=== PATIENT | female | born 1945 | race Caucasian/White ===

== ENCOUNTER 2020-08-11 09:02 | Day surgery (SDC) | payer OTHER ==
--- NOTE | 2020-08-05 11:55 | RAD REPORT ---
EXAM DESCRIPTION: RAD - Chest Pa And Lat (2 Views) - 08/05/2020 10:05 am CLINICAL HISTORY: pre op, fibrosis COMPARISON: January 2016 TECHNIQUE: Frontal and lateral views of the chest were obtained. FINDINGS: The lungs are mildly fibrotic but clear of a peripheral mass or consolidation. No acute fa ilure or volume overload. Heart size is normal and central vasculature is within normal limits. No pleural effusion or pneumothorax seen. No acute bone findings seen. There is old trauma deformity t o the right side of the chest. Patient has significantly accentuated lower thoracic kyphosis with adv anced lower thoracic degenerative change. No aortic abnormality. IMPRESSION: Mild chronic interstitial lung disease similar to comparison. Bold right ribcage posttraumatic deformity without right hemithorax volume loss. Patient has accentua oscar lower thoracic degenerative change.
--- NOTE | 2020-08-05 12:40 | EKG ---
Test Date: 2020-08-05 Test Time: 09:23:03 Bundle Wrapper: ROYCE MEASUREMENT RESULTS: Intervals: Rate: 67 PA: 216 QRSD: 78 QT: 406 QTc: 429 [place]: P: 65 PA: 216 QRS: 80 T: 75 INTERPRETIVE STATEMENTS: Sinus rhythm with 1st degree AV block Low voltage QRS Borderline ECG Compared to ECG 01/14/2016 06:33:05 Low QRS voltage now present Electronically Signed On 08-05-20 12:39:40 CLINICAL PROJECT ASSISTANT by Yusuf Fernandez
--- OUTSIDE RECORDS SUMMARY | 2020-08-11 09:34 | XMS REPORT | Continuity of Care Document ---
:1945 Author Organization [employer] [facility] Care Team Providers Name Role Phone [employer] [facility] Unavailable Un available Problems Problem Status Onset Classification Date Comments [facility] e Date Reported 781.99 - Active 12/11/19 [facility] NERVE/MUSCULSKE [place] ALLERGIC RHINITIS Active 05/26/20 Condition 05/26/2014 H [facility] 14 Group Allergic rhinitis Active 05/26/20 Problem 12/21/2014 1Data H [facility] (disorder) 14 migrated from [facility] [employer] on 12/09/14. COPD Active 05/17/20 Condition 05/26/2014 Medica l 14 Group Chronic Active 05/17/20 Problem 12/21/2014 3Data [facility] obstructive lung 14 migrated from [place] disease [employer] (disorder) on 12/09/14. 786.09 - Active 03/17/20 [facility] RESPIRATORY ABN 14 [place] HYPERLIPIDEMIA Active 03/17/20 Condition 05/26/2014 M edical 14 Group DYSPNEA ON Active 03/17/20 Condition 05/26/2014 Medic al EXERTION 14 Group PULMONARY NODULE Active 03/17/20 Condition 05/26/2014 Medical 14 Group Disease of lung Active 03/17/20 Problem 12/21/2014 4Data [facility] (disorder) 14 migrated from [facility] [employer] on 12/09/14. Dyspnea on Active 03/17/20 Problem 12/21/2014 5Data [facility] exertion 14 migrated from [place] [employer] on 12/09/14. Hyperlipidemia Active 03/17/20 Problem 12/21/2014 6Data O PID (disorder) 14 migrated from [facility] [employer] on 12/09/14. HYPERTENSION Active 02/14/20 Condition 05/26/2014 Med ical 14 Group ASTHMA Active 02/14/20 Condition 05/26/2014 Medica l 14 Group Asthma (disorder) Active 02/14/20 Problem 12/21/2014 2Data M H OPID 14 migrated from [facility] [employer] [facility] on 12/09/14. Hypertensive Active 02/14/20 Problem 12/21/2014 7Data MH OPI D disorder, 14 migrated from [facility] systemic arterial [employer] [facility] (disorder) on 12/09/14. SCIFICA Active 07/05/[address] SCIATICA Active [facility] Medications Medication Details Route Status Patient Ordering Order Source Instructions Provider Date FLUTICASONE Two sprays Active PROPIONATE 50 each nostril 014 Medic al MCG/ACT SUSP daily Group SYMBICORT 2 puffs twice Active 160-4.5 MCG/ACT daily 014 Medical AERO Group PRAVASTATIN 1 tablet Active SODIUM 20 MG nightly for 014 Medical TABS cholesterol Group SULFAMETHOXAZOLE 1 tablet twice Active -TMP DS 800-160 daily 014 Medical MG TABS Group TRIAMCINOLONE Apply to Active ACETONIDE 0.1 % affected areas 014 M edical CREA twice a day Group ADULT ASPIRIN 1 daily Active LOW STRENGTH 81 014 Medical MG TBDP Group LISINOPRIL-HYDRO 1 tablet daily Active CHLOROTHIAZIDE 014 Medical 20-12.5 MG TABS Group VENTOLIN HFA 108 Inhale 2 puffs Active MH (90 BASE) every 4 hours 014 Medical MCG/ACT AERS as needed for Group shortness of breath, cough or wheezing SULFAMETHOXAZOLE 1 tablet twice No -TMP DS 800-160 daily Longer 014 Medical MG TABS Active Group LISINOPRIL-HYDRO 1 tablet daily Active CHLOROTHIAZIDE 014 Medical 20-12.5 MG TABS Group PROVENTIL HFA 2 puffs every Active MH 108 (90 BASE) 4-6 hours as 014 Medic al MCG/ACT AERS needed for Group cough, wheezing, shortness of breath SULFAMETHOXAZOLE 1 tablet twice No -TMP DS 800-160 daily Longer 014 Medical MG TABS Active Group Allergies, Adverse Reactions, Alerts No Known Medication Allergies Immunizations No Data Provided for This Section Results No Data Provided for This Section Pathology Reports No Data Provided for This Section Diagnostic Reports Report Value Date Source Brain w/wo contrast 12/18/2014 [place] [facility] REASON FOR EXAM: 781.99, 850.9, V17.1. COMPARISON: MRI of the brain 12/18/2014. TECHNIQUE: Unenhanced and en hanced 3-dimensional time of flight MR imaging of the intracranial arterial vasculature was performed. The axial source images were reviewed. FINDINGS: There is mild marisela ent motion. Segmental irregularity of the cavernous segments of the internal carotid arteries is likely due to atherosclerotic changes without a demonstrable hemodynamically significant stenosis, left g reater than right. The caliber of the basilar artery is mildly diffusely increased measuring a maximal diameter of approximately 7 mm compatible with dolichoectasia. The basi lar artery is tortuous. Ther e is no demonstrable hemodynamically significant stenosis, saccular aneurysm or arterial venous malformation. The vertebral arteries are codominant. IMPRESSION: 1. Mild patient motion. 2. Atherosclerotic changes o f the cavernous segments of the internal carotid arteries, left greater than right. 3. Basilar artery dolichoectasia. 4. No demonstrable saccular aneurysm or hemodynamically significant stenosis of the intracranial arterial vasculature. SL: 15 Brain w/wo contrast 12/18/2014 [place] [facility] MRI REASON FOR EXAM: 781.99, 850.9, V17.1. COMPARISON: None. TECHNIQUE: Unenhanced and en hanced axial, coronal and sagittal MR images of the brain were performed. FINDINGS: There is mild marisela ent motion. There is mild generalized cerebral atrophy. There are mild to moderate chronic small vessel ischemic changes in the cerebral white matter. There are mild chronic small vessel ischemic change s in the zoë. There is no demonstrable mass, abnormal enhancement, acute infarction, hemorrhage, extra-axial fluid collection, midline shift or herniation. There is segmental mucosal t hickening of the bilateral ethmoid sinuses. There is a small amount of mucous in the posterior nasopharynx. There is hypertrophy of the right middle and inferior nasal turbin ates. There is leftward subha ation of the nasal septum. There is mild T2 hyperintensity in the right mastoid air cells. There is no demonstrable abn ormality of the orbits, pituitary fossa, internal auditory canals, craniocervical junction or calvarium. Flow is demonstrated in the major arteries and venous sinuses. IMPRESSION: 1. Mild patient motion. 2. There is no acute intracranial abnormality. 3. Mild generalized cerebral atrophy. 4. Chronic small vessel isch emic changes in the cerebral white matter and zoë. 5. Chronic ethmoid sinusitis. 6. Deviated nasal septum. 7. Right mastoiditis. SL: [address] 04/03/2014 [place] REASON FOR EXAM: 518.89, 786.09. COMPARISON: Chest x-ray 03/17/2014. TECHNIQUE: Enhanced axial he lical CT images of the chest were performed. Reformatted coronal and sagittal images were reviewed. FINDINGS: The heart size is upper limits of normal. Coronary artery, mitral annular and aortic calcifications. Tortuous descending thoracic aorta. The caliber of the thoracic aorta is within normal limi ts. Aberrant right subclavia n artery. No pathologic mediastinal or hilar lymphadenopathy. Diffuse fatty infiltration o f the liver. Partial fatty infiltration of the pancreas. Splenic artery calcifications. Small lymph nodes at the level of the main portal vein and pancreatic head the largest measuring 14 x 10 mm. No si gnificant abnormality of the subcutaneous soft tissues. Degenerative changes of the spine. Minimal anterior height loss involving multiple levels of the mid to lower thoracic spine. No demonstrable righ t rib abnormality as questioned on the comparison chest x-ray. There is a 9 x 4 mm noncalci fied bandlike density in the anterolateral aspect of the right middle lobe (image 29 series 3) likely corresponding to the nodular density on the comparison chest x-ray. Ther e is mild subsegmental atele ctasis versus scarring in the inferior lingula with adjacent segmental pleural lipomatosis corresponding to the 3.5 cm pleural-based opacity on the comparison chest x-ray. There is mild subsegmental a telectasis versus scarring in the medial basilar left lower lobe and minimally in the right lower lobe. There are several blebs in the right upper lobe the largest measuring 1 cm. No demonstrable infilt rate, pneumothorax, pleural effusion or endobronchial lesion. IMPRESSION: 1. There is a 9 mm noncalcif ied indeterminate bandlike opacity in the right middle lobe. A follow-up chest CT is suggested in 6 months to demonstrate stability. 2. Mild segmental pleural li pomatosis of the left lateral chest wall at the level of the lingula. 3. Mild subsegmental atelect asis versus scarring in the lingula and left lower lobe and minimally in the right lower lobe. 4. Several small blebs in the right upper lobe. 5. Arterial vascular and coronary artery disease . 6. Aberrant right subclavian artery. 7. Diffuse fatty infiltration of the liver. 8. Small nonspecific periportal and peripancreat ic lymph nodes. 9. Degenerative changes of the spine. SL: 15 Chest 2 views 03/17/2014 [place]ELY[place] REASON FOR EXAM: 786.09. COMPARISON: None. FINDINGS: Two view chest x-r ay. The cardiac silhouette is mildly enlarged. Tortuosity of the descending thoracic aorta. There is a 9 mm nodular density in the lateral right mid lung zone on the PA view. A pulmonary nodule cannot b e excluded. There is minimal nonspecific bandlike opacity associated with the superior margins of the right anterior sixth and seventh ribs on the PA view. There is a 3.5 x 1 cm pleural based opacity in the lateral left lower thorax on the PA view. There is no demonstrable infiltrate, vascular congestion, pneumothorax or pleural effusion. Degenerative changes of the spine. Minimal anterior height loss of several levels o f the lower thoracic spine. IMPRESSION: 1. Mild enlargement of the cardiac silhouette. 2. Subcentimeter nodular den sity in the right mid lung zone. A pulmonary nodule cannot be excluded. 3. Minimal nonspecific bandl zacarias opacity at the level of the right anterior sixth and seventh ribs. 4. Small pleural based opacity in the left lower thorax. 5. Further evaluation of the se findings may be obtained with an enhanced chest CT. SL: 15 Consultation Notes No Data Provided for This Section Discharge Summaries No Data Provided for This Section History and Physicals No Data Provided for This Section Vital Signs Vital Sign Value Date Comments Source Height 63 05/26/2014 [facility] Weight 239 05/26/2014 [facility] Temperature Oral (F) 96.817 F 05/26/2014 [facility] Respitory Rate 16 05/26/2014 [facility] Gr oup Systolic (mm Hg) 151 05/26/2014 Medical Group Diastolic (mm Hg) 82 05/26/2014 Medical Group Heart Rate 90 05/26/2014 [facility] p Weight 239 03/17/2014 Medical Gr[facility] p Temperature Oral (F) 96.5 F 03/17/2014 [facility]i ser[facility] Group Respitory Rate 16 03/17/2014 Medical Gr oup Heart Rate 84 03/17/2014 Medical Gr[facility] p Systolic (mm Hg) 159 03/17/2014 Medical Group Diastolic (mm Hg) 90 03/17/2014 Medical Group Weight 240 02/13/2014 Medical Grou p Temperature Oral (F) 97.7 F 02/13/2014 Medi ser[facility] Group Systolic (mm Hg) 196 02/13/2014 Medical Group Diastolic (mm Hg) 112 02/13/2014 Medical Group Heart Rate 87 02/13/2014 Medical Gr[facility] p Height 63 02/13/2014 [facility] Gr[facility] p Encounters Location Location Encounter Encounter Reason Attending ADM DC Stat us Source Details Type Number For Provider Date Date Visit [facility] Outpatient [id number] MARTHA LAMBERT 07/13 A ctive [facility] [id number] [facility] 02/13 02/13 [place] Visit [id number]OP[facility] Lab Report [id number] [facility] 02/14 02/14 [place] [id number] [facility] Medical CLIENT DEVELOPMENT CONSULTANT Group [facility] [place] [facility] Office [id number] [facility] 03/17 03/17 [place] Visit [id number] Medical Medical CLIENT DEVELOPMENT [facility] Group Group [facility] Outpt Diag [id number] [facility] 03/17 03/18 [facility] [place] [facility] Outpt Diag [id number] [place] 04/03 04/04 [facility] [place] [facility] Office [id number] [facility] 05/26 05/26 [place] Visit [id number] Medical Medical CLIENT DEVELOPMENT CONSULT[facility] Group Group [facility] Outpt Diag [id number] [place] 12/18 12/19 M [facility] Outpatient [facility] 2 [place] [facility] [place] Out[facility] [id number] [place] [facility]02 [facility] [place] [facility] [id number] [facility] 01/28 [facility] [place] Procedures Procedure Code Date Perfomer Comments Source smoking/tobacco 14 02/13/2014 no [facility] Medica l cessation, patient Group education and counseling Assessment and Plan No Data Provided for This Section Plan of Care No Data Provided for This Section Social History Social History Date Source No data available for this 12/19/2014 JOCELYNE Jonas and section Family History No Data Provided for This Section Advance Directives No Data Provided for This Section Functional Status No Data Provided for This Section
--- OUTSIDE RECORDS SUMMARY | 2020-08-11 09:34 | XMS REPORT | Clinical Summary ---
:1945 Author Organization [facility] Address [address] [place] [address] Care Team Providers Name Role Phone Victorina Dong MD Primary Care Provider Allergies Active Allergy Reactions Severity Noted Date Comments Amoxicillin GI Intolerance 07/19/2019 Vomiting diar kyle Fentanyl Other (See Comments) 07/19/2019 halluci nations Azithromycin Diarrhea Low 07/23/2019 Medications Medication Sig Dispensed Refills Start Date End Date Status aspirin (ECOTRIN) 81 Take 81 mg by 0 Active MG enteric coated mouth daily. tablet BIOTIN ORAL Take 1 tablet 0 Acti ve by mouth daily. BLACK COHOSH ORAL Take 1 tablet 0 Active by mouth daily. cholecalciferol, Take 1 tablet 0 Active vitamin D3, (VITAMIN by mouth daily. D3 ORAL) LYSINE ORAL Take 1 tablet 0 Acti ve by mouth daily. POTASSIUM ORAL Take 2 tablets 0 Active by mouth 3 (three) times a day. acetaminophen (TYLENOL Take 2 tablets 0 Active ORAL) by mouth 3 (three) times a day. amLODIPine (NORVASC) Take 10 mg by 0 Active 10 mg tablet mouth daily. fluticasone Inhale 1 puff 2 0 Ac tive propion/salmeterol (two) times a (ADVAIR DISKUS INHL) day. ezetimibe (ZETIA) 10 Take 10 mg by 0 Active mg tablet mouth daily. fenofibrate (TRICOR) Take 145 mg by 0 Active 145 MG tablet mouth daily. fluticasone propionate 2 sprays by 0 Active (FLONASE) 50 Each Nare route mcg/actuation nasal daily. spray levocetirizine (XYZAL) Take 5 mg by 0 Active 5 MG tablet mouth every evening. rosuvastatin (CRESTOR) Take 20 mg by 0 Active 20 MG tablet mouth daily. denosumab (PROLIA) 60 Inject 60 mg 0 Active mg/mL syringe syringe under the skin once. ciprofloxacin (CIPRO) Take 1 tablet 14 tablet 0 09/13/2019 500 MG tablet (500 mg total) by mouth 2 (two) times a day for 7 days. Active Problems Not on file Encounters Date Type Specialty Care Team Description 09/13/2019 Anesthesia Event General Surgery Paddy De Leon MD Cheema, Ivelisse, FNP 09/13/2019 Surgery General Surgery Peterson Kaba PLACEMENT SACRAL Cyrus GREENWOOD MD NERVE STEMULATO R FOR INTRASTIM 09/13/2019 Hospital Encounter General Surgery Peterson Kaba III, MD after 08/11/2019 Surgical History Surgery Date Site/Laterality Comments TONSILLECTOMY FRACTURE SURGERY Right forearm HIP ARTHROPLASTY Left NEPHROLITHOTOMY, PERCUTANEOUS 07/23/2019 Posterior Pr ocedure: PERCUTANEOUS NERVE EVALUATION; Issa geon: Peterson Kaba II, MD; Location: [facility]; Service: Urology ; Laterality: Post erior; Medical devices from this surgery are in t he Implants section. INSERTION, NEUROSTIMULATOR, 09/13/2019 N/A Proc edure: PLACEMENT SACRAL SACRAL NERVE STEMULATOR FOR INTRASTIM; Surg johana: Peterson Kaba II, MD; Location: [facility] OR; Service: Urology ; Laterality: N/A; Medical devices from this surgery are in t he Implants section. Medical History Medical History Date Comments Hypertension Asthma COPD (chronic obstructive pulmonary disease) (HCC) PNA (pneumonia) Incontinence Wears glasses Family History Medical History Relation Name Comments Aneurysm Father Aneurysm Mother Diabetes Mother Hypertension Mother Relation Name Status Comments Father Mother Social History Tobacco Use Types Packs/Day Years Used Date Former Smoker 1961 - 1991 Smokeless Tobacco: Never Used Alcohol Use Drinks/Week oz/Week Comments Not Currently Sex Assigned at Date Recorded Not on file Last Filed Vital Signs Vital Sign Reading Time Taken Comments Blood Pressure 159/85 09/13/2019 4:05 PM LACE [facility]ENDER Pulse 66 09/13/2019 4:05 PM LACE MENDER Temperature 36.3 C (97.4 F) 09/13/2019 4:05 PM LACE MENDER Respiratory Rate 20 09/13/2019 4:05 PM LACE MENDER Oxygen Saturation 99% 09/13/2019 4:05 PM LACE MENDER Inhaled Oxygen Concentration - - Weight 103 kg (226 lb) 09/13/2019 3:20 PM LACE MENDER Height 154.9 cm (5' 1") 09/13/2019 3:20 PM LACE MENDER Body Mass Index 42.7 09/13/2019 3:20 PM LACE MENDER Plan of Treatment Health Maintenance Due Date Last Done Comments COVID-19 VACCINE (1 of 2) 1961 BREAST CANCER SCREENING 1995 COLONOSCOPY SCREENING 1995 SHINGLES VACCINES (#1) 1995 INFLUENZA VACCINE 02/08/2020 65+ PNEUMOCOCCAL VACCINE Completed 06/03/2019 Implants Implanted Type Area Talent Agent Device Shelf Model / Identifier Expiration Serial / Date Lot Kit Nurostmltn Lead Tined 4 Elctrd Spaced 3mm 28cm - [id number] Cardiac N/A: [employer] 06/29/2023 [id number] / Implanted: Qty: 1 on 09/13/2019 by Peterson Kaba III, MD at [facility] Pacing Leads Back, NEUROMODULATION / or Other [id number] Electrodes than or Spine Accessories Test Stimulation Lead - [id number] IMPLANT Posterior [employer] 10/15/2020 [id number] / Implanted: Qty: 1 on 07/23/2019 by Peterson Kaba III, MD at [facility] DEVICES : N/A NEUROMODULATION / [id number] Test Stimulation Lead Kit - [id number] IPM IMPLANT N/A: N/A [employer] IC 02/15/2021 [id number] / Implanted: Qty: 1 on 07/23/2019 by Peterson Kaba III, MD at [facility] DEVICES NEUROMODULATION / [id number] Neurostimulator Imp Interstim Ii [id number] .7mm Nrechrgbl - [id number] - [id number] Neurosurgica Left: [employer] [place] - 12/21/2020 [id number] / Implanted: Qty: 1 on 09/13/2019 by Peterson Kaba III, MD at [facility] l Implants Buttocks NEUROLOGICAL [id number] / [id number] Verify External Sacral Neurostimulator Pain Mgmt Posterior [id number] / Implanted: Qty: 1 on 07/23/2019 by Peterson Kaba III, MD at [facility] Implantable : N/A / Devices [id number] Procedures Procedure Name Priority Date/Time Associated Comments Diagnosis OR FL < 1 HOUR Routine 09/13/2019 4:15 Results f or this PM [facility]ACE [facility]ENDER procedure are i n the results section. MN AN ELECTIVE Routine 09/13/2019 2:21 Results f or this ENDOTRACHEAL AIRWAY PM LACE MENDER procedur e are in the results section. POC GLUCOSE Routine 09/13/2019 11:41 Results for this AM [facility]ACE [facility]ENDER procedure are i n the results section. ESTIMATED GFR STAT 09/13/2019 11:40 Results fo r this AM LACE MENDER procedure are i n the results section. BASIC METABOLIC PANEL STAT 09/13/2019 11:40 Re sults for this AM LACE MENDER procedure are i n the results section. HC COMPLETE BLD COUNT STAT 09/13/2019 11:40 Re sults for this W/AUTO DIFF AM LACE [facility]ENDER procedure are i n the results section. ECG 12-LEAD STAT 09/13/2019 11:18 Results for this AM LACE MENDER procedure are i n the results section. after 08/11/2019 Results OR FL < 1 Hour (09/13/2019 4:15 PM LACE MENDER) Specimen Narrative Performed At EXAMINATION: OR FL < 1 HOUR [facility] C-arm fluoroscopy was requested in OR. IMPRESSION: Separate operative report will be issued by the physic luzma performing the procedure. [id number] Procedure Note Hm Interface, Radiology Results Incoming - 09/18/2019 2:39 PM CDT EXAMINATION: OR FL < 1 HOUR C-arm fluoroscopy was requested in OR. IMPRESSION: Separate operative report will be issued by the physician performing the procedure. [id number] Performing Organization Address City/State/ZIP Code [facility] e Number [facility] [address] [place] [address] Airway (09/13/2019 2:21 PM LACE MENDER) Narrative Performed At Michelle Can CRNA 0 2:22 PM Airway Date/Time: 09/13/2019 1:14 PM Performed by: Michelle Can CRNA Authorized by: Paddy De Leon MD Location: OR Urgency: Elective Difficult Airway: No Anesthesiologist: Paddy De Leon MD Resident/PET HOUSE SITTER/AA: Michelle Can CRNA Performed by: resident/PET HOUSE SITTER/AA Preoxygenated with 100% O2: Yes Mask Ventilation: Easy mask Final Airway Type: Endotracheal airway Final Endotracheal Airway: ETT Cuffed: Yes Technique Used: Direct laryngoscopy Devices/Methods Used in Placement: Int ubating stylet Insertion Site: Oral Blade Type: Hiral Laryngoscope Blade/Videolaryngoscope Rafael de Size: 3 ETT Size (mm): 7.0 Cuff at minimum occlusion pressure: Yes Measured from: Lips ETT to Lips (cm): 21 Placement Verified by: CO2 detection, di rect visualization and equal breath sounds Laryngoscopic view: Grade I - full vie w of glottis Number of Attempts at Approach: 1 POC glucose (09/13/2019 11:41 AM LACE MENDER) Pathologist [facility] POC glucose 101 (H) 65 - 99 mg/dL [facility] Comment: [facility] Payment Analyst Name: [employer] Device ID: [id number] Chartable: RN Notified Specimen Performing Organization Address [facility] Phon e Number [facility] DEPARTMENT OF PATHOLOGY [address] [place] [address] Estimated GFR (09/13/2019 11:40 AM LACE MENDER) [facility] Estimated GFR 57 (A) mL/min/1.73 [facility] Comment: m2 NAHUNTA Catergory Units Interpretation HOS PITAL G1 >=90 Normal or high G2 60-89 Mildly decreased G3a 45-59 Mildly to moderately decreas ed G3b 30-44 Moderately to severely decre ased G4 15-29 Severely decreased G5 <15 Kidney failure The eGFR was calculated using the Chronic Kidney Disea se Epidemiology Collaboration (CKD-EPI) equation. Interpretation is based on recommendations of the National Kidney Foundation-Kidney Disease Outcomes Harish lity Initiative (NKF-KDOQI) published in 2014. Specimen Plasma specimen Performing Organization Address City/[facility]/ZIP [facility] Phon e Number [facility] DEPARTMENT OF PATHOLOGY [address] [place] [address] CBC with platelet and differential (09/13/2019 11:40 AM LACE MENDER) [facility] WBC 7.1 4.5 - 11.0 k/uL [facility] RBC 4.67 4.20 - 5.50 [facility] m/uL [facility] HGB 13.8 12.0 - 16.0 [facility] g/dL [facility] HCT 41.8 37.0 - 47.0 % [facility] MCV 89.5 82.0 - 100.0 fL [facility] MCH 29.6 27.0 - 34.0 pg [facility] MCHC 33.0 31.0 - 37.0 [facility] g/dL [facility] RDW - SD 42.1 37.0 - 55.0 fL [facility] MPV 10.4 6.9 - 11.0 fL [facility] Platelet count 175 150 - 400 K/uL [facility] Nucleated RBC 0.00 /100 WBC [facility] Neutrophils 68.3 39.0 - 69.0 % [facility] Lymphocytes 20.5 (L) 25.0 - 45.0 % [facility] Monocytes 7.5 0.0 - 10.0 % [facility] Eosinophils 2.0 0.0 - 5.0 % [facility] Basophils 0.6 0.0 - 1.0 % [facility] Immature granulocytes 1.1 (H) 0.0 - 1.0 % [facility] Specimen Blood Performing Organization Address City/State/ZIP Code Phon e Number [facility] DEPARTMENT OF PATHOLOGY [address] [facility] [place] [address] AND GENOMIC MEDICINE [facility] [address] [facility] [place] [address] HOSPITAL Basic metabolic panel (09/13/2019 11:40 AM LACE MENDER) Pathologist Sig nature Sodium 141 135 - 148 mEq/L [facility] Potassium 4.1 3.5 - 5.0 mEq/L [facility] Chloride 104 98 - 112 mEq/L [facility] CO2 22 (L) 24 - 31 mEq/L [facility] Anion gap 15@ANIO 7 - 15 mEq/L [facility] BUN 25 (H) 8 - 23 mg/dL [facility] Creatinine 0.98 (H) 0.50 - 0.90 mg/dL [facility] Glucose 119 (H) 65 - 99 mg/dL [facility] Calcium 10.8 (H) 8.8 - 10.2 mg/dL [facility] Specimen Plasma specimen Performing Organization Address City/State/ZIP Code Phon e Number [facility] DEPARTMENT OF PATHOLOGY [address] [facility] [address] AND GENOMIC MEDICINE [facility] [address] [facility] [address] HOSPITAL ECG 12 lead (09/13/2019 11:18 AM LACE MENDER) Pathologist Sig nature Ventricular rate 84 [facility] Atrial rate 84 [facility] MN interval 204 [facility] QRSD interval 82 [facility] QT interval 386 [facility] QTC interval 456 [facility] P axis 1 38 [facility] QRS axis 1 32 [facility] T wave axis 54 [facility] EKG impression Normal sinus [facility] rhythm-Normal ECG-No previous ECGs available-Electronicall y Signed By Eligio Lim MD (2016) on 09/14/2019 2:24:30 PM Specimen Narrative Performed At This result has an attachment that is no t available. Performing Organization Address City/[facility]/ZIP Code Phon e Number 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
--- OUTSIDE RECORDS SUMMARY | 2020-08-11 09:35 | XMS REPORT | Continuity of Care Document ---
:1945 Author Organization [facility] t Address [address] [place] [address] Care Team Providers Name Role Phone Letitia MILLIGAN Primary Care Physician Cyrus Kaba MD Attending Clinician Moises MILLIGAN, Chris Attending Clinician Dayne PENA Attending Clinician Alan Nolan Attending Clinician Devin Colin Attending Clinician ASIYA Admitting Clinician Unavailable Payers Payer Name Policy Type Policy Effective Date Expiration Source Number Date CIG[employer] [id number] 2018 [facility] [facility] [id number] 2018-Pr esentHMO Problems Condition Condition Condition Status Onset Resolution Last Treating Co mments Source Name Details Category Date Date Treatment Clinician Date 781.99 - Diagnosis Active 2015-01-13 M emoria NERVE/MUSC 12-10 08:08:00 l ULSKE 781.99 - 00:01: Randy bartlett NERVE/MUSC 00 ULSKE Active 12/10/2014 [facility] [place] ALLERGIC Condition Active 2013-072014-05-26 M emoria RHINITIS 07-26 07:57:20 l ALLERGIC 00:00: Randy n RHINITIS 00 Active 05/26/2014 [facility] Allergic Problem Active 2013-072014-12-21 Mem oria rhinitis - 01:41:13 l (disorder) Allergic 00:00: He rmann rhinitis 00 (disorder) Active 05/26/2014 Problem 12/21/2014 1Data migrated from [employer] on 12/09/14. OPIJennie Ramirez COPD Condition Active 2013-072014-05-26 Mem oria -08 07:57:20 l COPD 00:00: [place] 00 Active 05/17/2014 [facility] Chronic Problem Active 2013-072014-12-21 Itz annette obstructiv 07-17 01:41:13 l e lung Chronic 00:00: [place] disease obstructiv 00 (disorder) e lung disease (disorder) Active 05/17/2014 Problem 12/21/2014 3Data migrated from [employer] on 12/09/14. JOCELYNE Ramirez 786.09 - Diagnosis Active 2014-04-21 M emoria RESPIRATOR 03-17 15:36:00 l Y ABN 786.09 - 00:01: Randy n RESPIRATOR 00 Y ABN Active 03/17/2014 JOCELYNE Ramirez HYPERLIPID Condition Active 2014-05-26 Memoria EMIA 03-17 07:57:20 l 00:00: [place] HYPERLIPID 00 EMIA Active 03/17/2014 [facility] DYSPNEA ON Condition Active 2014-05-26 Memoria EXERTION 03-17 07:57:20 l DYSPNEA 00:00: [place] ON 00 EXERTION Active 03/17/2014 [facility] PULMONARY Condition Active 2014-05-26 Memoria NODULE 03-17 07:57:20 l 00:00: [place] PULMONARY 00 NODULE Active 03/17/2014 [facility] Disease of Problem Active 2014-12-21 M emoria lung 03-17 01:41:13 l (disorder) Disease 00:00: Her domínguez of lung 00 (disorder) Active 03/17/2014 Problem 12/21/2014 4Data migrated from [employer] on 12/09/14. JOCELYNE Ramirez Dyspnea on Problem Active 2014-12-21 M emoria exertion 03-17 01:41:13 l (finding) Dyspnea 00:00: Herm flory on 00 exertion (finding) Active 03/17/2014 Problem 12/21/2014 5Data migrated from [employer] on 12/09/14. JOCELYNE Ramirez Hyperlipid Problem Active 2014-12-21 M emoria emia 03-17 01:41:13 l (disorder) 00:00: Randy n Hyperlipid 00 emia (disorder) Active 03/17/2014 Problem 12/21/2014 6Data migrated from [employer] on 12/09/14. JOCELYNE Ramirez HYPERTENSI Condition Active 2014-05-26 Memoria ON 02-13 07:57:20 l 00:00: [place] HYPERTENSI 00 ON Active 4 Condition 05/26/2014 Medical Group ASTHMA Condition Active 2014-05-26 Mem oria 02-13 07:57:20 l ASTHMA 00:00: [place] 00 Active 02/13/2014 [facility] Asthma Problem Active 2014-12-21 Memor ia (disorder) 02-13 01:41:13 l Asthma 00:00: [place] (disorder) 00 Active 02/13/2014 Problem 12/21/2014 2Data migrated from [employer] on 12/09/14. JOCELYNE Ramirez Hypertensi Problem Active 2014-12-21 M emoria ve 02-13 01:41:13 l disorder, 00:00: [place] systemic Hypertensi 00 arterial ve (disorder) disorder, systemic arterial (disorder) Active 02/13/2014 Problem 12/21/2014 7Data migrated from [employer] on 12/09/14. JOCELYNE [place] SCIFICA Diagnosis Active 2010-072011-07-13 Me moria 09-05 07:56:00 l SCIFICA 00:00: [place] 00 Active 07/05/2011 [facility] SCIATICA Diagnosis Active 2011-07-13 M emoria 07:56:00 l SCIATICA Randy n Active [facility] Allergies, Adverse Reactions, Alerts Allergy Allergy Status Severity Reaction(s) Onset Inactive Treating Comm ents Source Name Type Date Date Clinician Ivana Propensi Active Diarrhea 2019-0 [place] ty to 1-14 Methodi adverse 00:00: st reaction 00 s to drug Amoxicil Propensi Active GI 2019-0 Vomiting [place] miley ty to Intolerance 1-10 diarrhea Met hodi adverse 00:00: st reaction 00 s to drug Fentanyl Propensi Active Other (See hallucina [place] ty to Comments) 1-10 tions Methodi adverse 00:00: st reaction 00 s to drug Family History Family Member Diagnosis Comments Start Date Stop Date Source Natural father Aneurysm [place] [facility] Natural mother Aneurysm [place] [facility] Natural mother Diabetes [place] [facility] Natural mother Hypertension [place] Yarsani Social History Social Habit Start Date Stop Date Quantity Comments Source History of Current smoker [facility] thodist tobacco use Sex Assigned At [facility] ethodist Tobacco use and 2019-09-16 2019-09-16 Never used [facility] ethodist exposure 00:00:00 00:00:00 Alcohol intake 2019-09-16 2019-09-16 Ex-drinker [facility] thodist 00:00:00 00:00:00 (finding) Social History 2014-12-19 2014-12-19 [facility] 04:59:00 04:59:00 Smoking Status Start Date Stop Date Source Former smoker 2019-09-16 00:00:00 2019-09-16 00:00:00 Tadeo Pope Medications Ordered Filled Start Stop Current Ordering Indication Dosage Frequency Signature Comments Components Source Medication Medication Date Date Medication? Clinician (SIG) Name Name Levocetiriz Levocetiriz 2019- Yes Victorina TAKE [address] [facility] ine ine 3-20 [place] TABLET BY [facility] - Dihydrochlo Dihydrochlo 00:00: MOUTH ONCE Memoria ride ride 00 DAILY FOR l 90 DAYS Outpati ent Clinics aspirin 2020-0 Yes 81mg QD Take 81 mg [place] (ECOTRIN) 3-06 by mouth Method i 81 MG 16:26: daily. st enteric 39 coated tablet BIOTIN ORAL 2020-0 Yes 1{tbl} QD Take 1 [place] 3-06 tablet by Methodi 16:26: mouth st 39 daily. BLACK 2020-0 Yes 1{tbl} QD Take 1 [place] COHOSH ORAL 3-06 tablet by Met hodi 16:26: mouth st 39 daily. cholecalcif 2020-0 Yes 1{tbl} QD Take 1 [facility] anthony maylin, 3-06 tablet by Methodi vitamin D3, 16:26: mouth st (VITAMIN D3 39 daily. ORAL) LYSINE ORAL 2020-0 Yes 1{tbl} QD Take 1 [place] 3-06 tablet by Methodi 16:26: mouth st 39 daily. POTASSIUM 2020-0 Yes 2{tbl} Q.04125154 Take 2 [place] ORAL 3-06 [id number] tablets by Met hodi 16:26: 3D mouth 3 st 39 (three) times a day. acetaminoph 2020-0 Yes 2{tbl} Q.35559231 Take 2 [place] en (TYLENOL 3-06 [id number] tablets by Methodi ORAL) 16:26: 3D mouth 3 st 39 (three) times a day. amLODIPine 2020-0 Yes 10mg QD Take 10 mg [place] (NORVASC) 3-06 by mouth Method i 10 mg 16:26: daily. st tablet 39 fluticasone 2020-0 Yes 1{puff} Q.5D Inhale 1 [place] propion/nael 3-06 puff 2 Method i meterol 16:26: (two) st (ADVAIR 39 times a DISKUS day. INHL) ezetimibe 2020-0 Yes 10mg QD Take 10 mg Ho gerber (ZETIA) 10 3-06 by mouth Metho di mg tablet 16:26: daily. st 39 fenofibrate 2020-0 Yes 145mg QD Take 145 [place] (TRICOR) 3-06 mg by Methodi 145 MG 16:26: mouth st tablet 39 daily. fluticasone 2020-0 Yes 2{spray QD 2 sprays [place] propionate 3-06 } by Each Method i (FLONASE) 16:26: Nare route st 50 39 daily. mcg/actuati on nasal spray levocetiriz 2020-0 Yes 5mg QD Take 5 mg H oujosefa ine (XYZAL) 3-06 by mouth Meth tammy 5 MG tablet 16:26: every st 39 evening. rosuvastati 2020-0 Yes 20mg QD Take 20 mg [place] n (CRESTOR) 3-06 by mouth Meth tammy 20 MG 16:26: daily. st tablet 39 denosumab 2020-0 Yes 60mg Inject 60 Karely ston (PROLIA) 60 3-06 mg under Meth tammy mg/mL 16:26: the skin st syringe 39 once. syringe ciprofloxac 2019-0 2020- No 500mg Q.5D Take 1 Alexey mayes in (CIPRO) 3-06 03-13 tablet Method i 500 MG 00:00: 23:59 ([address] tablet 00 :00 total) by mouth 2 (two) times a day for 7 days. FLUTICASONE 2013-07 Yes Two sprays Memoria PROPIONATE 1-17 each l 50 MCG/ACT 00:00: nostril Herm flory SUSP 00 daily SYMBICORT 2013-07 Yes 2 puffs Memor ia 160-4.5 1-08 twice l MCG/ACT 00:00: daily [place] AERO 00 PRAVASTATIN Yes 1 tablet Me moria SODIUM 20 9-08 nightly l MG TABS 00:00: for [place] 00 cholestero l SULFAMETHOX Yes 1 tablet Me moria AZOLE-TMP 8-07 twice l DS 800-160 00:00: daily Randy n MG TABS 00 TRIAMCINOLO Yes Apply to Me moria NE 8-07 affected l ACETONIDE 00:00: areas [place] 0.1 % CREA 00 twice a day ADULT Yes 1 daily Memoria ASPIRIN LOW 8-07 l STRENGTH 81 00:00: Randy n MG TBDP 00 LISINOPRIL- Yes 1 tablet Me moria HYDROCHLORO 8-07 daily l THIAZIDE 00:00: [place] 20-12.5 MG 00 TABS VENTOLIN Yes Inhale 2 Memor ia HFA 108 (90 8-07 puffs l BASE) 00:00: every 4 [place] MCG/ACT 00 hours as AERS needed for shortness of breath, cough or wheezing SULFAMETHOX No 1 tablet Me moria AZOLE-TMP 8-07 twice l DS 800-160 00:00: daily Randy n MG TABS 00 LISINOPRIL- Yes 1 tablet Me moria HYDROCHLORO 8-07 daily l THIAZIDE 00:00: [place] 20-12.5 MG 00 TABS PROVENTIL Yes 2 puffs Memor ia HFA 108 (90 8-07 every 4-6 l BASE) 00:00: hours as [place] MCG/ACT 00 needed for AERS cough, wheezing, shortness of breath SULFAMETHOX 2014-0 No 1 tablet Me moria AZOLE-TMP 8-07 twice l DS 800-160 00:00: daily Randy n MG TABS 00 Aspirin 81 Aspirin 81 Yes Victorina [address] [facility] Ezetimibe Ezetimibe Yes Victorina [address] [facility] Amlodipine Amlodipine Yes Victorina [address] Besylate Besylate Millender Lenore kes - [facility] Fenofibrate Fenofibrate Yes Victorina [address] [facility] [facility]ender [facility] Fluticasone Fluticasone Yes Victorina use one [facility] Propionate Propionate [place] spray in [facility] once daily [facility] Osphena Osphena Yes Victorina daily [facility] Rosuvastati Rosuvastati Yes Victorina [address] n Calcium n Calcium Mill[place] in evening [facility] Valsartan Valsartan Yes Victorina [address] [facility] Millender [facility] Advair Advair Yes Victorina [address] Diskus Diskus Millender [facility] ProAir HFA ProAir HFA Yes Victorina [address] Millender needed kes - Memoria l [facility] Prolia Prolia 2020- No Victorina 60 mg (1 [facility] t -08 Mill[place] ml) [facility] - [facility]00 Memoria :00 l [facility] Vital Signs Vital Name Observation Time Observation Value Comments Source Systolic blood 2019-09-13 16:05:00 159 mm[Hg] Burak bartlett Yarsani pressure Diastolic blood 2019-09-13 16:05:00 85 mm[Hg] [place] Yarsani pressure Heart rate 2019-09-13 16:05:00 66 /min Tadeo Pope Body temperature 2019-09-13 16:05:00 36.33 Radha Joann ton Yarsani Respiratory rate 2019-09-13 16:05:00 20 /min Joann Pope Oxygen saturation in 2019-09-13 16:05:00 99 /min Tadeo Pope Arterial blood by Pulse oximetry Body height 2019-09-13 15:20:00 154.9 cm Tadeo Pope Body weight 2019-09-13 15:20:00 102.513 kg [place] Yarsani BMI 2019-09-13 15:20:00 42.70 kg/m2 Tadeo Pope Height 2014-05-26 13:57:20 [facility] [place] Weight 2014-05-26 13:57:20 [facility] [place] Temperature Oral (F) 2014-05-26 13:57:20 96.817 F [facility] [place] Respitory Rate 2014-05-26 13:57:20 Memori al [place] Systolic (mm Hg) 2014-05-26 13:57:20 Itz rial [place] Diastolic (mm Hg) 2014-05-26 13:57:20 Mem orial [place] Heart Rate 2014-05-26 13:57:20 [facility] [place] Weight 2014-03-17 14:43:20 [facility] [place] Temperature Oral (F) 2014-03-17 14:43:20 96.5 F [facility] [place] Respitory Rate 2014-03-17 14:43:20 Memori al [place] Heart Rate 2014-03-17 14:43:20 [facility] [place] Systolic (mm Hg) 2014-03-17 14:43:20 Itz rial [place] Diastolic (mm Hg) 2014-03-17 14:43:20 Mem orial [place] Weight 2014-02-13 12:31:21 [facility] [place] Temperature Oral (F) 2014-02-13 12:31:21 97.7 F [facility] [place] Systolic (mm Hg) 2014-02-13 12:31:21 Itz rial [place] Diastolic (mm Hg) 2014-02-13 12:31:21 Mem orial [place] Heart Rate 2014-02-13 12:31:21 [facility] [place] Height 2014-02-13 12:31:21 [facility] [place] Procedures Procedure Date / Time Performed Performing Clinician Sourc e OR [place] < 1 HOUR 2019-09-13 16:15:00 Miriam Kaba SD AN ELECTIVE 2019-09-13 14:21:20 Michelle Can ENDOTRACHEAL AIRWAY POC GLUCOSE 2019-09-13 11:41:00 Miriam Kaba HC COMPLETE BLD COUNT 2019-09-13 11:40:00 Kat Oscar on Yarsani W/AUTO DIFF BASIC METABOLIC PANEL 2019-09-13 11:40:00 Kat Oscar on Yarsani ESTIMATED GFR 2019-09-13 11:40:00 DayneKat miner Met aminah ECG 12-LEAD 2019-09-13 11:18:47 DayneKat Met aminah smoking/tobacco 2014-02-13 12:31:21 [facility] cessation, patient education and counseling Plan of Care Planned Activity Planned Date Details Comments Source Future Scheduled 2020-02-08 INFLUENZA VACCINE [place] [facility] Test 00:00:00 [code = INFLUENZA VACCINE] Future Scheduled 1995 BREAST CANCER [place] [facility] Test 00:00:00 SCREENING [code = BREAST CANCER SCREENING] Future Scheduled 1995 COLONOSCOPY SCREENING Alexey mayes Yarsani Test 00:00:00 [code = COLONOSCOPY SCREENING] Future Scheduled 1995 SHINGLES VACCINES [place] [facility] Test 00:00:00 (#1) [code = SHINGLES VACCINES (#1)] Future Scheduled 1961 COVID-19 VACCINE (1 [place] [facility]ani Test 00:00:00 of 2) [code = COVID-19 VACCINE (1 of 2)] Encounters Start End Encounter Admission Attending Care Care Encounter Source Date/Time Date/Time Type Type Clinicians Facility Department ID 2020-06-10 2020-06-10 Outpatient [facility] [id number] [facility] 2020-06-09 2020-06-09 Outpatient [facility] [id number] [facility] 2020-05-15 2020-05-15 Outpatient [facility] [id number] [facility] 2020-05-06 2020-05-06 Outpatient [facility] [id number] [facility] 2020-04-30 2020-04-30 Outpatient [facility] [id number] [facility] 2020-04-21 2020-04-21 [id number] 2020-03-12 2020-03-12 [facility] [id number] [address] 04:27:00 04:27:00 [facility] Medicine l Medicine Outpati ent Clinics 2020-03-10 2020-03-10 [facility] [id number] 13:00:00 13:00:00 [facility] Medicine l Medicine Outpati ent Clinics 2020-01-20 2020-01-20 [facility] [id number] 09:30:00 09:30:00 [facility] l Medicine Outpati ent Clinics 2020-01-20 2020-01-20 [facility] [id number] 08:20:00 08:20:00 [facility] Medicine l Medicine Outpati ent Clinics 2020-01-08 2020-01-08 [facility] [id number] 10:05:00 10:05:00 [facility] l Medicine Outpati ent Clinics 2019-12-05 2019-12-05 [facility] [id number] 11:18:00 11:18:00 [facility] Medicine l Medicine Outpati ent Clinics 2019-10-30 2019-10-30 [facility] [id number] 09:00:00 09:00:00 [facility] Medicine l Medicine Outpati ent Clinics 2019-10-21 2019-10-21 [facility] [id number] 13:33:00 13:33:00 [facility] Medicine Outpati ent Clinics 2019-10-21 2019-10-21 [facility] [id number] 10:30:00 10:30:00 [facility] Medicine Outpati ent Clinics 2019-09-26 2019-09-26 [facility] [id number] 15:01:00 15:01:00 [facility] Medicine Outpati ent Clinics 2019-09-13 2019-09-[address] [facility] [id number] [place] 00:00:00 00:00:00 MIRIAM [address] 2019-07-23 2019-07-[address] [facility] [id number] 222 [place] 00:00:00 00:00:00 MIRIAM [address] 2019-06-17 2019-06-17 [facility] [id number] 13:20:00 13:20:00 [facility] Medicine Outpati ent Clinics 2019-05-24 2019-05-24 [facility] [id number] 16:20:00 16:20:00 [facility] Medicine Outpati ent Clinics 2019-04-26 2019-04-26 [facility] [id number] 11:45:00 11:45:[address] [facility] Medicine Outpati ent Clinics 2019-02-26 2019-02-26 [facility] [id number] 13:15:00 13:15:00 [facility] Medicine Outpati ent Clinics 2019-02-26 2019-02-26 [facility] [id number] 13:00:00 13:00:00 [facility] Medicine Outpati ent Clinics 2018-10-17 2018-10-17 [facility] [id number] 15:30:00 15:30:00 [facility] Medicine Outpati ent Clinics 2018-04-23 2018-04-23 [facility] [id number] 13:30:00 13:30:00 t Specialty/U Lenore kes - Specialty rology Memori a /Urology Clinic l Clinic Outpati ent Clinics 2018-04-17 2018-04-17 [facility] [id number] 08:30:00 08:30:[address] [facility] Medicine Outpati ent Clinics 2018-04-10 2018-04-10 [facility] [id number] 16:41:00 16:41:00 t Specialty/U Lenore kes - Specialty rology Memori a /Urology Clinic l Clinic Outpati ent Clinics 2018-04-10 2018-04-10 [facility] [id number] 15:21:00 15:21:00 t [facility] Outpat[facility] ent Clinics 2018-04-09 2018-04-09 [facility] [id number] 13:30:00 13:30:00 t Specialty/U Lenore kes - Specialty rology Memori a /Urology Clinic l Clinic Outpati ent Clinics 2018-03-26 2018-03-26 [facility] [id number] 08:30:00 08:30:00 t [facility] Outpati ent Clinics 2018-02-12 2018-02-12 [facility] [id number] 15:00:00 15:00:00 t [facility] Outpati ent Clinics 2018-01-12 2018-01-12 [facility] [id number] 14:00:00 14:00:00 t Specialty/U [place] kes - Specialty rology Memori a /Urology Clinic l Clinic Outpati ent Clinics 2017-12-19 2017-12-19 [facility] [id number] 14:49:00 14:49:00 t Specialty/U Lenore kes - Specialty rology Memori a /Urology Clinic l Clinic Outpati ent Clinics 2017-12-15 2017-12-15 [facility] [id number] 14:00:00 14:00:00 t Specialty/U [place] kes - Specialty rology Memori a /Urology Clinic l Clinic Outpati ent Clinics 2017-11-30 2017-11-30 Outpatient Madelin Yusuft [id number] 12:18:00 12:18:00 [facility] 2017-11-28 2017-11-28 [facility] [id number] 08:45:00 08:45:00 [facility] 2017-10-17 2017-10-17 Outpatient Madelin Yusuft [id number] 09:15:00 09:15:00 [facility] 2014-12-18 2014-12-18 Outpatient TAWNYA Phillips TAWNYA [id number] 06:15:00 23:59:00 John 2014-04-03 2014-04-03 Outpatient TAWNYA Colin TAWNYA [id number] 11:47:00 23:59:00 Zenithe C 2014-03-17 2014-03-17 Outpatient TAWNYA Colin TAWNYA [id number] 11:24:00 23:59:00 Zenithe C 00 Results Test Description Test Time Test Comments Results Result Sour e Comments OR FL < 1 Hour 2019-09-18 [facility] 14:35:[address] 09/18/2019 2:39 PM CDTEXAMINATION: OR [place] < 1 HOURC-arm fluoroscopy was requested in OR. IMPRESSION:Separa te operative report will be issued by the physician performing the procedure.[id number] ECG 12 lead 2019-09-14 14:27:08 Test Item Value Reference Range Interpretation Comme nts Ventricular rate (test code = 253) 84 Atrial rate (test code = 255) 84 SD interval (test code = 266) 204 QRSD interval (test code = 260) 82 QT interval (test code = 264) 386 QTC interval (test code = 265) 456 P axis 1 (test code = 267) 38 QRS axis 1 (test code = 268) 32 T wave axis (test code = 270) 54 EKG impression (test code = 273) Normal sinus rhythm-Normal ECG-No previous ECGs available- Tadeo [id number] 14:21:20WiMichelle rosales CRNA 09/13/2019 2:22 PMAirwayDate/Time: 09/13/2019 1:14 PMPerformed by: Michelle Can CRNAAuthorized by: Paddy De Leon MD Location: ORUrgency: ElectiveDifficult Airway: No Anesthesiologist: Paddy De Leon, FABIANesident/KEEPER HELPER/AA: Haris Can CRNAPerformed by: resident/KEEPER HELPER/AAPreoxygenated with 100% O2: Yes Mask Ventilation: Easy m askFinal Airway Type: Endotracheal airwayFinal Endotracheal Airway: ETTCuffed: Yes Technique Used: Direct laryngoscopyDevices/Methods Used in Placement: Intubating styletInsertion Site: OralBladeType: MacintoshLaryngoscope Blade/Videolaryngoscope Blade Size: 3ETT Size (mm): 7.0Cuff at minimum occlusion pressure: Yes Measured from: LipsETT to Lips (cm): 21Placement Verified by: CO2 detection, direct visualization and equal breath sounds Laryngoscopic view: Grade I - full view of glottisNumber of Attempts at Approach: 1[facility] MethodistBasic metabolic [id number] 12:19:05 Test Item Value Reference Range Interpretation Comments Sodium (test code = 2951-2) 141 135- 148 mEq/L Potassium (test code = 2823-3) 4.1 3.5- 5.0 mEq/L Chloride (test code = 2075-0) 104 98- 112 mEq/L CO2 (test code = 2027-9) 22 24- 31 mEq/L L Anion gap (test code = 37296-2) 15@ANIO 7- 15 mEq/L BUN (test code = 3094-0) 25 mg/dL 8-23 H Creatinine (test code = 2160-0) 0.98 mg/dL 0.5-0.9 H Glucose (test code = 2345-7) 119 mg/dL 65-99 H Calcium (test code = 56065-5) 10.8 mg/dL 8.8-10.2 H Lab Interpretation (test code = Abnormal 72672-4) Tadeo MethodistEstimated [id number] 12:19:05 Test Item Value Reference Range Interpretation Comments Estimated GFR (test 57 mL/min/1.73 m2 Trever garcía Units code = 5488) InterpretationG 1 >=90 Sofie l or highG2 60-89 Mildly decrease dG3a 45-59 Mil dly to moderately decr ggbraX0l 30-44 Moderately to s everely decreasedG4 15-29 Severe ly decreasedG5 <15 Kidney gwendolyn lureThe eGFR was calcul ated using the Chron Kidney Disease Epidemiology Collaboration ( CKD-EPI) equation. Interpretation is based on recommendati ons of the National [facility]-Kidn ey Disease Outcome s Quality Initiat true (NKF-KDOQI) pub lished in 2013. Lab Interpretation Abnormal (test code = 01039-4) Tadeo MethodistCBC with platelet and [id number] 11:57:47 Test Item Value Reference Range Interpretation Comments WBC (test code = 47976-9) 7.1 4.5- 11.0 k/uL RBC (test code = 05029-2) 4.67 m/uL 4.2-5.5 HGB (test code = 718-7) 13.8 g/dL 12-16 HCT (test code = 4544-3) 41.8 % 37-47 MCV (test code = 787-2) 89.5 fL 82-100 MCH (test code = 785-6) 29.6 pg 27-34 MCHC (test code = 786-4) 33.0 g/dL 31-37 RDW - SD (test code = 88851-6) 42.1 fL 37-55 MPV (test code = 64028-6) 10.4 fL 6.9-11 Platelet count (test code = 175 K/uL 150-400 51429-3) Nucleated RBC (test code = 61057-3) 0.00 /100 WBC Neutrophils (test code = 89102-8) 68.3 % 39-69 Lymphocytes (test code = 19972-6) 20.5 % 25-45 L Monocytes (test code = 88377-4) 7.5 % 0-10 Eosinophils (test code = 38997-6) 2.0 % 0-5 Basophils (test code = 51120-1) 0.6 % 0-1 Immature granulocytes (test code = 1.1 % 0-1 H 99962-5) Lab Interpretation (test code = Abnormal 55750-5) [facility] [id number] 11:42:19 Test Item Value Reference Range Interpretation Comments POC glucose (test code 101 mg/dL 65-99 H Opera tor Name: Clifford = [id number]) SharriferCamelia ID: [id number] able: RN Notified Lab Interpretation Abnormal (test code = 54441-8) Tadeo Pope
--- OUTSIDE RECORDS SUMMARY | 2020-08-11 09:35 | XMS REPORT ---
:1945 Author Organization [facility] Address [address] [facility] [place] [address] Care Team Providers Name Role Phone Letitia Unavailable [phone] PROBLEMS Type Condition ICD9-CM [id number] Onset Condition SNOMED Code Notes Code Code Dates Status Problem Allergic rhinitis, J30.2 Active 360642036 seasonal Problem Hypertension I10 Active 76083151 Problem Chronic obstructive J44.9 Active 72690164 pulmonary disease Problem Osteoporosis M81.0 Active 24200082 Problem Hyperlipidemia E78.5 Active 41385000 Problem Pain in thoracic spine M54.6 Active 582268294 020615 Problem Other chronic pain G89.29 Active 14700265 Problem Hypertriglyceridemia E78.1 Active 139376584 Problem Incontinence in female R32 Active 90114484 Problem Tinea pedis of both B35.3 Active 1567776 feet Problem Tinea unguium B35.1 Active 151738870 Problem Prediabetes R73.03 Active 344131653 Problem Tinea B35.9 Active 05722452 Problem Hypercalcemia E83.52 Active 97098351 Problem Hyperglycemia R73.9 Active 29329571 Problem OAB (overactive N32.81 Active 601062043 bladder) Problem History of recurrent Z87.440 Active 448225766 UTIs Problem Mixed hyperlipidemia E78.2 Active 106785038 Problem Urinary incontinence, R32 Active 049047285 unspecified type Problem Body mass index (BMI) Z68.41 Active 437868652 of 40.0-44.9 in adult Problem Allergic rhinitis, J30.9 Active 41247719 unspecified seasonality, unspecified trigger Problem Recurrent UTI (urinary N39.0 Active 84310894 tract infection) Problem Stress incontinence of N39.3 Active 88561152 urine Problem Obesity (BMI 30-39.9) E66.9 Active 498304858 Problem Essential hypertension I10 Active 46963344 Problem Chronic obstructive J44.9 Active 53258187 pulmonary disease, unspecified COPD type Problem Osteoporosis without M81.0 Active 02717150 current pathological fracture, unspecified osteoporosis type ALLERGIES No Known Allergies ENCOUNTERS from 1945 to 2020-05-19 Encounter Location Date Provider Diagnosis [facility] [address], [place] [address] IMMUNIZATIONS Vaccine Route Administration Date Status Shingrix Unknown November 27, 2018 Others Prevnar 13 -Pneumonia Vaccine Unknown November 27, 2018 Ot hers FLUZONE HIGH DOSE OVER 65 IM Intramuscular Apr 21, 2020 Admin istered Adacel (Tdap) IM Intramuscular November 27, 2018 Administered SOCIAL HISTORY Tobacco Use: Social History Observation Description Date Details (start date - stop date) Former Smoker Sex Assigned At : Social History Observation Description Sex Assigned At Unknown PHQ9 Question Answer Notes Little interest or pleasure in doing things Not at all Feeling down, depressed, or hopeless Not at all Trouble falling or staying asleep or sleeping too much Sever al days Feeling tired or having little energy Several days Poor appetite or overeating Not at all Feeling bad about yourself, or that you are a failure, or No t at all have let yourself or your family down Trouble concentrating on things, such as reading the Not at all newspaper or watching television Moving or speaking so slowly that other people could have No t at all noticed; or the opposite, being so fidgety or restless that you have been moving around a lot more than usual Total Score 2 Interpretation Minimal Depression Thoughts that you would be better off or of hurting Not at all yourself in some way Alcohol Screen Question Answer Notes Did you have a drink containing alcohol in the past year? No Points 0 Interpretation Negative Tobacco Use/Smoking Question Answer Notes Are you a former smoker Additional Findings: Tobacco Non-User Ex-heavy cigarette smo ker (20-30/day) REASON FOR REFERRAL No Information VITAL SIGNS No information MEDICATIONS Medication SIG (Take, Route, Start Date End Date Status Frequency, Duration) Amlodipine Besylate 10MG 1 tablet Orally Once Active daily for 90 days Valsartan 80 MG 1 tablet Orally Once a Ac tive day for 90 days Fenofibrate 160 MG 1 tablet Orally Once A ctive daily for 90 days Ezetimibe 10 MG 1 tablet Orally Once a Ac tive day for 90 days Levocetirizine 1 tablet Orally Once a 20 Sep, 2019 Jan, Act true Dihydrochloride 5 MG day for 90 days Advair HFA 115-21 MCG/ACT 2 puffs Inhalation Twice 13 Apr, 2020 Active a day for 90 days Aspirin 81 81 MG 1 tablet Orally Once a A ctive day for 30 day(s) Osphena 60 mg daily by mouth once per Act true day for 30 days ProAir HFA 108 (90 Base) 2 puffs as needed Active MCG/ACT Inhalation every 4-6 hrs Ezetimibe 10 MG TAKE 1 TABLET BY MOUTH Ac tive ONCE DAILY FOR 30 DAYS for 30 Fluticasone Propionate 50 use one spray in each Active MCG/ACT nostril once daily Nasally Once a day for 90 days Prolia 60MG/ML 60 mg (1 ml) Active Subcutaneous Once every 6 months for 180 days Rosuvastatin Calcium 20MG 1 tablet in evening Active Orally Once a day for 90 days PROCEDURES No Information RESULTS No Results REASON FOR VISIT Re-establish care appt MEDICAL (GENERAL) HISTORY Type Description Date Medical History Hyperlipidemia Medical History Hypertension Medical History Chronic obstructive pulmonary disease Medical History Allergic rhinitis, seasonal Medical History Recurrent UTI (urinary tract infection) Medical History Osteoporosis Surgical History Tonsils 1970 Surgical History Broken Arm 1963 Surgical History Baby Delivery Surgical History L Hip 2002 Surgical History Bladder interstim placed via urology Dr. Kaba 09/2019 Goals Section No Information Health Concerns No Information MEDICAL EQUIPMENT No Information MENTAL STATUS No Information FUNCTIONAL STATUS No Information ASSESSMENTS No Information PLAN OF TREATMENT Next Appt Details Provider Name:Dilip Guallpa, 2020-05-25 03:20 :00 PM, [address] [facility], [place], [address], Provider Name:Abebe Morrell, 2020-06-09 0 3:30:00 PM, [address] [facility] [address], [place], [address], Provider Name:Victorina Dong, 2020-07-11 2 08:00:00 AM, [address] [facility], [place], [address], Provider Name:Victorina Dong, 2020-10-09 1 08:30:00 AM, [address] [facility] [facility] [address], [place], [address], Insurance Providers Payer Name Payer Payer Insured Patient Coverage Coverage End Address Phone Name Relationship to Start Date [employer] [phone] Narinder Richardson self [id number] [place] Replace [phone]
--- OUTSIDE RECORDS SUMMARY | 2020-08-11 09:35 | XMS REPORT ---
:1945 Author Organization [facility] Address [address] [facility] [place] [address] Care Team Providers Name Role Phone Letitia Unavailable [phone] PROBLEMS Type Condition ICD9-CM [id number] Onset Condition SNOMED Code Notes Code Code Dates Status Problem Allergic rhinitis, J30.2 Active 492041127 seasonal Problem Hypertension I10 Active 79202472 Problem Chronic obstructive J44.9 Active 09819315 pulmonary disease Problem Osteoporosis M81.0 Active 34716586 Problem Hyperlipidemia E78.5 Active 47475275 Problem Pain in thoracic spine M54.6 Active 403805655 832418 Problem Other chronic pain G89.29 Active 72491292 Problem Hypertriglyceridemia E78.1 Active 852853035 Problem Incontinence in female R32 Active 76866345 Problem Tinea pedis of both B35.3 Active 2090055 feet Problem Tinea unguium B35.1 Active 226667763 Problem Prediabetes R73.03 Active 632622342 Problem Tinea B35.9 Active 46053334 Problem Hypercalcemia E83.52 Active 62273037 Problem Hyperglycemia R73.9 Active 58486773 Problem OAB (overactive N32.81 Active 905131784 bladder) Problem History of recurrent Z87.440 Active 657589780 UTIs Problem Mixed hyperlipidemia E78.2 Active 024744871 Problem Urinary incontinence, R32 Active 153908645 unspecified type Problem Body mass index (BMI) Z68.41 Active 904684125 of 40.0-44.9 in adult Problem Allergic rhinitis, J30.9 Active 73484229 unspecified seasonality, unspecified trigger Problem Recurrent UTI (urinary N39.0 Active 27584091 tract infection) Problem Stress incontinence of N39.3 Active 71367171 urine Problem Obesity (BMI 30-39.9) E66.9 Active 884455369 Problem Essential hypertension I10 Active 32248546 Problem Chronic obstructive J44.9 Active 39398998 pulmonary disease, unspecified COPD type Problem Osteoporosis without M81.0 Active 68797420 current pathological fracture, unspecified osteoporosis type ALLERGIES No Known Allergies ENCOUNTERS from 1945 to 2020-05-18 Encounter Location Date Provider Diagnosis [facility] [address] Apr, 2020 Victorina Dong [address] in [address], female R32 ; [place] [address] Recurrent UTI (urinary tract infection) N39. 0 and OAB (overactive bladder) N32.81 IMMUNIZATIONS Vaccine Route Administration Date Status Shingrix [...] HFA 115-21 MCG/ACT 2 puffs Inhalation Twice Apr, Active a day for 90 days Aspirin [...] Information RESULTS No Results REASON FOR VISIT Needs referral renewal MEDICAL (GENERAL) HISTORY Type Description Date Medical [...] No Information FUNCTIONAL STATUS No Information ASSESSMENTS Encounter Date Diagnosis Notes Apr, Recurrent UTI (urinary tract infection) (ICD-10 - N39.0) Apr, Incontinence in female (ICD-10 - R32) Apr, OAB (overactive bladder) (ICD-10 - N32.8 1) PLAN OF TREATMENT Next Appt Details Provider Name:Dilip Ramu 2020-05-25 03:20 :00 PM, [address] [facility], [place], [address], Provider Name:Victorina Dong, 2020-07-11 2 08:00:00 AM, [address], [place], [address], Provider Name:Victorina Dong, 2020-10-09 1 08:30:00 AM, [address] [facility], [place], [address], Insurance Providers Payer Name Payer Payer Insured Patient Coverage Coverage End Address Phone Name Relationship to Start Date [employer] [phone] Narinder Richardson self [facility] [phone] [place] Replace [phone]
--- OUTSIDE RECORDS SUMMARY | 2020-08-11 09:35 | XMS REPORT ---
:1945 Author Organization [facility] Address [address] [facility] [place] [address] Care Team Providers Name Role Phone Letitia Unavailable [phone] PROBLEMS Type Condition ICD9-CM [id number] Onset Condition SNOMED Code Notes Code Code Dates Status Problem Allergic rhinitis, J30.2 Active 051482038 seasonal Problem Hypertension I10 Active 88349701 Problem Chronic obstructive J44.9 Active 26097054 pulmonary disease Problem Osteoporosis M81.0 Active 59524425 Problem Hyperlipidemia E78.5 Active 97442020 Problem Pain in thoracic spine M54.6 Active 676012502 755623 Problem Other chronic pain G89.29 Active 11931097 Problem Hypertriglyceridemia E78.1 Active 705381857 Problem Incontinence in female R32 Active 56566701 Problem Tinea pedis of both B35.3 Active 2491315 feet Problem Tinea unguium B35.1 Active 287722018 Problem Prediabetes R73.03 Active 345568965 Problem Tinea B35.9 Active 61648209 Problem Hypercalcemia E83.52 Active 02024013 Problem Hyperglycemia R73.9 Active 59822331 Problem OAB (overactive N32.81 Active 639741379 bladder) Problem History of recurrent Z87.440 Active 504624175 UTIs Problem Mixed hyperlipidemia E78.2 Active 094725613 Problem Urinary incontinence, R32 Active 742697790 unspecified type Problem Body mass index (BMI) Z68.41 Active 082987480 of 40.0-44.9 in adult Problem Allergic rhinitis, J30.9 Active 42933497 unspecified seasonality, unspecified trigger Problem Recurrent UTI (urinary N39.0 Active 48150657 tract infection) Problem Stress incontinence of N39.3 Active 44704005 urine Problem Obesity (BMI 30-39.9) E66.9 Active 042778076 Problem Essential hypertension I10 Active 34042502 Problem Chronic obstructive J44.9 Active 55457993 pulmonary disease, unspecified COPD type Problem Osteoporosis without M81.0 Active 76046125 current pathological fracture, unspecified osteoporosis type ALLERGIES No Known Allergies ENCOUNTERS from 1945 to 2020-05-19 Encounter Location Date Provider Diagnosis [facility] [address] [facility] [address], Victorina Dong O steoporosis M81.0 [facility] [address] [place] [address] IMMUNIZATIONS Vaccine Route Administration Date Status Shingrix [...] REASON FOR REFERRAL No Information VITAL SIGNS Height 61 in Apr, Weight 189.2 lbs Apr, Temperature 97.4 degrees Fahrenheit Apr, BMI 35.75 kg/m2 Apr, Oximetry 95 % Apr, Respiratory Rate 18 /min Apr, Blood pressure systolic 115 mm Hg Apr, Blood pressure diastolic 79 mm Hg Apr, MEDICATIONS Medication SIG (Take, Route, Start Date [...] days Levocetirizine 1 tablet Orally Once a Sep, Jan, Act true Dihydrochloride 5 MG day [...] Information RESULTS No Results REASON FOR VISIT Prolia shot [phone] MEDICAL (GENERAL) HISTORY Type Description Date Medical [...] Information ASSESSMENTS Encounter Date Diagnosis Notes Apr, Osteoporosis (ICD-10 - M81.0) PLAN OF TREATMENT Treatment Notes Assessment Notes Clinical Notes Osteoporosis Pt presents with Prolia 60mg/mL single-d ose prefilled syringe from her pharmacy. Gave injecti on subcut at right lower abdomen per pt request. Pt tolerated injection well. Scheduled for 6-month f ollow-up injection October 2020. Next Appt Details 6 Months Reason:Prolia injection q6mon Provider Name:Dilip Guallpa, 2020-05-25 03:20 :00 PM, [address], [address], [place], [address], Provider Name:Abebe Morrell, 2020-06-09 0 3:30:00 PM, [address], [place], [address], Provider Name:Victorina Dong, 2020-07-11 2 08:00:00 AM, [address], [address], [place], [address], Provider Name:Victorina Dong, 2020-10-09 1 08:30:00 AM, [address], [address], [place], [address], Follow Up:6 MonthsProlia injection q6mon Insurance Providers Payer Name Payer Payer Insured Patient Coverage Coverage End Address Phone Name Relationship to Start Date Huber e Insured [employer] [phone] Narinder Richardson self [id number] [place] Replace [phone]
--- OUTSIDE RECORDS SUMMARY | 2020-08-11 09:36 | XMS REPORT ---
:[address] [facility] Address [address] [place], [address] [place] [address] Care Team Providers Name Role Phone Petros Unavailable [phone] PROBLEMS Type Condition ICD9-CM [id number] Onset Condition SNOMED Code Notes Code Code Dates Status Problem Allergic rhinitis, J30.2 Active 614622586 seasonal Problem Hypertension I10 Active 29400825 Problem Chronic obstructive J44.9 Active 45478429 pulmonary disease Problem Osteoporosis M81.0 Active 45531103 Problem Hyperlipidemia E78.5 Active 03633847 Problem Pain in thoracic spine M54.6 Active 545949256 105421 Problem Other chronic pain G89.29 Active 68669219 Problem Hypertriglyceridemia E78.1 Active 139027099 Problem Incontinence in female R32 Active 97692775 Problem Tinea pedis of both B35.3 Active 0587936 feet Problem Tinea unguium B35.1 Active 290845722 Problem Prediabetes R73.03 Active 801324344 Problem Tinea B35.9 Active 92164521 Problem Hypercalcemia E83.52 Active 17606174 Problem Hyperglycemia R73.9 Active 56815598 Problem OAB (overactive N32.81 Active 189862676 bladder) Problem History of recurrent Z87.440 Active 547969182 UTIs Problem Mixed hyperlipidemia E78.2 Active 704364360 Problem Urinary incontinence, R32 Active 253281421 unspecified type Problem Body mass index (BMI) Z68.41 Active 963017552 of 40.0-44.9 in adult Problem Allergic rhinitis, J30.9 Active 10281257 unspecified seasonality, unspecified trigger Problem Recurrent UTI (urinary N39.0 Active 58571628 tract infection) Problem Stress incontinence of N39.3 Active 76257878 urine Problem Obesity (BMI 30-39.9) E66.9 Active 984694012 Problem Essential hypertension I10 Active 95715414 Problem Chronic obstructive J44.9 Active 66580552 pulmonary disease, unspecified COPD type Problem Osteoporosis without M81.0 Active 37592790 current pathological fracture, unspecified osteoporosis type ALLERGIES No Known Allergies ENCOUNTERS from 1945 to 2020-06-09 Encounter Location Date Provider Diagnosis Jessica Espinosa [address], [facility] [place] Hypertens ion I10 ; [address] [place], [place] [address] pulmonary dise ase J44.9 ; Osteoporosis without current patholo gical fracture, unspe cified osteoporosis ty pe M81.0 ; Mixed hyperli pidemia E78.2 ; OAB (ov eractive bladder) N32.81 ; Prediabetes R73 .03 ; Allergic rhinit is, unspecified seasonality, unspecified tri gger J30.9 ; Recurre nt UTI (urinary tract infection) N39. 0 ; Hypercalcemia E 83.52 ; Urinary inconti nence, unspecified typ e R32 and Obesity (BM I 30-39.9) E66.9 IMMUNIZATIONS Vaccine Route Administration Date Status Shingrix [...] No Information VITAL SIGNS Height 61 in Jun, Weight 186.1 lbs Jun, Temperature 96.8 degrees Fahrenheit Jun, BMI 35.16 kg/m2 Jun, Oximetry 98 % Jun, Respiratory Rate 17 /min Jun, Blood pressure systolic 119 mm Hg Jun, Blood pressure diastolic 84 mm Hg Jun, MEDICATIONS Medication SIG (Take, Route, Notes Start Date End Date Status Frequency, Duration) Potassium Active Rosuvastatin Calcium 1 tablet in evening Active 20MG Orally Once a day for 90 days Black Cohosh Active Vitamin C 500 MG as directed Orally Active Valsartan 40 MG 1 tablet Orally Once Active a day for 90 days Levocetirizine 1 tablet Orally Once Sep, 10 Jan, 021 Active Dihydrochloride 5 MG a day Amlodipine Besylate 1 tablet Orally Once Active 10MG daily for 90 days ProAir HFA 108 (90 2 puffs as needed Active Base) MCG/ACT Inhalation every 4-6 hrs for 90 days Ezetimibe 10 MG TAKE 1 TABLET BY Not -Taking MOUTH ONCE DAILY FOR 30 DAYS for 30 Biotin Active Tylenol 325 MG 1 capsule as needed A ctive Orally every 6 hrs Advair HFA 115-21 2 puffs Inhalation Apr, Active MCG/ACT Twice a day for 90 days Osphena 60 mg daily by mouth once Ac tive per day for 30 days Ezetimibe 10 MG 1 tablet Orally Once Active a day for 90 days Magnesium Active Prolia 60MG/ML 60 mg (1 ml) Active Subcutaneous Once every 6 months Vitamin B12 Active L-Lysine 500 MG as directed Orally A ctive Vitamin D3 Active Fluticasone Propionate use one spray in Unknown 50 MCG/ACT each nostril once daily Nasally Once a day for 90 days Fenofibrate 160 MG 1 tablet Orally Once Active daily for 90 days PROCEDURES No Information RESULTS No Results REASON FOR VISIT re-establish care, Letitia''s PT [facility]BY MEDICAL (GENERAL) HISTORY Type Description Date Medical [...] STATUS No Information ASSESSMENTS Encounter Date Diagnosis Assessment Notes Treatment Notes Treatm ent Clinical Notes Jun, Hypertension (ICD-10 Continue with - I10) current regimen. Controlled. Sativa panel discussed. DASH Diet discussed. Instructed to measure BP at home and bring in log to f/u appt. Instructions and logs given. Education given. HTN Education This is a condition that puts at risk for heart attack, stroke, and kidney disease. Lifestyle modification, low fat/low salt diet, exercise, low alcohol intake and medication is utilized to help control your BP. Untreated HTN increases the strain on the heart and arteries, eventually causing organ damage.Normal BP is less than 140/90. High BP is greater than 140/90. If your BP is not controlled, call your doctor. Medication may need to be adjusted and/or added. Compliance with medication is vital. If you have chest pain, shortness of breath, severe nausea/vomiting, fatigue, and other symptoms, you will need to contact your doctor or go to the ER immediately to address. Jun, Chronic obstructive Stable with current pulmonary disease regimen. Former (ICD-10 - J44.9) tobacco usage. COPD Education: This is condition in which the airways in the lungs become damaged, making it increasingly difficult for air to pass in and out. Symptoms may include: shortness of breath, chronic cough, chest pain, fatigue with exertion and other. Compliance with medication is vital to control the symptoms and to slow the progression of the disease. Symptoms of COPD cannot be completely eliminated with treatment. COPD usually worsens over time. If your symptoms acutely worsen, please contact the doctor. This may indicate a need to adjust and/or add medication. Pulmonary consultation maybe be required if symptoms do not improve. Jun, Osteoporosis without Noted. Last Bone current pathological Scan: 05/12/2009/27/2019: fracture, Osteoporosis of unspecified right femoral neck. osteoporosis type Osteopenia of right (ICD-10 - M81.0) total hip. Normal AP spine. On Prolia every 6 months. Tolerating it well. Discussed S/E. Jun, Mixed hyperlipidemia Continue current (ICD-10 - E78.2) regimen. Hyperlipidemia Education: Hyperlipidemia refers to increased levels of lipids(fats) in the blood, including cholesterol and triglycerides. This can significantly increase your risk of developing coronary artery disease and peripheral artery disease. This can cause chest pain, heart attack, stroke, and fatigue. Treatment is recommended to decrease your risk. Treatment includes: lifestyle modification, low salt/low fat diet, exercise, tobacco cessation, low alcohol intake and sometimes medication. Blood tests (TC,TG, HDL, LDL) are utilized to determine treatment regimens. TC(Total cholesterol) should be below 200. TG(Total Triglycerides) should be below 150. HDL(Good cholesterol) should be above 40. LDL(Bad Cholesterol) should be below 130(if you have one risk factor) or less than 100( if you have more than one risk factor or have DM/CAD/PVD). Compliance with medication and treatment is vital. If you have questions, talk to your doctor. Jun, OAB (overactive Education given. bladder) (ICD-10 - Managed. Managed by N32.81) urology in [place]. Jun, Prediabetes (ICD-10 Diet-Controlled. - R73.03) Education given. Jun, Allergic rhinitis, Education given. unspecified Using OTC seasonality, meidcations, working unspecified trigger intermittently. (ICD-10 - J30.9) Jun, Recurrent UTI Managed by urology (urinary tract in [place]. infection) (ICD-10 - N39.0) Jun, Hypercalcemia (ICD-10 - E83.52) Jun, Urinary incontinence, unspecified type (ICD-10 - R32) Jun, Obesity (BMI 30-39.9) (ICD-10 - E66.9) Jun, Other -- Medication reviewed and updated. -- Dietary and Lifestyle modifications addressed regarding diet, exercise and weight managemen t. -- Treatment options, risks and benefits, side effects reviewed in detail. -- Advised on signs/symptoms to monitor and when to call clinic and/or visit the nearest ER. Patient verbalized understanding and agreeable with plan. PLAN OF TREATMENT Medication Medication Name Sig Start Date Stop Date Levocetirizine Dihydrochloride 1 tablet Orally Once a day SepJan, 5 MG ProAir HFA 108 (90 Base) 2 puffs as needed Inhalation MCG/ACT every 4-6 hrs for 90 days Ezetimibe 10 MG 1 tablet Orally Once a day for 90 days Prolia 60MG/ML 60 mg (1 ml) Subcutaneous Once every 6 months Rosuvastatin Calcium 20MG 1 tablet in evening Orally Once a day for 90 days Fenofibrate 160 MG 1 tablet Orally Once daily for 90 days Amlodipine Besylate 10MG 1 tablet Orally Once daily for 90 days Valsartan 40 MG 1 tablet Orally Once a day for 90 days Treatment Notes Assessment Notes Clinical Notes Hypertension Continue with current regimen. Controlled. Sativa panel discussed. DASH Diet discussed. Instructed to measure BP at home and bring in log to f/u appt. Instructions and logs given. Education given. HTN EducationThis is a condition that puts at risk for heart attack, stroke, and kidney disease.Lifestyle modification, low fat/low salt diet, exercise, low alcohol intake and medication is utilized to help control your BP. Untreated HTN increases the strain on the heart and arteries, eventually causing organ damage.Normal BP is less than 140/90. High BP is greater than 140/90. If your BP is not controlled, call your doctor.Medication may need to be adjusted and/or added.Compliance with medication is vital. If you have chest pain, shortness of breath, severe nausea/vomiting, fatigue, and other symptoms, you will need to contact your doctor or go to the ER immediately to address. Chronic obstructive pulmonary Stable with current regimen. disease Former tobacco usage. COPD Education: This is condition in which the airways in the lungs become damaged, making it increasingly difficult for air to pass in and out. Symptoms may include: shortness of breath, chronic cough, chest pain, fatigue with exertion and other. Compliance with medication is vital to control the symptoms and to slow the progression of the disease. Symptoms of COPD cannot be completely eliminated with treatment. COPD usually worsens over time. If your symptoms acutely worsen, please contact the doctor. This may indicate a need to adjust and/or add medication. Pulmonary consultation maybe be required if symptoms do not improve. Osteoporosis without current Noted. Last Bone Scan: pathological fracture, unspecified 05/12/2009/27/2019: Osteoporos is of osteoporosis type right femoral neck. Osteopenia of right total hip. Normal AP spine.On Prolia every 6 months. Tolerating it well. Discussed S/E. Mixed hyperlipidemia Continue current regimen. Hyperlipidemia Education: Hyperlipidemia refers to increased levels of lipids(fats) in the blood, including cholesterol and triglycerides. This can significantly increase your risk of developing coronary artery disease and peripheral artery disease. This can cause chest pain, heart attack, stroke, and fatigue. Treatment is recommended to decrease your risk. Treatment includes: lifestyle modification, low salt/low fat diet, exercise, tobacco cessation, low alcohol intake and sometimes medication. Blood tests (TC,TG, HDL, LDL) are utilized to determine treatment regimens. TC(Total cholesterol) should be below 200. TG(Total Triglycerides) should be below 150. HDL(Good cholesterol) should be above 40. LDL(Bad Cholesterol) should be below 130(if you have one risk factor) or less than 100( if you have more than one risk factor or have DM/CAD/PVD). Compliance with medication and treatment is vital. If you have questions, talk to your doctor. OAB (overactive bladder) Education given. Managed. Managed by urology in [place]. Prediabetes Diet-Controlled. Education given. Allergic rhinitis, unspecified Education given. Using OTC seasonality, unspecified trigger meidcations, working intermittently. Recurrent UTI (urinary tract Managed by urology in [place]. infection) Treatment Notes Test Name Order Date Magnesium, Serum 2020-06-09 Comp. Metabolic Panel (14) (CMP) 2020-06-09 Uric Acid, Serum 2020-06-09 CBC With Differential/Platelet 2020-06-09 Vitamin D, 25-Hydroxy 2020-06-09 Next Appt Details 2 Months + Labs 1 week before Reason: Provider Name:Abebe Morrell, 2020-08-05 0 8:00:00 AM, [address], [place], [address], Provider Name:Abebe Morrell 2020-08-12 0 8:10:00 AM, [address], [place], [address], Insurance Providers Payer Name Payer Payer Insured Patient Coverage Coverage End Address Phone Name Relationship to Start Date [employer] [phone] [facility] [id number] [id number] L [place] Replace [phone]
--- OUTSIDE RECORDS SUMMARY | 2020-08-11 09:36 | XMS REPORT ---
:1945 Author Organization [facility] Address [address] [place], [place] [place] [address] Care Team Providers Name Role Phone Petros Unavailable [phone] PROBLEMS Type Condition ICD9-CM OSM10-CS Onset Condition SNOMED Code Notes Code Code Dates Status Problem Allergic rhinitis, J30.2 Active 556716072 seasonal Problem Hypertension I10 Active 23206894 Problem Chronic obstructive J44.9 Active 23244752 pulmonary disease Problem Osteoporosis M81.0 Active 47858998 Problem Hyperlipidemia E78.5 Active 08342252 Problem Pain in thoracic spine M54.6 Active 280670281 845693 Problem Other chronic pain G89.29 Active 81679385 Problem Hypertriglyceridemia E78.1 Active 714745100 Problem Incontinence in female R32 Active 64108890 Problem Tinea pedis of both B35.3 Active 1181620 feet Problem Tinea unguium B35.1 Active 674439301 Problem Prediabetes R73.03 Active 504583975 Problem Tinea B35.9 Active 74185115 Problem Hypercalcemia E83.52 Active 71061856 Problem Hyperglycemia R73.9 Active 51719029 Problem OAB (overactive N32.81 Active 802054067 bladder) Problem History of recurrent Z87.440 Active 939151920 UTIs Problem Mixed hyperlipidemia E78.2 Active 509514282 Problem Urinary incontinence, R32 Active 885183390 unspecified type Problem Body mass index (BMI) Z68.41 Active 425543654 of 40.0-44.9 in adult Problem Allergic rhinitis, J30.9 Active 45831945 unspecified seasonality, unspecified trigger Problem Recurrent UTI (urinary N39.0 Active 22693204 tract infection) Problem Stress incontinence of N39.3 Active 55846845 urine Problem Obesity (BMI 30-39.9) E66.9 Active 333021060 Problem Essential hypertension I10 Active 84148712 Problem Chronic obstructive J44.9 Active 82328960 pulmonary disease, unspecified COPD type Problem Osteoporosis without M81.0 Active 43309157 current pathological fracture, unspecified osteoporosis type ALLERGIES No Known Allergies ENCOUNTERS from 1945 to 2020-06-10 Encounter Location Date Provider Diagnosis [facility] [employer] [address], [place] [address] IMMUNIZATIONS Vaccine Route Administration Date Status Shingrix [...] No information MEDICATIONS Medication SIG (Take, Route, Notes Start Date End Date Status Frequency, Duration) Potassium Active Rosuvastatin Calcium 1 tablet in evening Active 20MG Orally Once a day for 90 days Black Cohosh Active Vitamin C 500 MG as directed Orally Active Valsartan 40 MG 1 tablet Orally Once Active a day for 90 days Levocetirizine 1 tablet Orally Once Sep,Jan, Active Dihydrochloride 5 MG a day Amlodipine [...] Information RESULTS No Results REASON FOR VISIT DEXA results MEDICAL (GENERAL) HISTORY Type Description Date Medical [...] Information ASSESSMENTS No Information PLAN OF TREATMENT Medication Medication Name Sig [...] Orally Once a day for 90 days Next Appt Details Provider Name:Abebe Petros, 2020-08-05 0 8:00:00 AM, [address], [place], [address], Provider Name:Abebe Morrell, 2020-08-12 0 8:10:00 AM, [address], [place], [address], Insurance Providers Payer Name Payer Payer Insured Patient Coverage Coverage End Address Phone Name Relationship to Start Date [employer] e Insured [employer] [phone] Narinder Richardson self [facility] [phone] [facility] L [place] Replace [phone]
[2020-08-11] MEDS ORDERED: Ringers Lactate 1,000 ML IV ONE (09:39)
[2020-08-11] MEDS ORDERED: ALBUTEROL 2.5 MG/3 ML NEB SOL ONE (10:39)
[2020-08-11 11:13] LABS: Potassium 4.2 mmol/L (3.5-5.1)
[2020-08-11] MEDS ORDERED: LIDOCAINE 2% MPF 5 ML VIAL ONE (11:32)
[2020-08-11] MEDS ORDERED: FENTANYL CITR 100 MCG/2 ML ONE (11:32)
[2020-08-11] MEDS ORDERED: propofoL 200 MG/20 ML VIAL IV ONE (11:32)
[2020-08-11] MEDS ORDERED: MIDAZOLAM HCL 2 MG/2 ML INJ ONE (11:32)
[2020-08-11] MEDS ORDERED: LIDOCAINE 1% W/EPI 1:100,000 10 ML VIAL ONE ×2 (11:38→12:20)
[2020-08-11] MEDS ORDERED: LIDOCAINE 1% MPF 30 ML VIAL ONE (12:18)
[2020-08-11] MEDS ORDERED: MORPHINE 10 MG/ML VIAL ONE (12:31)
--- NOTE | 2020-08-11 12:57 | OP ---
Date of Procedure: 08/11/2020 Surgeon: Michelle Tang MD Preoperative Diagnoses: Postmenopausal bleeding. Postoperative Diagnosis: Postmenopausal bleeding. Procedures Performed: Hysteroscopy, dilation and curettage. Anesthesia: MAC plus paracervical block. Specimens: Scant endometrial curettings. Complications: No complications. Drains: None. Condition: Stable. Findings: Uterus, anterior, anteflexed. Cervix stenotic. After entering the uterine cavity, both t ubal ostia were visualized. The lining appeared to be severely atrophic, poorly vascular consistent with atrophy. Slightly thickened lining at the fundus, but no abnormal polyps or masses or endometri um that appeared to be remarkable. Endometrial curettings were performed and they were scant. Indications: The patient is a 75-year-old patient with exacerbated COPD. The patient also with inco ntinence and prolapse. Presented with postmenopausal bleeding. She was evaluated. Transvaginal ult rasound was performed. The endometrium appeared to be thickened, so she was consented for hysterosco py, D and C to rule out atypia or malignancy of the endometrium. She was consented and brought to [facility] for the procedure because her cervix was found to be stenotic and there was suspicion that this would be difficult while patient is awake. Description Of Procedure: After informed consent was verified, she was taken back to OR, placed in s upine fashion on the operating table. MAC was given, placed in a dorsal lithotomy position. Pelvic exam was performed. Uterus was anteflexed. Vulva and vagina prepped with Betadine. Speculum was pl aced to expose the cervix. Anterior lip was injected with 1% lidocaine mixed with 1:100,000 epinephr ine, 5 cc here and 4 and 8 o'clock position, 6 cc each. The external os was slightly dilated with [facility] tip of a grasper. Then, a diagnostic hysteroscope was introduced into the uterine cavity. Unable to pass this under direct visualization. Then, dilator was taken and along the canal in the directio n of the fundus. The cervix was dilated to an 8-Ukrainian. An 8-Ukrainian dilator was passed. Then, hyst eroscope was introduced under direct visualization through this passage. Uterine cavity was entered. Both tubal ostia were visualized. Fundus was visualized. Findings as above. Scope was removed. Cervix was dilated to 14-Ukrainian. Then, #0 curette was used to perform curettings. There were very s cant curettings consistent with the findings. All instruments were removed. Instrument, needle and sponge counts were correct at the end of the case. The patient tolerated procedure well. She was re covered from anesthesia and taken to PACU in stable condition. Estimated Blood Loss: Minimal. She has a 1 week followup appointment with pr end of. SARAH/JASON Voice ID: [id number] Report ID: [id number]
[2020-08-11 13:43] VITALS: BP 100/61; TEMP 97.6; O2SAT 99
== END 2020-08-11 13:30 | disposition home or self-care (01) ==
LOC: OR 09:02
PROVIDERS: ATTEND Obstetrics & Gynecology
PROC: 0UDB8ZX Extraction of Endometrium, Via Natural or Artificial Opening Endoscopic, Diagnostic (ICD-10-PCS; principal; 2020-08-11 10:30)
DX: N95.0 Postmenopausal bleeding (principal); N95.2 Postmenopausal atrophic vaginitis; I10 Essential (primary) hypertension; J44.9 Chronic obstructive pulmonary disease, unspecified; Z20.822 Contact with and (suspected) exposure to COVID-19
CPT/HCPCS: 93005; 80048; 36415; 88305; 71046; 58558; U0002; J2704; J2250; J7120; J3010

== ENCOUNTER 2022-12-22 07:19 | Day surgery (SDC) | payer OTHER ==
[2022-12-20 15:06] LABS: Hematocrit 34.4 % (36.0-45.0); MCV 79.6 fL (80-100); RBC Red Blood Cell Count 4.32 M/uL (3.86-4.86)
[2022-12-20 15:19] LABS: Potassium 3.9 mEq/L (3.5-5.1)
--- NOTE | 2022-12-20 19:54 | RAD REPORT ---
EXAM DESCRIPTION: RAD - Chest Pa And Lat (2 Views) - 12/20/2022 2:37 pm CLINICAL HISTORY: pre op pending wound on back excision. Hypertension COMPARISON: Chest Single View dated 04/21/2022; Chest Pa And Lat (2 Views) dated 08/05/2020; Chest Si ngle View dated 01/13/2016 TECHNIQUE: PA and lateral views of the chest were obtained. FINDINGS: The lungs are clear. Heart size is normal and central vasculature is within normal limits. No pleural effusion or pneumothorax seen. No acute bony finding noted. Right rib deformities probabl y relate to healed previous fractures, stable. IMPRESSION: No acute cardiopulmonary process.
[2022-12-22] MEDS ORDERED: Ringers Lactate 1,000 ML IV ONE (07:48)
[2022-12-22] MEDS ORDERED: CEFAZOLIN SODIUM 1 GM/VIAL ONE (07:48)
[2022-12-22] MEDS ORDERED: propofoL 200 MG/20 ML VIAL IV ONE (08:08)
[2022-12-22] MEDS ORDERED: FENTANYL CITR 100 MCG/2 ML ONE (08:08)
[2022-12-22] MEDS ORDERED: ONDANSETRON 4 MG/2 ML VIAL ONE (08:09)
[2022-12-22] MEDS ORDERED: dexAMETHasone 4 MG/ML VIAL ONE (08:09)
[2022-12-22] MEDS ORDERED: LIDOCAINE 2% MPF 5 ML VIAL ONE (08:10)
[2022-12-22] MEDS ORDERED: KETOROLAC 30 MG/ML INJ ONE (08:10)
[2022-12-22] MEDS ORDERED: BUPIVACAINE 0.5% PF 10 ML VIAL ONE (08:36)
--- NOTE | 2022-12-22 09:59 | P.OP ---
Date of Service: 12/22/22 Preop diagnosis: Nonhealing wound on the back Postop diagnosis: Same Procedure performed: Wide excision nonhealing wound on the back with layered closure 6 x 6 cm Surgeon: Solitario Suazo MD Securities Settlement Processor: ERICK Ortega Estimated blood loss: Minimal Specimen: Nonhealing wound Findings: As above Anesthesia: General Complications: None Drains: Van Horne quarter-inch drain Fluids and blood products: Nonapplicable Disposition: Recovery room Operative note: Patient brought to the OR and placed in supine position. General anesthesia begun. Patient placed in the left lateral position. Patient prepped and draped in usual sterile fashion. Marcaine 0.5% infiltrated locally. Then 15 blade used to excise the entire nonhealing wound on the back with normal 0.5 cm skin margins. The wound excised and sent to pathology. Wound irrigated and bleeding controlled cautery. Flaps created. Quarter inch Arsen drain placed and secured with 3-0 nylon. 2-0 chromic used to reapproximate subcutaneous tissue. 3-0 nylon used to close skin. Sterile dressing applied and patient awakened. Patient taken to recovery room in good general condition. CC:
[2022-12-22 11:18] VITALS: BP 103/62; TEMP 97.1; O2SAT 98
--- NOTE | 2022-12-22 13:57 | EKG ---
Test Date: 2022-12-20 Test Time: 14:23:48 Freezing Machine Operator: RALEIGH MEASUREMENT RESULTS: Intervals: Rate: 77 NC: 182 QRSD: 72 QT: 370 QTc: 418 [place]: P: -1 NC: 182 QRS: -4 T: 30 INTERPRETIVE STATEMENTS: Normal sinus rhythm Inferior infarct, age undetermined Anterior infarct, age undetermined Abnormal ECG Compared to ECG 04/21/2022 20:04:37 Ventricular-paced complex(es) or rhythm no longer present Sinus tachycardia no longer present Myocardial infarct finding still present Electronically Signed On 12-22-22 13:55:40 CDT by Tal Bates
== END 2022-12-22 11:10 | disposition home or self-care (01) ==
LOC: OR 07:19
PROVIDERS: ATTEND Surgery
PROC: 0JB70ZZ Excision of Back Subcutaneous Tissue and Fascia, Open Approach (ICD-10-PCS; 2022-12-22)
PROC: 0JX70ZB Transfer Back Subcutaneous Tissue and Fascia with Skin and Subcutaneous Tissue, Open Approach (ICD-10-PCS; principal; 2022-12-22 09:00)
DX: S21.201A Unspecified open wound of right back wall of thorax without penetration into thoracic cavity, initial encounter (principal); L98.421 Non-pressure chronic ulcer of back limited to breakdown of skin
CPT/HCPCS: 14000; 93005; 85025; 80048; 36415; 88305; 71046; J2704; J1100; J2001; J3010; J2405; J7120; J0690

== ENCOUNTER 2023-01-08 17:42 | Emergency (ER) | payer OTHER ==
--- OUTSIDE RECORDS SUMMARY | 2023-01-08 17:48 | XMS REPORT | Continuity of Care Document ---
:1945 Author Organization [facility] t Address [address] [place] [address] [place] [id number] Care Team Providers Name Role Phone Victorina Dong MD Primary Care Physician Abebe Morrell Attending Clinician Unavailable MICHELLE MEYER NATASHA Attending Clinician Unavailable Victorina Dong Attending Clinician Unavailable DESTINEE BERNAL Attending Clinician Unavailable DOMONIQUE GRAY Attending Clinician Unavailable MIRIAM BRADEN Attending Clinician Unavailable John Phillips Jr Attending Clinician Trae Colin Attending Clinician MICHELLE MEYER NATASHA Admitting Clinician Unavailable MICHELLE MEYER Admitting Clinician Unavailable DESTINEE BERNAL Admitting Clinician Unavailable MIRIAM BRADEN Admitting Clinician Unavailable Payers Payer Name Policy Type Policy Number Effective Date Expiration Date S juan ramondenise [facility] [id number] [employer] MEDICARE [id number] 2021 ADV 00:00:00 HU[employer]NA MEDICARE 53 [id number] Common Sp paul - [facility] [employer] [id number] Common Sp paul ing Medicare - [facility] C[employer] C1 [id number] Common Sp paul ing Medicare - [facility] [employer] C1 [id number] Common Sp paul ing Medicare - [facility] Problems Condition Condition Condition Status Onset Resolution Last Treating Co mments Source Name Details Category Date Date Treatment Clinician Date 78.99 - 171.99 - Diagnosis Active 2015-01-13 Memoria NERVE/MUSC NERVE/MUSC 12-10 08:08:00 l KATHIE VÁZQUEZ 00:01: Holden Active 00 12/10/2014 JOCELYNE Ramirez 786.09 - 786.09 - Diagnosis Active 2014-04-21 Memoria 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 JOCELYNE Ramirez Dyspnea on Dyspnea Problem Active 2014-12-21 Memoria exertion on 03-17 01:41:13 l (finding) exertion 00:00: Sayra nn (finding) 00 Active 03/17/2014 Problem 12/21/2014 <sup>5</s up>Data migrated from [employer] on 12/09/14. JOCELYNE Alam[place]and Asthma Asthma Problem Active 2014-12-21 Itz annette (disorder) (disorder) 02-13 01:41:13 l Active 00:00: Bryan 02/13/2014 00 Problem 12/21/2014 <sup>2</zuniga p>Data migrated from [employer] on 12/09/14. JOCELYNE Ramirez SCIFICA SCIFICA Diagnosis Active 2010-072011-07-13 Memoria Active 09-05 07:56:00 l 07/05/2011 00:00: Randy bartlett [address] SCIATICA SCIATICA Diagnosis Active 2011-07-13 Memoria Active 07:56:00 l [facility] [id number] Other Problem Common obesity Spirit due to - [facility] excess [facility] [id number] Skin ulcer Problem Com mon of sacrum, Spirit unspecifie - CHI d ulcer [facility] Seasonal Allergic Problem Commo n allergic rhinitis, Spiri t rhinitis seasonal [place] Hypertensi Hypertensi Problem C ommon on on Spirit [place] Chronic Chronic Problem Common obstructiv obstructiv Sp paul e e - [facility] pulmonary pulmonary [facility] unspecifie Medica l d COPD Center type [id number] Pressure Problem Com mon [id number] injury of Spirit back, [facility]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 [facility] Osteoporos Osteoporos Problem C ommon is is without Spirit current - [facility] pathologic [facility] fracture, Medical unspecifie Center d osteoporos is type Hyperlipid Hyperlipid Problem C ommon emia emia [facility] [id number] Pain in Problem Comm on thoracic Spirit spine [place] [id number] Other Problem Common chronic Spirit pain [place] [id number] Hypertrigl Problem Co mmon yceridemia [facility] [id number] Incontinen Problem Com mon ce in Spirit female [place] [id number] Tinea Problem Common pedis of Spirit both feet [place] [id number] Tinea Problem Common unguium [facility] [id number] Prediabete Problem Co mmon s [facility] [id number] Tinea Problem Common [facility] [id number] Hypercalce Problem Com mon rodrick [facility] [id number] Hyperglyce Problem Com mon rodrick [facility] [id number] OAB Problem Common (overactiv Spirit e bladder) [place] [id number] History of Problem Co mmon recurrent Spirit UTIs [place] [id number] Mixed Problem Common hyperlipid Spirit emia [place] [id number] Urinary Problem Commo n incontinen Spirit ce, - CHI unspecifie [facility] d type [facility] Body mass Body mass Problem Com mon index 40+ index Spirit - severely (BMI) of - CH I obese 40.0-44.9 in [facility] Allergic Allergic Problem Commo n rhinitis rhinitis, Spiri t unspecifie - CHI d St seasonalit [facility] y, Medical unspecifie Center d trigger Urinary Recurrent Problem Commo n tract UTI Spirit infectious (urinary - CH I disease tract St infection) [facility] [id number] Stress Problem Common incontinen Spirit ce of - [facility] urine [facility] [id number] Body mass Problem Com mon index Spirit [BMI] - [facility] 34.0-34.9, [facility] [id number] Essential Problem Comm on hypertensi Spirit on - [facility] Allergies, Adverse Reactions, Alerts Allergy Allergy Status Severity Reaction(s) Onset Inactive Treating Comm ents Source Name Type Date Date Clinician BACTRIA Allergy Active ENCCLR 07-26 08:37: 26 BACTRIA Allergy Active ENCCLR 07-26 08:37: 26 OXYTROL Allergy Active ENCCLR 07-26 08:37: 08 OXYTROL Allergy Active ENCCLR 07-26 08:37: 08 SYMBICOR Allergy Active ENCCLR T 07-25 10:10: 59 SYMBICOR Allergy Active ENCCLR T 07-25 10:10: 59 SYMBICOR Allergy Active ENCCLR T 07-25 10:10: 59 ZITHROMA Allergy Active ENCCLR X 07-25 10:09: 57 ZITHROMA Allergy Active ENCCLR X 07-25 10:09: 57 ZITHROMA Allergy Active ENCCLR X 07-25 10:09: 57 FENTANYL Allergy Active ENCCLR 07-25 10:09: 19 FENTANYL Allergy Active ENCCLR 07-25 10:09: 19 FENTANYL Allergy Active ENCCLR 07-25 10:09: 19 AMOXICIL Allergy Active ENCCLR MILEY 07-25 10:08: 56 AMOXICIL Allergy Active ENCCLR MILEY 07-25 10:08: 56 AMOXICIL Allergy Active ENCCLR MILEY 1-16 10:08: 56 Azithrom Propensi Active Diarrhea 2019-0 Meth tammy ycin ty to 1-14 st adverse 00:00: Hospita reaction 00 l s to drug Amoxicil Propensi Active GI 2019-0 Vomiting Meth tammy miley ty to Intolerance 1-[address] adverse 00:00: Hospita reaction 00 l s to drug Fentanyl Propensi Active Other (See hallucina Methodi ty to Comments) 1-[address] adverse 00:00: Hospita reaction 00 l s to drug NO KNOWN Allergy Active [facility] Family History Family Member Diagnosis Comments Start Date Stop Date Source Natural father Aneurysm [facility] Natural mother Aneurysm [facility] Natural mother Diabetes [facility] Natural mother Hypertension [facility] Social History Social Habit Start Date Stop Date Quantity Comments Source History of Tobacco Common Spirit - Use [facility] Gender identity [facility] Sexual orientation Method t Hospital Alcohol intake 2019-09-16 2019-09-16 Ex-drinker [facility] 00:00:00 00:00:00 (finding) Hospital History of Social 2019-09-16 2019-09-[address] function 00:00:00 00:00:00 Hospital Tobacco use and 2019-07-19 2019-07-19 Smokeless [facility] exposure 00:00:00 00:00:00 tobacco non-user Hospital Sex Ass[birth year] At [birth year] [facility] 00:00:00 00:00:00 Hospital Smoking Status Start Date Stop Date Source Former Smoker 2022-06-17 00:00:00 2022-06-17 00:00:00 Common S pirit - [facility] Medications Ordered Filled Start Stop Current Ordering Indication Dosage Frequency Signature Comments Components Source Medication Medication Date Date Medication? Clinician (SIG) Name Name Omeprazole Omeprazole 2021-07 No QD Omeprazole Magnesium Magnesium 2-09 Magnesium 20 MG 20 MG 00:00: [address] [facility] 2021-07 [facility] Ca Alginate Ca Alginate 2-09 Ca 4"x5" - 4"x5" - 00:00: Alginate 00 4"x5" - Omeprazole Omeprazole 2021-07 No QD Omeprazole Magnesium Magnesium 2-09 Magnesium 20 MG 20 MG 00:00: [address] [facility] 2021-07 No [facility] Ca Alginate Ca Alginate 2-09 Ca 4"x5" - 4"x5" - 00:00: Alginate 00 4"x5" - [facility] 2021-07 No [facility] Ca Alginate Ca Alginate 2-09 Ca 4"x5" - 4"x5" - 00:00: Alginate 00 4"x5" - Omeprazole Omeprazole 2021-07 No QD Omeprazole Magnesium Magnesium 2-09 Magnesium 20 MG 20 MG 00:00: [address] [facility] 2021-07 No [facility] Ca Alginate Ca Alginate 2-09 Ca 4"x5" - 4"x5" - 00:00: Alginate 00 4"x5" - Omeprazole Omeprazole 2021-07 No QD Omeprazole Magnesium Magnesium 2-09 Magnesium 20 MG 20 MG 00:00: [address] [facility] 2021-07 No [facility] Ca Alginate Ca Alginate 2-09 Ca 4"x5" - 4"x5" - 00:00: Alginate 00 4"x5" - Omeprazole Omeprazole 2021-07 No QD Omeprazole Magnesium Magnesium 2-09 Magnesium 20 MG 20 MG 00:00: 20 MG 00 Prolia Prolia 2021-0 No 60mg Common 5-17 Spirit 00:00: - [facility] Prolia Prolia 2021-0 No 60mg Common 5-17 Spirit 00:00: - [facility] Prolia Prolia 2-0 No 60mg Common 5-17 Spirit 00:00: - [facility] Prolia Prolia 2-0 No 60mg Common 5-17 Spirit 00:00: - [facility] Prolia Prolia 2-0 No 60mg Common 5-17 Spirit 00:00: - [facility] Prolia Prolia 2-0 No 60mg Common 5-17 Spirit 00:00: - [facility] Prolia Prolia 2-0 No 60mg Common 5-17 Spirit 00:00: - [facility] Prolia Prolia 2-0 No 60mg Common 5-17 Spirit 00:00: - [facility] Prolia Prolia 2-0 No 60mg Common 5-17 Spirit 00:00: - [facility] Advair HFA Advair HFA 2019-07 No 2{puffs BID Advair HFA 115-21 115-21 0-13 } 115-21 MCG/ACT MCG/ACT 00:00: MCG/ACT 00 Advair HFA Advair HFA 2019-07 No 2{puffs BID Advair HFA 115-21 115-21 0-13 } 115-21 MCG/ACT MCG/ACT 00:00: MCG/ACT 00 Advair HFA Advair HFA 2019-07 No 2{puffs BID Advair HFA 115-21 115-21 0-13 } 115-21 MCG/ACT MCG/ACT 00:00: MCG/ACT 00 Levocetiriz Levocetiriz 2020-0 Yes Victorina TAKE 1 Common ine ine 3-20 Millender TABLET BY Spiri t Dihydrochlo Dihydrochlo 00:00: MOUTH ONCE - [facility]I ride ride [address] [facility] fluticasone 2020-0 Yes 1{puff} Q.5D Inhale 1 Methodi propion/nael 3-[address] meterol 16:26: (two) Hospita (ADVAIR 39 times a l DISK day. INHL) ezetimibe 2020-0 Yes 10mg QD Take 10 mg Me thodi (ZETIA) 10 3-[address] mg tablet 16:26: daily. Hospit a 39 l fenofibrate 2020-0 Yes 145mg QD Take 145 M ethodi (TRICOR) 3-[address] 145 MG 16:26: mouth Hospita tablet 39 daily. l fluticasone 2020-0 Yes 2{spray QD 2 sprays Methodi propionate 3-06 } by Each st (FLONASE) 16:26: Nare route Ho spita 50 39 daily. l mcg/actuati on nasal spray levocetiriz 2020-0 Yes 5mg QD Take 5 mg M ethodi ine (XYZAL) 3-[address] 5 MG tablet 16:26: every Hospi ta 39 evening. l rosuvastati 2020-0 Yes 20mg QD Take 20 mg Methodi n (CRESTOR) 3-[address] 20 MG 16:26: daily. Hospita tablet 39 l denosumab 2020-0 Yes 60mg Inject 60 Met hodi (PROLIA) 60 3-[address] mg/mL 16:26: the skin Hospita syringe 39 once. l syringe aspirin 2020-0 Yes 81mg QD Take 81 mg Meth tammy (ECOTRIN) 3-[address] 81 MG 16:26: daily. Hospita enteric 39 l coated tablet BIOTIN ORAL 2020-0 Yes 1{tbl} QD Take 1 Me thodi 3-[address] 16:26: mouth Hospita 39 daily. l BLACK 2020-0 Yes 1{tbl} QD Take 1 Methodi COHOSH ORAL 3-[address] 16:26: mouth Hospita 39 daily. l cholecalcif 2020-0 Yes 1{tbl} QD Take 1 Me thodi maylin, 3-[address] vitamin D3, 16:26: mouth Hospi ta (VITAMIN D3 39 daily. l ORAL) LYSINE ORAL 2020-0 Yes 1{tbl} QD Take 1 Me thodi 3-[address] 16:26: mouth Hospita 39 daily. l aspirin 2020-0 Yes 81mg QD Take 81 mg Meth tammy (ECOTRIN) 3-[address] 81 MG 16:26: daily. Hospita enteric 39 l coated tablet POTASSIUM 2020-0 Yes 2{tbl} Q.[id number] Take 2 Methodi ORAL 3-[id number] 16:26: 3D mouth 3 Hospita 39 (three) l times a day. acetaminoph 2020-0 Yes 2{tbl} Q.[id number] Take 2 Methodi en (TYLENOL 3-[id number] ORAL) 16:26: 3D mouth 3 Hospita 39 (three) l times a day. amLODIPine 2020-0 Yes 10mg QD Take 10 mg M ethodi (NORVASC) 3-[address] 10 mg 16:26: daily. Hospita tablet 39 l fluticasone 2020-0 Yes 1{puff} Q.5D Inhale 1 Methodi propion/nael 3-[address] meterol 16:26: (two) Hospita (ADVAIR 39 times a l DISKUS day. INHL) ezetimibe 2020-0 Yes 10mg QD Take 10 mg Me thodi (ZETIA) 10 3-[address] mg tablet 16:26: daily. Hospit a 39 l fenofibrate 2020-0 Yes 145mg QD Take 145 M ethodi (TRICOR) 3-[address] 145 MG 16:26: mouth Hospita tablet 39 daily. l fluticasone 2020-0 Yes 2{spray QD 2 sprays Methodi propionate 3-06 } by Each st (FLONASE) 16:26: Nare route Ho spita 50 39 daily. l mcg/actuati on nasal spray levocetiriz 2020-0 Yes 5mg QD Take 5 mg M ethodi ine (XYZAL) 3-[address] 5 MG tablet 16:26: every Hospi ta 39 evening. l rosuvastati 2020-0 Yes 20mg QD Take 20 mg Methodi n (CRESTOR) 3-[address] 20 MG 16:26: daily. Hospita tablet 39 l denosumab 2020-0 Yes 60mg Inject 60 Met hodi (PROLIA) 60 3-[address] mg/mL 16:26: the skin Hospita syringe 39 once. l syringe BIOTIN ORAL 2020-0 Yes 1{tbl} QD Take 1 Me thodi 3-[address] 16:26: mouth Hospita 39 daily. l BLACK 2020-0 Yes 1{tbl} QD Take 1 Methodi COHOSH ORAL 3-[address] 16:26: mouth Hospita 39 daily. l cholecalcif 2020-0 Yes 1{tbl} QD Take 1 Me thodi maylin, 3-[address] vitamin D3, 16:26: mouth Hospi ta (VITAMIN D3 39 daily. l ORAL) LYSINE ORAL 2020-0 Yes 1{tbl} QD Take 1 Me thodi 3-[address] 16:26: mouth Hospita 39 daily. l POTASSIUM 2020-0 Yes 2{tbl} Q.[id number] Take 2 Methodi ORAL 3-[id number] 16:26: 3D mouth 3 Hospita 39 (three) l times a day. acetaminoph 2020-0 Yes 2{tbl} Q.[id number] Take 2 Methodi en (TYLENOL 3-[id number] ORAL) 16:26: 3D mouth 3 Hospita 39 (three) l times a day. amLODIPine 2020-0 Yes 10mg QD Take 10 mg M ethodi (NORVASC) 3-[address] 10 mg 16:26: daily. Hospita tablet 39 l Aspirin 81 Aspirin 81 Yes Victorina 1 tablet Common Millender [facility] Ezetimibe Ezetimibe Yes Victorina 1 tablet Common Millender [facility] Amlodipine Amlodipine Yes Victorina 1 tablet Common Bes[facility] Fenofibrate Yes Victorina 1 tablet Common [facility] Fluticasone Fluticasone Yes Victorina use one Common Propionate Propionate Millender spray in [facility] nostril St once daily [facility] Osphena Osphena Yes Victorina daily Common Millender [facility] Rosuvastati Rosuvastati Yes Victorina 1 tablet Common n Calcium n Calcium Millender in evening [facility] Valsartan Valsartan Yes Victorina 1 tablet Common Millender [facility] Advair Advair Yes Victorina 1 puff Common Diskus Diskus [facility] ProAir HFA ProAir HFA Yes Victorina 2 puffs as Common Millender needed [facility] Vitamin B12 Vitamin B12 No Vitamin B12 Valsartan Valsartan No 1{table QD Valsartan 40 MG 40 MG t} 40 MG Vitamin C Vitamin C No Vitamin C 500 MG 500 MG 500 MG L-Lysine L-Lysine No L-Lysine 500 MG 500 MG 500 MG Ezetimibe Ezetimibe No Ezetimibe 10 MG 10 MG 10 MG Osphena 60 Osphena 60 No Osphena 60 mg mg mg Prolia 60 Prolia 60 No Prolia 60 MG/ML MG/ML MG/ML Tylenol 325 Tylenol 325 No 1{capsu QID Tylenol MG MG le_as_n 325 MG eeded} Zinc 30 MG Zinc 30 MG No 1{table QD Zinc 30 MG t} ProAir HFA ProAir HFA No 2{puffs ProAir HFA 108 (90 108 (90 _as_nee 108 (90 Base) Base) ded} Base) MCG/ACT MCG/ACT MCG/ACT Magnesium Magnesium No Magnesium amLODIPine amLODIPine No amLODIPine Besylate 10 Besylate 10 Besylate MG MG 10 MG Vitamin D3 Vitamin D3 No Vitamin D3 Levocetiriz Levocetiriz No 1{table QD Levocetiri ine ine t} zine Dihydrochlo Dihydrochlo Dihydrochl ride 5 MG ride 5 MG oride 5 MG Biotin Biotin No Biotin Potassium Potassium No Potassium Fenofibrate Fenofibrate No 1{table QD Fenofibrat 160 MG 160 MG t} e 160 MG Rosuvastati Rosuvastati No QD Rosuvastat n Calcium n Calcium in Calcium 20MG 20MG 20MG Fluticasone Fluticasone No QD Fluticason Propionate Propionate e 50 MCG/ACT 50 MCG/ACT Propionate 50 MCG/ACT Black Black No Black Cohosh Cohosh Cohosh amLODIPine amLODIPine No amLODIPine Besylate 10 Besylate 10 Besylate MG MG 10 MG Vitamin C Vitamin C No Vitamin C 500 MG 500 MG 500 MG Biotin Biotin No Biotin Valsartan Valsartan No 1{table QD Valsartan 40 MG 40 MG t} 40 MG Vitamin D3 Vitamin D3 No Vitamin D3 amLODIPine amLODIPine No 1{table QD amLODIPine Besylate Besylate t} Besylate 10MG 10MG 10MG Prolia Prolia No Prolia 60MG/ML 60MG/ML 60MG/ML L-Lysine L-Lysine No L-Lysine 500 MG 500 MG 500 MG Ezetimibe Ezetimibe No 1{table QD Ezetimibe 10 MG 10 MG t} 10 MG Magnesium Magnesium No Magnesium Ezetimibe Ezetimibe No Ezetimibe 10 MG 10 MG 10 MG Osphena 60 Osphena 60 No Osphena 60 mg mg mg ProAir HFA ProAir HFA No 2{puffs ProAir HFA 108 (90 108 (90 _as_nee 108 (90 Base) Base) ded} Base) MCG/ACT MCG/ACT MCG/ACT Black Black No Black Cohosh Cohosh Cohosh Zinc 30 MG Zinc 30 MG No 1{table QD Zinc 30 MG t} Rosuvastati Rosuvastati No QD Rosuvastat n Calcium n Calcium in Calcium 20MG 20MG 20MG Prolia 60 Prolia 60 No Prolia 60 MG/ML MG/ML MG/ML Fluticasone Fluticasone No QD Fluticason Propionate Propionate e 50 MCG/ACT 50 MCG/ACT Propionate 50 MCG/ACT Fenofibrate Fenofibrate No 1{table QD Fenofibrat 160 MG 160 MG t} e 160 MG Tylenol 325 Tylenol 325 No 1{capsu QID Tylenol MG MG le_as_n 325 MG eeded} Vitamin B12 Vitamin B12 No Vitamin B12 Potassium Potassium No Potassium Levocetiriz Levocetiriz No 1{table QD Levocetiri ine ine t} zine Dihydrochlo Dihydrochlo Dihydrochl ride 5 MG ride 5 MG oride 5 MG Biotin Biotin No Biotin Vitamin C Vitamin C No Vitamin C 500 MG 500 MG 500 MG Levocetiriz Levocetiriz No 1{table QD Levocetiri ine ine t} zine Dihydrochlo Dihydrochlo Dihydrochl ride 5 MG ride 5 MG oride 5 MG Valsartan Valsartan No 1{table QD Valsartan 40 MG 40 MG t} 40 MG Prolia Prolia No Prolia 60MG/ML 60MG/ML 60MG/ML Rosuvastati Rosuvastati No QD Rosuvastat n Calcium n Calcium in Calcium 20MG 20MG 20MG amLODIPine amLODIPine No amLODIPine Besylate 10 Besylate 10 Besylate MG MG 10 MG L-Lysine L-Lysine No L-Lysine 500 MG 500 MG 500 MG Vitamin D3 Vitamin D3 No Vitamin D3 Magnesium Magnesium No Magnesium Ezetimibe Ezetimibe No Ezetimibe 10 MG 10 MG 10 MG Advair HFA Advair HFA No Advair HFA 115-21 115-21 115-21 MCG/ACT MCG/ACT MCG/ACT ProAir HFA ProAir HFA No 2{puffs ProAir HFA 108 (90 108 (90 _as_nee 108 (90 Base) Base) ded} Base) MCG/ACT MCG/ACT MCG/ACT amLODIPine amLODIPine No 1{table QD amLODIPine Besylate Besylate t} Besylate 10MG 10MG 10MG Black Black No Black Cohosh Cohosh Cohosh Fluticasone Fluticasone No QD Fluticason Propionate Propionate e 50 MCG/ACT 50 MCG/ACT Propionate 50 MCG/ACT Fenofibrate Fenofibrate No 1{table QD Fenofibrat 160 MG 160 MG t} e 160 MG Prolia 60 Prolia 60 No Prolia 60 MG/ML MG/ML MG/ML Osphena 60 Osphena 60 No Osphena 60 mg mg mg Ezetimibe Ezetimibe No 1{table QD Ezetimibe 10 MG 10 MG t} 10 MG Tylenol 325 Tylenol 325 No 1{capsu QID Tylenol MG MG le_as_n 325 MG eeded} Vitamin B12 Vitamin B12 No Vitamin B12 Potassium Potassium No Potassium Zinc 30 MG Zinc 30 MG No 1{table QD Zinc 30 MG t} Potassium Potassium No Potassium Vitamin C Vitamin C No Vitamin C 500 MG 500 MG 500 MG Osphena 60 Osphena 60 No Osphena 60 mg mg mg L-Lysine L-Lysine No L-Lysine 500 MG 500 MG 500 MG Vitamin D3 Vitamin D3 No Vitamin D3 Zinc 30 MG Zinc 30 MG No 1{table QD Zinc 30 MG t} Prolia 60 Prolia 60 No Prolia 60 MG/ML MG/ML MG/ML Valsartan Valsartan No 1{table QD Valsartan 40 MG 40 MG t} 40 MG Black Black No Black Cohosh Cohosh Cohosh Fenofibrate Fenofibrate No 1{table QD Fenofibrat 160 MG 160 MG t} e 160 MG Rosuvastati Rosuvastati No QD Rosuvastat n Calcium n Calcium in Calcium 20MG 20MG 20MG Ezetimibe Ezetimibe No 1{table QD Ezetimibe 10 MG 10 MG t} 10 MG Tylenol 325 Tylenol 325 No 1{capsu QID Tylenol MG MG le_as_n 325 MG eeded} Levocetiriz Levocetiriz No 1{table QD Levocetiri ine ine t} zine Dihydrochlo Dihydrochlo Dihydrochl ride 5 MG ride 5 MG oride 5 MG amLODIPine amLODIPine No 1{table QD amLODIPine Besylate Besylate t} Besylate 10MG 10MG 10MG Fluticasone Fluticasone No QD Fluticason Propionate Propionate e 50 MCG/ACT 50 MCG/ACT Propionate 50 MCG/ACT Biotin Biotin No Biotin Magnesium Magnesium No Magnesium Advair HFA Advair HFA No Advair HFA 115-21 115-21 115-21 MCG/ACT MCG/ACT MCG/ACT Ezetimibe Ezetimibe No Ezetimibe 10 MG 10 MG 10 MG Vitamin B12 Vitamin B12 No Vitamin B12 Prolia Prolia No Prolia 60MG/ML 60MG/ML 60MG/ML ProAir HFA ProAir HFA No 2{puffs ProAir HFA 108 (90 108 (90 _as_nee 108 (90 Base) Base) ded} Base) MCG/ACT MCG/ACT MCG/ACT amLODIPine amLODIPine No amLODIPine Besylate 10 Besylate 10 Besylate MG MG 10 MG Vitamin D3 Vitamin D3 No Vitamin D3 Prolia 60 Prolia 60 No Prolia 60 MG/ML MG/ML MG/ML Biotin Biotin No Biotin Rosuvastati Rosuvastati No QD Rosuvastat n Calcium n Calcium in Calcium 20 MG 20 MG 20 MG Black Black No Black Cohosh Cohosh Cohosh Advair HFA Advair HFA No Advair HFA 115-21 115-21 115-21 MCG/ACT MCG/ACT MCG/ACT Vitamin B12 Vitamin B12 No Vitamin B12 Fenofibrate Fenofibrate No 1{table QD Fenofibrat 160 MG 160 MG t} e 160 MG Levocetiriz Levocetiriz No Levocetiri ine ine zine Dihydrochlo Dihydrochlo Dihydrochl ride 5 MG ride 5 MG oride 5 MG Prolia Prolia No Prolia 60MG/ML 60MG/ML 60MG/ML Fluticasone Fluticasone No QD Fluticason Propionate Propionate e 50 MCG/ACT 50 MCG/ACT Propionate 50 MCG/ACT Tylenol 325 Tylenol 325 No 1{capsu QID Tylenol MG MG le_as_n 325 MG eeded} ProAir HFA ProAir HFA No 2{puffs ProAir HFA 108 (90 108 (90 _as_nee 108 (90 Base) Base) ded} Base) MCG/ACT MCG/ACT MCG/ACT Osphena 60 Osphena 60 No Osphena 60 mg mg mg L-Lysine L-Lysine No L-Lysine 500 MG 500 MG 500 MG Zinc 30 MG Zinc 30 MG No 1{table QD Zinc 30 MG t} amLODIPine amLODIPine No amLODIPine Besylate 10 Besylate 10 Besylate MG MG 10 MG Valsartan Valsartan No Valsartan 40 MG 40 MG 40 MG Vitamin C Vitamin C No Vitamin C 500 MG 500 MG 500 MG Ezetimibe Ezetimibe No Ezetimibe 10 MG 10 MG 10 MG Magnesium Magnesium No Magnesium Potassium Potassium No Potassium Vitamin C Vitamin C No Vitamin C 500 MG 500 MG 500 MG Tylenol 325 Tylenol 325 No 1{capsu QID Tylenol MG MG le_as_n 325 MG eeded} Osphena 60 Osphena 60 No Osphena 60 mg mg mg Valsartan Valsartan No Valsartan 40 MG 40 MG 40 MG amLODIPine amLODIPine No amLODIPine Besylate 10 Besylate 10 Besylate MG MG 10 MG Vitamin B12 Vitamin B12 No Vitamin B12 Fluticasone Fluticasone No QD Fluticason Propionate Propionate e 50 MCG/ACT 50 MCG/ACT Propionate 50 MCG/ACT Potassium Potassium No Potassium Rosuvastati Rosuvastati No QD Rosuvastat n Calcium n Calcium in Calcium 20 MG 20 MG 20 MG Fenofibrate Fenofibrate No Fenofibrat 160 MG 160 MG e 160 MG Levocetiriz Levocetiriz No Levocetiri ine ine zine Dihydrochlo Dihydrochlo Dihydrochl ride 5 MG ride 5 MG oride 5 MG Magnesium Magnesium No Magnesium Biotin Biotin No Biotin Ezetimibe Ezetimibe No Ezetimibe 10 MG 10 MG 10 MG Zinc 30 MG Zinc 30 MG No 1{table QD Zinc 30 MG t} Vitamin D3 Vitamin D3 No Vitamin D3 L-Lysine L-Lysine No L-Lysine 500 MG 500 MG 500 MG ProAir HFA ProAir HFA No 2{puffs ProAir HFA 108 (90 108 (90 _as_nee 108 (90 Base) Base) ded} Base) MCG/ACT MCG/ACT MCG/ACT Prolia 60 Prolia 60 No Prolia 60 MG/ML MG/ML MG/ML Black Black No Black Cohosh Cohosh Cohosh Advair HFA Advair HFA No Advair HFA 115-21 115-21 115-21 MCG/ACT MCG/ACT MCG/ACT Prolia Prolia No Prolia 60MG/ML 60MG/ML 60MG/ML Vitamin C Vitamin C No Vitamin C 500 MG 500 MG 500 MG Tylenol 325 Tylenol 325 No 1{capsu QID Tylenol MG MG le_as_n 325 MG eeded} Osphena 60 Osphena 60 No Osphena 60 mg mg mg Valsartan Valsartan No Valsartan 40 MG 40 MG 40 MG amLODIPine amLODIPine No amLODIPine Besylate 10 Besylate 10 Besylate MG MG 10 MG Vitamin B12 Vitamin B12 No Vitamin B12 Fluticasone Fluticasone No QD Fluticason Propionate Propionate e 50 MCG/ACT 50 MCG/ACT Propionate 50 MCG/ACT Potassium Potassium No Potassium Rosuvastati Rosuvastati No QD Rosuvastat n Calcium n Calcium in Calcium 20 MG 20 MG 20 MG Fenofibrate Fenofibrate No Fenofibrat 160 MG 160 MG e 160 MG Levocetiriz Levocetiriz No Levocetiri ine ine zine Dihydrochlo Dihydrochlo Dihydrochl ride 5 MG ride 5 MG oride 5 MG Magnesium Magnesium No Magnesium Biotin Biotin No Biotin Ezetimibe Ezetimibe No Ezetimibe 10 MG 10 MG 10 MG Zinc 30 MG Zinc 30 MG No 1{table QD Zinc 30 MG t} Vitamin D3 Vitamin D3 No Vitamin D3 L-Lysine L-Lysine No L-Lysine 500 MG 500 MG 500 MG ProAir HFA ProAir HFA No 2{puffs ProAir HFA 108 (90 108 (90 _as_nee 108 (90 Base) Base) ded} Base) MCG/ACT MCG/ACT MCG/ACT Prolia 60 Prolia 60 No Prolia 60 MG/ML MG/ML MG/ML Black Black No Black Cohosh Cohosh Cohosh Advair HFA Advair HFA No Advair HFA 115-21 115-21 115-21 MCG/ACT MCG/ACT MCG/ACT Prolia Prolia No Prolia 60MG/ML 60MG/ML 60MG/ML Prolia Prolia No Prolia 60MG/ML 60MG/ML 60MG/ML Magnesium Magnesium No Magnesium Tylenol 325 Tylenol 325 No 1{capsu QID Tylenol MG MG le_as_n 325 MG eeded} Potassium Potassium No Potassium Levocetiriz Levocetiriz No 1{table QD Levocetiri ine ine t} zine Dihydrochlo Dihydrochlo Dihydrochl ride 5 MG ride 5 MG oride 5 MG Biotin Biotin No Biotin Vitamin C Vitamin C No Vitamin C 500 MG 500 MG 500 MG L-Lysine L-Lysine No L-Lysine 500 MG 500 MG 500 MG Osphena 60 Osphena 60 No Osphena 60 mg mg mg Vitamin B12 Vitamin B12 No Vitamin B12 Vitamin D3 Vitamin D3 No Vitamin D3 Valsartan Valsartan No 1{table QD Valsartan 40 MG 40 MG t} 40 MG amLODIPine amLODIPine No 1{table QD amLODIPine Besylate Besylate t} Besylate 10MG 10MG 10MG Zinc 30 MG Zinc 30 MG No 1{table QD Zinc 30 MG t} Valsartan Valsartan No Valsartan 40 MG 40 MG 40 MG Fenofibrate Fenofibrate No 1{table QD Fenofibrat 160 MG 160 MG t} e 160 MG Black Black No Black Cohosh Cohosh Cohosh Rosuvastati Rosuvastati No QD Rosuvastat n Calcium n Calcium in Calcium 20 MG 20 MG 20 MG Rosuvastati Rosuvastati No QD Rosuvastat n Calcium n Calcium in Calcium 20MG 20MG 20MG ProAir HFA ProAir HFA No 2{puffs ProAir HFA 108 (90 108 (90 _as_nee 108 (90 Base) Base) ded} Base) MCG/ACT MCG/ACT MCG/ACT Cyclobenzap Cyclobenzap No 1{table QD Cyclobenza rine HCl 5 rine HCl 5 t_at_be nanda HCl MG MG dtime_a 5 MG s_neede d} Prolia 60 Prolia 60 No Prolia 60 MG/ML MG/ML MG/ML Ezetimibe Ezetimibe No 1{table QD Ezetimibe 10 MG 10 MG t} 10 MG Fluticasone Fluticasone No QD Fluticason Propionate Propionate e 50 MCG/ACT 50 MCG/ACT Propionate 50 MCG/ACT Advair HFA Advair HFA No Advair HFA 115-21 115-21 115-21 MCG/ACT MCG/ACT MCG/ACT Levocetiriz Levocetiriz No Levocetiri ine ine zine Dihydrochlo Dihydrochlo Dihydrochl ride 5 MG ride 5 MG oride 5 MG Ezetimibe Ezetimibe No Ezetimibe 10 MG 10 MG 10 MG Fenofibrate Fenofibrate No Fenofibrat 160 MG 160 MG e 160 MG amLODIPine amLODIPine No amLODIPine Besylate 10 Besylate 10 Besylate MG MG 10 MG Prolia Prolia No Prolia 60MG/ML 60MG/ML 60MG/ML Magnesium Magnesium No Magnesium Tylenol 325 Tylenol 325 No 1{capsu QID Tylenol MG MG le_as_n 325 MG eeded} Potassium Potassium No Potassium Levocetiriz Levocetiriz No 1{table QD Levocetiri ine ine t} zine Dihydrochlo Dihydrochlo Dihydrochl ride 5 MG ride 5 MG oride 5 MG Biotin Biotin No Biotin Vitamin C Vitamin C No Vitamin C 500 MG 500 MG 500 MG L-Lysine L-Lysine No L-Lysine 500 MG 500 MG 500 MG Osphena 60 Osphena 60 No Osphena 60 mg mg mg Vitamin B12 Vitamin B12 No Vitamin B12 Vitamin D3 Vitamin D3 No Vitamin D3 amLODIPine amLODIPine No 1{table QD amLODIPine Besylate Besylate t} Besylate 10MG 10MG 10MG Advair HFA Advair HFA No Advair HFA 115-21 115-21 115-21 MCG/ACT MCG/ACT MCG/ACT Prolia 60 Prolia 60 No Prolia 60 MG/ML MG/ML MG/ML Fenofibrate Fenofibrate No 1{table QD Fenofibrat 160 MG 160 MG t} e 160 MG Black Black No Black Cohosh Cohosh Cohosh Fluticasone Fluticasone No QD Fluticason Propionate Propionate e 50 MCG/ACT 50 MCG/ACT Propionate 50 MCG/ACT Rosuvastati Rosuvastati No QD Rosuvastat n Calcium n Calcium in Calcium 20MG 20MG 20MG ProAir HFA ProAir HFA No 2{puffs ProAir HFA 108 (90 108 (90 _as_nee 108 (90 Base) Base) ded} Base) MCG/ACT MCG/ACT MCG/ACT Cyclobenzap Cyclobenzap No 1{table QD Cyclobenza rine HCl 5 rine HCl 5 t_at_be nanda HCl MG MG dtime_a 5 MG s_neede d} Rosuvastati Rosuvastati No QD Rosuvastat n Calcium n Calcium in Calcium 20 MG 20 MG 20 MG Ezetimibe Ezetimibe No 1{table QD Ezetimibe 10 MG 10 MG t} 10 MG Zinc 30 MG Zinc 30 MG No 1{table QD Zinc 30 MG t} Ezetimibe Ezetimibe No Ezetimibe 10 MG 10 MG 10 MG Fenofibrate Fenofibrate No Fenofibrat 160 MG 160 MG e 160 MG Levocetiriz Levocetiriz No Levocetiri ine ine zine Dihydrochlo Dihydrochlo Dihydrochl ride 5 MG ride 5 MG oride 5 MG amLODIPine amLODIPine No amLODIPine Besylate 10 Besylate 10 Besylate MG MG 10 MG Valsartan Valsartan No Valsartan 40 MG 40 MG 40 MG Biotin Biotin No Biotin Rosuvastati Rosuvastati No Rosuvastat n Calcium n Calcium in Calcium 20 MG 20 MG 20 MG Vitamin D3 Vitamin D3 No Vitamin D3 Magnesium Magnesium No Magnesium Vitamin B12 Vitamin B12 No Vitamin B12 Black Black No Black Cohosh Cohosh Cohosh Potassium Potassium No Potassium Vitamin C Vitamin C No Vitamin C 500 MG 500 MG 500 MG Cyclobenzap Cyclobenzap No 1{table QD Cyclobenza rine HCl 5 rine HCl 5 t_at_be nanda HCl MG MG dtime_a 5 MG s_neede d} Prolia 60 Prolia 60 No Prolia 60 MG/ML MG/ML MG/ML Valsartan Valsartan No Valsartan 40 MG 40 MG 40 MG Advair HFA Advair HFA No Advair HFA 115-21 115-21 115-21 MCG/ACT MCG/ACT MCG/ACT Levocetiriz Levocetiriz No Levocetiri ine ine zine Dihydrochlo Dihydrochlo Dihydrochl ride 5 MG ride 5 MG oride 5 MG Osphena 60 Osphena 60 No Osphena 60 mg mg mg Tylenol 325 Tylenol 325 No 1{capsu QID Tylenol MG MG le_as_n 325 MG eeded} L-Lysine L-Lysine No L-Lysine 500 MG 500 MG 500 MG Prolia Prolia No Prolia 60MG/ML 60MG/ML 60MG/ML ProAir HFA ProAir HFA No 2{puffs ProAir HFA 108 (90 108 (90 _as_nee 108 (90 Base) Base) ded} Base) MCG/ACT MCG/ACT MCG/ACT amLODIPine amLODIPine No amLODIPine Besylate 10 Besylate 10 Besylate MG MG 10 MG Zinc 30 MG Zinc 30 MG No 1{table QD Zinc 30 MG t} Fluticasone Fluticasone No QD Fluticason Propionate Propionate e 50 MCG/ACT 50 MCG/ACT Propionate 50 MCG/ACT Ezetimibe Ezetimibe No Ezetimibe 10 MG 10 MG 10 MG Fenofibrate Fenofibrate No Fenofibrat 160 MG 160 MG e 160 MG Biotin Biotin No Biotin Rosuvastati Rosuvastati No Rosuvastat n Calcium n Calcium in Calcium 20 MG 20 MG 20 MG Vitamin D3 Vitamin D3 No Vitamin D3 Magnesium Magnesium No Magnesium Vitamin B12 Vitamin B12 No Vitamin B12 Black Black No Black Cohosh Cohosh Cohosh Potassium Potassium No Potassium Vitamin C Vitamin C No Vitamin C 500 MG 500 MG 500 MG Prolia Prolia No Prolia 60MG/ML 60MG/ML 60MG/ML Cyclobenzap Cyclobenzap No 1{table QD Cyclobenza rine HCl 5 rine HCl 5 t_at_be nanda HCl MG MG dtime_a 5 MG s_neede d} Valsartan Valsartan No Valsartan 40 MG 40 MG 40 MG Advair HFA Advair HFA No Advair HFA 115-21 115-21 115-21 MCG/ACT MCG/ACT MCG/ACT Levocetiriz Levocetiriz No Levocetiri ine ine zine Dihydrochlo Dihydrochlo Dihydrochl ride 5 MG ride 5 MG oride 5 MG ProAir HFA ProAir HFA No 2{puffs ProAir HFA 108 (90 108 (90 _as_nee 108 (90 Base) Base) ded} Base) MCG/ACT MCG/ACT MCG/ACT Osphena 60 Osphena 60 No Osphena 60 mg mg mg Tylenol 325 Tylenol 325 No 1{capsu QID Tylenol MG MG le_as_n 325 MG eeded} L-Lysine L-Lysine No L-Lysine 500 MG 500 MG 500 MG Prolia 60 Prolia 60 No Prolia 60 MG/ML MG/ML MG/ML amLODIPine amLODIPine No amLODIPine Besylate 10 Besylate 10 Besylate MG MG 10 MG Zinc 30 MG Zinc 30 MG No 1{table QD Zinc 30 MG t} Fluticasone Fluticasone No QD Fluticason Propionate Propionate e 50 MCG/ACT 50 MCG/ACT Propionate 50 MCG/ACT Ezetimibe Ezetimibe No Ezetimibe 10 MG 10 MG 10 MG Fenofibrate Fenofibrate No Fenofibrat 160 MG 160 MG e 160 MG ProAir HFA ProAir HFA No 2{puffs ProAir HFA 108 (90 108 (90 _as_nee 108 (90 Base) Base) ded} Base) MCG/ACT MCG/ACT MCG/ACT Rosuvastati Rosuvastati No Rosuvastat n Calcium n Calcium in Calcium 20 MG 20 MG 20 MG Ezetimibe Ezetimibe No 1{table QD Ezetimibe 10 MG 10 MG t} 10 MG amLODIPine amLODIPine No amLODIPine Besylate 10 Besylate 10 Besylate MG MG 10 MG Rosuvastati Rosuvastati No QD Rosuvastat n Calcium n Calcium in Calcium 20MG 20MG 20MG Vitamin D3 Vitamin D3 No Vitamin D3 Prolia 60 Prolia 60 No Prolia 60 MG/ML MG/ML MG/ML Levocetiriz Levocetiriz No 1{table QD Levocetiri ine ine t} zine Dihydrochlo Dihydrochlo Dihydrochl ride 5 MG ride 5 MG oride 5 MG Osphena 60 Osphena 60 No Osphena 60 mg mg mg Valsartan Valsartan No 1{table QD Valsartan 40 MG 40 MG t} 40 MG Cyclobenzap Cyclobenzap No 1{table QD Cyclobenza rine HCl 5 rine HCl 5 t_at_be nanda HCl MG MG dtime_a 5 MG s_neede d} Valsartan Valsartan No Valsartan 40 MG 40 MG 40 MG Vitamin B12 Vitamin B12 No Vitamin B12 Black Black No Black Cohosh Cohosh Cohosh Zinc 30 MG Zinc 30 MG No 1{table QD Zinc 30 MG t} Ezetimibe Ezetimibe No Ezetimibe 10 MG 10 MG 10 MG Fenofibrate Fenofibrate No 1{table QD Fenofibrat 160 MG 160 MG t} e 160 MG Vitamin C Vitamin C No Vitamin C 500 MG 500 MG 500 MG Levocetiriz Levocetiriz No Levocetiri ine ine zine Dihydrochlo Dihydrochlo Dihydrochl ride 5 MG ride 5 MG oride 5 MG amLODIPine amLODIPine No 1{table QD amLODIPine Besylate Besylate t} Besylate 10MG 10MG 10MG Prolia Prolia No Prolia 60MG/ML 60MG/ML 60MG/ML Fenofibrate Fenofibrate No Fenofibrat 160 MG 160 MG e 160 MG Fluticasone Fluticasone No QD Fluticason Propionate Propionate e 50 MCG/ACT 50 MCG/ACT Propionate 50 MCG/ACT Tylenol 325 Tylenol 325 No 1{capsu QID Tylenol MG MG le_as_n 325 MG eeded} L-Lysine L-Lysine No L-Lysine 500 MG 500 MG 500 MG Advair HFA Advair HFA No Advair HFA 115-21 115-21 115-21 MCG/ACT MCG/ACT MCG/ACT Biotin Biotin No Biotin Potassium Potassium No Potassium Magnesium Magnesium No Magnesium ProAir HFA ProAir HFA No 2{puffs ProAir HFA 108 (90 108 (90 _as_nee 108 (90 Base) Base) ded} Base) MCG/ACT MCG/ACT MCG/ACT Rosuvastati Rosuvastati No Rosuvastat n Calcium n Calcium in Calcium 20 MG 20 MG 20 MG Ezetimibe Ezetimibe No 1{table QD Ezetimibe 10 MG 10 MG t} 10 MG amLODIPine amLODIPine No amLODIPine Besylate 10 Besylate 10 Besylate MG MG 10 MG Rosuvastati Rosuvastati No QD Rosuvastat n Calcium n Calcium in Calcium 20MG 20MG 20MG Vitamin D3 Vitamin D3 No Vitamin D3 Prolia 60 Prolia 60 No Prolia 60 MG/ML MG/ML MG/ML Levocetiriz Levocetiriz No 1{table QD Levocetiri ine ine t} zine Dihydrochlo Dihydrochlo Dihydrochl ride 5 MG ride 5 MG oride 5 MG Osphena 60 Osphena 60 No Osphena 60 mg mg mg Valsartan Valsartan No 1{table QD Valsartan 40 MG 40 MG t} 40 MG Cyclobenzap Cyclobenzap No 1{table QD Cyclobenza rine HCl 5 rine HCl 5 t_at_be nanda HCl MG MG dtime_a 5 MG s_neede d} Valsartan Valsartan No Valsartan 40 MG 40 MG 40 MG Vitamin B12 Vitamin B12 No Vitamin B12 Black Black No Black Cohosh Cohosh Cohosh Zinc 30 MG Zinc 30 MG No 1{table QD Zinc 30 MG t} Ezetimibe Ezetimibe No Ezetimibe 10 MG 10 MG 10 MG Fenofibrate Fenofibrate No 1{table QD Fenofibrat 160 MG 160 MG t} e 160 MG Vitamin C Vitamin C No Vitamin C 500 MG 500 MG 500 MG Levocetiriz Levocetiriz No Levocetiri ine ine zine Dihydrochlo Dihydrochlo Dihydrochl ride 5 MG ride 5 MG oride 5 MG amLODIPine amLODIPine No 1{table QD amLODIPine Besylate Besylate t} Besylate 10MG 10MG 10MG Prolia Prolia No Prolia 60MG/ML 60MG/ML 60MG/ML Fenofibrate Fenofibrate No Fenofibrat 160 MG 160 MG e 160 MG Fluticasone Fluticasone No QD Fluticason Propionate Propionate e 50 MCG/ACT 50 MCG/ACT Propionate 50 MCG/ACT Tylenol 325 Tylenol 325 No 1{capsu QID Tylenol MG MG le_as_n 325 MG eeded} L-Lysine L-Lysine No L-Lysine 500 MG 500 MG 500 MG Advair HFA Advair HFA No Advair HFA 115-21 115-21 115-21 MCG/ACT MCG/ACT MCG/ACT Biotin Biotin No Biotin Potassium Potassium No Potassium Magnesium Magnesium No Magnesium ProAir HFA ProAir HFA No 2{puffs ProAir HFA 108 (90 108 (90 _as_nee 108 (90 Base) Base) ded} Base) MCG/ACT MCG/ACT MCG/ACT Rosuvastati Rosuvastati No Rosuvastat n Calcium n Calcium in Calcium 20 MG 20 MG 20 MG Ezetimibe Ezetimibe No 1{table QD Ezetimibe 10 MG 10 MG t} 10 MG amLODIPine amLODIPine No amLODIPine Besylate 10 Besylate 10 Besylate MG MG 10 MG Rosuvastati Rosuvastati No QD Rosuvastat n Calcium n Calcium in Calcium 20MG 20MG 20MG Vitamin D3 Vitamin D3 No Vitamin D3 Prolia 60 Prolia 60 No Prolia 60 MG/ML MG/ML MG/ML Levocetiriz Levocetiriz No 1{table QD Levocetiri ine ine t} zine Dihydrochlo Dihydrochlo Dihydrochl ride 5 MG ride 5 MG oride 5 MG Osphena 60 Osphena 60 No Osphena 60 mg mg mg Valsartan Valsartan No 1{table QD Valsartan 40 MG 40 MG t} 40 MG Cyclobenzap Cyclobenzap No 1{table QD Cyclobenza rine HCl 5 rine HCl 5 t_at_be nanda HCl MG MG dtime_a 5 MG s_neede d} Valsartan Valsartan No Valsartan 40 MG 40 MG 40 MG Vitamin B12 Vitamin B12 No Vitamin B12 Black Black No Black Cohosh Cohosh Cohosh Zinc 30 MG Zinc 30 MG No 1{table QD Zinc 30 MG t} Ezetimibe Ezetimibe No Ezetimibe 10 MG 10 MG 10 MG Fenofibrate Fenofibrate No 1{table QD Fenofibrat 160 MG 160 MG t} e 160 MG Vitamin C Vitamin C No Vitamin C 500 MG 500 MG 500 MG Levocetiriz Levocetiriz No Levocetiri ine ine zine Dihydrochlo Dihydrochlo Dihydrochl ride 5 MG ride 5 MG oride 5 MG amLODIPine amLODIPine No 1{table QD amLODIPine Besylate Besylate t} Besylate 10MG 10MG 10MG Prolia Prolia No Prolia 60MG/ML 60MG/ML 60MG/ML Fenofibrate Fenofibrate No Fenofibrat 160 MG 160 MG e 160 MG Fluticasone Fluticasone No QD Fluticason Propionate Propionate e 50 MCG/ACT 50 MCG/ACT Propionate 50 MCG/ACT Tylenol 325 Tylenol 325 No 1{capsu QID Tylenol MG MG le_as_n 325 MG eeded} L-Lysine L-Lysine No L-Lysine 500 MG 500 MG 500 MG Advair HFA Advair HFA No Advair HFA 115-21 115-21 115-21 MCG/ACT MCG/ACT MCG/ACT Biotin Biotin No Biotin Potassium Potassium No Potassium Magnesium Magnesium No Magnesium Black Black No Black Cohosh Cohosh Cohosh Levocetiriz Levocetiriz No 1{table QD Levocetiri ine ine t} zine Dihydrochlo Dihydrochlo Dihydrochl ride 5 MG ride 5 MG oride 5 MG Fenofibrate Fenofibrate No 1{table QD Fenofibrat 160 MG 160 MG t} e 160 MG Biotin Biotin No Biotin Valsartan Valsartan No 1{table QD Valsartan 40 MG 40 MG t} 40 MG Zinc 30 MG Zinc 30 MG No 1{table QD Zinc 30 MG t} Vitamin B12 Vitamin B12 No Vitamin B12 Tylenol 325 Tylenol 325 No 1{capsu QID Tylenol MG MG le_as_n 325 MG eeded} ProAir HFA ProAir HFA No 2{puffs ProAir HFA 108 (90 108 (90 _as_nee 108 (90 Base) Base) ded} Base) MCG/ACT MCG/ACT MCG/ACT L-Lysine L-Lysine No L-Lysine 500 MG 500 MG 500 MG Prolia Prolia No Prolia 60MG/ML 60MG/ML 60MG/ML Osphena 60 Osphena 60 No Osphena 60 mg mg mg Magnesium Magnesium No Magnesium Ezetimibe Ezetimibe No 1{table QD Ezetimibe 10 MG 10 MG t} 10 MG Fluticasone Fluticasone No QD Fluticason Propionate Propionate e 50 MCG/ACT 50 MCG/ACT Propionate 50 MCG/ACT amLODIPine amLODIPine No amLODIPine Besylate 10 Besylate 10 Besylate MG MG 10 MG Vitamin C Vitamin C No Vitamin C 500 MG 500 MG 500 MG Rosuvastati Rosuvastati No QD Rosuvastat n Calcium n Calcium in Calcium 20MG 20MG 20MG Vitamin D3 Vitamin D3 No Vitamin D3 Potassium Potassium No Potassium Prolia Prolia 2020- No Victorina 60 mg (1 Commo n 01-14 [facility]00 [facility] Immunizations Ordered Immunization Filled Immunization Date Status Commen ts Source Name Name Pneumovax (PPSV23) Pneumovax (PPSV23) 2022-02-23 [facility]pleted [facility]:43[facility] - [facility] Pneumovax (PPSV23) Pneumovax (PPSV23) 2022-02-23 Completed [facility] 10:43:00 - [facility] Pneumovax (PPSV23) Pneumovax (PPSV23) 2022-02-23 Completed [facility] 10:43:00 [place] Pneumovax (PPSV23) Pneumovax (PPSV23) 2022-02-23 Completed [facility] 10:43:00 - [facility] Pneumovax (PPSV23) Pneumovax (PPSV23) 2022-02-23 Completed [facility] 10:43:00 - [facility] Pneumovax (PPSV23) Pneumovax (PPSV23) 2022-02-23 Completed [facility] 10:43:00 [place] Pneumovax (PPSV23) Pneumovax (PPSV23) 2022-02-23 Completed [facility] 10:43:00 [place] FLUZONE HIGH DOSE FLUZONE HIGH DOSE 2020-04-21 Completed [facility] OVER 65 OVER 65 09:07:00 [place] FLUZONE HIGH DOSE FLUZONE HIGH DOSE 2020-04-21 Completed [facility] OVER 65 OVER 65 09:07:00 [place] FLUZONE HIGH DOSE FLUZONE HIGH DOSE 2020-04-21 Completed [facility] OVER 65 OVER 65 09:07:00 - [facility] FLUZONE HIGH DOSE FLUZONE HIGH DOSE 2020-04-21 Completed [facility] OVER 65 OVER 65 09:07:00 - [facility] FLUZONE HIGH DOSE FLUZONE HIGH DOSE 2020-04-21 Completed [facility] OVER 65 OVER 65 09:07:00 - [facility] FLUZONE HIGH DOSE FLUZONE HIGH DOSE 2020-04-21 Completed [facility] OVER 65 OVER 65 09:07:00 - [facility] FLUZONE HIGH DOSE FLUZONE HIGH DOSE 2020-04-21 Completed [facility] OVER 65 OVER 65 09:07:00 - [facility] FLUZONE HIGH DOSE FLUZONE HIGH DOSE 2020-04-21 Completed [facility] OVER 65 OVER 65 09:07:00 - [facility] FLUZONE HIGH DOSE FLUZONE HIGH DOSE 2020-04-21 Completed [facility] OVER 65 OVER 65 09:07:00 - [facility] FLUZONE HIGH DOSE FLUZONE HIGH DOSE 2020-04-21 Completed [facility] OVER 65 OVER 65 09:07:00 - [facility] FLUZONE HIGH DOSE FLUZONE HIGH DOSE 2020-04-21 Completed [facility] OVER 65 OVER 65 09:07:00 - [facility] FLUZONE HIGH DOSE FLUZONE HIGH DOSE 2020-04-21 Completed [facility] OVER 65 OVER 65 09:07:00 - [facility] FLUZONE HIGH DOSE FLUZONE HIGH DOSE 2020-04-21 Completed [facility] OVER 65 OVER 65 09:07:00 - [facility] FLUZONE HIGH DOSE FLUZONE HIGH DOSE 2020-04-21 Completed [facility] OVER 65 OVER 65 09:07:00 - [facility] FLUZONE HIGH DOSE FLUZONE HIGH DOSE 2020-04-21 Completed [facility] OVER 65 OVER 65 09:07:00 - [facility] Shingrix Shingrix 2018-11-27 Completed [facility] 16:19:00 - [facility] Prevnar 13 Prevnar 13 2018-11-27 Completed [facility] -Pneumonia Vaccine -Pneumonia Vaccine 16:19:00 - [facility] Shingrix Shingrix 2018-11-27 Completed [facility] 16:19:00 - [facility] Prevnar 13 Prevnar 13 2018-11-27 Completed [facility] -Pneumonia Vaccine -Pneumonia Vaccine 16:19:00 - [facility] Shingrix Shingrix 2018-11-27 Completed [facility] 16:19:00 - [facility] Prevnar 13 Prevnar 13 2018-11-27 Completed [facility] -Pneumonia Vaccine -Pneumonia Vaccine 16:19:00 - [facility] Adacel (Tdap) Adacel (Tdap) 2018-11-27 [facility]pleted [facility]:18[facility] - [facility] Adacel (Tdap) Adacel (Tdap) 2018-11-27 [facility]pleted [facility]:18[facility] - [facility] Adacel (Tdap) Adacel (Tdap) 2018-11-27 [facility]pleted [facility]:18[facility] - [facility] Adacel (Tdap) Adacel (Tdap) 2018-11-27 [facility]pleted [facility]:18[facility] - [facility] Adacel (Tdap) Adacel (Tdap) 2018-11-27 [facility]pleted [facility]:18[facility] - [facility] Adacel (Tdap) Adacel (Tdap) 2018-11-27 Completed [facility]:18[facility]00 - [facility] Adacel (Tdap) Adacel (Tdap) 2018-11-27 Completed [facility]:18[facility] - [facility] Adacel (Tdap) Adacel (Tdap) 2018-11-27 Completed [facility]:18[facility]00 - [facility] Adacel (Tdap) Adacel (Tdap) 2018-11-27 Completed [facility]:18[facility] - [facility] Adacel (Tdap) Adacel (Tdap) 2018-11-27 Completed [facility]:18[facility] - [facility] Adacel (Tdap) Adacel (Tdap) 2018-11-27 Completed [facility]:18[facility]00 - [facility] Adacel (Tdap) Adacel (Tdap) 2018-11-27 Completed [facility]:18[facility]00 - [facility] Adacel (Tdap) Adacel (Tdap) 2018-11-27 Completed [facility]:18[facility]00 - [facility] Adacel (Tdap) Adacel (Tdap) 2018-11-27 Completed [facility]:18[facility]00 - [facility] Adacel (Tdap) Adacel (Tdap) 2018-11-27 Completed [facility] 16:18:00 [place] Vital Signs Vital Name Observation Time Observation Value Comments Source height 2022-06-22 11:50:00 61 [in_i] [facility] weight 2022-06-22 11:50:00 180 [lb_av] [facility] temperature 2022-06-22 11:50:00 98 [degF] [facility] bmi 2022-06-22 11:50:00 34.01 kg/m2 [facility] blood pressure 2022-06-22 11:50:00 131 mm[Hg] [facility] - systolic [facility] blood pressure 2022-06-22 11:50:00 70 mm[Hg] [facility] - diastolic [facility] HEIGHT 2022-04-28 20:00:00 152.4 cm WEIGHT 2022-04-28 20:00:00 83.915 kg HEIGHT 2022-04-28 20:00:00 152.4 cm WEIGHT 2022-04-28 20:00:00 83.915 kg height 2022-02-23 10:20:00 61 [in_i] [facility] weight 2022-02-23 10:20:00 181 [lb_av] [facility] temperature 2022-02-23 10:20:00 97.9 [degF] [facility] bmi 2022-02-23 10:20:00 34.2 kg/m2 [facility] oximetry 2022-02-23 10:20:00 97 % [facility] respiratory rate 2022-02-23 10:20:00 16 /min Comm on [facility] blood pressure 2022-02-23 10:20:00 135 mm[Hg] [facility] - systolic [facility] blood pressure 2022-02-23 10:20:00 72 mm[Hg] [facility] - diastolic [facility] height 2021-11-23 10:10:00 61 [in_i] [facility] [place] weight 2021-11-23 10:10:00 194.4 [lb_av] [facility] temperature 2021-11-23 10:10:00 98.2 [degF] [facility] bmi 2021-11-23 10:10:00 36.73 kg/m2 [facility] oximetry 2021-11-23 10:10:00 98 % [facility] respiratory rate 2021-11-23 10:10:00 17 /min Comm on [facility] blood pressure 2021-11-23 10:10:00 132 mm[Hg] [facility] - systolic [facility] blood pressure 2021-11-23 10:10:00 76 mm[Hg] [facility] - diastolic [facility] height 2021-11-23 10:10:00 61 [in_i] [facility] weight 2021-11-23 10:10:00 206.2 [lb_av] [facility] temperature 2021-11-23 10:10:00 98.2 [degF] [facility] [place] bmi 2021-11-23 10:10:00 38.96 kg/m2 [facility] oximetry 2021-11-23 10:10:00 98 % [facility] respiratory rate 2021-11-23 10:10:00 17 /min Comm on [facility] blood pressure 2021-11-23 10:10:00 132 mm[Hg] [facility] - systolic [facility] blood pressure 2021-11-23 10:10:00 76 mm[Hg] [facility] height 2021-07-29 15:00:00 61 [in_i] Common [facility] weight 2021-07-29 15:00:00 206.2 [lb_av] [facility] temperature 2021-07-29 15:00:00 97.3 [degF] Common [facility] bmi 2021-07-29 15:00:00 38.96 kg/m2 [facility] oximetry 2021-07-29 15:00:00 97 % [facility] respiratory rate 2021-07-29 15:00:00 17 /min Comm on [facility] blood pressure 2021-07-29 15:00:00 138 mm[Hg] Common [facility] - systolic [facility] blood pressure 2021-07-29 15:00:00 72 mm[Hg] Common [facility] - diastolic [facility] height 2021-04-29 09:30:00 61 [in_i] [facility] weight 2021-04-29 09:30:00 212.7 [lb_av] [facility] temperature 2021-04-29 09:30:00 97.2 [degF] [facility] bmi 2021-04-29 09:30:00 40.18 kg/m2 [facility] oximetry 2021-04-29 09:30:00 98 % [facility] respiratory rate 2021-04-29 09:30:00 17 /min Comm on [facility] blood pressure 2021-04-29 09:30:00 128 mm[Hg] Common [facility] - systolic [facility] blood pressure 2021-04-29 09:30:00 71 mm[Hg] [facility] diastolic [facility] Procedures This patient has no known procedures. Plan of Care Planned Activity Planned Date Details Comments Source Future Scheduled 2022-12-25 COVID-19 VACCINE (#1) Me [facility] Hospital Test 04:25:32 [code = COVID-19 VACCINE (#1)] Future Scheduled 2022-12-25 SHINGLES VACCINES (1 Met [facility] Test 04:25:32 of 2) [code = SHINGLES VACCINES (1 of 2)] Future Scheduled 2022-12-25 65+ PNEUMOCOCCAL [facility] Test 04:25:32 VACCINE (2 - PCV) [code = 65+ PNEUMOCOCCAL VACCINE (2 - PCV)] Future Scheduled 2022-12-25 INFLUENZA VACCINE Method is Hospital Test 04:25:32 [code = INFLUENZA VACCINE] Future Scheduled 2022-03-11 HEPATITIS B VACCINES Met [facility] Test 09:20:27 (1 of 3 - 3-dose series) [code = HEPATITIS B VACCINES (1 of 3 - 3-dose series)] Future Scheduled 2022-03-11 COVID-19 VACCINE (#1) [facility] Hospital Test 09:20:27 [code = COVID-19 VACCINE (#1)] Future Scheduled 2022-03-11 Hepatitis C screening [facility] Test 09:20:27 (procedure) [code = 944686848] Future Scheduled 2022-03-11 SHINGLES VACCINES (1 Met [facility] Hospital Test 09:20:27 of 2) [code = SHINGLES VACCINES (1 of 2)] Future Scheduled 2022-03-11 65+ PNEUMOCOCCAL [facility] Test 09:20:27 VACCINE (2 - PCV) [code = 65+ PNEUMOCOCCAL VACCINE (2 - PCV)] Future Scheduled 2022-03-11 INFLUENZA VACCINE Method [facility] Hospital Test 09:20:27 [code = INFLUENZA VACCINE] Encounters Start End Encounter Admission Attending Care Care Encounter Source Date/Time Date/Time Type Type Clinicians Facility Department ID 2022-09-20 Outpatient Morrell, [facility] [id number] Common 10:07:00 Abebe [id number] [facility] 2022-08-24 Outpatient Morrell, [facility] [id number] Common 07:26:00 Abebe [id number] [facility] 2022-07-13 Outpatient 3 BETSY, ENCPL TAMMI [id number] [facility] 09:50:09 MICHELLE 0104 [facility] Rehabil itation Shravan d 2022-06-22 Outpatient Morrell, STLMLC STLMLC [id number] Common 10:59:00 Abebe [facility] 2022-06-20 Outpatient Morrell, STLMLC STLMLC [id number] Common 13:42:00 Abebe [facility] 2022-06-16 Outpatient Morrell, STLMLC STLMLC [id number] Common 09:34:00 Abebe [facility] 2022-02-22 Outpatient Morrell, STLMLC STLMLC [id number] Common 10:59:00 Abebe [facility] 2021-11-12 Outpatient Morrell, STLMLC STLMLC [id number] Common 10:40:01 Abebe [facility] 2021-08-04 Outpatient Morrell, STLMLC STLMLC [id number] Common 13:16:31 Abebe 63529 [facility] 2021-08-04 Outpatient Morrell, STLMLC STLMLC [id number] Common 13:12:55 Abebe [id number] [facility] 2021-08-04 Outpatient Morrell, STLMLC STLMLC [id number] Common 12:38:47 Abebe 18552 [facility] 2021-08-04 Outpatient Morrell, STLMLC STLMLC [id number] Common 12:37:27 Abebe 47458 [facility] 2021-08-04 Outpatient Morrell, STLMLC STLMLC [id number] Common 12:33:11 Abebe 43142 [facility] 2021-08-04 Outpatient Morrell, STLMLC STLMLC [id number] Common 12:27:10 Abebe 29198 [facility] 2021-08-04 Outpatient Morrell, STLMLC STLMLC [id number] Common 12:09:35 Abebe 41332 [facility] 2021-08-04 Outpatient Millender, STLMLC STLMLC [id number] Common 12:04:41 Victorina 45145 [facility] 2021-08-04 Outpatient Letitia, STLMLC STLMLC [id number] Common 11:30:59 Victorina 72711 [facility] 2021-08-04 Outpatient Letitia, STLMLC STLMLC [id number] Common 11:17:49 Victorina 40205 [facility] 2021-08-04 Outpatient Letitia, STLMLC STLMLC [id number] Common 11:02:18 Victorina 90758 [facility] 2022-07-25 2022-07-25 Outpatient READMISSIO MORRELL, ENCCLR ENCCLR [id number] ENCCLR 00:00:00 00:00:00 [facility] 2022-07-14 2022-07-23 Inpatient 3 BETSY, ENCPL ANGELA [id number] [facility] 12:48:00 13:20:00 MICHELLE 0105 [facility] [place] 2022-06-28 2022-06-28 (TEL) STLMLC STLMLC [id number] Co mmon 00:00:00 00:00:00 [facility] 2022-06-22 2022-06-22 OFFICE STLMLC STLMLC [id number] Co mmon 00:00:00 00:00:[address] [facility] LEVEL 4 [facility] 2022-06-20 2022-06-20 (TEL) STLMLC STLMLC [id number] Co mmon 00:00:00 00:00:00 [facility] 2022-06-17 2022-06-17 (TEL) STLMLC STLMLC [id number] Co mmon 00:00:00 00:00:00 [facility] 2022-06-13 2022-06-13 (TEL) STLMLC STLMLC [id number] Co mmon 00:00:00 00:00:00 [facility] 2022-06-10 2022-06-10 (TEL) STLMLC STLMLC [id number] Co mmon 00:00:00 00:00:00 [facility] 2022-05-14 2022-05-14 Outpatient [facility] [id number] 11:25:22 11:25:22 2022-04-22 2022-05-03 Inpatient ER DOMONIQUE GRAY [facility] General Med 20 [id number] [facility] 03:34:00 16:00:00 8 2022-02-23 2022-02-23 OFFICE STLMLC STLMLC [id number] Co mmon 00:00:00 00:00:00 VISIT [facility] ESTAB PT - [facility] LEVEL 4 [facility] 2021-11-23 2021-11-23 OFFICE STLMLC STLMLC [id number] Co mmon 00:00:00 00:00:00 VISIT [facility] ESTAB PT - [facility] LEVEL 4 [facility] 2021-11-23 2021-11-23 SUB ANNUAL STLMLC STLMLC [id number] Common 00:00:00 00:00:00 MCR [facility] WELLNESS - [facility] VISIT [facility] 2021-10-18 2021-10-18 (TEL) STLMLC STLMLC [id number] Co mmon 00:00:00 00:00:00 [facility] 2021-07-29 2021-07-29 OFFICE STLMLC STLMLC [id number] Co mmon 00:00:00 00:00:00 VISIT EST Spir it PT LEVEL 3 - [facility] 2021-07-23 2021-07-23 (TEL) STLMLC STLMLC [id number] Co mmon 00:00:00 00:00:00 [facility] 2021-04-29 2021-04-29 OFFICE STLMLC STLMLC [id number] Co mmon 00:00:00 00:00:00 VISIT [facility] ESTAB PT - [facility] LEVEL 4 [facility] 2021-04-23 2021-04-23 (TEL) STLMLC STLMLC [id number] Co mmon 00:00:00 00:00:00 [facility] 2021-03-05 2021-03-05 (TEL) STLMLC STLMLC [id number] Co mmon 00:00:00 00:00:00 [facility] 2021-01-19 2021-01-19 Outpatient STLMLC STLMLC [id number] Common 00:00:00 00:00:00 [facility] 2020-12-28 2020-12-28 Outpatient STLMLC STLMLC [id number] Common 00:00:00 00:00:00 [facility] 2020-12-28 2020-12-28 Outpatient STLMLC STLMLC [id number] Common 00:00:00 00:00:00 [facility] 2020-11-23 2020-11-23 Outpatient STLMLC STLMLC [id number] Common 00:00:00 00:00:00 [facility] 2020-10-28 2020-10-28 Outpatient STLMLC STLMLC [id number] Common 00:00:00 00:00:00 [facility] 2020-10-19 2020-10-19 Outpatient STLMLC STLMLC [id number] Common 00:00:00 00:00:00 [facility] 2020-09-16 2020-09-16 Outpatient STLMLC STLMLC [id number] Common 00:00:00 00:00:00 [facility] 2020-09-16 2020-09-16 Outpatient STLMLC STLMLC [id number] Common 00:00:00 00:00:00 [facility] 2020-06-10 2020-06-10 Outpatient STLMLC STLMLC [id number] Common 00:00:00 00:00:00 [facility] 2020-06-09 2020-06-09 Outpatient STLMLC STLMLC [id number] Common 00:00:00 00:00:00 [facility] 2020-05-15 2020-05-15 Outpatient STLMLC STLMLC [id number] Common 00:00:00 00:00:00 [facility] 2020-05-06 2020-05-06 Outpatient STLMLC STLMLC [id number] Common 00:00:00 00:00:00 [facility] 2020-04-30 2020-04-30 Outpatient STLMLC STLMLC [id number] Common 00:00:00 00:00:00 [facility] 2020-04-21 2020-04-21 Outpatient STLMLC STLMLC [id number] Common 00:00:00 00:00:00 [facility] 2020-03-12 2020-03-12 [facility] [id number] Common 04:27:00 04:27:[address] [facility] 2020-03-10 2020-03-10 [facility] [id number] Common 13:00:00 13:00:[address] [facility] 2020-01-20 2020-01-20 [facility] [id number] Common 09:30:00 09:30:[address] [facility] 2020-01-20 2020-01-20 [facility] [id number] Common 08:20:00 08:20:[address] [facility] 2020-01-08 2020-01-08 Out[facility] [id number] Common 10:05:00 10:05:[address] [facility] 2019-12-05 2019-12-05 Out[facility] [id number] Common 11:18:00 11:18:[address] [facility] 2019-10-30 2019-10-30 [facility] [id number] Common 09:00:00 09:00:[address] [facility] 2019-10-21 2019-10-21 [facility] [id number] Common 13:33:00 13:33:[address] [facility] 2019-10-21 2019-10-21 Out[facility] [id number] Common 10:30:00 10:30:[address] [facility] 2019-09-26 2019-09-26 [facility] [id number] Common 15:01:00 15:01:00 t [facility] [address] [facility] 2019-09-13 2019-09-13 Outpatient ASIYA, [facility] [id number] [place] 00:00:00 00:00:00 [address]IR[address] 2019-07-23 2019-07-23 Outpatient ASIYA, [facility] 175 [id number] [place] 00:00:00 00:00:00 [address] 2019-06-17 2019-06-17 Out[facility] [id number] Common 13:20:00 13:20:00 t [facility] [address] [facility] 2019-05-24 2019-05-24 Out[facility] [id number] Common 16:20:00 16:20:00 t [facility] [address] [facility] 2019-04-26 2019-04-26 Out[facility] [id number] Common 11:45:00 11:45:00 t [facility] [address] [facility] 2019-02-26 2019-02-26 Out[facility] [id number] Common 13:15:00 13:15:00 t [facility] [address] [facility] 2019-02-26 2019-02-26 Out[facility] [id number] Common 13:00:00 13:00:00 t [facility] [address] [facility] 2018-10-17 2018-10-17 Out[facility] [id number] Common 15:30:00 15:30:00 t [facility] [address] [facility] 2018-04-23 2018-04-23 Out[facility] [id number] Common 13:30:00 13:30:00 t Specialty/U [facility] rology - [facility] /[facility] 2018-04-17 2018-04-17 Out[facility] [id number] Common 08:30:00 08:30:[address] [facility] 2018-04-10 2018-04-10 Out[facility] [id number] Common 16:41:00 16:41:00 t Specialty/U Sp paul Specialty rology [facility] /[facility] 2018-04-10 2018-04-10 [facility] [id number] Common 15:21:00 15:21:00 t [facility] 2018-04-09 2018-04-09 Out[facility] [id number] Common 13:30:00 13:30:00 t Specialty/U Sp paul Specialty rology [facility] /[facility] 2018-03-26 2018-03-26 Out[facility] [id number] Common 08:30:00 08:30:00 t [facility] Road [facility] 2018-02-12 2018-02-12 Out[facility] [id number] Common 15:00:00 15:00:00 t [facility] 2018-01-12 2018-01-12 Out[facility] [id number] Common 14:00:00 14:00:00 t Specialty/U [facility] 2017-12-19 2017-12-19 Out[facility] [id number] Common 14:49:00 14:49:00 t Specialty/U Sp paul Specialty rology - [facility] /[facility] 2017-12-15 2017-12-15 Out[facility] [id number] Common 14:00:00 14:00:00 t Specialty/U Sp paul Specialty rology - [facility] /[facility] 2017-11-30 2017-11-30 Outpatient [facility] [id number] Common 12:18:00 12:18:00 t [facility] 2017-11-28 2017-11-28 Outpatient [facility] [id number] Common 08:45:00 08:45:00 t [facility] 2017-10-17 2017-10-17 Outpatient Madelin Yusuft [id number] Common 09:15:00 09:15:00 t [facility] 2016-01-29 2016-01-29 Outpatient MHIE IE [id number] Memoria 07:15:00 07:15:00 01 radha Holden 2016-01-29 2016-01-29 Outpatient MHIE MHIE [id number] Memoria 07:15:00 07:15:00 01 radha Holden 2015-06-02 2015-06-02 Outpatient MHIE MHIE [id number] Memoria 09:00:00 09:00:00 00 radha Holden 2015-06-02 2015-06-02 Outpatient MHIE MHIE [id number] Memoria 09:00:00 09:00:00 00 radha Holden 2014-12-18 2014-12-19 Outpt Diag nullFlavo [facility] [id number] Memoria 11:15:00 04:59:00 Services r Outpatient 02 l Imaging Holden Worthington 2014-12-18 2014-12-19 Outpt Diag nullFlavo [facility] [id number] Memoria 11:15:00 04:59:00 Services r Outpatient 02 l Imaging Bryan Worthington 2014-12-18 2014-12-18 Outpatient Alan, [id number]. [id number]. [id number] 06:15:00 23:59:00 John [id number] 3364-09-25 2014-04-04 Outpt Diag nullFlavo [facility] [id number] Memoria 16:47:00 04:59:00 Services r Outpatient 01 l Imaging [facility] 2014-04-03 2014-04-04 Outpt Diag nullFlavo [facility] [id number] Memoria 16:47:00 04:59:00 Services r Outpatient 01 [facility] 2014-04-03 2014-04-03 Outpatient Cristi, 2.16.840. [id number]. [id number] 11:47:00 23:59:00 Zenithe C [id number] 0376-09-08 2014-03-18 Outpt Diag nullFlavo [facility] [id number] Memoria 16:24:00 04:59:00 Services r Outpatient 00 l Imaging [facility] 2014-03-17 2014-03-18 Outpt Diag nullFlavo [facility] [id number] Memoria 16:24:00 04:59:00 Services r Outpatient 00 l Imaging [facility] 2014-03-17 2014-03-17 Outpatient Cristi [id number]. [id number]. [id number] 11:24:00 23:59:00 Zenithe C [id number] 1364-01-04 2011-07-13 Outpatient nullFlavo [facility] [id number] Memoria 07:20:00 07:20:00 r Medical 00 l [facility] 2011-07-13 2011-07-13 Outpatient nullFlavo [facility] [id number] Memoria 07:20:00 07:20:00 r Medical 00 l [facility] Results Test Description Test Time Test Comments Results Result [facility] e Comments RAD, CHEST, 1 2022-08-06 downtime order VIEW, NON DEPT 12:46:00 for 04/26 ACCESSION [facility] #[id number] [facility]ST[facility]EDESMOND : 1945 Sex: F FINAL REPORT INDICATION: Extubation COMPARISON: 04/25/2022 TECHNIQUE: Single frontal view of the chest. Desmond [id number] /1945 FINDINGS: Lines, tubes, and devices: None.Lungs and pleura: No focal consolidation. Low lung volumes with perivascular crowding. No pneumothorax.Heart and mediastinum: Normal heart size. Unremarkable mediastinal contours.Osseous structures: No acute abnormality. Mild spondylosis and facet arthropathy are present within the spine. Chronic right rib fractures. Other: None. IMPRESSION: Low lung volumes with perivascular crowding. Signed: Quang Augustin MDReport Verified Date/Time: 08/06/2022 12:46:30 Reading Location: [address] Reading Room , CHEST, 1 2022-08-06 VIEW, NON DEPT 12:44:00 [facility] 1945 Sex: F FINAL REPORT [facility] = [facility] number = [id number] ID number = [id number] [facility] one view AP (KUB) completed at 5:20 AM on April 22, 2022 CDTExamination = chest one view non DEPT completed at 5:10 AM on April 22, 2022 CDT EXAMINATIONS: CR, RAD, abdomen, one view AP /CR, RAD, chest, one view TECHNIQUE: A single AP view of the chest was done. A single AP view of the abdomen was done with attention to the lower abdomen and pelvis. COMPARISON: None (down time). CLINICAL DATA: "OG tube". Intubated CHEST FINDINGS: The tip of the endotracheal tube ends 5.7 cm above the cirilo. The orogastric tube barely reaches the stomach and has its sidehole in the distal esophagus. I would recommend advancing the orogastric tube eight more centimeters and rechecking position. The right hemidiaphragm is elevated. Some atelectasis or pneumonia is not ruled out at the right lung base. The right upper lung and left lung are clear. There is no evidence for any pulmonary vascular congestion or edema. No lung cavity is seen. Pleural fluid is not ruled out and small quantities right greater than left at each lung base. This was not completely upright chest image. ABDOMEN FINDINGS: The abdomen is centered below the level of the oral gastric tube which is better seen on the chest x-ray. It needs to be advanced about 8 cm. A neural stimulators seen near the right sacroiliac joint level. A prosthetic left hip is present. No dislocation of that hip is seen. The right hip looks intact. A right femoral venous catheter ends just below the right SI joint. No fecal impaction or dilated bowel is seen in the pelvis or lower abdomen. 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 IMPRESSION:1. The oral gastric tube tip ends in the stomach but its sidehole is in the esophagus. I recommend advancing it 8 cm and rechecking the position.2. An endotracheal tube is seen in satisfactory position.3. Atelectasis and pneumonia is suspected at the right lung base.4. A right femoral venous line is in place.5. A left total hip prosthetic and a neural type stimulator superimposed near the right sacroiliac joint is seen. 6. No dilated bowel is suspected. Signed: Danie Garza MDReport Verified Date/Time: 08/06/2022 12:44:51 , ABDOMEN/KUB, 2022-08-06 1 VIEW AP 12:43:00 [facility] 1945 Sex: F FINAL REPORT [facility] [id number] ID number = [id number] ([facility])Examination = abdomen one view AP (KUB) completed at 5:20 AM on April 22, 2022 CDTExamination = chest one view non DEPT completed at 5:10 AM on April 22, 2022 CDT EXAMINATIONS: CR, RAD, abdomen, one view AP /CR, RAD, chest, one view TECHNIQUE: A single AP view of the chest was done. A single AP view of the abdomen was done with attention to the lower abdomen and pelvis. COMPARISON: None (down time). CLINICAL DATA: "OG tube". Intubated CHEST FINDINGS: The tip of the endotracheal tube ends 5.7 cm above the cirilo. The orogastric tube barely reaches the stomach and has its sidehole in the distal esophagus. I would recommend advancing the orogastric tube eight more centimeters and rechecking position. The right hemidiaphragm is elevated. Some atelectasis or pneumonia is not ruled out at the right lung base. The right upper lung and left lung are clear. There is no evidence for any pulmonary vascular congestion or edema. No lung cavity is seen. Pleural fluid is not ruled out and small quantities right greater than left at each lung base. This was not completely upright chest image. ABDOMEN FINDINGS: The abdomen is centered below the level of the oral gastric tube which is better seen on the chest x-ray. It needs to be advanced about 8 cm. A neural stimulators seen near the right sacroiliac joint level. A prosthetic left hip is present. No dislocation of that hip is seen. The right hip looks intact. A right femoral venous catheter ends just below the right SI joint. No fecal impaction or dilated bowel is seen in the pelvis or lower abdomen. 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 IMPRESSION:1. The oral gastric tube tip ends in the stomach but its sidehole is in the esophagus. I recommend advancing it 8 cm and rechecking the position.2. An endotracheal tube is seen in satisfactory position.3. Atelectasis and pneumonia is suspected at the right lung base.4. A right femoral venous line is in place.5. A left total hip prosthetic and a neural type stimulator superimposed near the right sacroiliac joint is seen. 6. No dilated bowel is suspected. Signed: Danie Garza Verified Date/Time: 08/06/2022 12:43:27 , CHEST, 1 2022-08-06 VIEW, NON DEPT 12:37:00 [facility] 1945 Sex: F FINAL REPORT INDICATION: Extubation COMPARISON: None TECHNIQUE: Single frontal view of the chest. Richardson [id number] FINDINGS: Lines, tubes, and devices: None.Lungs and pleura: Clear lungs. No pneumothorax.Heart and mediastinum: Normal heart size. Scattered atherosclerotic vascular calcifications.Osseous structures: No acute abnormality. Mild spondylosis and facet arthropathy are present within the spine. 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 IMPRESSION: 1.No acute intrathoracic abnormality.2.Suggestio n of subglottic airway narrowing. Signed: Quang Augustin MDReport Verified Date/Time: 08/06/2022 12:37:17 Reading Location: [address] Reading Room , CHEST, 1 2022-08-06 # [id number] VIEW, NON DEPT 12:36:00 [facility] : 1945 Sex: F FINAL REPORT INDICATION: Extubation Desmond [id number] /1945 COMPARISON: None TECHNIQUE: Single frontal view of the chest. FINDINGS: Lines, tubes, and devices: None.Lungs and pleura: Clear lungs. No pneumothorax.Heart and mediastinum: Normal heart size. Unremarkable mediastinal contours.Osseous structures: No acute abnormality. Chronic right mid rib fracture.Other: The patient is rotated to the left. IMPRESSION: No acute intrathoracic abnormality. Signed: Quang Augustin MDReport Verified Date/Time: 08/06/2022 12:36:32 Reading Location: [address] Reading Room , CHEST, 1 2022-08-06 downtime order VIEW, NON DEPT 12:35:00 for 04/29 accession [facility][id number] [facility] 1945 Sex: F FINAL REPORT INDICATION: Chest pain COMPARISON: 04/27/2022 Desmond [id number] TECHNIQUE: Single frontal view of the chest. FINDINGS: Lines, tubes, and devices: None.Lungs and pleura: Clear lungs. No pneumothorax.Heart and mediastinum: Normal heart size. Scattered atherosclerotic vascular calcifications.Osseous structures: No acute abnormality. Old right sixth and seventh rib fractures.Other: None. IMPRESSION: No acute intrathoracic abnormality. Signed: Quang Augustin Verified Date/Time: 08/06/2022 12:35:09 Reading Location: [address] Reading Room , CHEST, 1 2022-08-06 DOWNTIME VIEW, NON DEPT 11:59:00 [facility]#[id number] FOR 04/25/2022 [facility] : 1945 Sex: F FINAL REPORT Portable chest CLINICAL STATEMENT: Shortness of breath. Patient info Desmond Richardson, [place] [id number] [facility]' COMPARISON: 04/22/2022 FINDINGS: Heart is mildly enlarged. Aortic arch is mildly calcified. There is no focal lung consolidation or pleural effusion. No evidence of pulmonary edema or pneumothorax. IMPRESSION: No acute cardiopulmonary disease. Signed: Donta Sue MDReport Verified Date/Time: 08/06/2022 11:59:29 UM CULTURE + GRAM STAIN 2022-07-20 14:26:22 Test Item Value Reference Range Interpretation Comme nts CULTURE (BEAKER) (test code MYROIDES SPECIES A <1+ Myroides species = 1095) Amikacin (test code = 1) See_Comment R [A utomated message] The system [employer] generated this result transmitted ref erence range: Suscepti ble 0-16 , Resistan t <0 or >16 . The refer ence range was not u sed to interpret this result as normal/abnor mal. Aztreonam (test code = 32) See_Comment R [Automated message] The system [employer] generated this result transmitted ref erence range: Suscepti ble 0-8 , Resistant <0 or >8 . The reference r milly was not used to interpret this result as normal/abnor mal. Cefepime (test code = 51) See_Comment R [ Automated message] The system [employer] generated this result transmitted ref erence range: Suscepti ble 0-8 , Resistant <0 or >8 . The reference r milly was not used to interpret this result as normal/abnor mal. Ceftazidime (test code = 27) See_Comment R [Automated message] The system [employer] generated this result transmitted ref erence range: Suscepti ble 0-8 , Resistant <0 or >8 . The reference r milly was not used to interpret this result as normal/abnor mal. Ciprofloxacin (test code = See_Comment R [Automated message] 7) The system [employer] generated this result transmitted ref erence range: Suscepti ble 0-1 , Resistant <0 or >1 . The reference r milly was not used to interpret this result as normal/abnor mal. Gentamicin (test code = 18) See_Comment R [Automated message] The system [employer] generated this result transmitted ref erence range: Suscepti ble 0-4 , Resistant <0 or >4 . The reference r milly was not used to interpret this result as normal/abnor mal. Levofloxacin (test code = See_Comment S [ Automated message] 22) The system [employer] generated this result transmitted ref erence range: Suscepti ble 0-2 , Resistant <0 or >2 . The reference r milly was not used to interpret this result as normal/abnor mal. Meropenem (test code = 34) See_Comment S [Automated message] The system [employer] generated this result transmitted ref erence range: Suscepti ble 0-4 , Resistant <0 or >4 . The reference r milly was not used to interpret this result as normal/abnor mal. Piperacillin + Tazobactam See_Comment R [ Automated message] (test code = 29) The system which generated this result transmitted ref erence range: Suscepti ble 0-16 , Resistan t <0 or >16 . The refer ence range was not u sed to interpret this result as normal/abnor mal. Tobramycin (test code = 25) See_Comment R [Automated message] The system [employer] generated this result transmitted ref erence range: Suscepti ble 0-4 , Resistant <0 or >4 . The reference r milly was not used to interpret this result as normal/abnor mal. Trimethoprim + See_Comment S [Automated m essage] Sulfamethoxazole (test code The system which = 47) generated this result transmitted ref erence range: Suscepti ble 0-40 , Resistan t <0 or >40 . The refer ence range was not u sed to interpret this result as normal/abnor mal. GRAM STAIN RESULT (BEAKER) 1+ WBCs (test code = 1123) GRAM STAIN RESULT (BEAKER) 0-5 epithelial cells (test code = 655136) GRAM STAIN RESULT (BEAKER) No organisms seen (test code = 814385) <1+ Normal respiratory liz presentMRSA [id number] 14:17:42 Test Item Value Reference Range Interpretation Comments CULTURE (BEAKER) (test code No MRSA isolated = 1095) BLOOD [id number] 09:30:23 Test Item Value Reference Range Interpretation Comments CULTURE (BEAKER) (test No growth in 5 days code = 1095) Specimen received, ordered, and processed during a system downtime event in AprilLOOD [id number] 09:30:08 Test Item Value Reference Range Interpretation Comments CULTURE (BEAKER) (test No growth in 5 days code = 1095) Specimen received, ordered, and processed during a system downtime event in April 2022URINE [id number] 08:09:35 Test Item Value Reference Range Interpretation Comments CULTURE (BEAKER) (test ESCHERICHIA COLI A 2 0-29,000 col/mL code = 1095) Escherichia col i Amikacin (test code = S 1) Ampicillin + Sulbactam R (test code = 6) Aztreonam (test code = S 32) Cefepime (test code = S 51) Cefoxitin (test code = S 68) Ceftazidime (test code S = 27) Ceftriaxone (test code S = 52) Ertapenem (test code = S 38) Gentamicin (test code R = 18) Levofloxacin (test R code = 22) Meropenem (test code = S 34) Nitrofurantoin (test S code = 23) Piperacillin + S Tazobactam (test code = 29) Tetracycline (test S code = 2) Tobramycin (test code R = 25) Trimethoprim + S Sulfamethoxazole (test code = 47) CULTURE (BEAKER) (test A <10,0 00 col/mL code = 1095) Gram negative rodsof a second type Specimen Received and Processed during Downtime in April 2022.BASIC METABOLIC [id number] 12:08:49 Test Item Value Reference Range Interpretation Comments SODIUM (BEAKER) 141 meq/L 135-148 (test code = 381) POTASSIUM 4.5 meq/L (BEAKER) (test code = 379) CHLORIDE (BEAKER) 108 meq/L 98-106 H (test code = 382) CO2 (BEAKER) 22 meq/L (test code = 355) BLOOD UREA 9 mg/dL 10-26 L NITROGEN (BEAKER) (test code = 354) CREATININE 0.64 mg/dL 0.50-1.20 (BEAKER) (test code = 358) GLUCOSE RANDOM 119 mg/dL (BEAKER) (test code = 652) CALCIUM (BEAKER) 8.8 mg/dL 8.5-10.5 (test code = 697) EGFR (BEAKER) 91 Interpretatio n of eGFR (test code = mL/min/1.73 values Stage De scription 1092) sq m Result G1 Norm al or high >=90 G2 Mildly decreased 60-89 G3a Mildl y to moderately 45-5 9 G3b Moderately to s everely 30-44 G4 Severl y decreased 15-29 G5 Kidney failure <15Reported eGF R is based on the CKD-EPI 2020 equation that d oes not use a race coefficientEsti mated GFR is not as accur ate as Creatinine Sowmya ai in predicting glom erular filtration rate . Estimated GFR is not appl icable for dialysis patien ts SARS-COV2/RT-PCR ([facility])2022-05-03 15:08:15 Test Item Value Reference Range Interpretation Comments SARS-COV2/RT-PCR Negative Negative The SARS-Co V-2 target (test code = nucleic acids a re not 6695740) detected in thi s specimen. Negative result s do not preclude SARS-C oV-2 infection and s hould not be used as the nancy e basis for patient managem ent decisions. Nega tive results must be combine d with clinical observ ations, patient history , and epidemiological information. A false negativ e result may occur if a spec imen is improperly wilfredo ected, transported or handled. This SARS CoV-2 test is a rapid, real-time RT-PC R test intended for th e qualitative detection of nu cleic acid from SARS-CoV-2 in a nasopharyngeal swab specimen collected from individuals suspected of CO VID-19 by their healthcar e provider. This test has been authorized by FDA under an EUA for use by authorized laboratories. This test is only authorized for the duration of the declaration that circumstances exist justifying the authorization of emergency use of in vitro diagnostic tests for detection and/or diagnosis of COVID-19 under Section 564(b)(1) of the Federal Food, Drug and Cosmetic Act, 21 U.S.C. 360bbb-3(b)(1), unless the authorization is terminated or revoked sooner. Fact Sheet for Healthcare Providers: https://www.[employer] m/Documents/Xpert%20Xpress%20SARS%20CoV-2/Fact%20Sheets/302-5464%99XEFZ-XWS-0%20 HEALTHCARE%20PROVIDERS%20FACT%20SHEET.pdf Fact Sheet for Healthcare Patients: https://www.[facility]/Documents/Xpert%20Xp ress%20SARS%20CoV-2/Fact%20Sheets/302-3801%59CNXI-FAT-1%20PATIENT%20FACT%20SHEET .pdfPOCT-GLUCOSE [id number] 14:35:59 Test Item Value Reference Range Interpretation Comments POC-GLUCOSE METER 136 mg/dL 70-110 H : TESTED A T [facility] 6720 (BEAKER) (test code [facility], = 1538) 36867: Supervisor Sign Shop/Techni kanchan ID = [id number] for Stri [place] (contract), [place] yamilet POCT-GLUCOSE [id number] 14:35:59 Test Item Value Reference Range Interpretation Comments POC-GLUCOSE METER 173 mg/dL 70-110 H : TESTED A T [facility] (BEAKER) (test code = [facility], 153) 05892: Supervisor Sign [employer]/Techni kanchan ID = [id number] for Wi lliams (contract), [place] POCT-GLUCOSE [id number] 14:35:59 Test Item Value Reference Range Interpretation Comments POC-GLUCOSE METER 128 mg/dL 70-110 H : TESTED A T [facility] (BEAKER) (test code = [facility], 153) 58633: Supervisor Sign Shop/Techni kanchan ID = [id number] for Wi lliams (contract), [place] helle POCT-GLUCOSE [id number] 12:03:54 Test Item Value Reference Range Interpretation Comments POC-GLUCOSE METER 97 mg/dL 70-110 : TESTED A T [facility] (BEAKER) (test code = [facility], 153) 21358: Supervisor Sign Shop/Techni kanchan ID = [id number] for Greenberg (contract), Sha lyric POCT-GLUCOSE [id number] 08:10:54 Test Item Value Reference Range Interpretation Comments POC-GLUCOSE METER 88 mg/dL 70-110 : TESTED A T [facility] (BEAKER) (test code = [facility], 153) 40878: Supervisor [employer]/Techni kanchan ID = [id number] for Greenberg (contract), Sha lyric BASIC METABOLIC [id number] 06:57:27 Test Item Value Reference Range Interpretation Comments SODIUM (BEAKER) 140 meq/L 136-145 (test code = 381) POTASSIUM 3.8 meq/L 3.5-5.1 (BEAKER) (test code = 379) CHLORIDE (BEAKER) 107 meq/L 98-107 (test code = 382) CO2 (BEAKER) 26 meq/L 22-29 (test code = 355) BLOOD UREA 15 mg/dL 7-21 NITROGEN (BEAKER) (test code = 354) CREATININE 0.61 mg/dL 0.57-1.25 (BEAKER) (test code = 358) GLUCOSE RANDOM 99 mg/dL 70-105 (BEAKER) (test code = 652) CALCIUM (BEAKER) 9.0 mg/dL 8.4-10.2 (test code = 697) EGFR (BEAKER) 92 Interpretatio n of eGFR (test code = mL/min/1.73 values Stage De scription 1092) sq m Result G1 Sofie l or high >=90 G2 Mildly decreased 60-89 G3a Mildl y to moderately 45-5 9 G3b Moderately to s everely 30-44 G4 Severl y decreased 15-29 G5 Kidney failure <15Reported eGF R is based on the CKD-EPI 2020 equation that d oes not use a race coefficientEsti mated GFR is not as accur ate as Creatinine Sowmya ai in predicting glom erular filtration rate . Estimated GFR is not appl icable for dialysis patien ts Supervisor Sign Shop ID - [facility] [place] (HEMOGRAM ONLY)2022-05-03 06:34:42 Test Item Value Reference Range Interpretation Comments WHITE BLOOD CELL COUNT (BEAKER) 5.8 K/ L 3.5-10.5 (test code = 775) RED BLOOD CELL COUNT (BEAKER) 3.26 M/ L 3.93-5.22 L (test code = 761) HEMOGLOBIN (BEAKER) (test code = 9.6 GM/DL 11.2-15.7 L 410) HEMATOCRIT (BEAKER) (test code = 29.3 % 34.1-44.9 L 411) MEAN CORPUSCULAR VOLUME (BEAKER) 90 fL 79-95 (test code = 753) MEAN CORPUSCULAR HEMOGLOBIN 29.4 pg 25.6-32.2 (BEAKER) (test code = 751) MEAN CORPUSCULAR HEMOGLOBIN CONC 32.8 GM/DL 32.2-35.5 (BEAKER) (test code = 752) RED CELL DISTRIBUTION WIDTH 14.6 % 11.7-14.4 H (BEAKER) (test code = 412) PLATELET COUNT (BEAKER) (test 184 K/CU MM 150-450 code = 756) MEAN PLATELET VOLUME (BEAKER) 10.5 fL 9.4-12.3 (test code = 754) NUCLEATED RED BLOOD CELLS 0 /100 WBC 0-0 (BEAKER) (test code = 413) POCT-GLUCOSE [id number] 17:12:21 Test Item Value Reference Range Interpretation Comments POC-GLUCOSE METER 123 mg/dL 70-110 H : TESTED A T [facility] 6720 (BEAKER) (test code = [facility], 1538) 89645: Supervisor Sign Shop/Techni kanchan ID = [id number] for Ulices perera (contract)Lanre POCT-GLUCOSE [id number] 12:44:33 Test Item Value Reference Range Interpretation Comments POC-GLUCOSE METER 96 mg/dL 70-110 : TESTED A T [facility]20 (BEAKER) (test code = [facility], 1538) 28164: Supervisor Sign Shop/Techni kanchan ID = [id number] for JUAR EZ, MADISYN POCT-GLUCOSE [id number] 08:58:31 Test Item Value Reference Range Interpretation Comments POC-GLUCOSE METER 86 mg/dL 70-110 : TESTED A T [facility]20 (BEAKER) (test code = [facility], 1538) 56458: Supervisor Sign Shop/Techni kanchan ID = [id number] for JUAR EZ, MADISYN SARS-COV2/RT-PCR ([facility])2022-05-01 21:47:48 Test Item Value Reference Range Interpretation Comments SARS-COV2/RT-PCR Negative Negative The SARS-Co V-2 target (test code = nucleic acids a re not [id number]) detected in thi s specimen. Negative result s do not preclude SARS-C oV-2 infection and s hould not be used as the nancy e basis for patient managem ent decisions. Nega tive results must be combine d with clinical observ ations, patient history , and epidemiological information. A false negativ e result may occur if a spec imen is improperly wilfredo ected, transported or handled. This SARS CoV-2 test is a rapid, real-time RT-PC R test intended for th e qualitative detection of nu cleic acid from SARS-CoV-2 in a nasopharyngeal swab specimen collected from individuals suspected of CO VID-19 by their healthcar e provider. This test has been authorized by FDA under an EUA for use by authorized laboratories. This test is only authorized for the duration of the declaration that circumstances exist justifying the authorization of emergency use of in vitro diagnostic tests for detection and/or diagnosis of COVID-19 under Section 564(b)(1) of the Federal Food, Drug and Cosmetic Act, 21 U.S.C. 360bbb-3(b)(1), unless the authorization is terminated or revoked sooner. Fact Sheet for Healthcare Providers: https://www.[employer] m/Documents/Xpert%20Xpress%20SARS%20CoV-2/Fact%20Sheets/302-3802%60DXCY-POG-1%20 HEALTHCARE%20PROVIDERS%20FACT%20SHEET.pdf Fact Sheet for Healthcare Patients: https://www.[facility]/Documents/Xpert%20Xp ress%20SARS%20CoV-2/Fact%20Sheets/302-3801%57MYVJ-KUX-8%20PATIENT%20FACT%20SHEET .pdfPOCT-GLUCOSE [id number] 16:34:22 Test Item Value Reference Range Interpretation Comments POC-GLUCOSE METER 126 mg/dL 70-110 H : [facility] (Cardiostrong) (test code = [facility], 153) 55950: Supervisor Sign Shop/Techni kanchan ID = [id number] for Terry harrell, Lilia POCT-GLUCOSE [id number] 12:33:22 Test Item Value Reference Range Interpretation Comments POC-GLUCOSE METER 98 mg/dL 70-110 : TESTED A T [facility] (Cardiostrong) (test code = [facility], 153) 55233: Supervisor Sign Shop/Techni kanchan ID = [id number] for Jamie corral, Lilia POCT-GLUCOSE [id number] 08:33:35 Test Item Value Reference Range Interpretation Comments POC-GLUCOSE METER 94 mg/dL 70-110 : TESTED A T [facility] (BEAKER) (test code = [facility], 1538) 16900: Supervisor Sign Shop/Techni kanchan ID = [id number] for Lilia Falcon RAD, CHEST, 1 VIEW, NON [id number] 12:56:00 [facility] 1945 Sex: FFINAL REPORT TECHNIQUE: Frontal radiograph of the chest. Indication: Extubated COMPARISON: None FINDINGS/IMPRESSION: The heart is normal in size. Patchy airspace opacities are present in both lungs. Left perihilar and basilar opacities are seen. Trace bilateral pleural effusions are suspected. There is no pneumothorax. Remote right-sided rib fractures. Signed: Gabrielle Fernandez Verified Date/Time: 04/30/2022 12:56:02 Reading Location: [address] Reading Room POCT-GLUCOSE [id number] 08:22:11 Test Item Value Reference Range Interpretation Comments POC-GLUCOSE METER 97 mg/dL 70-110 : TESTED A T [facility]20 (BEAKER) (test code = [facility], 1538) 94387: Supervisor Sign Shop/Techni kanchan ID = [id number] for MULUGETA SHERMAN POCT-GLUCOSE [id number] 21:31:48 Test Item Value Reference Range Interpretation Comments POC-GLUCOSE METER 104 mg/dL 70-110 : TESTED A T [facility]20 (BEAKER) (test code [facility], = 1538) 39555: Supervisor Sign Shop/Techni kanchan ID = [id number] for [place] (contract), Diamond yamilet POCT-GLUCOSE [id number] 18:45:53 Test Item Value Reference Range Interpretation Comments POC-GLUCOSE METER 86 mg/dL 70-110 : TESTED A T [facility]20 (BEAKER) (test code = [facility], 1538) 47952: Supervisor Sign Shop/Techni kanchan ID = [id number] for Will iams (contract), [place] helle POCT-GLUCOSE [id number] 17:06:41 Test Item Value Reference Range Interpretation Comments POC-GLUCOSE METER 88 mg/dL 70-110 : TESTED A T [facility]20 (BEAKER) (test code = [facility], 1538) 49196: Supervisor Sign Shop/Techni kanchan ID = [id number] for Will iams (contract), [place] helle POCT-GLUCOSE [id number] 16:30:27 Test Item Value Reference Range Interpretation Comments POC-GLUCOSE METER 134 mg/dL 70-110 H : TESTED A T [facility] (BEAKER) (test code = [facility], 1538) 18920: Supervisor Sign Shop/Techni kanchan ID = [id number] for Enedina Jimenez Notes Date/Time Note Provider Source 2014-12-18 07:50:00-00:00 DWAYNE Schneider [place] REASON FOR EXAM: 781.99, 850.9, V17.1. COMPARISON: [...] stenosis of the intracranial arterial vasculature. SL: 2014-12-18 07:12:08-00:00 DASHA Schneider [place] REASON FOR EXAM: 781.99, 850.9, V17.1. COMPARISON: [...] Deviated nasal septum. 7. Right mastoiditis. SL: 2014-04-03 11:55:43-00:00 DASHA Schneider [place] REASON FOR EXAM: 518.89, 786.09. COMPARISON: Chest [...] Degenerative changes of the spine. SL: 15 2014-03-17 11:49:17-00:00 DWAYNE Schneider [place] REASON FOR EXAM: 786.09. COMPARISON: None. FINDINGS: [...]
[2023-01-08 18:47] LABS: Specific Gravity 1.009 (1.005-1.030); Urine Bacteria <20 /HPF (<20); Urine Bilirubin NEGATIVE (Negative); Urine Blood 2+ (Negative); Urine Clarity Extremely Turbid (Clear); Urine Color Light-Orange (Yellow); Urine Glucose NEGATIVE (Negative); Urine Protein 1+ (Negative); Urine Urobilinogen Normal (Normal); Urine WBC Clump Many /HPF (None Seen)
[2023-01-08 18:48] LABS: Absolute Lymphocytes (CBC) 0.4 K/uL (0.7-4.9); Hematocrit 34.9 % (36.0-45.0); MPV 7.7 fL (7.6-11.3); RBC Red Blood Cell Count 4.35 M/uL (3.86-4.86)
[2023-01-08 18:53] LABS: AST/SGOT 6 U/L (15-37); Albumin 2.8 g/dL (3.4-5.0); Alkaline Phosphatase 93 U/L (45-117); BUN Blood Urea Nitrogen 13 mg/dL (7-18); Bicarbonate 20 mEq/L (21-32); Bilirubin Total 0.4 mg/dL (0.2-1.0); Glomerular Filtration Rate 64 ml/min (=/>90); Glucose Level 163 mg/dL (74-106); Potassium 3.7 mEq/L (3.5-5.1); Protein, Total 8.2 g/dL (6.4-8.2); Protime INR 0.95; Sodium Level 136 mEq/L (136-145)
[2023-01-08 19:00] LABS: ALT/SGPT < 10 U/L (13-56)
--- NOTE | 2023-01-08 19:07 | RAD REPORT ---
EXAM DESCRIPTION: Naye Single View01/08/2023 6:53 pm CLINICAL HISTORY: Chest pain COMPARISON: December 2022 FINDINGS: The lungs appear clear of acute infiltrate. The heart is normal size Old rib fractures IMPRESSION: No acute abnormalities displayed
[2023-01-08] MEDS ORDERED: CIPROFLOXACIN 400mg IV 400 MG/200 ML BAG IV ONE (19:11)
--- NOTE | 2023-01-08 19:25 | EDPHYS ---
Physician Documentation [facility] Name: Qing Richardson Age: 77 yrs Sex: Female : 1945 Arrival Date: 01/08/2023 Time: 17:42 Bed 18 Private MD: ED Physician Kb Kramer HPI: 01/08 19:08 This 77 yrs old Female presents to ER via EMS with complaints of AMS. snw 19:08 The patient presents with decreased responsiveness, disorientation, to place, to time. snw Onset: The symptoms/episode began/occurred acutely. Possible causes: sepsis, recent hospitalization, recent decubitus, recent encompass admission. Historical: - Allergies: 17:59 Fentanyl; ll1 17:59 Amoxicillin; ll1 17:59 oxybutynin; ll1 17:59 budesonide; ll1 17:59 formoterol fumarate; ll1 - PMHx: 17:59 COPD; Hypertension; Asthma; Osteoporosis; deviated septum; Arthritis; HTN; High ll1 Cholesterol; Hyperlipidemia; - PSHx: 17:59 Left hip replacement; right forearm graft; Bladder; right forearm pins; Tonsillectomy; ll1 - Immunization history:: Client reports receiving the 2nd dose of the Covid vaccine. - Social history:: Smoking status: Patient/guardian denies using tobacco, the patient reports quitting approximately 30 years ago. ROS: 19:02 Eyes: Negative for injury, pain, redness, and discharge, ENT: Negative for injury, snw pain, and discharge, Neck: Negative for injury, pain, and swelling, Cardiovascular: Negative for chest pain, palpitations, and edema, Respiratory: Negative for shortness of breath, cough, wheezing, and pleuritic chest pain, Abdomen/GI: Negative for abdominal pain, nausea, vomiting, diarrhea, and constipation, Back: Negative for injury and pain, : Negative for injury, bleeding, discharge, and swelling, MS/Extremity: Negative for injury and deformity, Skin: Negative for injury, rash, and discoloration, Psych: Negative for depression, anxiety, suicide ideation, homicidal ideation, and hallucinations. 19:02 Constitutional: Positive for malaise, poor PO intake. 19:02 Neuro: Positive for altered mental status. Exam: 18:58 Head/Face: Normocephalic, atraumatic. Eyes: Pupils equal round and reactive to light, snw extra-ocular motions intact. Lids and lashes normal. Conjunctiva and sclera are non-icteric and not injected. Cornea within normal limits. Periorbital areas with no swelling, redness, or edema. 18:58 Neck: Trachea midline, no thyromegaly or masses palpated, and no cervical lymphadenopathy. Supple, full range of motion without nuchal rigidity, or vertebral point tenderness. No Meningismus. Chest/axilla: Normal chest wall appearance and motion. Nontender with no deformity. No lesions are appreciated. 18:58 Respiratory: Lungs have equal breath sounds bilaterally, clear to auscultation and percussion. No rales, rhonchi or wheezes noted. No increased work of breathing, no retractions or nasal flaring. Abdomen/GI: Soft, non-tender, with normal bowel sounds. No distension or tympany. No guarding or rebound. No evidence of tenderness throughout. MS/ Extremity: Pulses equal, no cyanosis. Neurovascular intact. Full, normal range of motion. Psych: Awake, alert, with orientation to person, place and time. Behavior, mood, and affect are within normal limits. 18:58 Constitutional: The patient appears alert, pale, uncomfortable, unkempt. 18:58 ENT: Mouth: Oral mucosa: dry. 18:58 Cardiovascular: Rate: tachycardic, Rhythm: regular, Pulses: no pulse deficits are appreciated. 18:58 Back: pain, that is moderate, thoracic spine with bandage over decub, + brown drainage to 4x4, healed sacral decub. 18:58 Skin: Appearance: Color: pale, Temperature: normal temperature, Moisture: dry, lesion(s), located on the thoracic area, Turgor: is poor. 18:58 Neuro: Orientation: to person, Mentation: slow to respond, Memory: no acute changes, Motor: Hypertonic in right leg and left leg. Sensation: is normal, Gait: not tested. seizure activity, is not displayed by the patient. Vital Signs: 17:56 BP 124 / 79; Pulse 123; Resp 26; Temp 99.1; Pulse Ox 96% on R/A; Weight 77.11 kg; ll1 Height 5 ft. 1 in. ; Pain 5/10; 18:32 BP 115 / 71; Pulse 121; Resp 22; Pulse Ox 97% ; ll1 18:56 BP 115 / 69; Pulse 108; Resp 20; Pulse Ox 95% on R/A; ll1 20:00 BP 108 / 67; Pulse 91; Resp 16; Pulse Ox 96% on R/A; jb4 21:30 BP 143 / 80; Pulse 83; Resp 16; Pulse Ox 100% on R/A; jb4 22:15 BP 143 / 95; Pulse 95; Resp 16; Pulse Ox 99% on R/A; jb4 23:20 BP 125 / 67; Pulse 94; Resp 16; Pulse Ox 100% on R/A; jb4 01/09 00:18 Temp 100.4(A); jb4 01/08 17:56 Body Mass Index 32.12 (77.11 kg, 154.94 cm) ll1 01/08 17:56 Pain Scale: Adult ll1 MDM: 01/08 17:45 Patient medically screened. snw 19:10 Differential Diagnosis: CVA, electrolyte abnormality, sepsis, volume depletion. Data snw reviewed: vital signs, nurses notes, lab test result(s), EKG, radiologic studies. Management of patient was discussed with the following: Hospitalist: Annabel Templeton. Historians other than the Patient: Daughter/Son: Daughter. Counseling: I had a detailed discussion with the patient and/or guardian regarding: the historical points, exam findings, and any diagnostic results supporting the discharge/admit diagnosis, lab results, radiology results, the need for further work-up and treatment in the hospital. 20:20 Management of patient was discussed with the following: Hospitalist: awaiting CT stone snw to eval hydronephrosis, will re-order smith.. 21:29 ED course: will attempt transfer as pt has bilateral hydro with 3 cm bladder filling snw defect, no urology. 22:44 Management of patient was discussed with the following: Human Services Program Specialist: Spoke to Urologist lizzie at [facility] who was willing to consult although did not find the situation urgent. Spoke to Hospitalist, Dr. Waite, who kindly accept pt in transfer for urologic evaluation.. I considered the following discharge prescriptions or medication management in the emergency department Medications were administered in the Emergency Department. See MAR. Response to treatment: the patient's symptoms have markedly improved after treatment. 01/09 00:05 ED course: Notified Daughter of transfer.. snw 01/08 17:59 Order name: Blood Culture Adult (2) snw 01/08 17:59 Order name: CBC with Diff; Complete Time: 21:02 snw 01/08 17:59 Order name: CMP; Complete Time: 19:10 snw 01/08 17:59 Order name: Lactate w/ 2H reflex if indic.; Complete Time: 18:54 snw 01/08 17:59 Order name: Protime (+inr); Complete Time: 18:54 snw 01/08 17:59 Order name: Ptt, Activated; Complete Time: 18:54 snw 01/08 17:59 Order name: Urinalysis w/ reflexes; Complete Time: 18:48 snw 01/08 18:50 Order name: Urine Culture EDMS 01/08 20:51 Order name: Manual Differential; Complete Time: 21:02 EDMS 01/08 17:59 Order name: Chest Single View XRAY; Complete Time: 19:10 snw 01/08 17:59 Order name: CT Chest For PE Angio: Please eval T-spine as well, pt has decubitus over snw T-spine; Complete Time: 19:42 01/08 18:01 Order name: CT Head Brain wo Cont; Complete Time: 19:42 snw 01/08 20:09 Order name: CT Stone Protocol; Complete Time: 21:11 snw 01/08 17:59 Order name: EKG; Complete Time: 18:00 snw 01/08 17:59 Order name: Accucheck; Complete Time: 18:28 snw 01/08 17:59 Order name: Cardiac monitoring; Complete Time: 18:53 snw 01/08 17:59 Order name: Cath; Complete Time: 18:12 snw 01/08 17:59 Order name: EKG - Nurse/Tech; Complete Time: 18:53 snw 01/08 17:59 Order name: IV Saline Lock - Large Bore; Complete Time: 18:28 snw 01/08 17:59 Order name: Labs collected and sent; Complete Time: 18:28 snw 01/08 17:59 Order name: O2 Per Protocol; Complete Time: 18:02 snw 01/08 17:59 Order name: O2 Sat Monitoring; Complete Time: 18:02 snw 01/08 17:59 Order name: Vital Signs; Complete Time: 18:02 snw 01/08 17:59 Order name: Misc. Order: pt requests ice chips; Complete Time: 18:28 snw 01/08 20:09 Order name: Karan; Complete Time: 20:57 snw EC/02 18:59 Rate is 109 beats/min. Rhythm is regular. QRS [place] is Normal. [place] interval is normal. snw QRS interval is normal. Clinical impression: Sinus tachycardia. Administered Medications: 19:47 Drug: Ciprofloxacin IVPB 400 mg Volume: 200 ml; Route: IVPB; Infused Over: 60 mins; ll1 Site: right antecubital; 23:22 Drug: Cefepime IVPB 1 grams Route: IVPB; Rate: 200 ml/hr; Infused Over: 30 mins; Site: mb9 right antecubital; 23:50 Follow up: Response: No adverse reaction; IV Status: Completed infusion mb9 23:22 Drug: NS 0.9% IV 1000 ml Route: IV; Rate: 1000 ml; Site: right antecubital; mb9 23:22 Drug: NS 0.9% IV 1000 ml Route: IV; Rate: 1000 ml; Site: right antecubital; mb9 01/09 00:18 Drug: Acetaminophen PO 1000 mg Route: PO; jb4 Disposition: 13:12 Co-signature as Attending Physician, Kb Kramer MD I agree with the assessment and kdr plan of care. Disposition Summary: 01/08/23 23:14 Transfer Ordered Transfer Location: [facility] snw Reason: Specialty snw Condition: Stable(01/08/23 23:14) snw Problem: an acute exacerbation(01/08/23 23:14) snw Symptoms: have improved(01/08/23 23:14) snw Accepting Physician: Dr. Waite(01/09/23 00:18) jb4 Diagnosis - UTI/ Urinary tract infection, site not specified(01/08/23 23:14) snw - Hydroureter - Bilateral snw - Unspecified hydronephrosis - Bilateral snw - Bandemia snw - Bladder disorder, unspecified snw Forms: - Medication Reconciliation Form snw - SBAR form snw Signatures: Dispatcher [employer] Kb Yang MD MD kdr Jessica Tomlinson, DIRECTOR TELECOMMUNICATIONS-C DIRECTOR TELECOMMUNICATIONS-Csnw Lance Arora, RN RN jb4 Claudia Dalal, RN RN ll1 Yaneli Maharaj, RN RN mb9 Corrections: (The following items were deleted from the chart) 01/08 21: 19:24 Inpatient Admission snw snw : 19:24 Alvarado Mendoza snw snw : 19:24 Telemetry/MedSurg (Inpatient) snw snw : 19:24 Stable snw snw : 19:24 an acute exacerbation snw snw : 19:24 are unchanged snw snw : 19:24 Standard snw snw 19:24 snw snw : 19:24 Altered mental status, unspecified snw snw : 19:24 UTI/ Urinary tract infection, site not specified snw snw : 19:24 Disorder of the skin and subcutaneous tissue, unspecified - T-spine snw snw 23:14 23:14 Dr. Waite snw snw 23:14 23:14 are unchanged snw snw 01/09 00:02 07 23:14 Dr. Waite snw jb4 01/09 00:18 00:02 Dr. Ravindra cabrera4 jb4
--- NOTE | 2023-01-08 19:25 | ER ---
Nurse's Notes [facility] Name: Qing Richardson Age: 77 yrs Sex: Female : 1945 Arrival Date: 01/08/2023 Time: 17:42 Bed 18 Private MD: Diagnosis: UTI/ Urinary tract infection, site not specified;Hydroureter-Bilateral;Unspecified hydronephrosis-Bilateral;Bandemia;Bladder disorder, unspecified Presentation: 01/08 17:56 Chief complaint: Patient states: Weak and B knee pain. Patient's son or daughter ll1 states: Couldn't get a hold of her on phone around noon today. Found her at home around 5 PM with AMS, weakness, confusion, SOB. Last anish this happened she had kidney failure. EMS states: VSS except HR 120's sinus tach. FS 179. Coronavirus screen: Vaccine status: Patient reports receiving the 2nd dose of the covid vaccine. Client denies travel out of the [place] in the last 14 days. At this time, the client does not indicate any symptoms associated with coronavirus-19. Ebola Screen: Patient denies travel to an Ebola-affected area in the 21 days before illness onset. Initial Sepsis Screen: Does the patient meet any 2 criteria? RR > 20 per min. HR > 90 bpm. Yes Does the patient have a suspected source of infection? No. Patient's initial sepsis screen is negative. Risk Assessment: Do you want to hurt yourself or someone else? Patient reports no desire to harm self or others. Onset of symptoms was January 08, 2023. 17:56 Method Of Arrival: EMS ll1 17:56 Acuity: RHODA 2 ll1 Triage Assessment: 18:30 General: Appears uncomfortable, ill, Behavior is calm, cooperative, appropriate for ll1 age. General: Reports fatigue for. Pain: Complains of pain in knees Pain currently is 6 out of 10 on a pain scale. Quality of pain is described as aching. Neuro: Reports weakness. Neuro: Reports. Musculoskeletal: Reports pain in B knees. Historical: - Allergies: 17:59 Fentanyl; ll1 17:59 Amoxicillin; ll1 17:59 oxybutynin; ll1 17:59 budesonide; ll1 17:59 formoterol fumarate; ll1 - PMHx: 17:59 COPD; Hypertension; Asthma; Osteoporosis; deviated septum; Arthritis; HTN; High ll1 Cholesterol; Hyperlipidemia; - PSHx: 17:59 Left hip replacement; right forearm graft; Bladder; right forearm pins; Tonsillectomy; ll1 - Immunization history:: Client reports receiving the 2nd dose of the Covid vaccine. - Social history:: Smoking status: Patient/guardian denies using tobacco, the patient reports quitting approximately 30 years ago. Screenin:31 [facility] ED Fall Risk Assessment (Adult) Confusion or Disorientation Yes (5 pts) ll1 Impaired Gait Yes (1 pt) Mobility Assist Device Used Yes (1 pt) Altered Elimination Yes (1 pt) Score/Fall Risk Level 3 or more points = High Risk Oriented to surroundings, Maintained a safe environment, Educated pt \T\ family on fall prevention, incl call for assistance when getting out of bed, Provided non-skid footwear, Hourly rounding (assess needs \T\ fall precautionary measures) done, Utilized family, sitter, or virtual senior software engineer as indicated. Abuse screen: Denies threats or abuse. Nutritional screening: No deficits noted. Tuberculosis screening: No symptoms or risk factors identified. Assessment: 18:56 Reassessment: No changes from previously documented assessment. Patient and/or family ll1 updated on plan of care and expected duration. Pain level reassessed. 19:15 Reassessment: Pt resting in bed with eyes closed, respirations are even and unlabored jb4 with no s/s of pain or distress noted. 20:30 Reassessment: Patient appears in no apparent distress at this time. No changes from jb4 previously documented assessment. Patient and/or family updated on plan of care and expected duration. Pain level reassessed. 21:37 Reassessment: Patient appears in no apparent distress at this time. No changes from jb4 previously documented assessment. Patient and/or family updated on plan of care and expected duration. Pain level reassessed. 22:30 Reassessment: Patient appears in no apparent distress at this time. Patient and/or jb4 family updated on plan of care and expected duration. Pain level reassessed. Patient is alert, oriented x 3, equal unlabored respirations, skin warm/dry/pink. 23:30 Reassessment: Patient appears in no apparent distress at this time. Patient and/or jb4 family updated on plan of care and expected duration. Pain level reassessed. Patient is alert, oriented x 3, equal unlabored respirations, skin warm/dry/pink. 23:46 Reassessment: report called to receiving facility. jb4 Vital Signs: 17:56 BP 124 / 79; Pulse 123; Resp 26; Temp 99.1; Pulse Ox 96% on R/A; Weight 77.11 kg; ll1 Height 5 ft. 1 in. ; Pain 5/10; 18:32 BP 115 / 71; Pulse 121; Resp 22; Pulse Ox 97% ; ll1 18:56 BP 115 / 69; Pulse 108; Resp 20; Pulse Ox 95% on R/A; ll1 20:00 BP 108 / 67; Pulse 91; Resp 16; Pulse Ox 96% on R/A; jb4 21:30 BP 143 / 80; Pulse 83; Resp 16; Pulse Ox 100% on R/A; jb4 22:15 BP 143 / 95; Pulse 95; Resp 16; Pulse Ox 99% on R/A; jb4 23:20 BP 125 / 67; Pulse 94; Resp 16; Pulse Ox 100% on R/A; jb4 07 00:18 Temp 100.4(A); jb4 01/08 17:56 Body Mass Index 32.12 (77.11 kg, 154.94 cm) 1 07 17:56 Pain Scale: Adult ll1 ED Course: 01/08 17:43 Patient arrived in ED. ll1 17:44 Jessica Tomlinson FNP-C is [facility]. sn 17:44 Kb Kramer MD is Attending Physician. snw 17:56 Claudia Dalal RN is Primary Nurse. ll1 17:58 Triage completed. ll1 18:00 Arm band placed on Patient placed in an exam room, on a stretcher. ll1 18:00 Straight cath inserted, using sterile technique, 16 Fr. Specimen obtained. tolerated ll1 well. Cleaned of urine soaked diaper. Took her out of her wet shirt, clean dry gown applied. Tolerated well. 18:15 Inserted saline lock: 20 gauge in right antecubital area, using aseptic technique. ll1 Blood collected. 18:31 Patient has correct armband on for positive identification. Bed in low position. Call ll1 light in reach. Side rails up X2. Client placed on continuous cardiac and pulse oximetry monitoring. NIBP monitoring applied. balance wheel screw hole tapper on. 18:55 Chest Single View XRAY In Process Unspecified. EDMS 19:21 CT Chest For PE Angio: Please eval T-spine as well, pt has decubitus over T-spine In EDMS Process Unspecified. 19:21 CT Head Brain wo Cont In Process Unspecified. EDMS 19:23 Alvarado Mendoza MD is Hospitalizing Provider. snw 20:38 CT Stone Protocol In Process Unspecified. EDMS 21:42 Initial contact to [facility]. I spoke with Alexandre Disla RN TC. 1 22:10 [facility] Called for a Doc to Doc with Jessica. [facility] 22:35 Alexandre called back to speak with Jessica. 1 22:44 Physician approval by Juan Decker at [facility]. 1 23:08 Hospital approval by Colin Disla RN TC at [facility] Bed 1406. 1 23:30 Contacted [facility] for initial transfer. ETA 20 mins. [facility] 01/09 00:01 No provider procedures requiring assistance completed. Patient transferred, IV remains jb4 in place. Administered Medications: 01/08 19:47 Drug: Ciprofloxacin IVPB 400 mg Volume: 200 ml; Route: IVPB; Infused Over: 60 mins; ll1 Site: right antecubital; 23:22 Drug: Cefepime IVPB 1 grams Route: IVPB; Rate: 200 ml/hr; Infused Over: 30 mins; Site: mb9 right antecubital; 23:50 Follow up: Response: No adverse reaction; IV Status: Completed infusion 9 23:22 Drug: NS 0.9% IV 1000 ml Route: IV; Rate: 1000 ml; Site: right antecubital; mb9 23:22 Drug: NS 0.9% IV 1000 ml Route: IV; Rate: 1000 ml; Site: right antecubital; mb9 01/09 00:18 Drug: Acetaminophen PO 1000 mg Route: PO; jb4 Medication: 01/08 18:31 VIS not applicable for this client. 1 Outcome: 19:24 Decision to Hospitalize by Provider. snw 23:14 ER care complete, transfer ordered by MD. samuel 01/09 00:01 Transferred by [facility]. to [facility], Transfer form jb4 completed. X-rays sent w/ patient. Condition: stable Discharge instructions given to patient, Instructed on the need for transfer, Demonstrated understanding of instructions. 00:02 Patient left the ED. jb4 00:18 Patient left the ED. jb4 Addendum: 01/12/2023 08:51 Addendum: Culture Results: Positive urine culture. Phone call Attempt #1 Called and s s spoke with MELISSA Pope at [facility]. Faxed culture report to [phone]. Signatures: Dispatcher [employer] EDMS Jessica Tomlinson, BENCH ASSEMBLER BATTERY-C BENCH ASSEMBLER BATTERY-Csnw Marissa Sanchez RN RN ss Lance Arora RN RN jb4 Claudia Dalal RN RN ll1 Nicko, Yaneli Pendleton RN RN mb9 Chay French [facility] Corrections: (The following items were deleted from the chart) 01/08 21:37 19:00 Reassessment: Patient appears in no apparent distress at this time. Patient jb4 and/or family updated on plan of care and expected duration. Pain level reassessed. Patient is alert, oriented x 3, equal unlabored respirations, skin warm/dry/pink. jb4
--- NOTE | 2023-01-08 19:34 | RAD REPORT ---
EXAM DESCRIPTION: CT - Chest For Pe Angio - 01/08/2023 7:19 pm CLINICAL HISTORY: sob COMPARISON: December 2022 TECHNIQUE: Dynamically enhanced axial 3 mm thick images of the chest were obtained during administra tion of 100 mL Isovue 370 IV contrast. Coronal and oblique reconstruction images were generated and r eviewed. Exam utilizes a protocol for optimal evaluation of pulmonary arterial tree. Maximum intensity projections 3D imaging was utilized All CT scans are performed using dose optimization technique as appropriate and may include automated exposure control or mA/KV adjustment according to patient size. FINDINGS: A pulmonary embolus is not seen. Aberrant right subclavian artery. A thoracic aortic aneurysm is not present A pleural effusion is not seen. A pericardial effusion is not seen. A lung consolidation is not present. Most inferior slice demonstrates probable left hydronephrosis. Visualized portion of the gallbladder appears mildly distended Coarse splenic artery calcifications IMPRESSION: Negative for a pulmonary embolism. Most inferior slice demonstrates probable left hydronephrosis Visualized portion of the gallbladder appears mildly distended
--- NOTE | 2023-01-08 19:35 | RAD REPORT ---
EXAM DESCRIPTION: CT - Head Brain Wo Cont - 01/08/2023 7:19 pm CLINICAL HISTORY: Alteration of awareness/confusion COMPARISON: 2021 TECHNIQUE: Computed axial tomography of the head was obtained. IV contrast was not requested. All CT scans are performed using dose optimization technique as appropriate and may include automated exposure control or mA/KV adjustment according to patient size. FINDINGS: An intracranial bleed is not seen The ventricles are normal in caliber No extra-axial fluid collection is noted. Moderate low-density areas within periventricular, deep and subcortical white matter likely represent ischemic changes secondary to small vessel disease. 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 IMPRESSION: No acute intracranial abnormality is seen If patient's symptoms persist MRI of the brain would be recommended
[2023-01-08 20:50] LABS: Platelet Estimate ADEQ
[2023-01-08 20:53] LABS: Anisocytosis SLIGHT; Blood Morphology Comment NOTED (NOT SEEN); Polychromasia SLIGHT
--- NOTE | 2023-01-08 21:07 | RAD REPORT ---
EXAM DESCRIPTION: CT - Stone Protocol - 01/08/2023 8:36 pm CLINICAL HISTORY: Abdominal pain. COMPARISON: CT chest January 28, 2023 TECHNIQUE: Computed axial tomography of the abdomen pelvis was obtained without oral or IV contrast. Lack of IV and oral contrast limits evaluation of solid organs, appendix, bowel, and vessels. [place] l reformatted images were obtained and reviewed. Intravenous contrast from the recent CT chest is pr esent within the genitourinary system. All CT scans are performed using dose optimization technique as appropriate and may include automated exposure control or mA/KV adjustment according to patient size. FINDINGS: Moderate bilateral hydronephrosis. Ureters are dilated to the bladder. 2.9 centimeter left renal cyst. 3 centimeter filling defect within the bladder The liver, spleen, pancreas and adrenals appear grossly normal There is no evidence of diverticulitis. Mild gallbladder distention. Neurostimulator device in place IMPRESSION: Moderate bilateral hydronephrosis with dilatation of the entire ureters. 3 centimeter fi lling defect within the bladder may represent a mass. Direct visualization recommended Mild gallbladder distention
[2023-01-08] MEDS ORDERED: NA CHLORIDE 0.9% 2,000 ML ONE (23:24)
[2023-01-08] MEDS ORDERED: NA CHLORIDE 0.9% 100 ML ONE (23:24)
[2023-01-08] MEDS ORDERED: CEFEPIME 1 GM/VIAL ONE (23:24)
[2023-01-09] MEDS ORDERED: ACETAMINOPHEN 500 MG TAB ONE (00:22)
[2023-01-09 01:10] VITALS: BP 125/67; O2SAT 100
[2023-01-09 01:46] VITALS: TEMP 100.4
--- NOTE | 2023-01-09 19:31 | EKG ---
Test Date: 2023-01-08 Test Time: 18:55:10 Senior Office Assistant: ELISSA MEASUREMENT RESULTS: Intervals: Rate: 109 MN: 186 QRSD: 78 QT: 316 QTc: 425 [place]: P: 60 MN: 186 QRS: 66 T: 70 INTERPRETIVE STATEMENTS: Sinus tachycardia Otherwise normal ECG Compared to ECG 12/20/2022 14:23:48 Sinus rhythm no longer present Myocardial infarct finding no longer present Electronically Signed On 01-09-23 19:28:56 CDT by Yusuf Fernandez
== END 2023-01-09 00:18 | disposition short-term general hospital (02) ==
LOC: ER 17:42
DX: N39.0 Urinary tract infection, site not specified (principal); N13.4 Hydroureter; N13.30 Unspecified hydronephrosis; D72.825 Bandemia; N32.9 Bladder disorder, unspecified; I10 Essential (primary) hypertension; Z88.1 Allergy status to other antibiotic agents; Z88.5 Allergy status to narcotic agent; Z88.8 Allergy status to other drugs, medicaments and biological substances; Z96.642 Presence of left artificial hip joint
CPT/HCPCS: 96365; 93005; 87040 ×2; 87088; 85025; 81001; 87086; 36415; 85610; 83605; 85730; 87077; 87186; 80053; 70450; 76377; 71275; 74176; 71045; 51702; 96375; 99285; Q9967; J0744; J7030; J0692

== ENCOUNTER 2023-05-31 13:14 | Inpatient (IN) | payer OTHER ==
--- OUTSIDE RECORDS SUMMARY | 2023-05-31 13:22 | XMS REPORT | Continuity of Care Document ---
:1945 Author Organization [facility] t Address [address] [place] [address] [place] [id number] Care Team Providers Name Role Phone ASHLEY MORRELL Primary Care Physician Unavailable Ashley Morrell Attending Clinician Unavailable WEN REID Attending Clinician Unavailable MICHELLE MEYER NATASHA Attending Clinician Unavailable Victorina Dong Attending Clinician Unavailable Kiran Hatch MD Attending Clinician UnavailKIRAN Greenberg Attending Clinician Unavailable Jose E MILLIGAN, Amarilis Bowman Attending Clinician Pepper Duenas CRNA Attending Clinician [phone] Enio MILLIGAN, Jan Attending Clinician Rani Oliveros Attending Clinician Hyacinth Coleman MD Attending Clinician Kiran Sánchez MD Attending Clinician [phone] Wen Reid MD Attending Clinician Tracy Mendoza DO Attending Clinician HYACINTH COLEMAN Attending Clinician Unavailable TRACY MENDOZA Attending Clinician Unavailable KIRAN SÁNCHEZ Attending Clinician Unavailable DESTINEE BERNAL Attending Clinician Unavailable DOMONIQUE GRAY Attending Clinician Unavailable MIRIAM BRADEN Attending Clinician Unavailable John Phillips Jr Attending Clinician Trae Colin Attending Clinician KIRAN SÁNCHEZ Admitting Clinician Unavailable MICHELLE MEYER NATASHA Admitting Clinician Unavailable KIRAN HATCH Admitting Clinician Unavailable MICHELLE MEYER Admitting Clinician Unavailable DESTINEE BERNAL Admitting Clinician Unavailable MIRIAM BRADEN Admitting Clinician Unavailable Payers Payer Name Policy Type Policy Number Effective Date Expiration Date S chu MEDICARE A B [id number] 2010 00:00:00 [facility] [id number] HUMAN MEDICARE [id number] 2021 ADV 00:00:00 [employer] MEDICARE 53 [id number] [id number] Common Sp paul ing Medicare - [facility] C1 [id number] Common Sp paul ing Medicare - [facility] C1 [id number] Common Sp paul ing Medicare - [facility] Problems Condition Condition Condition Status Onset Resolution Last Treating Co mments Source Name Details Category Date Date Treatment Clinician Date Lesion of Lesion of Disease Active [facility] urinary urinary 8-30 [facility] bladder bladder 00:00: Medical 00 [place]ander E. coli E. coli Disease Active 2021-[address] [facility] UTI UTI 0-26 [facility] (urinary (urinary 00:00: Medica l tract tract 00 Center infection) infection) Required Required Disease Active 2021-07 [facility] emergent emergent 0-26 [facility] intubation intubation 00:00: Me dical 00 Center Decreased Decreased Disease Active 2021-[address] [facility] functional functional 0-26 Lenore kes mobility mobility 00:00: Medica l 00 Center Acute Acute Disease Recurre 2021-[address] respirator respirator nce 0-25 Lenore kes y failure y failure 00:00: Medi sergio with with 00 Center hypoxia hypoxia Acute Acute Disease Active 2021-[address] [facility] cystitis cystitis 0-25 [facility] without without 00:00: Medical hematuria hematuria 00 Cent er Influenzal Influenzal Disease Active 2021-[address] pneumonia pneumonia 0-25 Luke s 00:00: Medical 00 Center Decubitus Decubitus Disease Active 2021-[address] ulcer of ulcer of 0-25 [facility] sacral sacral 00:00: Medical area area 00 Center Septic Septic Disease Recurre 2021-[address] shock shock nce 0-20 [facility] 00:00: Medical 00 [place]ander 781.99 - 781.99 - Diagnosis Active 2015-01-13 Memoria NERVE/MUSC NERVE/MUSC 12-10 08:08:00 l KATHIE VÁZQUEZ 00:01: Holden Active 00 12/10/2014 JOCELYNE Ramirez 786.09 - 786.09 - Diagnosis Active 2014-04-21 Memoria RESPIRATOR RESPIRATOR 03-17 15:36:00 l Y ABN Y ABN 00:01: Holden Active 00 03/17/2014 JOCELYNE Ramirez Disease of Disease Problem Active 2014-12-21 Memoria lung of lung 03-17 01:41:13 l (disorder) (disorder) 00:00: Emiliano streeter Active 00 03/17/2014 Problem 12/21/2014 <sup>4</zuniga p>Data migrated from [employer] P[employer] on 12/09/14. JOCELYNE [place] Dyspnea on Dyspnea Problem Active 2014-12-21 Memoria exertion on 03-17 01:41:13 l (finding) exertion 00:00: Sayra nn (finding) 00 Active 03/17/2014 Problem 12/21/2014 <sup>5</zuniga p>Data migrated from [employer] on 12/09/14. JOCELYNE [place] Asthma Asthma Problem Active 2014-12-21 Itz annette (disorder) (disorder) 02-13 01:41:13 l Active 00:00: Holden 02/13/2014 00 Problem 12/21/2014 <sup>2</zuniga p>Data migrated from [employer] on 12/09/14. JOCELYNE Ramirez SCIFICA SCIFICA Diagnosis Active 2010-072011-07-13 Memoria Active 09-05 07:56:00 l 07/05/2011 00:00: Randy bartlett [address] [id number] Other Problem Common obesity Spirit due to - CHI excess [facility] [id number] Skin ulcer Problem Com mon of sacrum, Spirit unspecifie - [facility] d ulcer [facility] Seasonal Allergic Problem Commo n allergic rhinitis, Spiri t rhinitis seasonal [facility] Hypertensi Hypertensi Problem C ommon on on [facility] Chronic Chronic Problem Common obstructiv obstructiv Sp paul e e - [facility] Med[facility] l d COPD Center type [id number] Pressure Problem Com mon [id number] injury of Spirit back, [address] Osteoporos Osteoporos Problem C ommon is is without Spirit current - [facility] pathologic [facility] fracture, Medical unspecifie Center d osteoporos is type Hyperlipid Hyperlipid Problem C ommon emia emia [facility] [id number] Pain in Problem Comm on thoracic [facility] spine [facility] [id number] Other Problem Common chronic [facility] pain [facility] [id number] Hypertrigl Problem Co mmon yceridemia [facility] [id number] Incontinen Problem Com mon ce in [facility] female [facility] [id number] Tinea Problem Common pedis of Spirit both feet [facility] [id number] Tinea Problem Common unguium [facility] [id number] Prediabete Problem Co mmon s [facility] [id number] Tinea Problem Common [facility] [id number] Hypercalce Problem Com mon rodrick [facility] [id number] Hyperglyce Problem Com mon [facility] [id number] OAB Problem Common (overactiv Spirit e bladder) [facility] [id number] History of Problem Co mmon recurrent [facility] UTIs [facility] Pressure Pressure Problem Commo n ulcer of ulcer of Spirit left lower left lower - CHI back, back, St stage [address] Age-relate Age-relate Problem C ommon d d Spirit osteoporos osteoporos - [facility] is is without [facility] pathologic Medica l al Center fracture [id number] Bladder Problem Commo n mass Spirit - [facility] [id number] Hyperphosp Problem Com mon hatemia Spirit - [facility] Mixed Hyperlipid Problem Commo n hyperlipid emia, Spirit emia mixed [facility] [id number] Urinary Problem Commo n incontinen Spirit ce, - CHI unspecifie [facility] Body mass Body mass Problem Com mon index 40+ index Spirit - severely (BMI) of - CH I obese 40.0-44.[address] [facility] Allergic Allergic Problem Commo n rhinitis rhinitis, Spiri t unspecifie - CHI d St seasonalit [facility] y, Medical unspecifie Center d trigger Urinary Recurrent Problem Commo n tract UTI Spirit infectious (urinary - CH I disease tract St infection) [facility] [id number] Stress Problem Common incontinen Spirit ce of - CHI urine [facility] [id number] Body mass Problem Com mon index Spirit [BMI] - CHI 34.0-34.9, [facility] Essential Essential Problem Com mon hypertensi hypertensi Sp paul on on [facility] SCIATICA SCIATICA Diagnosis Active 2011-07-13 Memoria Active MH 07:56:00 [facility] Allergies, Adverse Reactions, Alerts Allergy Allergy Status Severity Reaction(s) Onset Inactive Treating Comm ents Source Name Type Date Date Clinician Sulfamet Propensi Active Diarrhea [facility] St hoxazole ty to 02-15 [facility] -Trimeth adverse 00:00: Medical oprim reaction 00 Center s SULFAMET Allergy Active Diarrhea [facility]I S t HOXAZOLE 02-15 [facility] -TRIMETH 00:00: Medical OPRIM 00 Center BACTRIA Allergy Active ENCCLR 07-26 08:37: 26 BACTRIA Allergy Active ENCCLR 07-26 08:37: 26 BACTRIA Allergy Active ENCCLR 07-26 08:37: 26 BACTRIA Allergy Active ENCCLR 07-26 08:37: 26 OXYTROL Allergy Active ENCCLR 07-26 08:37: 08 OXYTROL Allergy Active 0 ENCCLR 07-26 08:37: 08 OXYTROL Allergy Active 0 ENCCLR 07-26 08:37: 08 OXYTROL Allergy Active 0 ENCCLR 07-26 08:37: 08 SYMBICOR Allergy Active 0 ENCCLR T 07-25 10:10: 59 SYMBICOR Allergy Active 0 ENCCLR T 07-25 10:10: 59 SYMBICOR Allergy Active 0 ENCCLR T 07-25 10:10: 59 SYMBICOR Allergy Active 0 ENCCLR T 07-25 10:10: 59 SYMBICOR Allergy Active 0 ENCCLR T 07-25 10:10: 59 ZITHROMA Allergy Active 0 ENCCLR X 07-25 10:09: 57 ZITHROMA Allergy Active 0 ENCCLR X 07-25 10:09: 57 ZITHROMA Allergy Active 0 ENCCLR X 07-25 10:09: 57 ZITHROMA Allergy Active 0 ENCCLR X 07-25 10:09: 57 ZITHROMA Allergy Active 0 ENCCLR X 07-25 10:09: 57 FENTANYL Allergy Active 0 ENCCLR 07-25 10:09: 19 FENTANYL Allergy Active 0 ENCCLR 07-25 10:09: 19 FENTANYL Allergy Active 0 ENCCLR 07-25 10:09: 19 FENTANYL Allergy Active 0 ENCCLR 07-25 10:09: 19 FENTANYL Allergy Active 0 ENCCLR 07-25 10:09: 19 AMOXICIL Allergy Active 0 ENCCLR MILEY 07-25 10:08: 56 AMOXICIL Allergy Active 0 ENCCLR MILEY 07-25 10:08: 56 AMOXICIL Allergy Active 0 ENCCLR MILEY 07-25 10:08: 56 AMOXICIL Allergy Active 0 ENCCLR MILEY 07-25 10:08: 56 AMOXICIL Allergy Active 0 ENCCLR MILEY 07-25 10:08: 56 Budesoni Drug Active Other (See 0 [address] [facility] de-Formo Allergy Comments) 07-25 Luke s terol 00:00: Medical 00 [place]ander BUDESONI Allergy Active Other 2022-[address] DE-FORMO 1-16 [facility] TEROL 00:00: Medical 00 Center Formoter Drug Active Other (See 0 [address] [facility] ol Allergy Comments) 08-05 [facility] 00:00: Medical 00 Center Oxybutyn Drug Active Other [facility] in Allergy 08-05 reaction( [facility]ukes 00:00: s): Rash Medical 00 Center FORMOTER Allergy Active Other [facility] OL 08-05 [facility] 00:00: Medical 00 Center OXYBUTYN Allergy Active [facility] IN 08-05 [facility] 00:00: Medical 00 Center Azithrom Propensi Active Diarrhea 2020-0 Meth tammy ycin ty to -14 st adverse 00:00: Hospita reaction 00 l s to drug Azithrom Drug Active Diarrhea 2019-[address] ycin Allergy 07-23 [facility] 00:00: Medical 00 [place] AZITHROM Allergy Active Low Diarrhea 2019-0 [facility] t YCIN 14 [facility] 00:00: Medical 00 Center Amoxicil Propensi Active GI 2020-0 Vomiting Meth tammy miley ty to Intolerance 1-[address] adverse 00:00: Hospita reaction 00 l s to drug Fentanyl Propensi Active Other (See 0 hallucina Methodi ty to Comments) 1-[address] adverse 00:00: Hospita reaction 00 l s to drug Amoxicil Drug Active Diarrhea, 2020-0 GI [facility] t miley Allergy Nausea And 1-10 Intoleran Lenore kes Vomiting 00:00: , Medical 00 severe Center diarrhea Fentanyl Drug Active 2020-0 Hallucina [facility] t Allergy 1-10 tions [facility] 00:00: Medical 00 Center AMOXICIL Allergy Active Diarrhea 2020-0 [facility] t MILEY 1-10 [facility] 00:00: Medical 00 Center FENTANYL Allergy Active 2020-[address] 1-10 [facility] 00:00: Medical 00 [place] NO KNOWN Allergy Active [facility] Family History Family Member Diagnosis Comments Start Date Stop Date Source Natural father Aneurysm [facility] Natural mother Aneurysm [facility] Natural mother Diabetes [facility] Natural [facility] Social History Social Habit Start Date Stop Date Quantity Comments Source History of tobacco Current smoker [facility] Sexual orientation [facility] Alcohol intake 2023-03-27 2023-03-27 Ex-drinker [facility] St Edmonds es 00:00:00 00:00:00 (finding) Medical Center History of Social 2023-03-27 2023-03-27 ABHISHEK Rinaldi function 00:00:00 00:00:00 [facility] Cigarettes smoked 2023-02-15 2023-02-[address] [facility] St Dick current (pack per 00:00:00 00:00:00 Medical Center day) - Reported Cigarette 2023-02-15 2023-02-[address] [facility] ramona pack-years 00:00:00 00:00:00 [facility] Tobacco use and 2023-02-15 2023-02-[address] [facility] sergeis exposure 00:00:00 00:00:00 tobacco non-user [facility] Sex Assigned At [address] [facility] Lenore greene 00:00:00 00:00:00 [facility] Smoking Status Start Date Stop Date Source Ex-smoker 2023-02-15 00:00:00 2023-02-15 00:00:00 [facility] Medications Ordered Filled Start Stop Current Ordering Indication Dosage Frequency Signature Comments Components Source Medication Medication Date Date Medication? Clinician (SIG) Name Name fluticasone Yes 1{puff} Inhale 1 ABHISHEK Sorensen propion-nael 9-18 puff by [facility] meteroL 16:07: mouth via Medic al (ADVAIR) 12 inhaler Center 250-50 every 12 mcg/dose (twelve) diskus hours. inhaler albuterol Yes 1{puff} Inhale [address] HFA 9-18 puff by [facility] (VENTOLIN 16:07: mouth via Med ical HFA) 90 12 inhaler Center mcg/actuati every 6 on inhaler (six) hours as needed for Wheezing. aspirin 81 Yes 81mg QD Take 1 [facility]I S t MG EC 9-18 tablet (81 [facility] tablet 16:07: mg total) Medica l 12 by mouth Center daily Mondays and per patient . cholecalcif Yes 5000U QD Take [address] maylin 9-18 tablet [facility] (VITAMIN 16:07: (5,000 Medical D3) 125 mcg 12 Units Center (5,000 total) by unit) mouth tablet daily. denosumab 0 Yes 60mg Inject [address] (Prolia) 60 9-18 mL (60 mg Kendal es mg/mL Syrg 16:07: total) Medic al 12 subcutaneo Center usly every 6 (six) months. fluticasone 0 Yes 1{spray [address] propionate 9-18 } Nasal [facility] (FLONASE) 16:07: route Medical 50 12 daily as Center mcg/actuati needed. on nasal spray ciprofloxac 0 Yes 500mg Q.5D Take [address] in HCl 9-18 tablet [facility]ukes (CIPRO) 500 16:07: (500 mg Med ical MG tablet 12 total) by Cente r mouth 2 (two) times daily. doxycycline 0 Yes 100mg Q.5D Take [address] (DORYX) 100 9-18 tablet [facility]ukes MG EC 16:07: (100 mg Medical tablet 12 total) by Center mouth 2 (two) times daily. acetaminoph 0 2022- No 1000mg Take [address] en 03-1708 tablets [facility]ukes (TYLENOL) 13:23: 00:00 (1,000 mg Me dical 500 MG 01 :00 total) by Center tablet mouth 2 (two) times daily as needed for Pain. ezetimibe 2022- No 10mg QD Take 1 [facility] t (ZETIA) 10 03-17 tablet (10 Lenore kes mg tablet 13:18: 00:00 mg total) Me dical 36 :00 by mouth Center daily. fenofibrate 0 2022- No 160mg QD Take [address] (TRIGLIDE,L 03-17 tablet [facility]ukes OFIBRA) 160 13:18: 00:00 (160 mg Me dical MG tablet 29 :00 total) by Cente r mouth daily. rosuvastati 2022-0 2022- No 20mg QD Take [address] n (CRESTOR) 03-17-08 tablet (20 L ukes 20 MG 13:17: 00:00 mg total) Medica l tablet 54 :00 by mouth Center daily. levocetiriz 2022- No 5mg QD Take [address] ine (XYZAL) 03-17 tablet (5 Lenore kes 5 MG tablet 13:17: 00:00 mg total) Medical 48 :00 by mouth Center every evening. diclofenac 2022- No 2g Apply [address] 1 % Gel 01-12 topically [facility] 00:00: 00:00 4 (four) Medical 00 :00 times Center daily as needed (pain on left chest) for up to 90 days. ciprofloxac 2022- No 500mg Q.5D Take [address] in HCl 01-12 tablet [facility] (CIPRO) 500 00:00: 23:59 (500 mg Me dical MG tablet 00 :00 total) by Cente r mouth 2 (two) times daily for 10 days. Omeprazole Omeprazole 2021-07 No QD Omeprazole Magnesium Magnesium 2-09 Magnesium 20 MG 20 MG 00:00: 20 MG [facility] 2021-07 [facility] Ca Alginate Ca Alginate 2-09 Ca 4"x5" - 4"x5" - 00:00: Alginate 00 4"x5" - Omeprazole Omeprazole 2021-07 No QD Omeprazole Magnesium Magnesium 2-09 Magnesium 20 MG 20 MG 00:00: 20 MG [facility] 2021-07 [facility] Ca Alginate Ca Alginate 2-09 Ca 4"x5" - 4"x5" - 00:00: Alginate 00 4"x5" - [facility] 2021-07 [facility] Ca Alginate Ca Alginate 2-09 Ca 4"x5" - 4"x5" - 00:00: Alginate 00 4"x5" - Omeprazole Omeprazole 2021-07 No QD Omeprazole Magnesium Magnesium 2-09 Magnesium 20 MG 20 MG 00:00: 20 MG [facility] 2021-07 [facility] Ca Alginate Ca Alginate 2-09 Ca 4"x5" - 4"x5" - 00:00: Alginate 00 4"x5" - Omeprazole Omeprazole 2021-07 No QD Omeprazole Magnesium Magnesium 2-09 Magnesium 20 MG 20 MG 00:00: 20 MG [facility] 2021-07 [facility] Ca Alginate Ca Alginate 2- Ca 4"x5" - 4"x5" - 00:00: Alginate 00 4"x5" - Omeprazole Omeprazole 2021-07 No QD Omeprazole Magnesium Magnesium 2 Magnesium 20 MG 20 MG 00:00: 20 MG 00 valsartan 2021-07- No 40mg Take 1 [facility] t (DIOVAN) 40 - tablet (40 L ukes MG tablet 00:00: 00:00 mg total) Me dical 00 :00 by mouth Center daily as needed (only if SBP > 140). amLODIPine 2021-07- No 10mg Take [address] (NORVASC) - tablet (10 Kendal es 10 MG 00:00: 00:00 mg total) Medica l tablet 00 :00 by mouth Center daily as needed (if SBP > 140 despite valsartan therapy re-initiat ion). ipratropium 2021-07- No 3mL Take [address] -albuteroL 0- by Kapil (DUO-NEB) 00:00: 00:00 nebulizati M edical 0.5 mg-3 00 :00 on every 6 Cente r mg(2.5 mg (six) base)/3 mL hours as nebulizer needed for solution Wheezing or Shortness of Breath for up to 360 days. melatonin 5 2021-07- No 5mg QD Take [address] mg tablet - tablet (5 Luke s 00:00: 00:00 mg total) Medical 00 :00 by mouth Center nightly. Prolia Prolia 2021-0 No 60mg Common 5-17 Spirit 00:00: - [facility]I 00 [facility] Prolia Prolia 2021-0 No 60mg Common 5-17 Spirit 00:00: - CHI 00 [facility] Prolia Prolia 2021-0 No 60mg Common 5-17 Spirit 00:00: - [facility]I 00 [facility] Prolia Prolia 2021-0 No 60mg Common 5-17 Spirit 00:00: - CHI 00 [facility] Prolia Prolia 2021-0 No 60mg Common 5-17 Spirit 00:00: - CHI 00 [facility] Prolia Prolia 2021-0 No 60mg Common 5-17 Spirit 00:00: - [facility]I 00 [facility] Prolia Prolia 2021-0 No 60mg Common 5-17 Spirit 00:00: - CHI 00 [facility] Prolia Prolia 2021-0 No 60mg Common 5-17 Spirit 00:00: - [facility]I 00 [facility] Prolia Prolia 2021-0 No 60mg Common 5-17 Spirit 00:00: - [facility]I 00 [facility] Prolia Prolia 2021-0 No 60mg Common 5-17 Spirit 00:00: - [facility]I 00 [facility] Prolia Prolia 2021-0 No 60mg Common 5-17 Spirit 00:00: - [facility]I 00 [facility] Prolia Prolia 2021-0 No 60mg Common 5-17 Spirit 00:00: - [facility]I 00 [facility] Advair HFA Advair HFA 2019-1 No 2{puffs BID Advair HFA 115-21 115-21 0-13 } 115-21 MCG/ACT MCG/ACT 00:00: MCG/ACT 00 Advair HFA Advair HFA 2019-1 No 2{puffs BID Advair HFA 115-21 115-21 0-13 } 115-21 MCG/ACT MCG/ACT 00:00: MCG/ACT 00 Advair HFA Advair HFA 2019-1 No 2{puffs BID Advair HFA 115-21 115-21 0-13 } 115-21 MCG/ACT MCG/ACT 00:00: MCG/ACT 00 Levocetiriz Levocetiriz 2020-0 Yes Victorina TAKE 1 Common ine ine 3-20 Millender TABLET BY Spiri t Dihydrochlo Dihydrochlo 00:00: MOUTH ONCE - CHI ride ride [address] 90 DAYS [facility] aspirin 2020-0 Yes 81mg QD Take 81 [...] 39 daily. l POTASSIUM 2020-0 Yes 2{tbl} Q.[id number] Take 2 Methodi ORAL 3-[id number] 16:26: 3D mouth 3 Hospita 39 (three) l times a day. acetaminoph 2020-0 Yes 2{tbl} Q.[id number] Take 2 Methodi en (TYLENOL 3-[id number] ORAL) 16:26: 3D mouth [...] 39 daily. l POTASSIUM 2020-0 Yes 2{tbl} Q.[id number] Take 2 Methodi ORAL 3-[id number] 16:26: 3D mouth 3 Hospita 39 (three) l times a day. acetaminoph 2020-0 Yes 2{tbl} Q.[id number] Take 2 Methodi en (TYLENOL 3-[id number] ORAL) 16:26: 3D mouth [...] 39 daily. l POTASSIUM 2020-0 Yes 2{tbl} Q.[id number] Take 2 Methodi ORAL 3-[id number] 16:26: 3D mouth 3 Hospita 39 (three) l times a day. acetaminoph 2020-0 Yes 2{tbl} Q.[id number] Take 2 Methodi en (TYLENOL 3-[id number] ORAL) 16:26: 3D mouth [...] skin Hospita syringe 39 once. l syringe Aspirin 81 Aspirin 81 Yes Victorina 1 tablet Common [facility] Ezetimibe Ezetimibe Yes Victorina 1 tablet Common Millender Spirit [facility] Amlodipine Amlodipine Yes Victorina 1 tablet Common Besylate Besylate Millender Sp paul [facility] Fenofibrate Fenofibrate Yes Victorina 1 tablet Common Mill[facility] Spirit [facility] Fluticasone Fluticasone Yes Victorina use one Common Propionate Propionate Millender spray in [facility] each [facility] nostril St once daily [facility] Osphena Osphena Yes Victorina daily Common Millender [facility] Rosuvastati Rosuvastati Yes Victorina 1 tablet Common n Calcium n Calcium Millender in evening [facility] Valsartan Valsartan Yes Victorina 1 tablet Common Millender [facility] Advair Advair Yes Victorina 1 puff Common Diskus Diskus Millender [facility] ProAir HFA ProAir HFA Yes Victorina 2 puffs as Common Millender needed [facility] Vitamin B12 Vitamin B12 No Vitamin B12 [...] Potassium No Potassium Magnesium Magnesium No Magnesium Doxycycline Doxycycline No Doxycyclin e Advair HFA Advair HFA No Advair HFA 115-21 115-21 115-21 MCG/ACT MCG/ACT MCG/ACT Levocetiriz Levocetiriz No 1{table QD Levocetiri ine ine t} zine Dihydrochlo Dihydrochlo Dihydrochl ride 5 MG ride 5 MG oride 5 MG ProAir HFA ProAir HFA No 2{puffs ProAir HFA 108 (90 108 (90 _as_nee 108 (90 Base) Base) ded} Base) MCG/ACT MCG/ACT MCG/ACT Prolia 60 Prolia 60 No Prolia 60 MG/ML MG/ML MG/ML Acetaminoph Acetaminoph No 1{table QID Acetaminop en 500 MG en 500 MG t_as_ne hen 500 MG eded} Doxycycline Doxycycline No Doxycyclin e Advair HFA Advair HFA No Advair HFA 115-21 115-21 115-21 MCG/ACT MCG/ACT MCG/ACT Levocetiriz Levocetiriz No 1{table QD Levocetiri ine ine t} zine Dihydrochlo Dihydrochlo Dihydrochl ride 5 MG ride 5 MG oride 5 MG ProAir HFA ProAir HFA No 2{puffs ProAir HFA 108 (90 108 (90 _as_nee 108 (90 Base) Base) ded} Base) MCG/ACT MCG/ACT MCG/ACT Prolia 60 Prolia 60 No Prolia 60 MG/ML MG/ML MG/ML Acetaminoph Acetaminoph No 1{table QID Acetaminop en 500 MG en 500 MG t_as_ne hen 500 MG eded} Doxycycline Doxycycline No Doxycyclin e Advair HFA Advair HFA No Advair HFA 115-21 115-21 115-21 MCG/ACT MCG/ACT MCG/ACT Levocetiriz Levocetiriz No 1{table QD Levocetiri ine ine t} zine Dihydrochlo Dihydrochlo Dihydrochl ride 5 MG ride 5 MG oride 5 MG ProAir HFA ProAir HFA No 2{puffs ProAir HFA 108 (90 108 (90 _as_nee 108 (90 Base) Base) ded} Base) MCG/ACT MCG/ACT MCG/ACT Prolia 60 Prolia 60 No Prolia 60 MG/ML MG/ML MG/ML Acetaminoph Acetaminoph No 1{table QID Acetaminop en 500 MG en 500 MG t_as_ne hen 500 MG eded} Black Black No Black Cohosh Cohosh Cohosh [...] No Victorina 60 mg (1 Commo n 07-08 Millender ml) Spirit 00:00 - CHI :00 [facility] Immunizations Ordered Filled Immunization Date Status Comments [facility] e Immunization Name Name Pneumovax (PPSV23) Pneumovax (PPSV23) 2022-02-23 Completed [facility] 10:43:00 - [facility] Pneumovax (PPSV23) Pneumovax (PPSV23) 2022-02-23 Completed [facility] 10:43:00 - [facility] Pneumovax (PPSV23) Pneumovax (PPSV23) 2022-02-23 Completed [facility] 10:43:00 - [facility] Pneumovax (PPSV23) Pneumovax (PPSV23) 2022-02-23 Completed [facility] 10:43:00 - [facility] Pneumovax (PPSV23) Pneumovax (PPSV23) 2022-02-23 Completed [facility] 10:43:00 - [facility] Pneumovax (PPSV23) Pneumovax (PPSV23) 2022-02-23 Completed [facility] 10:43:00 - [facility] Pneumovax (PPSV23) Pneumovax (PPSV23) 2022-02-23 [facility] 10:43:00 [facility] FLUZONE HIGH DOSE FLUZONE HIGH DOSE 2020-04-21 Completed [facility] OVER 65 OVER 65 09:07:00 [facility] FLUZONE HIGH DOSE FLUZONE HIGH DOSE 2020-04-21 Com[facility] OVER 65 OVER 65 09:07:00 [facility] FLUZONE HIGH DOSE FLUZONE HIGH DOSE 2020-04-21 Completed [facility] OVER 65 OVER 65 09:07:00 [facility] FLUZONE HIGH DOSE FLUZONE HIGH DOSE 2020-04-21 [facility] OVER 65 OVER 65 09:07:00 [facility] FLUZONE HIGH DOSE FLUZONE HIGH DOSE 2020-04-21 [facility] OVER 65 OVER 65 09:07:00 [facility] FLUZONE HIGH DOSE FLUZONE HIGH DOSE 2020-04-21 Completed [facility] OVER 65 OVER 65 09:07:00 [facility] FLUZONE HIGH DOSE FLUZONE HIGH DOSE 2020-04-21 Completed [facility] OVER 65 OVER 65 09:07:00 - [facility] FLUZONE HIGH DOSE FLUZONE HIGH DOSE 2020-04-21 Completed [facility] OVER 65 OVER 65 09:07:00 - [facility] FLUZONE HIGH DOSE FLUZONE HIGH DOSE 2020-04-21 Completed [facility] OVER 65 OVER 65 09:07:00 - [facility] FLUZONE HIGH DOSE FLUZONE HIGH DOSE 2020-04-21 Completed [facility] OVER 65 OVER 65 09:07:00 - [facility] FLUZONE HIGH DOSE FLUZONE HIGH DOSE 2020-04-21 Completed [facility] OVER 65 OVER 65 09:07:00 - [facility] FLUZONE HIGH DOSE FLUZONE HIGH DOSE 2020-04-21 Completed [facility] OVER 65 OVER 65 09:07:00 - [facility] FLUZONE HIGH DOSE FLUZONE HIGH DOSE 2020-04-21 Completed [facility] OVER 65 OVER 65 09:07:00 - [facility] FLUZONE HIGH DOSE FLUZONE HIGH DOSE 2020-04-21 Completed [facility] OVER 65 OVER 65 09:07:00 - [facility] FLUZONE HIGH DOSE FLUZONE HIGH DOSE 2020-04-21 Completed [facility] OVER 65 OVER 65 09:07:00 - [facility] Shingrix Shingrix 2018-11-27 Completed [facility] 16:19:00 [facility] Prevnar 13 Prevnar 13 2018-11-27 [facility]pleted [facility] -Pneumonia Vaccine -Pneumonia Vaccine 16:19:00 - [facility] Shingrix Shingrix 2018-11-27 [facility]pleted [facility] 16:19:00 [facility] Prevnar 13 Prevnar 13 2018-11-27 [facility]pleted [facility] -Pneumonia Vaccine -Pneumonia Vaccine 16:19:00 - [facility] Shingrix Shingrix 2018-11-27 [facility] 16:19:00 [facility] Prevnar 13 Prevnar 13 2018-11-27 [facility]pleted [facility] -[facility] Vaccine -Pneumonia Vaccine 16:19:00 [facility] Adacel (Tdap) Adacel (Tdap) 2018-11-27 [facility] Adacel (Tdap) Adacel (Tdap) 2018-11-27 [facility] Adacel (Tdap) Adacel (Tdap) 2018-11-27 [facility] Adacel (Tdap) Adacel (Tdap) 2018-11-27 [facility]:18[facility]00 [facility] Adacel (Tdap) Adacel (Tdap) 2018-11-27 [facility]:18[facility] Adacel (Tdap) Adacel (Tdap) 2018-11-27 [facility]:18[facility]00 [facility] Adacel (Tdap) Adacel (Tdap) 2018-11-27 [facility]:18[facility] Adacel (Tdap) Adacel (Tdap) 2018-11-27 [facility]:18[facility] Adacel (Tdap) Adacel (Tdap) 2018-11-27 [facility]:18[facility] Adacel (Tdap) Adacel (Tdap) 2018-11-27 [facility]:18[facility]00 [facility] Adacel (Tdap) Adacel (Tdap) 2018-11-27 [facility]:18[facility]00 [facility] Adacel (Tdap) Adacel (Tdap) 2018-11-27 [facility]:18[facility]00 [facility] Adacel (Tdap) Adacel (Tdap) 2018-11-27 [facility]:18[facility]00 [facility] Adacel (Tdap) Adacel (Tdap) 2018-11-27 [facility]:18[facility]00 [facility] Adacel (Tdap) Adacel (Tdap) 2018-11-27 [facility]:18[facility]00 [facility] Pneumovax (PPSV23) Pneumovax (PPSV23) Unknown Completed [facility] FLUZONE HIGH DOSE FLUZONE HIGH DOSE Unknown Completed [facility] OVER 65 OVER 65 - [facility] Adacel (Tdap) Adacel (Tdap) Unknown Completed [facility] Pneumovax (PPSV23) Pneumovax (PPSV23) Unknown Completed [facility] FLUZONE HIGH DOSE FLUZONE HIGH DOSE Unknown Completed [facility] OVER 65 OVER 65 - [facility] Adacel (Tdap) Adacel (Tdap) Unknown Completed [facility] Pneumovax (PPSV23) Pneumovax (PPSV23) Unknown Completed [facility] FLUZONE HIGH DOSE FLUZONE HIGH DOSE Unknown Completed [facility] OVER 65 OVER 65 - [facility] Adacel (Tdap) Adacel (Tdap) Unknown Completed [facility] Vital Signs Vital Name Observation Time Observation Value Comments Source HEIGHT 2023-03-17 13:23:00 154.9 cm WEIGHT 2023-03-17 13:23:00 68.947 kg HEIGHT 2023-03-17 13:23:00 154.9 cm WEIGHT 2023-03-17 13:23:00 68.947 kg HEIGHT 2023-03-17 13:23:00 154.9 cm WEIGHT 2023-03-17 13:23:00 68.947 kg HEIGHT 2023-03-08 08:57:00 152.4 cm WEIGHT 2023-03-08 08:57:00 66.424 kg HEIGHT 2023-02-15 10:04:00 152.4 cm WEIGHT 2023-02-15 10:04:00 63.504 kg HEIGHT 2023-03-08 08:57:00 152.4 cm WEIGHT 2023-03-08 08:57:00 66.424 kg HEIGHT 2023-02-15 10:04:00 152.4 cm WEIGHT 2023-02-15 10:04:00 63.504 kg HEIGHT 2023-03-08 08:57:00 152.4 cm WEIGHT 2023-03-08 08:57:00 66.424 kg HEIGHT 2023-02-15 10:04:00 152.4 cm WEIGHT 2023-02-15 10:04:00 63.504 kg HEIGHT 2023-01-09 01:54:00 153.7 cm WEIGHT 2023-01-09 01:54:00 67.314 kg HEIGHT 2023-01-09 01:54:00 153.7 cm WEIGHT 2023-01-09 01:54:00 67.314 kg HEIGHT 2023-01-09 01:54:00 153.7 cm WEIGHT 2023-01-09 01:54:00 67.314 kg height 2022-09-20 09:20:00 61 [in_i] [facility] weight 2022-09-20 09:20:00 170.5 [lb_av] [facility] temperature 2022-09-20 09:20:00 96.6 [degF] [facility] bmi 2022-09-20 09:20:00 32.21 kg/m2 [facility] oximetry 2022-09-20 09:20:00 98 % [facility] respiratory rate 2022-09-20 09:20:00 18 /min Comm on [facility] blood pressure 2022-09-20 09:20:00 106 mm[Hg] [facility] systolic [facility] blood pressure 2022-09-20 09:20:00 70 mm[Hg] [facility] diastolic [facility] height 2022-09-20 10:00:00 61 [in_i] [facility] weight 2022-09-20 10:00:00 170.5 [lb_av] [facility] temperature 2022-09-20 10:00:00 96.6 [degF] [facility] bmi 2022-09-20 10:00:00 32.21 kg/m2 [facility] oximetry 2022-09-20 10:00:00 98 % [facility] respiratory rate 2022-09-20 10:00:00 18 /min Comm on [facility] blood pressure 2022-09-20 10:00:00 106 mm[Hg] [facility] - systolic [facility] blood pressure 2022-09-20 10:00:00 70 mm[Hg] [facility] - diastolic [facility] height 2022-06-22 11:50:00 61 [in_i] [facility] weight 2022-06-22 11:50:00 180 [lb_av] [facility] temperature 2022-06-22 11:50:00 98 [degF] [facility] bmi 2022-06-22 11:50:00 34.01 kg/m2 [facility] blood pressure 2022-06-22 11:50:00 131 mm[Hg] [facility] - systolic [facility] blood pressure 2022-06-22 11:50:00 70 mm[Hg] [facility] - diastolic [facility] HEIGHT 2022-04-28 20:00:00 152.4 cm WEIGHT 2022-04-28 20:00:00 83.915 kg HEIGHT 2022-04-28 20:00:00 152.4 cm WEIGHT 2022-04-28 20:00:00 83.915 kg height 2022-02-23 10:20:00 61 [in_i] [facility] weight 2022-02-23 10:20:00 181 [lb_av] [facility] temperature 2022-02-23 10:20:00 97.9 [degF] [facility] bmi 2022-02-23 10:20:00 34.2 kg/m2 [facility] 2022-02-23 10:20:00 97 % [facility] respiratory rate 2022-02-23 10:20:00 16 /min [facility] on [facility] blood pressure 2022-02-23 10:20:00 135 mm[Hg] [facility] - systolic [facility] blood pressure 2022-02-23 10:20:00 72 mm[Hg] [facility] - diastolic [facility] height 2021-11-23 10:10:00 61 [in_i] [facility] weight 2021-11-23 10:10:00 194.4 [lb_av] [facility] temperature 2021-11-23 10:10:00 98.2 [degF] [facility] bmi 2021-11-23 10:10:00 36.73 kg/m2 [facility] oximetry 2021-11-23 10:10:00 98 % [facility] respiratory rate 2021-11-23 10:10:00 17 /min Comm on [facility] blood pressure 2021-11-23 10:10:00 132 mm[Hg] [facility] - systolic [facility] blood pressure 2021-11-23 10:10:00 76 mm[Hg] [facility] - diastolic [facility] height 2021-11-23 10:10:00 61 [in_i] [facility] weight 2021-11-23 10:10:00 206.2 [lb_av] [facility] temperature 2021-11-23 10:10:00 98.2 [degF] [facility] bmi 2021-11-23 10:10:00 38.96 kg/m2 [facility] oximetry 2021-11-23 10:10:00 98 % [facility] respiratory rate 2021-11-23 10:10:00 17 /min [facility] blood pressure 2021-11-23 10:10:00 132 mm[Hg] [facility] - systolic [facility] blood pressure 2021-11-23 10:10:00 76 mm[Hg] [facility] - diastolic [facility] blood pressure 2021-07-29 15:00:00 72 mm[Hg] [facility] - diastolic [facility] height 2021-07-29 15:00:00 61 [in_i] [facility] weight 2021-07-29 15:00:00 206.2 [lb_av] [facility] temperature 2021-07-29 15:00:00 97.3 [degF] [facility] bmi 2021-07-29 15:00:00 38.96 kg/m2 [facility] oximetry 2021-07-29 15:00:00 97 % [facility] respiratory rate 2021-07-29 15:00:00 17 /min [facility] blood pressure 2021-07-29 15:00:00 138 mm[Hg] [facility] - systolic [facility] height 2021-04-29 09:30:00 61 [in_i] [facility] weight 2021-04-29 09:30:00 212.7 [lb_av] [facility] temperature 2021-04-29 09:30:00 97.2 [degF] [facility] bmi 2021-04-29 09:30:00 40.18 kg/m2 [facility] oximetry 2021-04-29 09:30:00 98 % [facility] respiratory rate 2021-04-29 09:30:00 17 /min [facility] blood pressure 2021-04-29 09:30:00 128 mm[Hg] [facility] - systolic [facility] blood pressure 2021-04-29 09:30:00 71 mm[Hg] [facility] - diastolic [facility] Systolic blood 2023-03-27 15:15:00 123 mm[Hg] [facility] Diastolic blood 2023-03-27 15:15:00 69 mm[Hg] [facility] Heart rate 2023-03-27 15:15:00 45 /min [facility] Respiratory rate 2023-03-27 15:15:00 11 /min [facility] Oxygen saturation in 2023-03-27 15:15:00 98 /min [facility] Arterial blood by Medical Ce nter Pulse oximetry Body temperature 2023-03-27 15:00:00 36.22 Radha [facility] Body height 2023-03-17 13:23:00 154.9 cm [facility] Body weight 2023-03-17 13:23:00 68.947 kg [facility] BMI 2023-03-17 13:23:00 28.72 kg/m2 [facility] Procedures Procedure Date / Time Performing Clinician Source Performed FUNGUS CULTURE + SMEAR 2023-03-27 13:30:00 Kiran Hatch [facility] [place] SURGICALLY OBTAINED 2023-03-27 13:30:00 Kiran Hatch [facility] Kapil CULTURE + GRAM STAIN [facility] ter AFB CULTURE + SMEAR 2023-03-27 13:30:00 Kiran Hatch [facility] (NON-SPUTUM) [facility] SPIN/CONCENTRATION CHARGE 2023-03-27 13:30:00 Kiran Hatch [facility] TISSUE EXAM 2023-03-27 13:03:00 Kiran Hatch [facility] CYSTOSCOPY 2023-03-27 12:13:00 Kiran Hatch [facility] CYSTOSCOPY, WITH BLADDER 2023-03-27 12:13:00 Kiran Hatch [facility] BIOPSY [facility] CYSTOURETEROSCOPY, WITH 2023-03-27 12:13:[address] [facility] CYSTOSCOPY, WITH TURBT 2023-03-27 12:13:00 Kiran Hatch [facility] GRAM STAIN 2023-03-08 10:30:00 Meghan Armstrong [facility] URINE CULTURE 2023-03-08 10:10:00 Glenys Carranza [facility] BASIC METABOLIC PANEL 2023-03-08 09:29:00 Kiran Hatch [facility] CBC W/PLT COUNT & AUTO 2023-03-08 09:29:00 Kiran Hatch [facility] CBC W/PLT COUNT & AUTO 2023-03-08 09:29:00 Kiran Hatch [facility] VANCOMYCIN LEVEL, TROUGH 2023-01-11 09:49:00 Lisa Kennedy [facility] VITAMIN B12 2023-01-11 04:08:00 Wen Reid [facility] IRON, TIBC, % SAT. 2023-01-11 04:08:00 Wen Reid [facility] (WITHOUT FERRITIN) Medical Cente r CBC (HEMOGRAM ONLY) 2023-01-11 04:08:00 Wen Reid [facility] BASIC METABOLIC PANEL 2023-01-11 04:08:00 Wen Reid [facility] MAGNESIUM 2023-01-11 04:08:00 Wen Reid [facility] XR ABDOMEN/KUB 1 VIEW 2023-01-10 12:10:00 [facility] CBC W/PLT COUNT & AUTO 2023-01-10 06:51:00 [facility] BASIC METABOLIC PANEL 2023-01-10 06:51:00 [facility] CBC W/PLT COUNT & AUTO 2023-01-10 06:51:[address] [facility] [address] ABDOMEN/PELVIS WITH & 2023-01-09 21:29:21 Rachel Rowe [facility] WITHOUT IV CONTRAST Medical [facility] er BLOOD CULTURE 2023-01-09 10:43:00 Wen Reid [facility] URINE CULTURE 2023-01-09 10:42:00 Wen Reid [facility] URINALYSIS W/ REFLEX 2023-01-09 10:42:00 Wen Reid [facility] URINE CULTURE [facility] US RENAL COMPLETE 2023-01-09 08:14:00 Kiran Sánchez [facility] ABORH, MANUAL 2023-01-09 03:19:00 Janae Timmons [facility] LACTIC ACID, VENOUS 2023-01-09 02:26:00 Kiran Sánchez [facility] S t [facility] CBC W/PLT COUNT & AUTO 2023-01-09 02:26:00 Kiran Sánchez I [facility] BASIC METABOLIC PANEL 2023-01-09 02:26:00 Kiran Sánchez [facility] HEPATIC FUNCTION PANEL 2023-01-09 02:26:00 Kiran Sánchez I [facility] PROCALCITONIN 2023-01-09 02:26:00 [facility] B-TYPE NATRIURETIC FACTOR 2023-01-09 02:26:[address] [facility] HIGH SENSITIVITY TROPONIN 2023-01-09 02:26:00 Kiran Sánchez [facility] TYPE AND SCREEN, 2023-01-09 02:26:00 Kiran Sánchez [facility] CBC W/PLT COUNT & AUTO 2023-01-09 02:26:00 Kiran Sánchez I [facility] EKG-SCANNED 2023-01-09 00:00:00 ProviderPoornima [facility] Plan of Care Planned Activity Planned Date Details Comments Source Future Scheduled 2028-11-27 DTAP/TDAP/TD VACCINES [facility] Test 00:00:00 (2 - Td or Tdap) [code Medic al Center = DTAP/TDAP/TD VACCINES (2 - Td or Tdap)] Future Scheduled 2024-03-27 Tobacco Cessation [facility] Test 00:00:00 [facility] r Screening (12+) [code = Tobacco Cessation Counseling and Screening (12+)] Future Scheduled 2023-05-31 COVID-19 VACCINE (#1) [facility] Test 13:16:53 [code = COVID-19 VACCINE (#1)] Future Scheduled 2023-05-31 SHINGLES [facility]ACCINES ([facility] 13:16:53 of 2) [code = SHINGLES VACCINES (1 of 2)] Future Scheduled 2023-05-31 65+ [facility] 13:16:53 VACCINE (2 - PCV) [code = 65+ PNEUMOCOCCAL VACCINE (2 - PCV)] Future Scheduled 2023-05-31 INFLUENZA VACCINE (#[facility]) [facility] 13:16:53 [code = INFLUENZA VACCINE (#1)] Future Scheduled 2023-03-10 Influenza Vaccine (#1[facility] 00:[facility]:00 [code = Influenza Medical Ce nter Vaccine (#1)] Future Scheduled 2022-12-25 COVID-19 VACCINE (#1) [facility] Test 04:25:32 [code = COVID-19 VACCINE (#1)] Future Scheduled 2022-12-25 SHINGLES VACCINES (1 [facility] Test 04:25:32 of 2) [code = SHINGLES VACCINES (1 of 2)] Future Scheduled 2022-12-25 65+ [facility] 04:25:32 VACCINE (2 - PCV) [code = 65+ PNEUMOCOCCAL VACCINE (2 - PCV)] Future Scheduled 2022-12-25 INFLUENZA VACCINE [facility] Test 04:25:32 [code = INFLUENZA VACCINE] Future Scheduled 2022-07-[address] [facility] Test 00:00:00 (12+) [code = Medical Center DEPRESSION SCREENING (12+)] Future Scheduled 2022-07-10 FALLS RISK SCREENING [facility] Test 00:00:00 [code = FALLS RISK Medical C enter SCREENING] Future Scheduled 2022-03-11 HEPATITIS B VACCINES [facility] Test 09:20:27 (1 of 3 - 3-dose series) [code = HEPATITIS B VACCINES (1 of 3 - 3-dose series)] Future Scheduled 2022-03-11 COVID-19 VACCINE (#1) [facility] Test 09:20:27 [code = COVID-19 VACCINE (#1)] Future Scheduled 2022-03-[address] [facility] Test 09:20:27 (procedure) [code = [id number]] Future Scheduled 2022-03-11 SHINGLES VACCINES (1 [facility] Test 09:20:27 of 2) [code = SHINGLES VACCINES (1 of 2)] Future Scheduled 2022-03-11 65+ [facility]OC[facility] Test 09:20:27 VACCINE (2 - PCV) [code = 65+ PNEUMOCOCCAL VACCINE (2 - PCV)] Future Scheduled 2022-03-11 INFLUENZA VACCINE [facility] Test 09:20:27 [code = INFLUENZA VACCINE] Future Scheduled 2011-10-[address] [facility] Test 00:00:00 WELLNESS (YEAR 2 or Medical Center FIRST YEAR if no IPPE) [code = MEDICARE ANNUAL WELLNESS (YEAR 2 or FIRST YEAR if no IPPE)] Future Scheduled 1995 SHINGLES VACCINES ([address] [facility] Test 00:00:00 of 2) [code = SHINGLES Medic al Center VACCINES (1 of 2)] Future Scheduled 1963 HEPATITIS C [facility]CRE[facility]ING [facility] 00:00:00 [code = HEPATITIS C Medical Center SCREENING] Future Scheduled 1945 COVID-19 VACCINE (#1) [facility] Test 00:00:00 [code = COVID-[address] VACCINE (#1)] Future Scheduled 1945 DXA SCAN [code = DXA [facility] Test 00:00:00 SCAN] Medical Center Encounters Start End Encounter Admission Attending Care Care Encounter Source Date/Time Date/Time Type Type Clinicians Facility Department ID 2023-03-[address] [facility] [id number] Common 16:06:00 Ashley [address] [facility] 2023-01-10 Inpatient HARRY REID [facility] [id number] [facility] 08:38:31 WEN 2023-01-10 Inpatient HARRY REID, [facility] [id number] [facility] 00:00:00 WEN 2022-09-20 Outpatient Morrell, [facility] [id number] Common 10:07:00 Ashley [address] [facility] 2022-08-[address] [facility] [id number] Common 07:26:00 Ashley 20442 [facility] 2022-07-13 Outpatient 3 BETSY, ENCPL TAMMI [id number] [facility] 09:50:09 MICHELLE 0104 [facility] itation Shravan d 2022-06-22 Outpatient Morrell, STLMLC STLMLC [id number] Common 10:59:00 Ashley [facility] 2022-06-20 Outpatient Morrell, STLMLC STLMLC [id number] Common 13:42:00 Ashley [facility] 2022-06-16 Outpatient Morrell, STLMLC STLMLC [id number] Common 09:34:00 Ashley [facility] 2022-02-22 Outpatient Morrell, STLMLC STLMLC [id number] Common 10:59:00 Ashley [facility] 2021-11-12 Outpatient Morrell, STLMLC STLMLC [id number] Common 10:40:01 Ashley [facility] 2021-08-04 Outpatient Morrell, STLMLC STLMLC [id number] Common 13:16:31 Ashley [id number] [facility] 2021-08-04 Outpatient Morrell, STLMLC STLMLC [id number] Common 13:12:55 Ashley [id number] [facility] 2021-08-04 Outpatient Morrell, STLMLC STLMLC [id number] Common 12:38:47 Ashley 436[address] [facility] 2021-08-04 Outpatient Morrell, STLMLC STLMLC [id number] Common 12:37:27 Ashley [address] [facility] 2021-08-04 Outpatient Morrell, STLMLC STLMLC [id number] Common 12:33:11 Ashley 97[address] [facility] 2021-08-04 Outpatient Morrell, STLMLC STLMLC [id number] Common 12:27:10 Ashley [address] [facility] 2021-08-04 Outpatient Morrell, STLMLC STLMLC [id number] Common 12:09:35 Ashley 76[address] [facility] 2021-08-04 Outpatient Millender, STLMLC STLMLC [id number] Common 12:04:41 Victorian 55993 [facility] 2021-08-04 Outpatient Letitia, [facility] [id number] Common 11:30:59 Victorina [address] [facility] 2021-08-04 Outpatient Letitia, [facility] [id number] Common 11:17:49 Victorina 29655 [facility] 2021-08-04 Outpatient Letitia, [facility] [id number] Common 11:02:18 Victorina 24883 [facility] 2023-03-27 2023-03-27 [facility] [id number] 11:08:00 16:00:00 Encounter [facility] 2023-03-27 2023-03-27 Outpatient REILLY HATCH [facility] Surgery [id number] [facility] 11:08:00 16:00:00 [place] 2023-03-27 2023-03-27 Surgery [facility] [id number] 12:10:00 15:43:00 [facility] 2023-03-27 2023-03-[address] [facility] [id number] 12:28:00 13:38:00 Event Pepper Duenas [facility] 2023-03-27 2023-03-[address] [facility] [id number] [facility] 00:[facility]00 [facility] 2023-03-17 2023-03-17 Outpatient EL SLE [facility] [id number] [facility] 00:00:00 00:00:00 2023-03-17 2023-03-[address] [facility] [id number] [facility] 00:[facility]:00 [facility] 2023-03-08 2023-03-08 [facility] [id number] 08:05:00 12:50:00 Encounter [facility] 2023-03-08 2023-03-08 Outpatient YOKASTA ORELLANA Surgery [id number] [facility] 08:05:00 12:50:00 [place] 2023-03-08 2023-03-[address] [facility] [id number] 12:47:38 12:47:38 Event Rani Ramsey [facility] 2023-03-08 2023-03-[address] [facility] [id number] [facility] 00:[facility]:00 00:00:00 [facility] 2023-03-03 2023-03-03 [facility] [id number] SLE 00:00:00 00:00:00 [place] 2023-02-28 2023-02-28 [facility] [id number] 14:30:00 14:30:00 Encounter [facility] 2023-02-28 2023-02-28 Outpatient BRYAN ORELLANA [facility] [id number] SLE 00:00:00 00:00:00 [place] 2023-02-15 2023-02-15 [facility] [id number] 10:00:00 10:00:00 Encounter [facility] 2023-02-15 2023-02-15 Outpatient REILLY BESS [facility] [id number] SLE 00:00:00 00:00:00 2023-02-15 2023-02-[address] [facility] [id number] [facility] 00:[facility]:00 [facility] 2023-01-09 2023-01-12 [facility] [id number] 01:19:00 15:00:00 [facility]counter [facility] 2023-01-09 2023-01-12 Inpatient ER TRACY MENDOZA [facility] Urology [id number] SLE 01:19:00 15:00:00 2023-01-09 2023-01-09 Inpatient ER JEANETTE BESS [facility] [id number] SLEH 21:07:47 00:00:00 WEN 2023-01-09 2023-01-09 Inpatient ER JEANETTE [facility]H SLE [id number] SLE 19:16:56 00:00:00 WEN 2023-01-09 2023-01-09 Inpatient ER PRINCESS SLEH SLE [id number] SLE 07:08:32 00:00:00 [facility] 2022-09-20 2022-09-20 OFFICE STLC STLC [id number] Co mmon 00:00:00 00:00:00 VISIT Spirit ESTAB PT - [facility] LEVEL 4 [facility] 2022-09-20 2022-09-20 SUB ANNUAL [facility] STLC [id number] Common 00:00:00 00:00:00 MCR [facility] WELLNESS - [facility] VISIT [facility] 2022-07-28 2022-07-28 (TEL) [facility] STLC [id number] Co mmon 00:00:00 00:00:00 [facility] 2022-07-25 2022-07-25 Outpatient READMISSIO MORRELL, ENCCLR ENCCLR [id number] ENCCLR 00:00:00 00:00:00 N ASHLEY 2022-07-25 2022-07-25 Outpatient RECERTIFIC MORRELL, ENCCLR ENCCLR [id number] ENCCLR 00:00:00 00:00:00 ATION ASHLEY 2022-07-25 2022-07-25 Outpatient RECERTIFIC MORRELL, ENCCLR ENCCLR [id number] ENCCLR 00:00:00 00:00:00 ATION ASHLEY 2022-07-14 2022-07-23 Inpatient 3 BETSY, ENCPL ANGELA [id number] Encompa 12:48:00 13:20:00 MICHELLE [facility] [place] [facility] 2022-06-28 2022-06-28 (TEL) STLMLC STLC [id number] Co mmon 00:00:00 00:00:00 [facility] 2022-06-22 2022-06-22 OFFICE STLC STLC [id number] Co mmon 00:00:00 00:00:00 VISIT Spirit ESTAB PT - [facility] LEVEL 4 [facility] 2022-06-20 2022-06-20 (TEL) STLMLC STLMLC [id number] Co mmon 00:00:00 00:00:00 [facility] 2022-06-17 2022-06-17 (TEL) STLMLC STLMLC [id number] Co mmon 00:00:00 00:00:00 [facility] 2022-06-13 2022-06-13 (TEL) STLMLC STLMLC [id number] Co mmon 00:00:00 00:00:00 [facility] 2022-06-10 2022-06-10 (TEL) STLMLC STLMLC [id number] Co mmon 00:00:00 00:00:00 [facility] 2022-05-14 2022-05-14 Outpatient [facility] [id number] [facility] 11:25:22 11:25:22 2022-04-22 2022-05-03 Inpatient ER DOMONIQUE GRAY [facility] 20 [id number] SLE 03:34:00 16:00:00 8 2022-02-23 2022-02-23 OFFICE STLMLC STLMLC [id number] Co mmon 00:00:00 00:00:00 VISIT Spirit ESTAB PT - [facility] LEVEL 4 [facility] 2021-11-23 2021-11-23 OFFICE STLMLC STLMLC [id number] Co mmon 00:00:00 00:00:00 VISIT Spirit ESTAB PT - [facility] LEVEL 4 [facility] 2021-11-23 2021-11-23 SUB ANNUAL STLMLC STLMLC [id number] Common 00:00:00 00:00:00 MCR [facility] WELLNESS - [facility] VISIT [facility] 2021-10-18 2021-10-18 (TEL) STLMLC STLMLC [id number] Co mmon 00:00:00 00:00:00 [facility] 2021-07-29 2021-07-29 OFFICE STLMLC STLMLC [id number] Co mmon 00:00:00 00:00:00 VISIT EST Spir it PT LEVEL 3 - [facility] 2021-07-23 2021-07-23 (TEL) STLMLC STLMLC [id number] Co mmon 00:00:00 00:00:00 [facility] 2021-04-29 2021-04-29 OFFICE STLMLC STLMLC [id number] Co mmon 00:00:00 00:00:00 VISIT [facility] 4 [facility] 2021-04-23 2021-04-23 (TEL) STLMLC STLMLC [id number] Co mmon 00:00:00 00:00:00 [facility] 2021-03-05 2021-03-05 (TEL) STLMLC STLMLC [id number] Co mmon 00:00:00 00:00:00 [facility] 2021-01-19 2021-01-19 Outpatient STLMLC STLMLC [id number] Common 00:00:00 00:00:00 [facility] 2020-12-28 2020-12-28 Outpatient STLMLC STLMLC [id number] Common 00:00:00 00:00:00 [facility] 2020-12-28 2020-12-28 Outpatient STLMLC STLMLC [id number] Common 00:00:00 00:00:00 [facility] 2020-11-23 2020-11-23 Outpatient STLMLC STLMLC [id number] Common 00:00:00 00:00:00 [facility] 2020-10-28 2020-10-28 Outpatient STLMLC STLMLC [id number] Common 00:00:00 00:00:00 [facility] 2020-10-19 2020-10-19 Outpatient STLMLC STLMLC [id number] Common 00:00:00 00:00:00 [facility] 2020-09-16 2020-09-16 Outpatient STLMLC STLMLC [id number] Common 00:00:00 00:00:00 [facility] 2020-09-16 2020-09-16 Outpatient STLMLC STLMLC [id number] Common 00:00:00 00:00:00 [facility] 2020-06-10 2020-06-10 Outpatient STLMLC STLMLC [id number] Common 00:00:00 00:00:00 [facility] 2020-06-09 2020-06-09 Outpatient STLMLC STLMLC [id number] Common 00:00:00 00:00:00 [facility] 2020-05-15 2020-05-15 Outpatient STLMLC STLMLC [id number] Common 00:00:00 00:00:00 [facility] 2020-05-06 2020-05-06 Outpatient STLMLC STLMLC [id number] Common 00:00:00 00:00:00 [facility] 2020-04-30 2020-04-30 Outpatient STLMLC STLMLC [id number] Common 00:00:00 00:00:00 [facility] 2020-04-21 2020-04-21 Outpatient STLMLC STLMLC [id number] Common 00:00:00 00:00:00 [facility] 2020-03-12 2020-03-12 Outpatient [facility] [id number] Common 04:27:00 04:27:00 [facility] it Road [facility] 2020-03-10 2020-03-10 Outpatient [facility] [id number] Common 13:00:00 13:00:00 [facility] it Road [facility] 2020-01-20 2020-01-20 Outpatient [facility] [id number] Common 09:30:00 09:30:00 [facility] it Road [facility] 2020-01-20 2020-01-20 Outpatient [facility] [id number] Common 08:20:00 08:20:00 [facility] it Road [facility] 2020-01-08 2020-01-08 Outpatient [facility] [id number] Common 10:05:00 10:05:00 [facility] it Road [facility] 2019-12-05 2019-12-05 Outpatient [facility] [id number] Common 11:18:00 11:18:00 [facility] Sp[address] Road [facility] 2019-10-30 2019-10-30 Outpatient [facility] [id number] Common 09:00:00 09:00:00 [facility] Sp[address] Road [facility] 2019-10-21 2019-10-21 Outpatient [facility] [id number] Common 13:33:00 13:33:00 [facility] Sp[address] Road [facility] 2019-10-21 2019-10-21 Outpatient [facility] [id number] Common 10:30:00 10:30:00 [facility] Sp[address] Road [facility] 2019-09-26 2019-09-26 Outpatient [facility] [id number] Common 15:01:00 15:01:00 [facility] Sp[address] Road [facility] 2019-09-13 2019-09-13 Outpatient [facility] [id number] [address] [place] 00:00:00 00:00:00 MIRIAM [address] 2019-07-23 2019-07-23 Outpatient [facility] [id number] [address] [place] 00:00:00 00:00:00 MIRIAM [address] 2019-06-17 2019-06-17 Outpatient [facility] [id number] Common 13:20:00 13:20:00 [facility] Sp[address] Road [facility] 2019-05-24 2019-05-24 Outpatient [facility] [id number] Common 16:20:00 16:20:00 [facility] Sp[address] Road [facility] 2019-04-26 2019-04-26 Outpatient [facility] [id number] Common 11:45:00 11:45:00 [facility] Sp[address] Road [facility] 2019-02-26 2019-02-26 Outpatient [facility] [id number] Common 13:15:00 13:15:[address] [facility] 2019-02-26 2019-02-26 Outpatient [facility] [id number] Common 13:00:00 13:00:00 [facility] Sp[address] Road [facility] 2018-10-17 2018-10-17 Outpatient [facility] [id number] Common 15:30:00 15:30:00 [facility] it Road [facility] 2018-04-23 2018-04-23 Outpatient [facility] [id number] Common 13:30:00 13:30:00 t Specialty/U Sp paul Specialty rology - [facility] /Urology Clinic [facility] 2018-04-17 2018-04-17 Outpatient [facility] [id number] Common 08:30:00 08:30:00 [facility] it Road [facility] 2018-04-10 2018-04-10 Outpatient [facility] [id number] Common 16:41:00 16:41:00 t Specialty/U Sp paul Specialty rology - [facility]I /Urology Clinic [facility] 2018-04-10 2018-04-10 Outpatient [facility] [id number] Common 15:21:00 15:21:00 t [facility] it Road [facility] 2018-04-09 2018-04-09 Outpatient [facility] [id number] Common 13:30:00 13:30:00 t Specialty/U Sp paul Specialty rology - [facility] /Urology Clinic [facility] 2018-03-26 2018-03-26 Outpatient [facility] [id number] Common 08:30:00 08:30:00 [facility] Spir it Road [facility] 2018-02-12 2018-02-12 Outpatient [facility] [id number] Common 15:00:00 15:00:00 [facility] Sp[address] it Road [facility] 2018-01-12 2018-01-12 Outpatient [facility] [id number] Common 14:00:00 14:00:00 t Specialty/U Sp paul Specialty rology - [facility] /Urology Clinic [facility] 2017-12-19 2017-12-19 Outpatient [facility] [id number] Common 14:49:00 14:49:00 t Specialty/U Sp paul Specialty rology - [facility] /Urology Clinic [facility] 2017-12-15 2017-12-15 Outpatient [facility] [id number] Common 14:00:00 14:00:00 t Specialty/U Sp paul Specialty rology - [facility] /[facility]rology Clinic [facility] 2017-11-30 2017-11-30 Outpatient [facility] [id number] Common 12:18:00 12:18:00 t [facility] it Road [facility] 2017-11-28 2017-11-28 Outpatient [facility] [id number] Common 08:45:00 08:45:00 [facility] it Road [facility] 2017-10-17 2017-10-17 Outpatient [facility] [id number] Common 09:15:00 09:15:00 [facility] it Road [facility] 2016-01-29 2016-01-29 Outpatient MHIE MHIE [id number] Memoria 07:15:00 07:15:00 01 radha Hatch 2015-06-02 2015-06-02 Outpatient [facility]IE [facility]IE [id number] Memoria 09:00:00 09:00:00 00 radha Holden 2014-12-18 2014-12-19 Outpt Diag nullFlavo [facility] [id number] Memoria 11:15:00 04:59:00 Services r Outpatient 02 Aroldo Hatch Elysian 2014-12-18 2014-12-18 Outpatient Phillips, [id number]. [id number] 06:15:00 23:59:00 John [id number] 17 4620-09-25 2014-04-04 Outpt Diag nullFlavo [facility] [id number] Memoria 16:47:00 04:59:00 Services r Outpatient 01 Aroldo [facility] 2014-04-03 2014-04-03 Outpatient Cristi, 2.16.840. [id number]. [id number] 11:47:00 23:59:00 Trae C [id number] 13 6164-09-08 2014-03-18 Outpt Diag nullFlavo [facility] [id number] Memoria 16:24:00 04:59:00 Services r [facility] 00 l [facility] 2014-03-17 2014-03-17 Outpatient Cristi, 2.16.840. [id number]. [id number] 11:24:00 23:59:00 Trae Beltran [id number] 84 8044-01-04 2011-07-13 Outpatient nullFlavo [facility] [id number] Memoria 07:20:00 07:20:00 [facility] 00 l [facility] Results Test Description Test Time Test Comments Results Result Comments Source AFB culture + smear (non-sputum) 2023-05-10 12:10:41 Test Item Value Reference Range Interpretation Comme nts Result (test code = 6463-4) No acid-fast bacilli isolated in 42 day s AFB Smear (test code = 95624-7) No acid fast bacilli seen [facility]2023-[facility]-10 12:10:41 Test Item Value Reference Range Interpretation Comments CULTURE (BEAKER) (test No acid-fast bacilli code = 1095) isolated in 42 days AFB SMEAR (BEAKER) No acid fast bacilli (test code = 994) seen Fungus culture + [id number] 08:20:30 Test Item Value Reference Range Interpretation Comments Result (test code = No fungus isolated in 6463-4) 28 days Fungus Smear (test No fungi seen code = 1406) [facility] [id number] 08:20:30 Test Item Value Reference Range Interpretation Comments CULTURE (BEAKER) (test No fungus isolated in code = 1095) 28 days FUNGUS SMEAR (BEAKER) No fungi seen (test code = 1406) Tissue [id number] 13:34:08 Test Item Value Reference Range Interpretation Comments Case Report (test code Surgical Pathology = 104) Report Case: [id number] Authorizing Provider: Kiran Hatch, Collected: 03/27/2023 01:03 PM Ordering Location: [facility] PERIOPERATIVE Received: 03/28/2023 09:30 AM SERVICES Pathologist: Miladis Gamboa MD Specimen: Bladder Biopsy, Bladder Bopsy DIAGNOSIS (test code = p2pfvTVsXWIet0vwJAOagOW 3220) uZzEwMzNcZnRuYmpcdWMxIH tccnRmMVxlcGljMTAyMDdcY T2iiCgulKs3xVmrGTWntbU1 lPNqGNgis3rbWZV3m1ibmbn sKLIaYLhsVn5bpBXluFhpEx LxPTLuLPn2lW16EVVkaV3yp GHgHFn2XPFezADpurMmCrRj NTZjzJZzpJC0RRPeRI8pfoc lMMeiKJghRFJivjZ4JEKvtL UkH7CqRNTrOZ6jnixrBAR6X QiiKXYaDDV1PwKxFFVll5Ri lep3VsGfuKZrEAqroGOmpyb gwpFxAVFKHW6PNfrqPkiTHU EQXzedRdnXMZHYMGQfzby5N KIwUAnHPjERWV4HYwxJJjQR JAAGYA6KHvRUZSNOVGyDZ8n GJWbKDEwkSJREFJdSYZ6YSM XWQ64NO61jC6cRIwmMKFOXE tFMRXCndgZyMVScGfIuJ0GU ACCWVZ6PUiYiCOJzxbp5LXW bZE8VT4OPNYJPRLWaZPQISO RBBEJDP7CrPEPELmERZbeHB HhdCAF4r4bqfUUqNDKukCQq ODAwMFxhbnNpXGRlZmxhbmc lSJAwSRO4zhYmMTMdIQotLO FmUJsaAt1qlLKooGovStBjC XQyh6ysxdBVhmuiyFi6k7uw LHJdYxE5uIYvFIkcB0znbjC ccZYsPJTrYYp7kY37BGBrkE 6ieNFoSEonwgDzNqW4CLdyV GPqIdB6EEBwoESiZOGxZ2cb ZWQwXGdyZWVuMFxibHVlMCA 7wOdwx2Q2vOMpmWCoaMxmRo XcQlJtIeTXq2NkYIy3aWenH 0UmPCXnOvD1uTEuMCSiMOns COPlNUMvfrO5vT19YWzgweP 3bWOix2Poy68yk155gU9acU NmZLI0MEIgEUZqhOPfPDXtY XE2TUPvvCWhT3vmNHNsWW9m wvbiPMxxUCwmVNBfkBE4BKS gnYYeA7KmJJWyRRvwMSMrsj u7KqIoUl3plSJzqUnsSAhaa 6you9rbyNWrNwh0SHBkYeUa VhixUWaay8Cfm4ctGQIirf1 vEVI8hPDmoWraa7E2vTGdBT XdtAVrCQAiTQ2mrAPyFOXhb O1xfyiwVEMcExLkqpxhAWLc lAvqklAlEd4czZarBVS5LEk zY5qrtS2nFfZ0EDhlP9antF 1jZCp7CXqjEAHpwCI2ufZ3X LPwxJDmF6SkxT3yEXYmIU0u hyk9t3ypXTQ6ZEhjSQPhXiX 2hqK3LZLexEIwLDMetEsqRZ vhn576LVH0YwLaZHVww3GiL 4XylDbjW30zxJivI61uDGUd mUtqjY0hvSbaaV2zHnKcPcF qTRgkiBraXA0dMABtF0ttoX QvBQPzOAPvM8uxMcJiqD3uk EtjIGuttbDoBLEvExc5DZRq jWAkCAXsObg2TSUeTZVfI11 ekqiiPJF5fH7fz8olx0YsTX hmFLK4XBEoj46pKMtkdaV6Z VkcFl35XDzqJHF7WPioSXG4 fQ== COMMENT (test code = c1vhvQHpJHDmvDPhMZHyF8w 3351) ofwWiXLWtqQTjO1BjnteiGV vqLO4nPX9gxFwynLDtoOFxU OCcGjZbp4lza347eFDue7va KQUDbpmjtRg0fSisE76fq9L 1JujlA89bnCGzPMN4IPAbMA JswQNbQKOxEFJ5YHDihNFdZ 2phFGKfJO4pdlsbZMugNSpl EZBhtHO9MTTxjPMvY4SzKRP tTTukZMWwxgg6BnGyNd0qkE VyeTcyMFxwYXJkXHBsYWluX PQpDuAqI7KxgKzkeuBgyBI6 AYQyoXNqAQXsf8QowJPctTo lnTacwVMvgIYsq1Qpl6x4cL BtYXJrZWQgaHlwZXJrZXJhd M3wuBXhUBGdA7DwMGYqauJe MYHyeY0bjRUxIHIdXUWqcNK ttG84kkRaJFQknAbwk6ggAf BUaGVyZSBpcyBhYnVuZGFud XHfT9K0IOEioeLlW4pto87g CgEphaGpCX4zXITly90nDZ7 pDQGtT5RjYHdyTD41fBC0fX 0kZBDsa0N5CJ5wKQfaGSNym 3SkEAvijBKxojJkQvA5lZNa fYFvzXycbYa6rYBuAWRzNFO 4iOEyB6JvCCBnpWvkAMjhuJ hxbUtaXBCyrSMyhPY3cSPea iMboPXdCiYUMNTnRJ8fMMni NWN1IVlaboWigPCcLh7geXI oFSM3fGZjKPKagGJfaSLeEX UfRYPoauMzk7xuCMUlegLuv GhlIHAxNiBpcyBpbnRlcnBy BXCzBMRbzdBgVPkkgHz9IJ0 fR5u8QhVwvKJrqbOhzJemQL sqp5LeDHSbuSBwAR2yYBYqG OLkuLZrkS99cyDasUw3iXSk rPXvHjBpEChxl1AlXuxhDMt yC6MkGRKoFJmosABktUGihG RvOZKxJRhvtxJ6rL6clnkdE dUcyTUcqV68cbFkUXSziOsl x1njXLdifHdtGZX9qDwjXL4 zQDZel34zn76uo1ltajbkpZ NhbmNlIChpbmRlZmluaXRlI GZvciBkeXNwbGFzaWEpLiBc cGFyfQ== CPT Code(s) (test code d6siyQJoIEBdoILwVIWrB5k = 8748) vaaLnLQAyzSLkL1SewcmpCM gaAY7uDH9hgFzzvRMcbNOjW NByPwEzi7ruw979kQAai2lm FEEGgyleuNs6gEpbM96za8O 5RknfQ24xdVNsCUF0KLQyZW XumGSaLRBzSGZ4ZEVysNQtO 8ujAURvEO1ipcsaVLthMUcv DFRdbVS8CBFjbLUhO6QiYXG vMIcjJPHlahc5UpBoLm4ahT VyeTcyMFxwYXJkXHBsYWluX GZzMjAgODgzMDVccGFyIDg4 TgWrHPMbbwH7HOM7QUieKOQ 9 CLINICAL HISTORY (test k2bngUFpFAZueCUfERFsX0a code = 3356) hrsEjCPIrzGElF3ZwbhkbWI sqXX2nYH1vdNhazGUspGYaC ECyNdLgc4hxq201cXPxl9nq ZQALitoxrEw3yCobX00nd0L 3XefaF38cpRDdSGN8BXUkQN RvjUPgHGFfILO7GYNglQAjR 6yyXSQeVU0zqymmPQxjFJet TJRwmSZ7MNDbgRQtV6UvMJY aMOttVEYcykx2TbYcDn5jzE VyeTcyMFxwYXJkXHBsYWluX WRpXgIrU6Xff9UziHQgVNS1 cmlhXHBhcn0= GROSS DESCRIPTION h2mdrKDrDKFnzTQELQGmMAW (test code = cDB7aiWohwFw5sWsyONKqpx [id number]) Q2sDLhKWoye1smMUL3h6osj bQAInlkEZNhMX6lSXjmKXTi QX0wNqYoEKFdCyXbLDOslAR dveBlPfQjHDTxhRPlkGW3YN NuDO8dwqhqYXplLHbsQJVsr pT1XXDdyKWzS9OxRSXcCC7s mlgpHXA9YOZQHrpcZh7eeHC ibHtcZjFcZmNoYXJzZXQwXG CjiNilWDZxJQg6vL4CJqupT SN7XTSWGtiwQvadtUnlj6Qd dCBcXHNnIFxcaWQgNTEwMDA oSVrmRwIOVvThLwHqPkB2Tm u5IaFgUXm7GCxaQlMBZAD6S GE1EpQgKOs2BOhgJBarvMXs HWYuZBSyJEXrPAtmlhL2m5r aUFStkIPpGVF9JDvwz1usGI poJGW5RIOmOsZvKUQnQG0UB yZdTFHqDij6CRS9HgK1ZBl2 YGFICtTwZjJdXeA4UbHeIrD iHDx1YAr4XJjLEdU1HDEpUZ IjWWqmZIT8QSCxYSp8EUObZ KvlofExWNbeVqamSQvfJ02p cGFyZCANClxwbGFpblxmczI yIEEuIEJsYWRkZXIgQmlvcH J0ROLjovWYJgdkOEDiCN6QG ATfUGoaEYMrDkPdjIFrF7cr NWBtA22tz8THd2JxQE0EKUf 8mnMcppyesX3rBMFrfyNeDH pcZnMyMCBSZWNlaXZlZCBpb gZdo7DjISjfyoSpOOCsiSMr VZTlNJUtHACqPU03R6QvmuJ tZSwgbWVkaWNhbCByZWNvcm QgbnVtYmVyLCBhbmQgImJsY CQkPOKsJipstYG2AsSlpxQc SoN2QS5ra0hqiMRxr37wqWO 3sFWnwZCxNnBpI62cjaBcGY QvcwipbmgzmV7hs2o5AGGza l6rNYZfGX1nIaZyN70uEXgt oKTjTMEqMKVqwWTevYV3CJJ mgG4kaW80dbXuqqWLHX0wbA ZwYC4MJNGtyhKQLbiaGCIpJ HRexYFFn1BtCCCIBelzhFT6 efMDKW6umt0CGLQwmZUDWDH 3CU5jEFexDGDtC9NuK4Rpai S3x0oakHkrx4XffYDnHX0ek MMgGV8FETUudsPyMZhuGcIh MiANCn0= MICROSCOPIC q8sthUBlFVIaoIHxDHNkB2k DESCRIPTION (test code nfxHzDCBwhWFjC7BhajyrHM = 3371) abQE6rAT4weEsaiHQpsIChE LOdWaUsu3vka276tTGwe3qn WWYHkrsbrDw7iSbeK33om9U 9SsfxY72bpCVaTCH9BDZmBR CuvRGxTNApQLE4DDBmaRDvG 3yhVLYoHS5hzektBRcuFKbe GMMjtGT6RUEsoVXoN5IyCPZ aHRkjTOFhboo8ChAjVi9oxZ VyeTcyMFxwYXJkXHBsYWluX YNpWaMpWYClQw0vpQTpQrvu YXJccGFyZFxwYXJ9 SPECIAL STUDIES (test p7zqeMFgYQSyg0wePYLmjUF code = 3376) uZzEwMzNcZnRuYmpcdWMxIH ijdsIaYHcrn8IqW7CaXgGgG FxhbnNpXGRlZmxhbmcxMDMz TXW2gdBcURZwURtxLYEnHCe oBt0evXNzpOfbJaPbVPQus7 vnfsBTheufuPw7k3hyOGHfS dQ6nJXcPIpbY8kragEurODt P2SofOTckKz9m1dzKrEkOtP 8eTAwSZkiJ1pztnJijJYhGL QdJPq5gG43CXVbeB2miLNwL BsyeeJiYuL2QCtfBMRgQxB0 YKNqaRXfOLTzC0xhWMRaZOc zHFHtUMwctINoYXS4aPhxn1 U8iLGjsUGpsHqzJlJnPmPzR wYNm3FsBFg5iGkrR0AgRPXq LlT9eQIeYLAzJEsgMOHbPSZ ykpA9yGmfiwHws33apROcHG YwXGZzMjBcbGkwXHJpMCBDb 9GjvYbuRIP1yYn4gVvlOyoh MBA3Sta9RE6apk66tyr9nOt rQKImqldbJaN5LSliBBKwqm jkVOu8RRpnWGQuiPV6EYPgi NJrP6KaYTMlIU9pydn6GQZ6 VJdhTMIjMzG0OFNtxOLuGKL xhZpxKIjlj813JUI0GdMkVX 6oB2Zrj4D3lE4ytRDgEHOgi LPlPyYnYMOzzp5pxDMsYQzk f4IwBRV0heA9iJMzxBUfKJV kOB39Ipskb2LtUtyjp9MgL8 4owWT0JFtdy4xkMX7rNjJ2p iIzCNefq7ncwC8xUwO4KRer VN9sVJ7mCNZkfH6sxthfDWN nYnJkcmhlYWRccGdicmRyZm 7igAvpERB2UWyhN5rvkX5dU gK3UVggD5lyuJ6rCIo0KPjm lXE4KTRkrW8hWN6zujezo7z aICfsQAwzFVXdynE6erJ2IG KhaVOrD9HasE4mKDDyYA1ma vwbk2egTRX5FGpgFQVmEDP0 QdGhPODgk7Rmvbv1JiRen6N lnDUhXYqwV73ry018FHXoyq XfU4rbvPGsmdwykJCfuyyrV XpefmB1SNEkUIAqVWbrCZSa XGZzMjJcbGFuZzEwMzNcaGl jaFxmMVxkYmNoXGYxXGxvY2 bsFoDzL3McEZTaFwRaNVreW WquvTLyjKGnbTK0lP7cSU9s FPGbsLSfQ6KmFBBoiaTxjBL lQRZ1yLItdCSuLA4pSYgvmC Nda8ccr5OsS6xatQhqqIM5B I5qDLIzXBHqAFfxh3XedU3m LlxwbGFpblxmMVxmczIyXGx edrnaWMVeIVxdF5jeWeSbRN DjwZkqPCkrz6HfSLEuBMYoT flrjsRbQJo0jlBoXNGuqrwy OPDyaJovoW2fDoRfGsZiCit aMO1jAXRiL4srwKDyYXNlZR CnZ5idTnPnpX4fgWbdUJxbQ sEyFeJtXzZUl180gg3wHHSo eKBongYKhXNswR6uFGnlOFv uADnlxRHoNUhas0xyZEZzn3 j6hREwFVXsdmAsf3niKIvit pDxHMHmaZLscVHjVQHal74r DGewfNygrFvbWTUsz4PvzDs md4OoKnIhAWlng6NhB62ksC JvbCBzbGlkZXMgcnVuIGFsb 13wy0jtLKZcRlM0uKYpbQX0 tQUlgTYvq5RabPpwFQMpl5b lVYQshg5ujaffjMVrm2LabB 5pbmcuIEludGVybmFsIHBvc 1y6xBQxEZThQNPeLYuxjXy3 UDFri184cm1bnrF6eFApDHR 2YWlsYWJsZSBhcmUgZXZhbH VhdGVkXHBsYWluXGYxXGZzM jJcbGFuZzEwMzNcaGljaFxm SMpwIwQlAYPaUFgoE7bmKlQ yV6RvRQPvHmXgoPOeR5rhgG FyXHBsYWluXGYxXGZzMjJcb GFuZzEwMzNcaGljaFxmMVxk LhNmSNXjYMmeK9beNmMgU4Y yXGZzMjIgIFxwbGFpblxmMV xmczIyXGxhbmcxMDMzXGhpY 1ncEdHyBRRkoQamWHtvw1Do FYKrCEPwPjtobvSfLJu4ayD oXHBhclxwbGFpblxmMVxmcz LbMJdcurfxQZJpBWjwV8xqE qVlBQGczLzoUYvzj9HwUVXc WMQkUawywdQcFEqmgHSie3w gy0ZeQ9sweYksoRG8QWFjU4 bsyMMixXA6PRW2oO0aHXipr vEmUXFnv8CoKVEmMGKoYjN3 rV6oTZH2VkGOpAgxDFRhZKq uXGYxXGZzMjJcbGFuZzEwMz NcaGljaFxmMVxkYmNoXGYxX KxsG9hcTrKjD1TsHHOzVzXe wLfnBVvhCKi5IuvamAKombd mMVxmczIyXGxhbmcxMDMzXG shG9qkJzGaBHRrbWzgBIddg 2NoXGYxXGNmMlxmczIyIHMg ELSviJCisWDWLZ61SHNaSAQ scKzttJ4qvQCVBGUewoN1l9 Z6JFygGNBpHPm2DXgvmwIxR CJgbR5rZTQgRF2jYRm8mgVj SHCej5RxEU4rNVIicAUaGHS 9YPQke6XqO4Rpx4HkIBQmAV Nqwr3dzvDzOoZErUZkYANey d15PPAnPY3gU7fiHQZaGLQk peVwaBEid0RlJNXbtGH1dIJ eRC3DKcIBo79uASDmUJDStc OdERIpbGwvkJG3xlH8yZ3lC iBUaGUgRkRBIGhhcyBkZXRl wj0dcwYcMQIkXHGyx4OipCT okJTkdjKbE1Erl7DpYQOlik 53XUdunWLhbs70NN2iB5Xnj 2EqtF6qFCxdTTTvs4CpvOKo uORuOOHzu6PtX9pnkkrjOUe mdXTgaX3hWRYcNAl6ULOth5 PmSRXyq1BtImZpjxIuWUMzQ GYxACPdiS78MWJ8bDhyvOsm cxBfLC9mUIXdvoOxMTNjURR qzK2qDMsmukJkLRFfgjC3b9 M1STrpVPJuepTlKggySLN1b rGkfjY2sYStM7pfnfseJIzg SWUnc7BvhD3atZYDqQMro3O igPBqnLHWpGHeGB9pddJmDQ 5tOHN1NAexMZCOCFYjVRqzV ENsUBC6XDqgIhogUTW1umIw JVHfl7AmNZrsV8yrW65etPy taRg3mVNbiZbgqEGawBReSI KfrsE5k3A8LKLqg5YlbqrhP HBsYWluXGYyXGZzMjJcbGFu ZzEwMzNcaGljaFxmMlxkYmN rORQlSQowO2nqSsLfQdAyKk iuJFN4zV== Gross assessment was [facility] performed at ([facility], code = 2777) Department of Pathology, [address] [place] [id number], Technical component [facility] was performed at ([facility], code = 2778) Department of Pathology, [address] [place] [id number], Professional component [facility] was performed at ([facility], code = 2779) Department of Pathology, [address] [place] [id number], [facility] Hospital[facility] [id number] 13:34:08Surgical Pathology Report Case: [id number] Authorizing Provider: Kiran Hatch, Collected: 03/27/2023 01:03 PM Ordering Location: [facility] OT PERIOPERATIVE Received: 03/28/2023 09:30 AM SERVICES Pathologist: Miladis Gamboa MD Specimen: Bladder Biopsy, Bladder Bopsy URINARY BLADDER, BIOPSY-KERATINIZING SQUAMOUS METAPLASIA WITH ATYPIA OF UNKNOWN SIGNIFICANCE (SEE COMMENT) -MUSCULARIS PROPRIA NOT IDENTIFIED Signing Pathologist Direct Phone Line: [phone] signed by Catalina Gamboa MD on 04/05/2023 at 1:34 PMSections have pieces of urothelial mucosa with marked hyperkeratosis, focal parakeratosis, and squamous metaplasia. There is abundant acute and chronic inflammation andfocal granulation tissue. The basal layers of the urothelium have atypical cells with hyperchromaticnuclei. P16 and Ki-67 were performed, with appropriate controls, and the p16 is interpreted as negative. Ki67 stains the lower third of the squamous epithelium. These findings are interpreted as keratinizing squamous metaplasia with atypia of unknown significance (indefinite for dysplasia). [id number] hematuriaA. Bladder BiopsyReceived in formalin labeled the patient's name, medical record number, and "bladder biopsy" are 2 hernandez-white soft tissue fragments ranging in size from 0.4-0.5 cm, which are submitted in toto in A1.Neelam ShirleyPerformed.The interpretation of this case included the use of immunohistochemistry or special stains.Control Slides Examined: In-house known positive controls were evaluated along with the test tissue. These control slides run alongside of the patients sample show appropriate staining. Internal positive and negative controls when available are evaluated Immunohistochemistry technical testing was performed at [facility], Pathology Laboratory where it was developed and its performance characteristics were determined. It has not been cleared or approved by the U.S. Food and Drug Administration. The FDA has determined that such clearance or approval is not necessary. The test is used for clinical purposes. It should not be regarded as investigational or for research. This laboratory is certified under the Clinical Laboratory Improvement Amendments of 1988 (CLIA-88) as qualified to perform high complexity clinical laboratory testing.[facility], Department of Pathology, [address] [place], [place] [id number], [facility], [address] [place] [id number], [facility], [address] [place] [id number], Fsksfhjsaz obtained culture + gram [id number] 13:10:09 Test Item Value Reference Range Interpretation Comments Result (test code = 6463-4) No growth Gram Stain Result (test No organisms seen code = 1123) [facility] + GRAM [id number] 13:10:09 Test Item Value Reference Range Interpretation Comments CULTURE (BEAKER) (test code No growth = 1095) GRAM STAIN RESULT (BEAKER) No WBC's Seen (test code = 1123) GRAM STAIN RESULT (BEAKER) No organisms seen (test code = 10746) SPIN/CONCENTRATION [id number] 05:16:50 Test Item Value Reference Range Interpretation Comments Concentration charged (test code = Done 2657) [facility] [id number] 05:16:50 Test Item Value Reference Range Interpretation Comments CONCENTRATION CHARGED (BEAKER) (test Done code = 2657) URINE [id number] 09:50:19 Test Item Value Reference Interpretation Comments Range CULTURE (BEAKER) METHICILLIN A >100,000 co l/mL (test code = 1095) RESISTANT Methicill in STAPHYLOCOCCUS resistant AUREUS Staphylococcus aureus Clindamycin (test R code = 10) Erythromycin (test R code = 4) Linezolid (test code S = 40) Nitrofurantoin (test S code = 23) Oxacillin (test code R = 14) Rifampin (test code = S 43) Tetracycline (test S code = 2) Trimethoprim + S Sulfamethoxazole (test code = 47) Vancomycin (test code S = 13) If your patient does not have signs or symptoms of UTI, it is recommended NOT to treat, with the exception of and prior to urologic procedures.Gram [id number] 12:31:34 Test Item Value Reference Range Interpretation Comments Gram Stain Result <1+ gram negative rods (test code = 1123) [id number] 12:31:34 Test Item Value Reference Range Interpretation Comments GRAM STAIN RESULT 4+ WBCs (BEAKER) (test code = 1123) GRAM STAIN RESULT 3+ gram positive cocci (BEAKER) (test code = in pairs and clusters 18534) GRAM STAIN RESULT <1+ gram negative rods (BEAKER) (test code = 10055) BASIC METABOLIC [id number] 11:15:08 Test Item Value Reference Range Interpretation Comments SODIUM (BEAKER) 134 meq/L 136-145 L (test code = 381) POTASSIUM 4.2 meq/L 3.5-5.1 (BEAKER) (test code = 379) CHLORIDE (BEAKER) 98 meq/L 98-107 (test code = 382) CO2 (BEAKER) 23 meq/L 22-29 (test code = 355) BLOOD UREA 32 mg/dL 7-21 H NITROGEN (BEAKER) (test code = 354) CREATININE 1.31 mg/dL 0.57-1.25 H (BEAKER) (test code = 358) GLUCOSE RANDOM 95 mg/dL 70-105 (BEAKER) (test code = 652) CALCIUM (BEAKER) 10.6 mg/dL 8.4-10.2 H (test code = 697) EGFR (BEAKER) 42 Interpretatio n of eGFR (test code = [...] not appl icable for dialysis patien ts CBC W/PLT COUNT & AUTO [id number] 10:34:37 Test Item Value Reference Range Interpretation Comments WHITE BLOOD CELL COUNT (BEAKER) 7.8 K/ L 3.5-10.5 (test code = 775) RED BLOOD CELL COUNT (BEAKER) 4.25 M/ L 3.93-5.22 (test code = 761) HEMOGLOBIN (BEAKER) (test code = 11.4 GM/DL 11.2-15.7 410) HEMATOCRIT (BEAKER) (test code = 35.9 % 34.1-44.9 411) MEAN CORPUSCULAR VOLUME (BEAKER) 85 fL 79-95 (test code = 753) MEAN CORPUSCULAR HEMOGLOBIN 26.8 pg 25.6-32.2 (BEAKER) (test code = 751) MEAN CORPUSCULAR HEMOGLOBIN CONC 31.8 GM/DL 32.2-35.5 L (BEAKER) (test code = 752) RED CELL DISTRIBUTION WIDTH 14.9 % 11.7-14.4 H (BEAKER) (test code = 412) PLATELET COUNT (BEAKER) (test 268 K/CU MM 150-450 code = 756) MEAN PLATELET VOLUME (BEAKER) 10.0 fL 9.4-12.3 (test code = 754) NEUTROPHILS RELATIVE PERCENT 76 % (BEAKER) (test code = 429) LYMPHOCYTES RELATIVE PERCENT 12 % (BEAKER) (test code = 430) MONOCYTES RELATIVE PERCENT 11 % (BEAKER) (test code = 431) EOSINOPHILS RELATIVE PERCENT 0 % (BEAKER) (test code = 432) BASOPHILS RELATIVE PERCENT 0 % (BEAKER) (test code = 437) NEUTROPHILS ABSOLUTE COUNT 5.87 K/ L 1.56-6.13 (BEAKER) (test code = 670) LYMPHOCYTES ABSOLUTE COUNT 0.90 K/ L 1.18-3.74 L (BEAKER) (test code = 414) MONOCYTES ABSOLUTE COUNT (BEAKER) 0.85 K/ L 0.24-0.36 H (test code = 415) EOSINOPHILS ABSOLUTE COUNT 0.02 K/ L 0.04-0.36 L (BEAKER) (test code = 416) BASOPHILS ABSOLUTE COUNT (BEAKER) 0.02 K/ L 0.01-0.08 (test code = 417) IMMATURE GRANULOCYTES-RELATIVE 1.40 % 0.00-1.00 H PERCENT (BEAKER) (test code = 2801) CBC W/AUTO [id number] 00:00:00 Test Item Value Reference Range Interpretation Comments NUCLEATED RBCS (test 0.0 /100 WBC'S See_Comment [Aut omated message] code = 31443-5) The system [facility] generated this result transmit oscar reference range : 0.0 /100 WBC'S. The reference range was not used to interpret this result as normal/abnormal . ABSOLUTE EOSINOPHILS 0.09 K/UL See_Comment [Autom ated message] (test code = The system [employer] 59265-7) generated this result transmit oscar reference range : 0.00-0.50 K/UL. The reference range was not used to interpret this result as normal/abnormal . ABSOLUTE LYMPHOCYTES 0.93 K/UL See_Comment L [Autom ated message] (test code = The system [employer] 97389-7) generated this result transmit oscar reference range : 1.00-4.00 K/UL. The reference range was not used to interpret this result as normal/abnormal . ABSOLUTE MONOCYTES 0.33 K/UL See_Comment [Automat ed message] (test code = The system [employer] 53241-2) generated this result transmit oscar reference range : 0.20-1.00 K/UL. The reference range was not used to interpret this result as normal/abnormal . ABSOLUTE NEUTROPHILS 4.70 K/UL See_Comment [Autom ated message] (test code = The system [employer] 77490-1) generated this result transmit oscar reference range : 1.50-7.50 K/UL. The reference range was not used to interpret this result as normal/abnormal . BASOPHILS (test code 0.8 % = 29658-5) EOSINOPHILS (test 1.4 % code = 83947-6) HEMATOCRIT (test 34.7 % See_Comment [Automated message] code = 38543-3) The system [employer] generated this result transmit oscar reference range : 34.0-45.0 %. Th e reference range was not used to interpret this result as normal/abnormal . HEMOGLOBIN (test 10.9 G/DL See_Comment L [Automated message] code = 718-7) The system [facility] generated this result transmit oscar reference range : 11.5-15.5 G/DL. The reference range was not used to interpret this result as normal/abnormal . LYMPHOCYTES (test 15.0 % code = 13645-2) MCH (test code = 26.4 PG See_Comment [Automated message] 06253-5) The system [employer] generated this result transmit oscar reference range : 25.0-33.0 PG. T he reference range was not used to interpret this result as normal/abnormal . MCHC (test code = 31.4 G/DL See_Comment [Automate d message] 80721-2) The system [employer] generated this result transmit oscar reference range : 31.0-36.0 G/DL. The reference range was not used to interpret this result as normal/abnormal . MCV (test code = 84.0 fL See_Comment [Automated message] 74384-6) The system [employer] generated this result transmit oscar reference range : 80.0-99.0 fL. T he reference range was not used to interpret this result as normal/abnormal . MONOCYTES (test code 5.3 % = 69358-5) NEUTROPHILS (test 75.6 % code = 37571-9) PLATELET COUNT (test 304 K/UL See_Comment [Autom ated message] code = 06480-6) The system [employer] generated this result transmit oscar reference range : 130-400 K/UL. T he reference range was not used to interpret this result as normal/abnormal . RBC (test code = 4.13 M/UL See_Comment [Automated message] 64907-3) The system [employer] generated this result transmit oscar reference range : 3.80-5.40 M/UL. The reference range was not used to interpret this result as normal/abnormal . RDW (test code = 15.9 % See_Comment H [Automated message] 39110-5) The system [facility] generated this result transmit oscar reference range : 11.5-15.0 %. Th e reference range was not used to interpret this result as normal/abnormal . WBC (test code = 6.2 K/UL See_Comment [Automated message] 87316-2) The system [facility] generated this result transmit oscar reference range : 3.5-11.0 K/UL. The reference range was not used to interpret this result as normal/abnormal . HEMOGLOBIN [id number] 00:00:00 Test Item Value Reference Range Interpretation Comments HEMOGLOBIN A1c (test 5.6 % See_Comment [Autom ated message] The code = 4548-4) system which generated this result tra nsmitted reference range : 4.2-5.6 %. The referenc e range was not used to interpret this result as normal/abnormal . LIPID PANEL WITH REFLEX DIRECT [id number] 00:00:00 Test Item Value Reference Range Interpretation Comments CALC LDL CHOL (test 127 MG/DL See_Comment H [Automa oscar message] code = 09516-2) The system [facility] generated this result transmit oscar reference range : <100 MG/DL. The reference range was not used to interpret this result as normal/abnormal . CHOLESTEROL (test code 202 MG/DL See_Comment H [Aut omated message] = 2093-3) The system [facility] generated this result transmit oscar reference range : <200 MG/DL. The reference range was not used to interpret this result as normal/abnormal . HDL CHOLESTEROL (test 44 MG/DL See_Comment [Auto mated message] code = 2085-9) The system [facility] generated this result transmit oscar reference range : >39 MG/DL. The refe rence range was not u sed to interpret th is result as normal/abnormal . RISK RATIO LDL/HDL 2.89 RATIO See_Comment [Automat ed message] (test code = 00800-4) The sy stem which generated this result transmit oscar reference range : <3.22 RATIO. Th e reference range was not used to interpret this result as normal/abnormal . TRIGLYCERIDES (test 193 MG/DL See_Comment H [Automa oscar message] code = 2571-8) The system [employer] generated this result transmit oscar reference range : <150 MG/DL. The reference range was not used to interpret this result as normal/abnormal . PTH, INTACT, WITH CALCIUM, PHOSPHORUS, [id number] 00:00:00 Test Item Value Reference Range Interpretation Comments CALCIUM (test code = 10.0 MG/DL See_Comment [Autom ated message] 88546-2) The system [facility] [employer] generated this result transmit oscar reference range : 8.5-10.5 MG/DL. The reference range was not used to interpret this result as normal/abnormal . CREATININE (test 0.94 MG/DL See_Comment [Automated message] code = 2160-0) The system [employer] generated this result transmit oscar reference range : 0.60-1.30 MG/DL . The reference range was not used to interpret this result as normal/abnormal . eGFR (2020 CKD-EPI) 62 ML/MIN/1.73 See_Comment [Auto mated message] (test code = The system [facility] XO[employer]ET 35188-6) generated this result transmit oscar reference range : >60 ML/MIN/1.73. Th e reference range was not used to interpret this result as normal/abnormal . INTACT PTH (test 31 PG/ML See_Comment [Automated message] code = 2731-8) The system [employer] generated this result transmit oscar reference range : 15-65 PG/ML. Th e reference range was not used to interpret this result as normal/abnormal . PHOSPHORUS (test 5.1 MG/DL See_Comment H [Automated message] code = 2777-1) The system [employer] generated this result transmit oscar reference range : 2.5-4.5 MG/DL. The reference range was not used to interpret this result as normal/abnormal . COMPREHENSIVE METABOLIC [id number] 00:00:00 Test Item Value Reference Range Interpretation Comments ALBUMIN (test code = 3.9 G/DL See_Comment [Autom ated message] 1751-7) The system [employer] generated this result transmit oscar reference range : 3.5-5.2 G/DL. T he reference range was not used to interpret this result as normal/abnormal . ALKALINE PHOSPHATASE 94 U/L See_Comment [Autom ated message] (test code = 6768-6) The sys tem which generated this result transmit oscar reference range : 40-142 U/L. The reference range was not used to interpret this result as normal/abnormal . BILIRUBIN, TOTAL 0.2 MG/DL See_Comment [Automated message] (test code = 1975-2) The [facility] tem which generated this result transmit oscar reference range : <=1.2 MG/DL. Th e reference range was not used to interpret this result as normal/abnormal . BUN (test code = 20 MG/DL See_Comment [Automated message] 3094-0) The system [facility] generated this result transmit oscar reference range : 8-23 MG/DL. The reference range was not used to interpret this result as normal/abnormal . CALCIUM (test code = 10.0 MG/DL See_Comment [Autom ated message] 19829-7) The system [facility] generated this result transmit oscar reference range : 8.5-10.5 MG/DL. The reference range was not used to interpret this result as normal/abnormal . CALC A/G RATIO (test 1.3 RATIO See_Comment [Autom ated message] code = 1759-0) The system [facility] generated this result transmit oscar reference range : 1.0-2.6 RATIO. The reference range was not used to interpret this result as normal/abnormal . CALC BUN/CREAT (test 21 RATIO See_Comment [Autom ated message] code = 3097-3) The system [facility] generated this result transmit oscar reference range : 6-28 RATIO. The reference range was not used to interpret this result as normal/abnormal . CALC GLOBULIN (test 3.0 G/DL See_Comment [Automa oscar message] code = 38424-6) The system [facility] generated this result transmit oscar reference range : 1.9-3.7 G/DL. T he reference range was not used to interpret this result as normal/abnormal . CARBON DIOXIDE (test 21 MEQ/L See_Comment [Autom ated message] code = 1963-8) The system [facility] generated this result transmit oscar reference range : 19-31 MEQ/L. Th e reference range was not used to interpret this result as normal/abnormal . CHLORIDE (test code 103 MEQ/L See_Comment [Automa oscar message] = 3344-0) The system [facility] generated this result transmit oscar reference range : 95-107 MEQ/L. T he reference range was not used to interpret this result as normal/abnormal . CREATININE (test 0.94 MG/DL See_Comment [Automated message] code = 2160-0) The system [employer] generated this result transmit oscar reference range : 0.60-1.30 MG/DL . The reference range was not used to interpret this result as normal/abnormal . eGFR (2020 CKD-EPI) 62 ML/MIN/1.73 See_Comment [Auto mated message] (test code = The system [facility] XO[employer]ET 30547-7) generated this result transmit oscar reference range : >60 ML/MIN/1.73. Th e reference range was not used to interpret this result as normal/abnormal . GLUCOSE (test code = 107 MG/DL See_Comment H [Autom ated message] 1558-6) The system [employer] generated this result transmit oscar reference range : 70-99 MG/DL. Th e reference range was not used to interpret this result as normal/abnormal . POTASSIUM (test code 4.0 MEQ/L See_Comment [Autom ated message] = 2823-3) The system [employer] generated this result transmit oscar reference range : 3.5-5.4 MEQ/L. The reference range was not used to interpret this result as normal/abnormal . PROTEIN, TOTAL (test 6.9 G/DL See_Comment [Autom ated message] code = 2885-2) The system [employer] generated this result transmit oscar reference range : 6.1-8.3 G/DL. T he reference range was not used to interpret this result as normal/abnormal . AST (test code = 7 U/L See_Comment L [Automated message] 1920-8) The system [employer] generated this result transmit oscar reference range : 9-40 U/L. The reference range was not used to interpret this result as normal/abnormal . ALT (test code = <5 U/L See_Comment L [Automated message] 1742-6) The system [employer] generated this result transmit oscar reference range : 5-40 U/L. The reference range was not used to interpret this result as normal/abnormal . SODIUM (test code = 140 MEQ/L See_Comment [Automa oscar message] 2951-2) The system [employer] generated this result transmit oscar reference range : 133-146 MEQ/L. The reference range was not used to interpret this result as normal/abnormal . BLOOD [id number] 12:19:23 Test Item Value Reference Range Interpretation Comments CULTURE (BEAKER) (test No growth in 5 days code = 1095) BLOOD [id number] 12:19:23 Test Item Value Reference Range Interpretation Comments CULTURE (BEAKER) (test No growth in 5 days code = 1095) VANCOMYCIN LEVEL, [id number] 10:18:00 Test Item Value Reference Range Interpretation Comments VANCOMYCIN TROUGH (BEAKER) (test 12.3 ug/mL 10.0-20.0 code = 522) Janitorial Maintenance Worker ID - ADMINVITAMIN [id number] 05:14:57 Test Item Value Reference Range Interpretation Comments VITAMIN B12 (BEAKER) (test code = 400 pg/mL 213-816 774) Janitorial Maintenance Worker ID - bvIRON, TIBC, % SAT. (WITHOUT FERRITIN)2023-01-11 05:06:28 Test Item Value Reference Range Interpretation Comments IRON (BEAKER) (test code = 547) 9.0 ug/dL 40.0-160.0 L TOTAL IRON BINDING CAPACITY 135 ug/dL 250-450 L (BEAKER) (test code = 769) IRON % SATURATION (2) (BEAKER) 7 % 20-55 L (test code = 2590) Janitorial Maintenance Worker ID - bvBASIC METABOLIC [id number] 04:46:03 Test Item Value Reference Range Interpretation Comments SODIUM (BEAKER) 136 meq/L 136-145 (test code = 381) POTASSIUM 3.4 meq/L 3.5-5.1 L (BEAKER) (test code = 379) CHLORIDE (BEAKER) 106 meq/L 98-107 (test code = 382) CO2 (BEAKER) 20 meq/L 22-29 L (test code = 355) BLOOD UREA 12 mg/dL 7-21 NITROGEN (BEAKER) (test code = 354) CREATININE 0.73 mg/dL 0.57-1.25 (BEAKER) (test code = 358) GLUCOSE RANDOM 91 mg/dL 70-105 (BEAKER) (test code = 652) CALCIUM (BEAKER) 8.1 mg/dL 8.4-10.2 L (test code = 697) EGFR (BEAKER) 85 Interpretatio n of eGFR (test code = [...] not appl icable for dialysis patien ts Janitorial Maintenance Worker ID - [id number] 04:46:03 Test Item Value Reference Range Interpretation Comments MAGNESIUM (BEAKER) (test code = 1.9 mg/dL 1.6-2.6 627) Janitorial Maintenance Worker ID - bvCBC (HEMOGRAM ONLY)2023-01-11 04:32:11 Test Item Value Reference Range Interpretation Comments WHITE BLOOD CELL COUNT (BEAKER) 7.3 K/ L 3.5-10.5 (test code = 775) RED BLOOD CELL COUNT (BEAKER) 2.93 M/ L 3.93-5.22 L (test code = 761) HEMOGLOBIN (BEAKER) (test code = 7.3 GM/DL 11.2-15.7 L 410) HEMATOCRIT (BEAKER) (test code = 24.6 % 34.1-44.9 L 411) MEAN CORPUSCULAR VOLUME (BEAKER) 84 fL 79-95 (test code = 753) MEAN CORPUSCULAR HEMOGLOBIN 24.9 pg 25.6-32.2 L (BEAKER) (test code = 751) MEAN CORPUSCULAR HEMOGLOBIN CONC 29.7 GM/DL 32.2-35.5 L (BEAKER) (test code = 752) RED CELL DISTRIBUTION WIDTH 18.2 % 11.7-14.4 H (BEAKER) (test code = 412) PLATELET COUNT (BEAKER) (test 223 K/CU MM 150-450 code = 756) MEAN PLATELET VOLUME (BEAKER) 9.4 fL 9.4-12.3 (test code = 754) NUCLEATED RED BLOOD CELLS 0 /100 WBC 0-0 (BEAKER) (test code = 413) XR abdomen / KUB 1 view [id number] 17:50:05XR ABDOMEN/KUB 1 VIEW PORTABLE CLINICAL INDICATION: evaluate hydronephrosis, passage of contrast from CTU last night COMPARISON: 04/22/2022 TECHNIQUE: Single, frontal radiograph of the abdomen. FINDINGS:Generator overlies the right lower quadrant. Status post left hiparthroplasty. The bowel gas patternis nonspecific, but nonobstructive. Moderatestool within the right colon. Evaluation for free air islimited by portable supine technique. Withinthese limitations, no free air is identified. Electronically Signed By: Gretel Handy01/10/2023 17:52 CDTWorkstation Name: [id number] [facility] VIEW [id number] 17:50:05[facility] : 1945 Sex: FXR ABDOMEN/KUB 1 VIEW PORTABLECLINICAL INDICATION: evaluate hydronephrosis, passage of contrast fromCTU lastnight COMPARISON: 04/22/2022TECHNIQUE: Single, frontal radiograph of the abdomen.FINDINGS:Generator overlies the right lower quadrant. Status post left hiparthroplasty.The bowel gas pattern is nonspecific, but nonobstructive. Moderatestool within the right colon.Evaluation for free air is limited by po rtable supine technique. Withinthese limitations, no free air is identified. Electronically Signed By: Gretel Handy01/10/2023 17:52 CDTWorkstation Name: [id number] METABOLIC [id number] 07:27:18 Test Item Value Reference Range Interpretation Comments SODIUM (BEAKER) 141 meq/L 136-145 (test code = 381) POTASSIUM 4.1 meq/L 3.5-5.1 Specimen slight ly (BEAKER) (test hemolyzed code = 379) CHLORIDE (BEAKER) 111 meq/L 98-107 H (test code = 382) CO2 (BEAKER) 20 meq/L 22-29 L (test code = 355) BLOOD UREA 10 mg/dL 7-21 NITROGEN (BEAKER) (test code = 354) CREATININE 0.75 mg/dL 0.57-1.25 Specimen slight ly (BEAKER) (test hemolyzed code = 358) GLUCOSE RANDOM 97 mg/dL 70-105 (BEAKER) (test code = 652) CALCIUM (BEAKER) 8.7 mg/dL 8.4-10.2 (test code = 697) EGFR (BEAKER) 82 Interpretatio n of eGFR (test code = mL/min/1.73 values Stage De scription 1092) sq m Result G1 Sofie l or high >=90 G2 Mildly decreased 60-89 G3a Mildl y to moderately 45-5 9 G3b Moderately to s everely 30-44 G4 Severl y decreased 15-29 G5 Kidne y failure <15Reported eGF R is based on the CKD-EPI 202 equation that d oes not use a race coefficientEsti mated GFR is not as accur ate as Creatinine Sowmya cloud in predicting glom erular filtration rate . Estimated GFR is not appl icable for dialysis patien ts Janitorial Maintenance Worker ID - EOOCBC W/PLT COUNT & AUTO [id number] 07:18:09 Test Item Value Reference Range Interpretation Comments WHITE BLOOD CELL COUNT (BEAKER) 9.0 K/ L 3.5-10.5 (test code = 775) RED BLOOD CELL COUNT (BEAKER) 3.18 M/ L 3.93-5.22 L (test code = 761) HEMOGLOBIN (BEAKER) (test code = 7.9 GM/DL 11.2-15.7 L 410) HEMATOCRIT (BEAKER) (test code = 27.1 % 34.1-44.9 L 411) MEAN CORPUSCULAR VOLUME (BEAKER) 85 fL 79-95 (test code = 753) MEAN CORPUSCULAR HEMOGLOBIN 24.8 pg 25.6-32.2 L (BEAKER) (test code = 751) MEAN CORPUSCULAR HEMOGLOBIN CONC 29.2 GM/DL 32.2-35.5 L (BEAKER) (test code = 752) RED CELL DISTRIBUTION WIDTH 18.1 % 11.7-14.4 H (BEAKER) (test code = 412) PLATELET COUNT (BEAKER) (test 252 K/CU MM 150-450 code = 756) MEAN PLATELET VOLUME (BEAKER) 9.3 fL 9.4-12.3 L (test code = 754) NUCLEATED RED BLOOD CELLS 0 /100 WBC 0-0 (BEAKER) (test code = 413) NEUTROPHILS RELATIVE PERCENT 83 % (BEAKER) (test code = 429) LYMPHOCYTES RELATIVE PERCENT 8 % (BEAKER) (test code = 430) MONOCYTES RELATIVE PERCENT 7 % (BEAKER) (test code = 431) EOSINOPHILS RELATIVE PERCENT 0 % (BEAKER) (test code = 432) BASOPHILS RELATIVE PERCENT 0 % (BEAKER) (test code = 437) NEUTROPHILS ABSOLUTE COUNT 7.45 K/ L 1.56-6.13 H (BEAKER) (test code = 670) LYMPHOCYTES ABSOLUTE COUNT 0.67 K/ L 1.18-3.74 L (BEAKER) (test code = 414) MONOCYTES ABSOLUTE COUNT (BEAKER) 0.62 K/ L 0.24-0.36 H (test code = 415) EOSINOPHILS ABSOLUTE COUNT 0.02 K/ L 0.04-0.36 L (BEAKER) (test code = 416) BASOPHILS ABSOLUTE COUNT (BEAKER) 0.03 K/ L 0.01-0.08 (test code = 417) IMMATURE GRANULOCYTES-RELATIVE 1.90 % 0.00-1.00 H PERCENT (BEAKER) (test code = 2801) CT ABDOMEN/PELVIS WITH & WITHOUT IV CONTRAST [id number] 22:15:53CT ABDOMEN/PELVIS WITH & WITHOUT IV CONTRAST HISTORY: HydronephrosisBladder mass, further eval (Ped 0-18y) HydronephrosisBladder mass, further eval (Ped 0- 18y) Comparison exam: Renal ultrasound 01/09/2023. TECHNIQUE: CT of the abdomen and pelvis with and without intravenouscontrast. The examination was performed according to the departmentaldose-optimization program, which includes automated exposure control,adjustment of the mA and/or kV according to patient size and/or use ofiterative reconstruction technique. FINDINGS: Lower thorax: Bibasilar subsegmental atelectasis. Coronary arterycalcifications. Liver: Subcentimeter right hepatic lobe hypodensity is too small tofurther characterize. Focal fatty deposition noted along the falciformligament.Gallbladder and bile ducts: Normal.Spleen: Nonspecific areas of hypoattenuation in the spleen.Pancreas: Normal.Adrenals: Normal.Kidneys and ureters: Simple appearing left renal cyst is noted. On thenoncontrast phase, the urine is hyperattenuating, possibly from priorcontrast-enhanced study. On the delayed phase, the superior portion ofthe kidneys havebeen excluded from the xwvez-zp-jhen. Within thislimitation, no abnormality is seen in the renal collecting system. Thereis moderate right and mild left hydronephrosis. No renal mass is seen.Patchy opacification of the right lower renal cortex may be frompyelonephritis.Bowel: No acute abnormality. Bladder: Decompressed secondary to Russo catheterization. Evaluation ofbladder mass is highly limited due to decompression by Foleycatheterization. Within this limitation, there appears to be thickeningof the posterior bladder wall.Reproductive organs: No acute abnormality. Lymph nodes: Normal.Peritoneum: Trace ascites noted. No free air.Vessels: Vascular calcifications.Abdominal wall: Right posterior generator device noted with a leadterminating in the region of the pelvis.Bones: Postoperative changes noted of a left hip arthroplasty.Degenerative changes are seen throughout the spine.[facility] IV [id number] 22:15:53[facility] 1945 Sex: FCT ABDOMEN/PELVIS WITH & WITHOUT IV CONTRASTHISTORY: HydronephrosisBladder mass, further eval (Ped 0-18y) HydronephrosisBladder mass, further eval (Ped 0-18y)Comparison exam: Renal ultrasound 01/09/2023.TECHNIQUE: CT of the abdomen and pelvis with and without intravenouscontrast. The examination was performed according to the departmentaldose-optimization program, which includes automated exposure control,adjustment of the mA and/or kV according to patient size and/or use ofiterative reconstruction technique. FINDINGS:Lower thorax: Bibasilar subsegmental atelectasis. Coronary arterycalcifications. Liver:Subcentimeter right hepatic lobe hypodensity is too small tofurther characterize. Focal fatty deposition noted along the falciformligament.Gallbladder and bile ducts: Normal.Spleen: Nonspecific areas of hypoattenuation in the spleen.Pancreas: Normal.Adrenals: Normal.Kidneys and ureters: Simple appearing left renal cyst is noted. On thenoncontrast phase, the urine is hyperattenuating, possibly from sierra orcontrast-enhanced study. On the delayed phase, the superior portion ofthe kidneys have been excluded from the oosrk-mp-aqla. Within thislimitation, no abnormality is seen in the renal collecting system. Thereis moderate right and mild left hydronephrosis. No renal mass is seen.Patchy opacification of the right lower renal cortex may be frompyelonephritis.Bowel: No acute abnormality. Bladder: Decompressed secondary to Russo catheterization. Evaluation ofbladder mass is highly limited due to decompression by Foleycatheterization. Within this limitation, there appears to be thickeningof the posterior bladder wall.Reproductive organs: No acute abnormality. Lymph nodes: Normal.Peritoneum: Trace ascites noted. No free air.Vessels: Vascular calcifications.Abdominal wall: Right posterior generator device noted with a leadterminating in the region of the pelvis.Bones: Postoperative changes noted of a left hip arthroplasty.Degenerative changes are seen throughout the spine. IMPRESSION:1. Limited evaluation of bladder mass due to decompression by Foleycatheterization. Within this limitation, there is thickening of theposterior bladder wall.2. Moderate right and mild left hydronephrosis. On the noncontrastphase, the urine is hyperattenuating, possibly from priorcontrast-enhanced study.3. Patchy opacification of the right lower renal cortex may representpyonephritis.4. Trace ascites.5. Please see additional findings in the body of the report.Electronically Signed By: Nikhil Morrell01/09/2023 22:18 CDTWorkstation Name: [id number] w/Microscopic + Reflex to [id number] 12:11:04 Test Item Value Reference Range Interpretation Comments Color, UA (test code Yellow = 5778-6) Clarity, UA (test Cloudy code = 5767-9) Specific N[place]omo, UA 1.019 1.001-1.035 (test code = 5811-5) pH, UA (test code = 6.0 5.0-8.0 5803-2) Protein, UA (test 50 mg/dL Negative A code = 62748-7) Glucose, UA (test Negative Negative code = 365) Ketones, UA (test Negative Negative code = 2514-8) Bilirubin, UA (test Negative Negative code = 65743-3) Blood, UA (test code Large Negative A = 76831-6) Nitrite, UA (test Negative Negative code = 5802-4) Leukocytes, UA (test Large Negative A code = 5799-2) Urobilinogen, UA 0.2 0.2-1.0 (test code = 76885-0) RBC, UA (test code = 154 See_Comment [Autom ated 60926-4) message] The system which generated this result transmit oscar reference range : /HPF. The reference range was not used to interpret this result as normal/abnormal . WBC, UA (test code = 983 See_Comment [Autom ated 5821-4) message] The system which generated this result transmit oscar reference range : /HPF. The reference range was not used to interpret this result as normal/abnormal . Mucus (test code = Few 8247-9) Squam Epithel, UA 5 See_Comment [Automate d (test code = 77945-3) messag e] The system which generated this result transmit oscar reference range : /HPF. The reference range was not used to interpret this result as normal/abnormal . Specimen Source (test code = 2795) LULU (test code = LULU) Janitorial Maintenance Worker ID - [auto]Janitorial Maintenance Worker ID - tech Lab Interpretation Abnormal (test code = 10286-6) [facility] URINE [id number] 12:11:04 Test Item Value Reference Range Interpretation Comments COLOR (BEAKER) (test code = 470) Yellow CLARITY (BEAKER) (test code = 469) Cloudy SPECIFIC GRAVITY UA (BEAKER) (test 1.019 1.001-1.035 code = 468) PH UA (BEAKER) (test code = 467) 6.0 5.0-8.0 PROTEIN UA (BEAKER) (test code = 50 mg/dL Negative A 464) GLUCOSE UA (BEAKER) (test code = Negative Negative 365) KETONES UA (BEAKER) (test code = Negative Negative 371) BILIRUBIN UA (BEAKER) (test code = Negative Negative 462) BLOOD UA (BEAKER) (test code = 461) Large Negative A NITRITE UA (BEAKER) (test code = Negative Negative 465) LEUKOCYTE ESTERASE UA (BEAKER) (test Large Negative A code = 466) UROBILINOGEN UA (BEAKER) (test code 0.2 0.2-1.0 = 463) RBC UA (BEAKER) (test code = 519) 154 /HPF WBC UA (BEAKER) (test code = 520) 983 /HPF MUCUS (BEAKER) (test code = 1574) Few SQUAMOUS EPITHELIAL (BEAKER) (test 5 /HPF code = 516) SOURCE(BEAKER) (test code = 2795) Janitorial Maintenance Worker ID - [auto]Janitorial Maintenance Worker ID - techUS renal [id number] 11:39:01Renal ultrasound Clinical History: Hydronephrosis Comparison: None Findings:Sonographic evaluation of the kidneys is performed. The right kidney is normal in size measuring 12.9 x 6.4 x 6.0 cm withcortical thickness of 2.0 cm. Cortical echogenicity is within normallimits. There is a nonobstructing stone identified within the centralright kidney measuring 1.2 x 0.4 cm. There is mild intrarenalhydronephrosis and moderate dilatation of the renal pelvis. There is noevidence for solid renal mass. The left kidney is normal in size measuring 11.1 x 5.3 x 5.4 cm withcortical thickness of 1.7 cm. Cortical echogenicity is within normallimits. There is a 2.8 x 2.5 x 2.8 cm simple cyst identified arising offthe lateral left kidney which requires no follow-up imaging. There ismild intrarenal hydronephrosis and moderate dilatation of the renalpelvis. There is no evidence for solid renal mass. The urinary bladder demonstrates is collapsed around a Russo catheter.[facility] 2023-01-09 11:39:01 [facility] 1945 Sex: FRenal ul trasoundClinical History: HydronephrosisComparison: NoneFindings:Sonographic evaluation of the kidneys is performed.The right kidney is normal in size measuring 12.9 x 6.4 x 6.0 cm withcortical thickness of 2.0 cm. Cortical echogenicity is within normallimits. There is a nonobstructing stone identified within the centralright kidney measuring 1.2 x 0.4 cm. There is mild intrarenalhydronephrosis and moderate dilatation of the renal pelvis. There is noevidence for solid renal mass. The left kidney is normal in size measuring 11.1 x 5.3 x 5.4 cm withcortical thickness of 1.7 cm. Cortical echogenicity is within normallimits. There is a 2.8 x 2.5 x 2.8 cm simple cyst identified arising offthe lateral left kidney which requires no follow-up imaging. There ismild intrarenal hydronephrosis and moderate dilatation of the renalpelvis. There is no evidence for solid renal mass.The urinary bladder demonstrates is collapsed around a Russo catheter. IMPRESSION:Impression:Mild to moderate bilateral hydronephrosis of unknown etiology.Nonobstructing right nephrolith.Electronically Signed By: Dimitry Tucker MD01/09/2023 11:41 CDTWorkstation Name: [id number] 04:10:49 Test Item Value Reference Range Interpretation Comments PROCALCITONIN (BEAKER) (test code 0.44 ng/mL <0.05 H = 3036) SEPSIS RISK (ng/mL)Low: 0.05-0.50Intermediate: 0.51-2.00High: >=2.01HEPATIC FUNCTION [id number] 03:03:04 Test Item Value Reference Range Interpretation Comments TOTAL PROTEIN (BEAKER) (test code = 6.5 gm/dL 6.0-8.3 770) ALBUMIN (BEAKER) (test code = 1145) 3.1 g/dL 3.5-5.0 L BILIRUBIN TOTAL (BEAKER) (test code 0.5 mg/dL 0.2-1.2 = 377) BILIRUBIN DIRECT (BEAKER) (test 0.2 mg/dL 0.1-0.5 code = 706) ALKALINE PHOSPHATASE (BEAKER) (test 69 U/L 40-150 code = 346) AST (SGOT) (BEAKER) (test code = 7 U/L 5-34 353) ALT (SGPT) (BEAKER) (test code = < U/L 6-55 L 347) Janitorial Maintenance Worker ID - BVHIGH SENSITIVITY TROPONIN [id number] 03:02:10 Test Item Value Reference Range Interpretation Comments HIGH SENSITIVITY TROPONIN I (test 8 pg/ml <=17 code = 0987306) Janitorial Maintenance Worker ID - BVThe PRODUCTION WELDER STAT High Sensitivity Troponin-I results should be used in conjunctionwith other diagnostic information such as ECG, clinical observations and information, and patient symptoms to aid in the diagnosis of MT.B-TYPE NATRIURETIC FACTOR (BNP)2023-01-09 03:02:02 Test Item Value Reference Range Interpretation Comments B-TYPE NATRIURETIC PEPTIDE (BEAKER) 83 pg/mL 0-100 (test code = 700) Janitorial Maintenance Worker ID - BVBASIC METABOLIC [id number] 02:55:56 Test Item Value Reference Range Interpretation Comments SODIUM (BEAKER) 139 meq/L 136-145 (test code = 381) POTASSIUM 3.5 meq/L 3.5-5.1 (BEAKER) (test code = 379) CHLORIDE (BEAKER) 110 meq/L 98-107 H (test code = 382) CO2 (BEAKER) 17 meq/L 22-29 L (test code = 355) BLOOD UREA 11 mg/dL 7-21 NITROGEN (BEAKER) (test code = 354) CREATININE 0.80 mg/dL 0.57-1.25 (BEAKER) (test code = 358) GLUCOSE RANDOM 135 mg/dL 70-105 H (BEAKER) (test code = 652) CALCIUM (BEAKER) 8.3 mg/dL 8.4-10.2 L (test code = 697) EGFR (BEAKER) 76 Interpretatio n of eGFR (test code = [...] not appl icable for dialysis patien ts Janitorial Maintenance Worker ID - BVLACTIC ACID, [id number] 02:50:33 Test Item Value Reference Range Interpretation Comments LACTATE BLOOD VENOUS (2) (BEAKER) 1.13 mmol/L 0.50-2.00 (test code = 2872) Janitorial Maintenance Worker ID - BVCBC W/PLT COUNT & AUTO [id number] 02:41:18 Test Item Value Reference Range Interpretation Comments WHITE BLOOD CELL COUNT (BEAKER) 13.1 K/ L 3.5-10.5 H (test code = 775) RED BLOOD CELL COUNT (BEAKER) 3.56 M/ L 3.93-5.22 L (test code = 761) HEMOGLOBIN (BEAKER) (test code = 8.7 GM/DL 11.2-15.7 L 410) HEMATOCRIT (BEAKER) (test code = 29.5 % 34.1-44.9 L 411) MEAN CORPUSCULAR VOLUME (BEAKER) 83 fL 79-95 (test code = 753) MEAN CORPUSCULAR HEMOGLOBIN 24.4 pg 25.6-32.2 L (BEAKER) (test code = 751) MEAN CORPUSCULAR HEMOGLOBIN CONC 29.5 GM/DL 32.2-35.5 L (BEAKER) (test code = 752) RED CELL DISTRIBUTION WIDTH 18.1 % 11.7-14.4 H (BEAKER) (test code = 412) PLATELET COUNT (BEAKER) (test 280 K/CU MM 150-450 code = 756) MEAN PLATELET VOLUME (BEAKER) 9.4 fL 9.4-12.3 (test code = 754) NUCLEATED RED BLOOD CELLS 0 /100 WBC 0-0 (BEAKER) (test code = 413) NEUTROPHILS RELATIVE PERCENT 89 % (BEAKER) (test code = 429) LYMPHOCYTES RELATIVE PERCENT 3 % (BEAKER) (test code = 430) MONOCYTES RELATIVE PERCENT 6 % (BEAKER) (test code = 431) EOSINOPHILS RELATIVE PERCENT 0 % (BEAKER) (test code = 432) BASOPHILS RELATIVE PERCENT 0 % (BEAKER) (test code = 437) NEUTROPHILS ABSOLUTE COUNT 11.60 K/ L 1.56-6.13 H (BEAKER) (test code = 670) LYMPHOCYTES ABSOLUTE COUNT 0.43 K/ L 1.18-3.74 L (BEAKER) (test code = 414) MONOCYTES ABSOLUTE COUNT (BEAKER) 0.83 K/ L 0.24-0.36 H (test code = 415) EOSINOPHILS ABSOLUTE COUNT 0.01 K/ L 0.04-0.36 L (BEAKER) (test code = 416) BASOPHILS ABSOLUTE COUNT (BEAKER) 0.02 K/ L 0.01-0.08 (test code = 417) IMMATURE GRANULOCYTES-RELATIVE 1.50 % 0.00-1.00 H PERCENT (BEAKER) (test code = 2801) [id number] 00:00:00Ordered by an unspecified provider.[facility] HospitalRAD[facility], 1 [facility], NON [id number] 12:46:00downtime order for 04/26 [facility] 1945 Sex: FFINAL REPORT INDICATION: Extubation COMPARISON: 04/25/2022 TECHNIQUE: Single frontal view of the chest. Desmond [id number]/14/1945 FINDINGS: Lines, tubes, and devices: None.Lungs and pleura: No focal consolidation. Low lung volumes with perivascular crowding. No pneumothorax.Heart and mediastinum: Normal heart size. Unremarkable mediastinal contours.Osseous structures: No acute abnormality. Mild spondylosis and facet arthropathy are present within the spine. Chronic right ribfractures. Other: None. IMPRESSION: Low lung volumes with perivascular crowding. Signed: Quang Augustin MDReport Verified Date/Time: 08/06/2022 12:46:30 Reading Location: [address] ReadingRoom RAD, CHEST, 1 VIEW, NON [id number] 12:44:00 [facility] : 1945 Sex: FFINAL REPORT [facility] number = [id number] ID number = [id number] ([facility])Examination = abdomen one view AP (KUB) completed at 5:20AM on April 22, 2022 CDTExamination = chest [...] cirilo. The orogastric tube barely reaches the st omach and has its sidehole in the distal esophagus. I would recommend advancing the orogastric tube eight more centimeters and rechecking position. The right hemidiaphragm is elevated. Some atelectasisor pneumonia is not ruled out at the [...] be advanced about 8 cm. A neural sti mulators seen near the right sacroiliac joint level. [...] seen in satisfactory position.3. Atelectasis and pneumonia issuspected at the right lung base.4. A right femoral venous line is in place.5. A left total hip prost hetic and a neural type stimulator superimposed near the right sacroiliac joint is seen. 6. No dilated bowel is suspected. Signed: Danie Garza MDReport Verified Date/Time: 08/06/2022 12:44:51 RAD, ABDOMEN/KUB, 1 VIEW [id number] 12:43:00 [facility] : 1945 Sex: FFINAL REPORT [facility] = [facility] accession number = [id number] ID number = [id number] ([facility])Examination = abdomen one view AP (KUB) completed [...] CLINICAL DATA: "OG tube". Intubated CHEST FINDINGS: Thetip of the endotracheal tube ends 5.7 cm [...] centered below the level of the oral ga stric tube which is better seen on the chest x-ray. It needs to be advanced about 8 cm. A neural stimulators seen near the right sacroiliac joint level. A prosthetic left hip is present. No dislocationof that hip is seen. The right hip looks intact. A right femoral venous catheter ends just below theright SI joint. No fecal impaction or dilated bowel is seen in the pelvis or lower abdomen. There isarthritis in the lumbar spine and curvature to [...] Signed: Danie Garza MDReport Verified Date/Time: 08/06/2022 12:43:27 RAD, CHEST, 1 VIEW, NON [id number] 12:37:00 [facility] 1945 Sex: FFINAL REPORT INDICATION: Extubation COMPARISON: None TECHNIQUE: Single frontal view of the chest. Desmond [id number] FINDINGS: Lines, tubes, and devices: None.Lungs and pleura: Clear lungs. No pneumothorax.Heart and mediastinum: Normal heart size. Scattered atherosclerotic vascular calcifications.Osseous structures: No acute abnormality. Mild spondylosis and facet arthropathy are present within the spine. 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 IMPRESSION: 1.No acute intrathoracic abnormality.2.S uggestion of subglottic airway narrowing. Signed: Quang Augustin Verified Date/Time: 08/06/2022 12:37:17 Reading Location: [address] Reading Room RAD, CHEST, 1 VIEW, NON [id number] 12:36:00DT# [id number] [facility] : 1945 Sex: FFINAL REPORT INDICATION: Extubation Desmond [id number]/14/1945 COMPARISON: None TECHNIQUE: Single frontal view of the chest. FINDINGS: Lines, tubes, and devices: None.Lungs and pleura: Clear lungs. No pneumothorax.Heart and mediastinum: Normal heart size. Unremarkable mediastinal contours.Osseous structures: No acute abnormality. Chronic right mid rib fracture.Other: The patient is rotated to the left. IMPRESSION: No acute intrathoracic abnormality. Signed: Quang Augustin Verified Date/Time: 08/06/2022 12:36:32 Reading Location: [address] Reading Room RAD, CHEST, 1 VIEW, NON [id number] 12:35:00downtime order for 04/29 accession #[id number] [facility] : 1945 Sex: FFINAL REPORT INDICATION: Chest pain COMPARISON: 04/27/2022 Desmond [id number] TECHNIQUE: Single frontal view of the chest. FINDINGS: Lines, tubes, and devices: None.Lungs and pleura: Clear lungs. No pneumothorax.Heart and mediastinum: Normal heart size. Scattered atherosclerotic vascular calcifications.Osseous structures: No acute abnormality. Old right sixth and seventh rib fractures.Other: None. IMPRESSION: No acute intrathoracic abnormality. Signed: Quang Augustin MDReport Verified Date/Time: 08/06/2022 12:35:09 Reading Location: [address] Reading Room RAD, CHEST, 1 VIEW, NON [id number] 11:59:00DOWNTIME ACC#[id number] FOR 04/25/2022 [facility] : 1945 Sex: FFINAL REPORT Portable chest CLINICAL STATEMENT: Shortness of breath. Patient info Desmond Richardson, [place] [id number] [facility]' COMPARISON: 04/22/2022 FINDINGS: Heart is mildly enlarged. Aortic arch is mildly calcified. There is no focal lung consolidation or pleural effusion. No evidence ofpulmonary edema or pneumothorax. IMPRESSION: No acute cardiopulmonary disease. Signed: Donta Sue Verified Date/Time: 08/06/2022 11:59:29 Electronically signed by: DONTA SUE on 1:59 AMSPUTUM CULTURE + GRAM [id number] 14:26:22 Test Item Value Reference Range Interpretation Comments CULTURE (BEAKER) (test MYROIDES SPECIES A < 1+ Myroides code = 1095) species Amikacin (test code = See_Comment R [Auto mated 1) message] The system which generated this result transmitted reference range : Susceptible 0-1 6 , Resistant <0 or >16 . The reference range was not used to interpret this result as normal/abnormal . Aztreonam (test code = See_Comment R [Aut omated 32) message] The system which generated this result transmitted reference range : Susceptible 0-8 , Resistant <0 or >8 . The reference range was not used to interpret this result as normal/abnormal . Cefepime (test code = See_Comment R [Auto mated 51) message] The system which generated this result transmitted reference range : Susceptible 0-8 , Resistant <0 or >8 . The reference range was not used to interpret this result as normal/abnormal . Ceftazidime (test code See_Comment R [Aut omated = 27) message] The system which generated this result transmitted reference range : Susceptible 0-8 , Resistant <0 or >8 . The reference range was not used to interpret this result as normal/abnormal . Ciprofloxacin (test See_Comment R [Automa oscar code = 7) message] The system which generated this result transmitted reference range : Susceptible 0-1 , Resistant <0 or >1 . The reference range was not used to interpret this result as normal/abnormal . Gentamicin (test code See_Comment R [Auto mated = 18) message] The system which generated this result transmitted reference range : Susceptible 0-4 , Resistant <0 or >4 . The reference range was not used to interpret this result as normal/abnormal . Levofloxacin (test See_Comment S [Automat ed code = 22) message] The system which generated this result transmitted reference range : Susceptible 0-2 , Resistant <0 or >2 . The reference range was not used to interpret this result as normal/abnormal . Meropenem (test code = See_Comment S [Aut omated 34) message] The system which generated this result transmitted reference range : Susceptible 0-4 , Resistant <0 or >4 . The reference range was not used to interpret this result as normal/abnormal . Piperacillin + See_Comment R [Automated Tazobactam (test code messag e] The = 29) system which generated this result transmitted reference range : Susceptible 0-1 6 , Resistant <0 or >16 . The reference range was not used to interpret this result as normal/abnormal . Tobramycin (test code See_Comment R [Auto mated = 25) message] The system which generated this result transmitted reference range : Susceptible 0-4 , Resistant <0 or >4 . The reference range was not used to interpret this result as normal/abnormal . Trimethoprim + See_Comment S [Automated Sulfamethoxazole (test messa ge] The code = 47) system which generated this result transmitted reference range : Susceptible 0-4 0 , Resistant <0 or >40 . The reference range was not used to interpret this result as normal/abnormal . GRAM STAIN RESULT 1+ WBCs (BEAKER) (test code = 1123) GRAM STAIN RESULT 0-5 epithelial (BEAKER) (test code = cells 321007) GRAM STAIN RESULT No organisms (BEAKER) (test code = seen 253877) <1+ Normal respiratory liz presentMRSA [id number] 14:17:42 Test Item Value Reference Range Interpretation Comments CULTURE (BEAKER) (test code No MRSA isolated = 1095) BLOOD [id number] 09:30:23 Test Item Value Reference Range Interpretation Comments CULTURE (BEAKER) (test No growth in 5 days code = 1095) Specimen received, ordered, and processed during a system downtime event in AprilLOOD [id number] 09:30:08 Test Item Value Reference Range Interpretation Comments CULTURE (BEAKER) (test No growth in 5 days code = 1095) Specimen received, ordered, and processed during a system downtime event in April 2022URINE [id number] 08:09:35 Test Item Value Reference Range Interpretation [...] Processed during Downtime in April 2022.BASIC METABOLIC [id number] 12:08:49 Test Item Value Reference Range Interpretation [...] high >=90 G2 Mildly decreased 60-89 G3a Mild ly to moderately 45-5 9 G3b Moderately to [...] appl icable for dialysis patien ts SARS-COV2/RT-PCR ([facility])2022-05-03 15:08:15 Test Item Value Reference Range Interpretation Comments SARS-COV2/RT-PCR Negative Negative The SARS-Co V-2 target (test code = nucleic acids a re not 6362323) detected in thi s specimen. Negative result [...] revoked sooner. Fact Sheet for Healthcare Providers: https://www.Equipio.com m/Documents/Xpert%20Xpress%20SARS%20CoV-2/Fact%20Sheets/302-7284%64BNWK-JQZ-6%20 HEALTHCARE%20PROVIDERS%20FACT%20SHEET.pdf Fact Sheet for Healthcare Patients: https://www.PostalGuard/Documents/Xpert%20Xp ress%20SARS%20CoV-2/Fact%20Sheets/302-3801%00VYYA-PRN-8%20PATIENT%20FACT%20SHEET .pdfPOCT-GLUCOSE [id number] 14:35:59 Test Item Value Reference Range Interpretation Comments POC-GLUCOSE METER 136 mg/dL 70-110 H : TESTED A T [facility] 6720 (BEAKER) (test code [facility], = 1538) 04239: Janitorial Maintenance Worker/Techni kanchan ID = [id number] for [place] (contract), Diamond yamilet POCT-GLUCOSE [id number] 14:35:59 Test Item Value Reference Range Interpretation Comments POC-GLUCOSE METER 173 mg/dL 70-110 H : TESTED A T [facility] 6720 (BEAKER) (test code = [facility], 153) 91770: Janitorial Maintenance Worker/Techni kanchan ID = [id number] for Wi lliams (contract), Medhat helle POCT-GLUCOSE [id number] 14:35:59 Test Item Value Reference Range Interpretation Comments POC-GLUCOSE METER 128 mg/dL 70-110 H : TESTED A T [facility] 6720 (BEAKER) (test code = [facility], 1538) 67089: Janitorial Maintenance Worker/Techni kanchan ID = [id number] for Wi lliams (contract), Medhat helle POCT-GLUCOSE [id number] 12:03:54 Test Item Value Reference Range Interpretation Comments POC-GLUCOSE METER 97 mg/dL 70-110 : TESTED A T [facility] (BEAKER) (test code = [facility], 153) 65306: Janitorial Maintenance Worker/Techni kanchan ID = [id number] for [employer] (contract), [facility] lyric POCT-GLUCOSE [id number] 08:10:54 Test Item Value Reference Range Interpretation Comments POC-GLUCOSE METER 88 mg/dL 70-110 : TESTED A T [facility] 6720 (BEAKER) (test code = [facility], 153) 75549: Janitorial Maintenance Worker/Techni kanchan ID = [id number] for Greenberg (contract), Sha lyric BASIC METABOLIC [id number] 06:57:27 Test Item Value Reference Range Interpretation [...] (test code = 697) EGFR (BEAKER) 92 Interpretati on of eGFR (test code = mL/min/1.73 values Stage De scription 1092) sq m Result G1 Sfoie l or high >=90 G2 Mildly decreased [...] not appl icable for dialysis patien ts Janitorial Maintenance Worker ID - VALDE[facility] (HEMOGRAM ONLY)2022-05-03 06:34:42 Test Item Value Reference [...] 0-0 (BEAKER) (test code = 413) POCT-GLUCOSE [id number] 17:12:21 Test Item Value Reference Range Interpretation Comments POC-GLUCOSE METER 123 mg/dL 70-110 H : TESTED A T [facility] 6720 (BEAKER) (test code = [facility], 1538) 68520: Janitorial Maintenance Worker/Techni kanchan ID = [id number] for Ulices perera (contract)Lanre POCT-GLUCOSE [id number] 12:44:33 Test Item Value Reference Range Interpretation Comments POC-GLUCOSE METER 96 mg/dL 70-110 : TESTED A T [facility] 67[facility] (BEAKER) (test code = [facility], 1538) 65224: Janitorial Maintenance Worker/Techni kanchan ID = [id number] for JUAR EZ, MADISYN POCT-GLUCOSE [id number] 08:58:31 Test Item Value Reference Range Interpretation Comments POC-GLUCOSE METER 86 mg/dL 70-110 : TESTED A T [facility] 67[facility] (BEAKER) (test code = [facility], 1538) 16946: Janitorial Maintenance Worker/Techni kanchan ID = [id number] for JUAR EZ, MADISYN SARS-COV2/RT-PCR ([facility])2022-05-01 21:47:48 Test Item Value Reference Range Interpretation Comments SARS-COV2/RT-PCR Negative Negative The SARS-Co V-2 target (test code = nucleic acids a re not 5080525) detected in thi s specimen. Negative result [...] revoked sooner. Fact Sheet for Healthcare Providers: https://www.Future Fleet/Documents/Xpert%20Xpress%20SARS%20CoV-2/Fact%20Sheets/302-3802%82RXUH-MXK-7%20 HEALTHCARE%20PROVIDERS%20FACT%20SHEET.pdf Fact Sheet for Healthcare Patients: https://www.PostalGuard/Documents/Xpert%20Xp ress%20SARS%20CoV-2/Fact%20Sheets/302-3801%21NFET-ACQ-6%20PATIENT%20FACT%20SHEET .pdfPOCT-GLUCOSE [id number] 16:34:22 Test Item Value Reference Range Interpretation Comments POC-GLUCOSE METER 126 mg/dL 70-110 H : TESTED A T [facility] 6720 (vzaar) (test code = [facility], 153) 88753: Janitorial Maintenance Worker/Techni kanchan ID = [id number] for Terry harrell, Lilia POCT-GLUCOSE [id number] 12:33:22 Test Item Value Reference Range Interpretation Comments POC-GLUCOSE METER 98 mg/dL 70-110 : TESTED A T [facility] (vzaar) (test code = [facility], 153) 44221: Janitorial Maintenance Worker/Techni kanchan ID = [id number] for Jamie corral, Lilia POCT-GLUCOSE [id number] 08:33:35 Test Item Value Reference Range Interpretation Comments POC-GLUCOSE METER 94 mg/dL 70-110 : TESTED A T [facility] 67[facility] ([facility]) (test code = [facility], 1538) 85021: Janitorial Maintenance Worker/Techni kanchan ID = [id number] for Lilia Falcon RAD, CHEST, 1 VIEW, NON [id number] 12:56:00 [facility] DESMOND RICHARDSON : 1945 Sex: FFINAL REPORT TECHNIQUE: Frontal radiograph of the chest. Indication: Extubated COMPARISON: None FINDINGS/IMPRESSION: The heart is normal in size. Patchy airspace opacities are present in both lungs. Left perihilar and basilar opacities are seen. Trace bilateral pleural effusions are suspected. There is no pneumothorax. Remote right-sided rib fractures. Signed: Gabrielle Fernandez Verified Date/Time: 04/30/2022 12:56:02 Reading Location: [address] Reading Room POCT-GLUCOSE [id number] 08:22:11 Test Item Value Reference Range Interpretation Comments POC-GLUCOSE METER 97 mg/dL 70-110 : TESTED A T [facility] ([facility] (test code = [facility] Olamide [facility], 1538) 77434: Janitorial Maintenance Worker/Techni kanchan ID = [id number] for MULUGETA SHERMAN POCT-GLUCOSE [id number] 21:31:48 Test Item Value Reference Range Interpretation Comments POC-GLUCOSE METER 104 mg/dL 70-110 : TESTED A T [facility] 67[facility] (vzaar) (test code [facility], = 1538) 30233: Janitorial Maintenance Worker/Techni kanchan ID = [id number] for Eleazar maher (contract), Diamond yamilet POCT-GLUCOSE [id number] 18:45:53 Test Item Value Reference Range Interpretation Comments POC-GLUCOSE METER 86 mg/dL 70-110 : TESTED A T [facility] 67[facility] (BEAKER) (test code = [facility], 1538) 26157: Janitorial Maintenance Worker/Techni kanchan ID = [id number] for Will iams (contract), Medhat helle POCT-GLUCOSE [id number] 17:06:41 Test Item Value Reference Range Interpretation Comments POC-GLUCOSE METER 88 mg/dL 70-110 : TESTED A T [facility] 67[facility] (BEAKER) (test code = [facility], 1538) 48917: Janitorial Maintenance Worker/Techni kanchan ID = [id number] for Will iams (contract), Medhat helle POCT-GLUCOSE [id number] 16:30:27 Test Item Value Reference Range Interpretation Comments POC-GLUCOSE METER 134 mg/dL 70-110 H : TESTED A T [facility] 67[facility] (BEAKER) (test code = [facility], 1538) 84249: Janitorial Maintenance Worker/Techni kanchan ID = [id number] for Enedina Jimenez Notes Date/Time Note Provider Source 2023-03-27 17:21:41 [id number]:21:[address] [facility] OPERATIVE/PROCEDURE REPORTKELKRISHAN FOSSCILITY: SLEHBilling #: [id number] Room: [facility] #: [id number] : 1945DATE OF PROCEDURE: 03/27/2023SURGEON: Kiran Hatch MDPREOPERATIVE DIAGNOSES:1. Recurrent urinary tract infections.2. Gross hematuria.3. 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 Cystoscopy.2. Bladder biopsy.3. Fulguration of Hunner lesions.SENIOR GRANTS OFFICER: Glenys Carranza, RESANESTHESIA: General.INDICATIONS FOR PROCEDURE: This is a 78-year-old female, whohad a history of urosepsis. She was found to have bilateralhydronephrosis, which was related to severe vesicoureteralreflux. The patient had some hematuria, and on cystoscopy, shewas noted to have a contracted bladder with some ulcerationsnoted on the posterior wall. She was therefore taken forcystoscopy, bladder biopsy, possible fulguration of bleeders.Of note, she was on culture specific antibiotics. The risksand benefits of the procedure were explained at length to thepatient, she wished to proceed.PROCEDURE IN DETAIL: After informed detail of the procedure,consent was obtained, the patient was taken to the operatingroom, where general anesthesia was induced withoutcomplications. The patient was placed in dorsal lithotomyposition, prepped and draped in standard surgical fashion. Shedid receive preoperative intravenous antibiotics. A 22-Frenchcystoscope with 30-degree lens and visual obturator placedthrough the patient's urethra into the bladder. The bladderwas drained of its contents and a culture was obtained whichwas sent for culture and sensitivity. The bladder was theninspected in all quadrants. The patient was noted to havegaping ureteral orifices on both sides. She also had somedystrophic calcifications noted throughout and some ulcerationconsistent with Hunner's lesions noted on the posterior wall.The bladder was very fibrotic and contracted and small incapacity. The visual obturator was exchanged for a cold cupbiopsy forceps. Two superficial biopsies were obtained andsent for pathologic diagnosis. A Bugbee electrode was thenused to cauterize the biopsy sites as well as the bleedingareas within the bladder wall. At the end of the procedure,there was no active bleeding noted with the flow off. Thebladder was then drained of its contents. The scope wasremoved from the bladder and urethra. The patient was thentaken down out of dorsal lithotomy position, awoken, extubated,and transferred to recovery room in stable condition. Therewere no complications. Estimated blood loss less than 5 mL.All equipment countscorrect x2. The bladder biopsies were sent for pathologicdiagnosis. The urine sample was sent for culture andsensitivity.CPS/MODLDD: 03/27/2023 13:28:25DT: 03/27/2023 17:21:41Job #: [id number] signed by: KIRAN HATCH at 2023-03-27 13:28:25.000OPOperative [id number]: [id number] 12:50:12
[2023-05-31] MEDS ORDERED: NA CHLORIDE 0.9% 1,000 ML ONE ×2 (14:24→19:33)
[2023-05-31 14:30] LABS: Absolute Lymphocytes (CBC) 0.4 K/uL (0.7-4.9); Hematocrit 35.7 % (36.0-45.0); Lymphocytes % 3.4 % (15.3-44.8); MCV 82.7 fL (80-100); MPV 7.4 fL (7.6-11.3); Platelets 282 thou/uL (152-406); RBC Red Blood Cell Count 4.31 M/uL (3.86-4.86)
[2023-05-31 14:36] LABS: Urine Bacteria Loaded /HPF (<20); Urine Bilirubin NEGATIVE (Negative); Urine Blood 2+ (Negative); Urine Clarity Extremely Turbid (Clear); Urine Color Dark-Brown (Yellow); Urine Glucose NEGATIVE (Negative); Urine Mucus 4+ /HPF (None Seen); Urine Protein 2+ (Negative); Urine RBC >50 /HPF (None Seen); Urine Urobilinogen Normal (Normal); Urine WBC Clump Many /HPF (None Seen)
[2023-05-31 14:51] LABS: Albumin 2.8 g/dL (3.4-5.0); Bilirubin Total 0.8 mg/dL (0.2-1.0); Potassium 4.4 mEq/L (3.5-5.1); Protein, Total 8.7 g/dL (6.4-8.2)
--- NOTE | 2023-05-31 15:15 | EDPHYS ---
Physician Documentation [facility] Name: Qing Richardson Age: 78 yrs Sex: Female : 1945 Arrival Date: 05/31/2023 Time: 13:14 Bed 2 Private MD: ED Physician Martín Hwang HPI: 05/31 13:24 This 78 yrs old Female presents to ER via Unassigned with complaints of UTI. sb4 13:52 patient reports recurrent UTI, she was treated recently with bactrim, finished course 5 sb4 days ago. was doing well until home health nurse checked on her this morning and she was too weak to get out of bed. denies any fever/chills. Historical: - Allergies: 13:25 Amoxicillin; ap3 13:25 budesonide; ap3 13:25 Fentanyl; ap3 13:25 formoterol fumarate; ap3 13:25 oxybutynin; ap3 - PMHx: 13:25 Arthritis; Asthma; COPD; deviated septum; High Cholesterol; HTN; Hyperlipidemia; ap3 Hypertension; Osteoporosis; frequent UTI (May 31, 2023); - Immunization history:: Adult Immunizations unknown. - Social history:: Smoking status: Patient/guardian denies using tobacco. ROS: 13:52 Constitutional: Negative for fever, chills, and weight loss, sb4 13:52 Neuro: Positive for weakness, Exam: 13:52 Constitutional: This is a well developed, well nourished patient who is awake, alert, sb4 and in no acute distress. Head/Face: Normocephalic, atraumatic. Eyes: Extra-ocular motions intact. Periorbital areas with no swelling, redness, or edema. ENT: Mucous membranes moist. Cardiovascular: Regular rate and rhythm with a normal S1 and S2. Respiratory: Lungs have equal breath sounds bilaterally, clear to auscultation and percussion. No rales, rhonchi or wheezes noted. No increased work of breathing, no retractions or nasal flaring. Abdomen/GI: Soft, non-tender, no distension. Skin: Warm, dry with normal turgor. Normal color with no rashes, no lesions, and no evidence of cellulitis. MS/ Extremity: Pulses equal, no cyanosis. Neurovascular intact. Full, normal range of motion. Neuro: Awake and alert, GCS 15, oriented to person, place, time, and situation. Motor strength 5/5 in all extremities. Sensory grossly intact. Vital Signs: 13:22 BP 124 / 82; Pulse 87; Resp 18; Temp 99.6(O); Pulse Ox 100% on R/A; ap3 14:06 BP 120 / 71; Pulse 87; Resp 17; Pulse Ox 100% on R/A; ap3 14:47 BP 127 / 79; Pulse 89; Pulse Ox 100% on R/A; ap3 17:00 BP 139 / 77; Pulse 114; Resp 24; Pulse Ox 99% ; nj1 18:00 BP 145 / 78; Pulse 110; Resp 26; Pulse Ox 99% on R/A; nj1 19:08 BP 119 / 70; Pulse 118; Resp 30; Temp 102.7(O); Pulse Ox 99% on R/A; nj1 20:30 BP 132 / 56; Pulse 112; Resp 25; Pulse Ox 99% on R/A; jb4 MDM: 13:15 Patient medically screened. sb4 13:52 Differential diagnosis: urinary tract infection, pyelonephritis, dehydration. sb4 15:12 Data reviewed: vital signs, nurses notes, EMS record, lab test result(s), and as a sb4 result, I will admit patient. Consideration of Admission/Observation Patient was admitted/placed on observation. Management of patient was discussed with the following: Hospitalist: Duc MONTERO. Historians other than the Patient: Daughter/Son: daughter. Counseling: I had a detailed discussion with the patient and/or guardian regarding the historical points, exam findings, and any diagnostic results supporting the discharge/admit diagnosis, lab results, the need for further work-up and treatment in the hospital. 05/31 13:15 Order name: Blood Culture Adult (2) sb4 05/31 13:15 Order name: CBC with Diff; Complete Time: 17:05 sb4 05/31 13:15 Order name: CMP; Complete Time: 14:51 sb4 05/31 13:15 Order name: Lactate w/ 2H reflex if indic.; Complete Time: 14:51 sb4 05/31 13:15 Order name: UAM; Complete Time: 14:39 sb4 05/31 13:15 Order name: Urine Culture sb4 05/31 14:26 Order name: Glucose, Ancillary Testing; Complete Time: 14:36 EDMS 05/31 16:59 Order name: CBC Smear Scan; Complete Time: 17:05 EDMS 05/31 15:36 Order name: Stone Protocol CT; Complete Time: 16:39 la1 05/31 13:15 Order name: Accucheck; Complete Time: 14:17 sb4 05/31 13:15 Order name: Cardiac monitoring; Complete Time: 13:51 sb4 05/31 13:15 Order name: EKG - Nurse/Tech; Complete Time: 13:51 sb4 05/31 13:15 Order name: IV Saline Lock - Large Bore; Complete Time: 14:17 sb4 05/31 13:15 Order name: Labs collected and sent; Complete Time: 14:17 sb4 05/31 13:15 Order name: O2 Per Protocol; Complete Time: 13:28 sb4 05/31 13:15 Order name: O2 Sat Monitoring; Complete Time: 13:28 sb4 05/31 13:15 Order name: Vital Signs; Complete Time: 13:28 sb4 05/31 17:41 Order name: Russo; Complete Time: 18:30 sb4 EC:55 Rate is 86 beats/min. Rhythm is regular, Normal Sinus Rhythm. NC interval is normal at sb4 180 msec. QRS interval is normal at 72 msec. QT interval is normal at [address] changes noted. Clinical impression: Normal ECG and No evidence of ischemia. Interpreted by me. Reviewed by me. Administered Medications: 14:13 Drug: NS 0.9% IV 1000 ml IV at 1 bolus Per protocol; 1000 mL bolus Route: IV; Rate: 1 ap3 bolus; Site: right antecubital; 16:00 Follow up: Response: No adverse reaction; IV Status: Completed infusion; IV Intake: nj1 1000ml 15:20 Drug: levofloxacin IVPB 750 mg 150 ml IVPB once over 90 mins Volume: 150 ml; Route: nj1 IVPB; Infused Over: 90 mins; Site: right upper arm; 17:00 Follow up: Response: No adverse reaction; IV Status: Completed infusion; IV Intake: nj1 150ml 19:30 Drug: Acetaminophen PO 1000 mg PO once Route: PO; jb4 19:30 Drug: NS 0.9% IV 1000 ml IV at 1 bolus Per protocol; 1000 mL bolus Route: IV; Rate: 1 jb4 bolus; Site: right antecubital; Disposition: 06/01 20:02 Co-signature as Attending Physician, Martín Hwang MD I reviewed the patient's care rn provided by the Advanced Practice Provider and agree with the diagnosis and treatment plan. Disposition Summary: 05/31/23 15:15 Hospitalization Ordered Notes: Hospitalization Status: Inpatient Admission sb4 Provider: Naif Hwang Location: Telemetry/[facility]Sur (Inpatient) sb4 Condition: Fair sb4 Problem: new sb4 Symptoms: are unchanged sb4 Bed/Room Type: Standard sb4 Room Assignment: 212(05/31/23 19:34) cg Diagnosis - UTI/ Urinary tract infection, site not specified sb4 - Other hydronephrosis sb4 Forms: - Medication Reconciliation Form sb4 - SBAR form sb4 - Leadership Thank You Letter sb4 Signatures: Dispatcher [employer] EDMS Martín Hwang MD MD rn Attema, Lee, [employer]-C [employer]TER-Cla1 Candy Nelson RN RN Lance Arora RN RN jb4 Lorene Vegas RN RN [id number] Jaqueline Dowd, PA-C PA-C sb4 Sofie Castañeda RN RN nj1 Corrections: (The following items were deleted from the chart) 05/31 19:34 15:15 sb4 cg
--- NOTE | 2023-05-31 15:15 | ER ---
Nurse's Notes [facility] Name: Qing Richardson Age: 78 yrs Sex: Female : 1945 Arrival Date: 05/31/2023 Time: 13:14 Bed 2 Private MD: Diagnosis: UTI/ Urinary tract infection, site not specified;Other hydronephrosis Presentation: 05/31 13:22 Chief complaint: EMS states: home health nurse came to evaluate patient and patient was ap3 unable to get out of bed. EMS states the patient was up and cooking thanksgiving meals yesterday. It is also reported that the patient has recently been treated for a МАРИНА, and has a hx of frequent UTI's. Coronavirus screen: At this time, the client does not indicate any symptoms associated with coronavirus-19. Ebola Screen: No symptoms or risks identified at this time. Initial Sepsis Screen: Does the patient meet any 2 criteria? No. Patient's initial sepsis screen is negative. Does the patient have a suspected source of infection? Yes: Dysuria/Frequency/Urgency/UTI. Risk Assessment: Do you want to hurt yourself or someone else? Patient reports no desire to harm self or others. Onset of symptoms was May 31, 2023. Care prior to arrival: Medication(s) given: Normal saline infusion, IV initiated. 22 GA, in the left antecubital area. 13:22 Method Of Arrival: EMS: [facility] ap3 13:22 Acuity: RHODA 3 ap3 Triage Assessment: 13:25 General: Appears in no apparent distress. Behavior is calm, cooperative, appropriate ap3 for age. General: Reports fatigue for. Pain: Denies pain. Neuro: Level of Consciousness is awake, alert, obeys commands, Oriented to person, place, time, situation, Appropriate for age. Cardiovascular: Patient's skin is warm and dry. Respiratory: Airway is patent Respiratory effort is even, unlabored, Respiratory pattern is regular, symmetrical. : Reports foul smelling urine. 13:26 Derm: Reports wound on upper back. ap3 Historical: - Allergies: 13:25 Amoxicillin; ap3 13:25 budesonide; ap3 13:25 Fentanyl; ap3 13:25 formoterol fumarate; ap3 13:25 oxybutynin; ap3 - PMHx: 13:25 Arthritis; Asthma; COPD; deviated septum; High Cholesterol; HTN; Hyperlipidemia; ap3 Hypertension; Osteoporosis; frequent UTI (May 31, 2023); - Immunization history:: Adult Immunizations unknown. - Social history:: Smoking status: Patient/guardian denies using tobacco. Screenin:26 Abuse screen: Denies threats or abuse. Nutritional screening: No deficits noted. ap3 Tuberculosis screening: No symptoms or risk factors identified. 13:27 [facility] ED Fall Risk Assessment (Adult) History of falling in the last 3 months, ap3 including since admission No falls in past 3 months (0 pts) Confusion or Disorientation No (0 pts) Intoxicated or Sedated No (0 pts) Impaired Gait Yes (1 pt) Mobility Assist Device Used No (0 pt) Altered Elimination Yes (1 pt). Assessment: 14:00 Reassessment: See triage assessment. nj1 17:00 Reassessment: Patient appears in no apparent distress at this time. Patient and/or nj1 family updated on plan of care and expected duration. Pain level reassessed. Patient is alert, oriented x 3, equal unlabored respirations, skin warm/dry/pink. 18:00 Reassessment: Patient appears in no apparent distress at this time. Pt resting/sleeping.nj1 19:15 Reassessment: Patient appears in no apparent distress at this time. Patient and/or jb4 family updated on plan of care and expected duration. Pain level reassessed. Patient is alert, oriented x 3, equal unlabored respirations, skin warm/dry/pink. Pt tolerated PO medications. 20:30 Reassessment: Patient appears in no apparent distress at this time. Patient and/or jb4 family updated on plan of care and expected duration. Pain level reassessed. Patient is alert, oriented x 3, equal unlabored respirations, skin warm/dry/pink. Vital Signs: 13:22 BP 124 / 82; Pulse 87; Resp 18; Temp 99.6(O); Pulse Ox 100% on R/A; ap3 14:06 BP 120 / 71; Pulse 87; Resp 17; Pulse Ox 100% on R/A; ap3 14:47 BP 127 / 79; Pulse 89; Pulse Ox 100% on R/A; ap3 17:00 BP 139 / 77; Pulse 114; Resp 24; Pulse Ox 99% ; nj1 18:00 BP 145 / 78; Pulse 110; Resp 26; Pulse Ox 99% on R/A; nj1 19:08 BP 119 / 70; Pulse 118; Resp 30; Temp 102.7(O); Pulse Ox 99% on R/A; nj1 20:30 BP 132 / 56; Pulse 112; Resp 25; Pulse Ox 99% on R/A; jb4 ED Course: 13:15 Patient arrived in ED. sb4 13:15 Jaqueline Dowd PA-C is PHCP. sb4 13:15 Martín Hwang MD is Attending Physician. sb4 13:25 Triage completed. ap3 13:27 Patient has correct armband on for positive identification. Call light in reach. Side ap3 rails up X2. Adult w/ patient. Pulse ox on. NIBP on. 13:27 Arm band placed on right wrist. ap3 13:36 Sofie Castañeda RN is Primary Nurse. nj1 14:00 Inserted saline lock: 20 gauge in right upper arm, using aseptic technique. ,using nj1 aseptic technique. Ultrasound guided. Catheter tip well visualized within vasculature during placement. Blood collected. 15:14 Naif Hwang MD is Hospitalizing Provider. sb4 16:[address] In Process Unspecified. EDMS 16:53 initiated transfer to [facility]. bd 17:45 transfer cancelled by Esthela HARGROVE. bd 18:40 Russo cath inserted, using sterile technique, 16 Fr., by ED staff, balloon inflated, to tl4 gravity drainage, returned Milky. Patient tolerated well. 19:08 Report given to AVRIL TORRES. nj1 19:10 Notified Nurse Practitioner and/or Physician Motor Electrician of vital signs. Temp 102.7, RR nj1 30, HR 117. 21:14 No provider procedures requiring assistance completed. Patient admitted, IV remains in jb4 place. Administered Medications: 14:13 Drug: NS 0.9% IV 1000 ml IV at 1 bolus Per protocol; 1000 mL bolus Route: IV; Rate: 1 ap3 bolus; Site: right antecubital; 16:00 Follow up: Response: No adverse reaction; IV Status: Completed infusion; IV Intake: nj1 1000ml 15:20 Drug: levofloxacin IVPB 750 mg 150 ml IVPB once over 90 mins Volume: 150 ml; Route: nj1 IVPB; Infused Over: 90 mins; Site: right upper arm; 17:00 Follow up: Response: No adverse reaction; IV Status: Completed infusion; IV Intake: nj1 150ml 19:30 Drug: Acetaminophen PO 1000 mg PO once Route: PO; jb4 19:30 Drug: NS 0.9% IV 1000 ml IV at 1 bolus Per protocol; 1000 mL bolus Route: IV; Rate: 1 jb4 bolus; Site: right antecubital; Medication: 13:27 VIS not applicable for this client. ap3 Intake: 16:00 IV: 1000ml; Total: 1000ml. nj1 17:00 IV: 150ml; Total: 1150ml. nj1 Outcome: 15:15 Decision to Hospitalize by Provider. sb4 21:14 Admitted to Med/surg accompanied by tech, via stretcher, room 212, with chart, Report jb4 called to MELISSA Mayes 21:14 Condition: stable 21:14 Discharge instructions given to patient, Instructed on the need for admit, Demonstrated understanding of instructions, 21:14 Patient left the ED. jb4 Signatures: Dispatcher [employer] EDMS Pepper Pang James, RN RN jb4 Lorene Vegas RN RN [email or web address] Jaqueline Dowd, PA-C PA-C sb4 Sofie Castañeda, RN RN nj1 Pascual Nielson tl4 Corrections: (The following items were deleted from the chart) 19:22 19:10 Report given to AVRIL [email or web address] nj1 19:22 19:11 Notified Nurse Practitioner and/or Physician Motor Electrician of vital signs. Temp nj1 102.7, RR 30, HR 117 nj1
[2023-05-31] MEDS ORDERED: Levofloxacin 750mg IV 750 MG/150 ML BAG IV ONE (15:30)
--- NOTE | 2023-05-31 16:35 | RAD REPORT ---
EXAM DESCRIPTION: CT - Stone Protocol - 05/31/2023 4:16 pm CLINICAL HISTORY: Abdominal pain. COMPARISON: January 2023 TECHNIQUE: Computed axial tomography of the abdomen pelvis was obtained without oral or IV contrast. Lack of IV and oral contrast limits evaluation of solid organs, appendix, bowel, and vessels. [place] l reformatted images were obtained and reviewed. All CT scans are performed using dose optimization technique as appropriate and may include automated exposure control or mA/KV adjustment according to patient size. FINDINGS: Marked hydronephrosis which has progressed since the prior exam. Ureters are dilated to th e level the bladder. Renal/ureteral calculus is not seen. No bladder calculus noted. An obvious bladd er mass is not seen although evaluation is limited. No bladder calculus. Left renal cysts The liver, spleen, pancreas and adrenals appear grossly normal A neurostimulator device is in place No evidence of diverticulitis IMPRESSION: Progression in marked hydronephrosis and dilatation of the ureters to the level of the b ladder. If direct visualization of the bladder has not been performed since the prior exam then that would be the recommendation
[2023-05-31 17:04] LABS: Anisocytosis SLIGHT; Blood Morphology Comment NOTED (NOT SEEN); Platelet Estimate ADEQ; White Blood Cell Scan OK (OK)
--- NOTE | 2023-05-31 17:49 | P.HP ---
Certification for Inpatient Patient admitted to: Inpatient With expected LOS: >2 Midnights Patient will require the following post-hospital care: None Practitioner: I am a practitioner with admitting privileges, knowledge of patient current condition, hospital course, and medical plan of care. Services: Services provided to patient in accordance with Admission requirements found in Title 42 Section 412.3 of the Code of Federal Regulations Patient History Date of Service: 05/31/23 Reason for admission: UTI, weakness History of Present Illness: 78-year-old female with history of COPD, asthma, hypertension, hyperlipidemia, recurrent urinary tract infections presented to the emergency department for generalized weakness, concern for urinary tract infection. She finished a weeklong course of Bactrim approximate 5 days ago and family reports she has been becoming generally weak and lethargic which is typical for her when she is developing urinary tract infections family reports she has had urinary tract infections nearly monthly since January of this year. In January of this year on a CT scan performed at our facility the patient was found to have moderate bilateral hydronephrosis with dilatation of the entire ureters. 3 cm filling defect within the bladder may represent a mass. Direct visualization recommended. Patient was subsequent transferred to [facility] where she had additional testing including cystoscopy, biopsy of the bladder and was diagnosed with end- stage atrophic bladder disease, patient is chronically incontinent of urine and stool. She has had a few follow-up appointments with urologist since then and they stated there is not much more they can do for her from urological standpoint. She was evaluated today in the emergency department her labs were significant for white blood cells of 11.6 UA with nitrites, leukoesterase, white cells, red cells and loaded bacteria, CT progression and marked hydronephrosis and dilatation of the ureters to the level of the bladder. If direct visualization of the bladder has not been performed since the prior exam then that would be recommended. ED provider reached out to [facility] urology for consultation to determine if patient would benefit with further urology evaluation, urology recommended patient can be treated here for urinary tract infection. Allergies formoterol [From Symbicort] Allergy (Unknown, Verified 12/20/22 14:12) unknown amoxicillin Allergy (Verified 12/20/22 14:12) severe diarrhea budesonide [From Symbicort] Allergy (Verified 12/20/22 14:12) unknown fentanyl Allergy (Verified 12/20/22 14:12) hallucinations oxybutynin [From Oxytrol] Allergy (Verified 12/20/22 14:12) Rash bactria Allergy (Uncoded 12/20/22 14:12) unknown z-pack Allergy (Uncoded 12/20/22 14:12) severe diarrhea Home Medications: Potassium 1 tab PO BID 01/13/16 Fluticasone/Salmeterol [Advair Hfa 115-21 Mcg Inhaler] 12 gm IH BID 08/05/20 Acetaminophen [Tylenol Extra Strength] 2 tab PO Q6H 12/20/22 Lysine HCl [l-Lysine] 1,000 mg PO DAILY 12/20/22 - Past Medical/Surgical History Diabetic: No -: HTN -: HYPERLIPIDIMEA -: ASTHMA -: Recurrent UTI -: HIP SX -: TONSILLECTOMY Psychosocial/ Personal History: Lives at home with family - Family History Family History: Reviewed- Non-Contributory - Social History Smoking Status: Never smoker Alcohol use: Yes CD- Drugs: No Caffeine use: Yes Place of Residence: Home Review of Systems 10-point ROS is otherwise unremarkable General: Weakness, Malaise Physical Examination - Physical Exam General: Alert, In no apparent distress, Oriented x3 HEENT: Atraumatic, PERRLA Neck: Supple, 2+ carotid pulse no bruit, No LAD Respiratory: Normal air movement Cardiovascular: Regular rate/rhythm, Normal S1 S2 Gastrointestinal: Normal bowel sounds, No tenderness Musculoskeletal: No tenderness Integumentary: Pressure ulcer (Chronic wound to upper mid back, dressing in place) Neurological: Normal speech, Normal affect - Studies Laboratory Data (last 24 hrs) 05/31/23 05/31/23 14:00 14:00 WBC 11.60 H Hgb 11.6 L Hct 35.7 L Plt Count 282 Sodium 135 L Potassium 4.4 BUN 27 H Creatinine 1.21 H Glucose 119 H Total Bilirubin 0.8 AST 8 L ALT 15 Alkaline Phosphatase 110 Assessment and Plan - Plan Assessment: Complicated UTI-history of recurrent UTIs/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 Hypertension Hyperlipidemia COPD Chronic back wound Plan: Complicated UTI-history of recurrent UTIs/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 Russo catheter to be placed in ED Continue antibioticsLevaquin based on previous culture/sensitivity Infectious disease consult Urology states no need for intervention currently Follow blood/urine cultures Physical therapy consult Hypertension Hyperlipidemia COPD Continue home medications Chronic back wound Wound healing consult in place DVT PPX: Lovenox Code status: Full Discharge Plan: Home Plan to discharge in: Greater than 2 days - Advance Directives Does patient have a Living Will: No Does patient have a Durable POA for Healthcare: No - Code Status/Comfort Care Code Status Assessed: Yes (Full code) Critical Care: No Time Spent Managing Pts Care (In Minutes): 55
[2023-05-31] MEDS ORDERED: ACETAMINOPHEN 500 MG TAB ONE ×2 (19:33→19:38)
[2023-05-31] MEDS ORDERED: ONDANSETRON 4 MG/2 ML VIAL IV PRN (21:08)
[2023-05-31] MEDS: NA CHLORIDE 0.9% 1,000 ML IV SCH (21:19)
[2023-06-01] MEDS: NA CHLORIDE 0.9% 1,000 ML IV SCH ×5 (03:07→22:57)
[2023-06-01 03:36] LABS: Absolute Lymphocytes (CBC) 0.4 K/uL (0.7-4.9); Hematocrit 31.8 % (36.0-45.0); Lymphocytes % 4.3 % (15.3-44.8); MCV 82.8 fL (80-100); MPV 7.8 fL (7.6-11.3); Platelets 181 thou/uL (152-406); RBC Red Blood Cell Count 3.84 M/uL (3.86-4.86)
[2023-06-01 04:19] LABS: Potassium 4.4 mEq/L (3.5-5.1)
--- NOTE | 2023-06-01 07:54 | P.CNS ---
Date of Consult: 06/01/23 Reason for Consult: UTI Chief Complaint: UTI, weakness History of Present Illness: Patient is a 78-year-old female with a past medical history of COPD, hypertension, hyperlipidemia, recurrent urinary tract infection who presented to the ED with complaints of generalized weakness and concern for urinary tract infection. She recently finished a course of Bactrim, however patient has continued to be weak and lethargic. Of note, patient has recent history of Pseudomonas infection in urine. Urine cultures growing gram-negative rods, patient was started on empiric Levaquin. Infectious disease was consulted. Allergies formoterol [From Symbicort] Allergy (Unknown, Verified 12/20/22 14:12) unknown amoxicillin Allergy (Verified 12/20/22 14:12) severe diarrhea budesonide [From Symbicort] Allergy (Verified 12/20/22 14:12) unknown fentanyl Allergy (Verified 12/20/22 14:12) hallucinations oxybutynin [From Oxytrol] Allergy (Verified 12/20/22 14:12) Rash bactria Allergy (Uncoded 12/20/22 14:12) unknown z-pack Allergy (Uncoded 12/20/22 14:12) severe diarrhea Home medications list reviewed: Yes Home Medications: Potassium 1 tab PO BID 01/13/16 Fluticasone/Salmeterol [Advair Hfa 115-21 Mcg Inhaler] 12 gm IH BID 08/05/20 Acetaminophen [Tylenol Extra Strength] 2 tab PO Q6H 12/20/22 Lysine HCl [l-Lysine] 1,000 mg PO DAILY 12/20/22 - Past Medical/Surgical History Diabetic: No -: HTN -: HYPERLIPIDIMEA -: ASTHMA -: Recurrent UTI -: HIP SX -: TONSILLECTOMY Psychosocial/ Personal History: Lives at home with family - Social History Smoking Status: Unknown if ever smoked Alcohol use: Yes CD- Drugs: No Caffeine use: Yes Place of Residence: Home Physical Examination Temp Pulse Resp BP Pulse Ox 99.8 F 78 18 120/65 98 06/01/23 04:00 06/01/23 04:00 06/01/23 04:00 06/01/23 04:00 06/01/23 04:00 General: Alert, In no apparent distress, Oriented x3 HEENT: Atraumatic, Normocephalic Neck: Supple, JVD not distended Respiratory: Clear to auscultation bilaterally, Normal air movement Cardiovascular: Regular rate/rhythm Gastrointestinal: Normal bowel sounds, Soft and benign Integumentary: Pressure ulcer (stage 3 mid-back) Neurological: Normal speech, Normal tone, Normal affect Urinary: Russo catheter (with cloudy yellow urine) Laboratory Data -Reviewed Microbiology data -Reviewed Imagings Data: -Reviewed Conclusions/Impression: Problem list Complicated urinary tract infection Hypertension Hyperlipidemia Asthma Hypoalbuminemia Hypocalcemia Complicated urinary tract infection -CT abdomen pelvis 05/31: Progression in marked hydronephrosis and dilatation of the ureters to the level of the bladder. If direct visualization of the bladder has not been performed since the prior exam then that would be the recommendation." -Blood cultures 05/31: Pending -Urine culture 05/31: Gram-negative rods -Currently on Levaquin IV Recommendations -Complicated UTI: Continue antibiotic therapy for 10 days. Currently on Levaquin IV. Awaiting urine culture speciation. Will adjust antibiotics as appropriate. Switch to PO as tolerated. Follow-up with blood culture results. -Monitor WBC and fever trends -Continue supportive care - Patient to follow up with her urologist in 1-2 weeks. Case discussed with Dr. Wilkinson N
[2023-06-01] MEDS ORDERED: PNEUMOCOCCAL VACCINE 0.5 ML IMVAC ONE (08:00)
[2023-06-01] MEDS ORDERED: INFLUENZA VACCINE (for 6+ mo) 0.5 ML DOSE IMVAC ONE (08:00)
[2023-06-01] MEDS: ENOXAPARIN 40 MG/0.4 ML SQ SCH (08:17)
[2023-06-01] MEDS ORDERED: Levofloxacin500mg IV 500 MG/100 ML BAG IV SCH (09:00)
--- NOTE | 2023-06-01 09:43 | P.PN ---
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 Hypertension Hyperlipidemia COPD Chronic back wound Plan: Complicated UTI-history of recurrent UTIs/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 Russo catheter placed in ED Urine culture with greater than 100,000 CFU/ml 4+ gram-negative rods Continue Levaquin based on previous sensitivities-await urine culture/blood cultures Infectious disease consult Urology states no need for intervention currently Will need 10 days of tailored antibiotic therapy per ID Will need outpatient follow-up with urology for discussion of possible prophylactic antibiotics Physical therapy consult Hypertension Hyperlipidemia COPD Continue home medications Chronic back wound Wound healing consult in place VTE: Lovenox Code: Full Dispo: 2 to 3 days pending blood/urine cultures and PT eval Time Spent Managing Pts Care (In Minutes): 35
[2023-06-01] MEDS: ACETAMINOPHEN 500 MG TAB PO PRN (10:05)
[2023-06-01 10:48] VITALS: O2SAT 98
[2023-06-02 06:07] LABS: Absolute Lymphocytes (CBC) 0.6 K/uL (0.7-4.9); Hematocrit 25.3 % (36.0-45.0); Lymphocytes % 9.4 % (15.3-44.8); MCV 81.6 fL (80-100); MPV 7.4 fL (7.6-11.3); Platelets 168 thou/uL (152-406)
[2023-06-02 06:18] LABS: Potassium 3.3 mEq/L (3.5-5.1)
[2023-06-02] MEDS ORDERED: POTASSIUM CL SA 10 MEQ TAB PO ONE (08:00)
--- NOTE | 2023-06-02 08:03 | P.PN ---
Date of Service: 06/02/23 Chief Complaint: UTI, weakness Subjective: Patient seen and examined at bedside. In no apparent distress. Denies any new or worsening complaints at this time. Physical Examination Temp Pulse Resp BP Pulse Ox 99.2 F 78 24 H 118/51 L 94 06/02/23 04:00 06/02/23 04:00 06/02/23 04:00 06/02/23 04:00 06/02/23 04:00 General: Alert, In no apparent distress, Oriented x3 HEENT: Atraumatic, Normocephalic Neck: Supple, JVD not distended Respiratory: Clear to auscultation bilaterally, Normal air movement Cardiovascular: Regular rate/rhythm Gastrointestinal: Normal bowel sounds, Soft and benign Integumentary: Pressure ulcer stage 3 mid-back Neurological: Normal speech, Normal tone, Normal affect Urinary: Russo catheter Laboratory Data -Reviewed Microbiology data -Reviewed Imagings Data: -Reviewed Medications List: Reviewed Assessment and Plan Problem list Complicated urinary tract infection Hypertension Hyperlipidemia Asthma Hypoalbuminemia Hypocalcemia Complicated urinary tract infection Bladder atrophy with ulcerations Marked bilateral hydroureter nephrosis -CT abdomen pelvis 05/31: Progression in marked hydronephrosis and dilatation of the ureters to the level of the bladder. If direct visualization of the bl adder has not been performed since the prior exam then that would be the recommendation." -Blood cultures 05/31: no growth to date -Urine culture 05/31: Escherichia coli -Currently on Levaquin IV (started 06/01) 24 hour tmax = 101.2 F Leukocytosis resolved Recommendations -Complicated UTI: E.coli sensitive to levaquin. Continue Levofloxacin for 10 days (06/01 to 06/10). --> Switch to PO levofloxacin as tolerated. Patient would benefit from prophylactic antibiotics- patient to follow up with her urologist as outpatient. -Monitor WBC and fever trends. -Continue supportive care. - Pressure offloading measures. Case discussed with Dr. Wilkinson N
--- NOTE | 2023-06-02 09:47 | P.PN ---
Date of Service: 06/02/23 Subjective: Fever TMAX 101.2 overnight Awake, alert, oriented x3 Denies any specific complaints/concerns ROS: 10 point ROS as noted above, otherwise negative Physical exam GEN: Alert, oriented, NAD HEENT: Normal conjunctiva, sclera anicteric CV: Regular rate and rhythm, no edema Pulm: Nonlabored respirations on room air ABD: Soft, nontender, nondistended MSK: No joint tenderness : Smith catheter in placeplaced in ED Integumentary: No rashes Neuro: Normal speech, normal affect Vitals reviewed Problem List Assessment: Complicated UTI-history of recurrent UTIs/end-stage bladder atrophy with ulcerations Marked bilateral hydroureter nephrosis Hypertension Hyperlipidemia COPD Chronic back wound Plan: Complicated UTI-history of recurrent UTIs/end-stage bladder atrophy with ulcerations Marked bilateral hydroureter nephrosis Smith catheter placed in ED-may need to DC with smith until FU with urology Urine culture with E. Coli sensitive to levaquin Transition to oral levaquin 06/03 Infectious disease consult Urology states no need for intervention currently Will need 10 days total of levaquin per ID Will need outpatient follow-up with urology for discussion of possible prophylactic antibiotics Physical therapy consult Hypertension Hyperlipidemia COPD Continue home medications Chronic back wound Wound healing consult in place VTE: Lovenox Code: Full Dispo: 1 to 2 days pending blood/urine cultures and PT eval Time Spent Managing Pts Care (In Minutes): 35
[2023-06-02] MEDS: ENOXAPARIN 40 MG/0.4 ML SQ SCH (09:58)
[2023-06-02 12:36] LABS: ALT/SGPT < 10 U/L (13-56); AST/SGOT 8 U/L (15-37); Albumin 1.8 g/dL (3.4-5.0); Alkaline Phosphatase 84 U/L (45-117); Bilirubin Direct < 0.1 mg/dL (0-0.2); Bilirubin Indirect, Calculated ND mg/dL (0.2-0.8); Bilirubin Total 0.3 mg/dL (0.2-1.0); Ferritin 394.5 ng/mL (8-388); Protein, Total 6.1 g/dL (6.4-8.2); Transferrin 115 mg/dL (200-360)
[2023-06-02] MEDS ORDERED: Levofloxacin 750mg IV 750 MG/150 ML BAG IV SCH ×2 (16:00)
[2023-06-03 04:17] LABS: RBC Red Blood Cell Count 3.37 M/uL (3.86-4.86)
[2023-06-03 04:18] LABS: Absolute Lymphocytes (CBC) 0.7 K/uL (0.7-4.9); Hematocrit 27.7 % (36.0-45.0); Lymphocytes % 11.4 % (15.3-44.8); MCV 82.1 fL (80-100); MPV 8.4 fL (7.6-11.3); Platelets 182 thou/uL (152-406)
[2023-06-03 04:29] LABS: Potassium 4.1 mEq/L (3.5-5.1)
[2023-06-03] MEDS ORDERED: SILVER SULFADIAZINE 1% 50 GM TOP SCH (09:00)
[2023-06-03] MEDS: SOD FERRIC GLUC COMPLX/SUCROSE 125 MG in NA CHLORIDE 0.9% 100 ML IV SCH (09:19)
[2023-06-03] MEDS: ENOXAPARIN 40 MG/0.4 ML SQ SCH (09:19)
--- NOTE | 2023-06-03 09:23 | P.PN ---
Date of Service: 06/03/23 Subjective: TMAX 99.2 overnight Awake, alert, oriented x3 Denies any specific complaints/concerns ROS: 10 point ROS as noted above, otherwise negative Physical exam GEN: Alert, oriented, NAD HEENT: Normal conjunctiva, sclera anicteric CV: Regular rate and rhythm, no edema Pulm: Nonlabored respirations on room air ABD: Soft, nontender, nondistended MSK: No joint tenderness : Smith catheter in placeplaced in ED Integumentary: No rashes Neuro: Normal speech, normal affect Vitals reviewed Problem List Assessment: Complicated UTI-history of recurrent UTIs/end-stage bladder atrophy with ulcerations Marked bilateral hydroureter nephrosis Iron deficiency anemia Hypertension Hyperlipidemia COPD Chronic back wound Plan: Complicated UTI-history of recurrent UTIs/end-stage bladder atrophy with ulcerations Marked bilateral hydroureter nephrosis Smith catheter placed in ED-may need to DC with smith until FU with urology Urine culture with E. Coli sensitive to levaquin Transition to oral levaquin 06/03 Infectious disease consult Urology states no need for intervention currently Will need 10 days total of levaquin per ID Obtain renal US to eval if any improvement in hydro with smith in place Will need outpatient follow-up with urology for discussion of possible prophylactic antibiotics Physical therapy consult Iron deficiency anemia Will give IV iron PO iron at discharge Hypertension Hyperlipidemia COPD Continue home medications Chronic back wound Wound healing consult in place Dressing changes VTE: Lovenox Code: Full Dispo: Likely DC tomorrow Time Spent Managing Pts Care (In Minutes): 35
[2023-06-03] MEDS: levoFLOXacin 750 MG TAB PO SCH (10:26)
--- NOTE | 2023-06-03 10:36 | RAD REPORT ---
EXAM DESCRIPTION: US - Renal Ultrasound-Complete - 06/03/2023 9:20 am CLINICAL HISTORY: hydro-improved after smith? Flank pain COMPARISON: Stone Protocol dated 05/31/2023; Stone Protocol dated 01/08/2023 FINDINGS: Both kidneys are normal in size, shape and echotexture. The right kidney measures 9.8 x 5.6 x 4.4 cm. Moderate right hydronephrosis. The left kidney measures 12.2 x 6.7 x 6.2 cm. Moderate left hydronephrosis. The urinary bladder is incompletely distended without gross abnormality seen. IMPRESSION: Moderate bilateral hydronephrosis, slightly greater on the left. Relative to recent CT study dated 05/31/2023, hydronephrosis appears mildly less severe bilaterally.
[2023-06-03] MEDS: ACETAMINOPHEN 500 MG TAB PO PRN (20:43)
[2023-06-04] MEDS: ACETAMINOPHEN 500 MG TAB PO PRN ×2 (02:39→09:21)
[2023-06-04 03:22] LABS: Hematocrit 28.5 % (36.0-45.0); MCV 82.1 fL (80-100); MPV 8.3 fL (7.6-11.3); Platelets 194 thou/uL (152-406); RBC Red Blood Cell Count 3.47 M/uL (3.86-4.86)
[2023-06-04 04:49] VITALS: TEMP 97.8
[2023-06-04 05:10] VITALS: BMI 31.1
[2023-06-04] MEDS: ENOXAPARIN 40 MG/0.4 ML SQ SCH (09:21)
[2023-06-04] MEDS: SOD FERRIC GLUC COMPLX/SUCROSE 125 MG in NA CHLORIDE 0.9% 100 ML IV SCH (09:21)
[2023-06-04] MEDS: levoFLOXacin 750 MG TAB PO SCH (09:21)
[2023-06-04 09:43] VITALS: BP 140/70
--- NOTE | 2023-06-04 12:59 | P.DS ---
Admission Date: 05/31/23 Discharge Date: 06/04/23 Disposition: ROUTINE DISCHARGE Discharge Condition: GOOD Reason for Admission: UTI, weakness Consultations: Infectious disease Brief History of Present Illness: 78-year-old female with history of COPD, asthma, hypertension, hyperlipidemia, recurrent urinary tract infections presented to the emergency department for generalized weakness, concern for urinary tract infection. She finished a weeklong course of Bactrim approximate 5 days ago and family reports she has been becoming generally weak and lethargic which is typical for her when she is developing urinary tract infections family reports she has had urinary tract infections nearly monthly since January of this year. In January of this year on a CT scan performed at our facility the patient was found to have moderate bilateral hydronephrosis with dilatation of the entire ureters. 3 cm filling defect within the bladder may represent a mass. Direct visualization recommended. Patient was subsequent transferred to [facility] where she had additional testing including cystoscopy, biopsy of the bladder and was diagnosed with end- stage atrophic bladder disease, patient is chronically incontinent of urine and stool. She has had a few follow-up appointments with urologist since then and they stated there is not much more they can do for her from urological standpoint. She was evaluated today in the emergency department her labs were significant for white blood cells of 11.6 UA with nitrites, leukoesterase, white cells, red cells and loaded bacteria, CT progression and marked hydronephrosis and dilatation of the ureters to the level of the bladder. If direct visualization of the bladder has not been performed since the prior exam then that would be recommended. ED provider reached out to [facility] urology for consultation to determine if patient would benefit with further urology evaluation, urology recommended patient can be treated here for urinary tract infection. Hospital Course: Patient was admitted to the hospital for complicated urinary tract infection, she has a known history of end-stage atrophic bladder disease and has chronic hydroureteronephrosis. Before arrival to the hospital patient had been on Bactrim for urinary tract infection but was not getting better, she was admitted and treated empirically with Levaquin initially, urine culture grew E. coli sensitive to Levaquin. Patient was seen by infectious disease as she deals with frequent urinary tract infections who recommended a total of 10 days of antibiotics. Initial CT scan showed progression and marked hydronephrosis and dilation of the ureters to the level of the bladder. Russo catheter was placed and 3 days later renal ultrasound was performed which revealed moderate bilateral hydronephrosis slightly greater in the left mildly less severe bilaterally than CT scan. Recommend Russo catheter remain in place at least until follow-up with urology in 1 to 2 weeks, may require chronic indwelling Russo catheter. Patient was also noted to be anemic during her hospitalization iron studies ordered and patient was iron deficient. She was given a dose of IV iron during hospitalization, will be discharged with a prescription for p.o. iron to take daily. New medications Levaquin 750 mg by mouth daily for 5 more days Ferrous sulfate daily until follow-up with PCP/repeat blood work Leave Russo catheter in place Follow-up with urology and your primary care doctor in 1 to 2 weeks Vital Signs/Physical Exam: Temp Pulse Resp BP Pulse Ox 97.8 F 73 17 140/70 99 06/04/23 08:00 06/04/23 08:00 06/04/23 08:00 06/04/23 08:00 06/04/23 08:00 General: Alert, In no apparent distress, Oriented x3 HEENT: Atraumatic Neck: Supple Respiratory: Clear to auscultation bilaterally Cardiovascular: Regular rate/rhythm, Normal S1 S2 Gastrointestinal: Normal bowel sounds Musculoskeletal: No tenderness Integumentary: No rashes Neurological: Normal speech Urinary: Russo catheter Laboratory Data at Discharge: WBC 5.90 thou/uL (4.3-10.9) 06/04/23 02:11 Hgb 9.2 g/dL (12.0-15.0) L 06/04/23 02:11 Hct 28.5 % (36.0-45.0) L 06/04/23 02:11 Plt Count 194 thou/uL (152-406) 06/04/23 02:11 Sodium 139 mEq/L (136-145) 06/04/23 02:11 Potassium 4.0 mEq/L (3.5-5.1) 06/04/23 02:11 BUN 20 mg/dL (7-18) H 06/04/23 02:11 Creatinine 0.97 mg/dL (0.55-1.02) 06/04/23 02:11 Glucose 115 mg/dL (74-106) H 06/04/23 02:11 Total Bilirubin 0.3 mg/dL (0.2-1.0) 06/02/23 12:07 AST 8 U/L (15-37) L 06/02/23 12:07 ALT < 10 U/L (13-56) L 06/02/23 12:07 Alkaline Phosphatase 84 U/L (45-117) 06/02/23 12:07 Home Medications: Potassium 1 tab PO BID 01/13/16 Fluticasone/Salmeterol [Advair Hfa 115-21 Mcg Inhaler] 12 gm IH BID 08/05/20 Acetaminophen [Tylenol Extra Strength] 2 tab PO Q6H 12/20/22 Lysine HCl [l-Lysine] 1,000 mg PO DAILY 12/20/22 Ferrous Sulfate [Feosol] 325 mg PO DAILY #30 tab 06/04/23 levoFLOXacin [Levaquin*] 750 mg PO DAILY #5 tab 06/04/23 New Medications: Ferrous Sulfate [Feosol] 325 mg PO DAILY #30 tab levoFLOXacin [Levaquin*] 750 mg PO DAILY #5 tab Physician Discharge Instructions: Patient was admitted to the hospital for complicated urinary tract infection, she has a known history of end-stage atrophic bladder disease and has chronic hydroureteronephrosis. Before arrival to the hospital patient had been on Bactrim for urinary tract infection but was not getting better, she was admitted and treated empirically with Levaquin initially, urine culture grew E. coli sensitive to Levaquin. Patient was seen by infectious disease as she deals with frequent urinary tract infections who recommended a total of 10 days of antibiotics. Initial CT scan showed progression and marked hydronephrosis and dilation of the ureters to the level of the bladder. Russo catheter was placed and 3 days later renal ultrasound was performed which revealed moderate bilateral hydronephrosis slightly greater in the left mildly less severe bilaterally than CT scan. Recommend Russo catheter remain in place at least until follow-up with urology in 1 to 2 weeks, may require chronic indwelling Russo catheter. Patient was also noted to be anemic during her hospitalization iron studies ordered and patient was iron deficient. She was given a dose of IV iron during hospitalization, will be discharged with a prescription for p.o. iron to take daily. New medications Levaquin 750 mg by mouth daily for 5 more days Ferrous sulfate daily until follow-up with PCP/repeat blood work Leave Russo catheter in place Follow-up with urology and your primary care doctor in 1 to 2 weeks Diet: Regular Activity: Fall precautions Followup: NONE,NONE [Primary Care Provider] - 1-2 Weeks Pepe Sethi [ACTIVE - CAN ADMIT] - Time spent managing pt's care (in minutes): 30
== END 2023-06-04 11:30 | disposition home or self-care (01) | DRG 689 ==
LOC: ER 13:14 → ERHOLD 19:18 → 2ND 20:41
PROVIDERS: ADMIT Hospitalist; ATTEND Hospitalist
PROC: 0T9B70Z Drainage of Bladder with Drainage Device, Via Natural or Artificial Opening (ICD-10-PCS; principal; 2023-05-31)
DX: N13.6 Pyonephrosis (principal); L89.103 Pressure ulcer of unspecified part of back, stage 3; I10 Essential (primary) hypertension; E78.00 Pure hypercholesterolemia, unspecified; M81.0 Age-related osteoporosis without current pathological fracture; M19.90 Unspecified osteoarthritis, unspecified site; E88.09 Other disorders of plasma-protein metabolism, not elsewhere classified; E83.51 Hypocalcemia; N32.89 Other specified disorders of bladder; D50.9 Iron deficiency anemia, unspecified; J44.9 Chronic obstructive pulmonary disease, unspecified; B96.20 Unspecified Escherichia coli [E. coli] as the cause of diseases classified elsewhere; Z88.8 Allergy status to other drugs, medicaments and biological substances; Z88.5 Allergy status to narcotic agent; Z88.1 Allergy status to other antibiotic agents; Z79.899 Other long term (current) drug therapy
CPT/HCPCS: 36415; 51702; 74176; 76377; 76770; 80048; 80053; 80076; 81001; 82728; 82947; 83540; 83605; 84466; 85014; 85018; 85025; 85027; 87040; 87077; 87086; 87088; 87186; 93005; 96361; 96365; 96366; 97116; 97161; 97530; 99285; J1650; J2916; J7030

== ENCOUNTER 2023-10-16 21:30 | Observation (INO) | payer OTHER ==
--- NOTE | 2023-10-16 22:17 | RAD REPORT ---
EXAM DESCRIPTION: RAD - Chest Single View - 10/16/2023 10:09 pm CLINICAL HISTORY: CHEST PAIN Chest pain. COMPARISON: <Comparisons> FINDINGS: Portable technique limits examination quality. The lungs are emphysematous but grossly clear. The heart is normal in size. No displaced fractures. IMPRESSION: No acute intrathoracic process suspected.
[2023-10-16] MEDS ORDERED: CEFTRIAXONE 1000 MG/VIAL ONE (22:19)
[2023-10-16] MEDS ORDERED: VANCOMYCIN 1 GM/VIAL ONE (22:20)
[2023-10-16] MEDS ORDERED: NA CHLORIDE 0.9% 100 ML ONE (22:20)
[2023-10-16] MEDS ORDERED: NA CHLORIDE 0.9% 250 ML ONE (22:20)
[2023-10-16] MEDS ORDERED: NA CHLORIDE 0.9% 1,000 ML ONE (22:20)
[2023-10-16 22:24] LABS: Absolute Basophils 0.1 K/uL (0-0.5); Absolute Eosinophils 0.1 K/uL (0-0.5); Absolute Lymphocytes (CBC) 0.8 K/uL (0.7-4.9); Absolute Monocytes 0.9 K/uL (0.1-1.3); Absolute Neutrophil 7.4 K/uL (1.8-8.0); Basophils % 0.8 % (0-1.3); Eosinophils % 1.5 % (0-4.4); Hematocrit 31.5 % (36.0-45.0); Hemoglobin 10.4 g/dL (12.0-15.0); Lymphocytes % 8.8 % (15.3-44.8); MCH 27.1 pg (27.0-35.0); MCHC 32.9 g/dL (32.0-36.0); MCV 82.3 fL (80-100); MPV 7.7 fL (7.6-11.3); Monocytes % 9.3 % (3.3-12.3); Neutrophils % 79.6 % (41.7-73.7); Platelets 248 thou/uL (152-406); RBC Red Blood Cell Count 3.82 M/uL (3.86-4.86); Red Cell Distribution Width 15.2 % (12.1-15.2)
[2023-10-16 22:29] LABS: PT Prothrombin Time 13.5 SECONDS (9.5-12.5); PTT, Activated Partial Thromb 35.6 SECONDS (24.3-36.9); Protime INR 1.23
[2023-10-16 22:38] LABS: Albumin 2.5 g/dL (3.4-5.0); Albumin/Globulin Ratio 0.5 (1.1-1.8); Alkaline Phosphatase 86 U/L (45-117); Anion Gap 11.5 mEq/L (5.0-15.0); BUN Blood Urea Nitrogen 26 mg/dL (7-18); Bicarbonate 23 mEq/L (21-32); Bilirubin Total 0.4 mg/dL (0.2-1.0); Globulin 5.3 g/dL (2.3-3.5); Glomerular Filtration Rate 50 ml/min (=/>90); Glucose Level 117 mg/dL (74-106); Protein, Total 7.8 g/dL (6.4-8.2); Sodium Level 136 mEq/L (136-145)
[2023-10-16 22:39] LABS: ALT/SGPT < 10 U/L (13-56); AST/SGOT 13 U/L (15-37); Potassium 4.5 mEq/L (3.5-5.1)
[2023-10-17 01:03] LABS: Renal Epithelial <5 /HPF (None Seen); Specific Gravity 1.015 (1.005-1.030); Sqamous Epithelial <5 /HPF (None Seen); Urine Bacteria <20 /HPF (<20); Urine Bilirubin NEGATIVE (Negative); Urine Blood 3+ (Negative); Urine Clarity Extremely Turbid (Clear); Urine Color Colorless (Yellow); Urine Culture Reflex Order REFLEXED; Urine Glucose NEGATIVE (Negative); Urine Ketones NEGATIVE (Negative); Urine Microscopic Reflex YN ORDER UMIC; Urine Nitrite NEGATIVE (Negative); Urine Protein 1+ (Negative); Urine RBC >50 /HPF (None Seen); Urine Urobilinogen Normal (Normal); Urine WBC >50 /HPF (<5); Urine WBC Clump Occasional /HPF (None Seen)
--- NOTE | 2023-10-17 04:01 | ER ---
Nurse's Notes [facility] Name: Qing Richardson Age: 78 yrs Sex: Female : 1945 Arrival Date: 10/16/2023 Time: 21:30 Bed 7 Private MD: Diagnosis: UTI/ Urinary tract infection, site not specified;Generalized weakness, fever, acute hypoactive delirium Presentation: 10/15 21:51 Chief complaint: EMS states: Called to patient's home due to patient being lethargic cm10 and having a loss of appetite. Pt has a noted wound to back and has a smith catheter in place. Coronavirus screen: Client denies travel out of the [place] in the last 14 days. At this time, the client does not indicate any symptoms associated with coronavirus-19. Ebola Screen: Patient denies travel to an Ebola-affected area in the 21 days before illness onset. No symptoms or risks identified at this time. Initial Sepsis Screen: Does the patient meet any 2 criteria? No. Patient's initial sepsis screen is negative. Does the patient have a suspected source of infection? No. Patient's initial sepsis screen is negative. Risk Assessment: Do you want to hurt yourself or someone else? Patient reports no desire to harm self or others. Onset of symptoms was October 16, 2023. Care prior to arrival: Medication(s) given: Normal saline infusion, 350mL Tylenol, 1000 mg, IV initiated. 20 GA, in the right forearm. 21:51 Method Of Arrival: EMS: [facility] cm10 21:51 Acuity: RHODA 3 cm10 Historical: - Allergies: 21:54 Amoxicillin; cm10 21:54 budesonide; cm10 21:54 Fentanyl; cm10 21:54 formoterol fumarate; cm10 21:54 oxybutynin; cm10 - PMHx: 21:54 Arthritis; Asthma; COPD; deviated septum; HTN; frequent UTI (May 31); High cm10 Cholesterol; Hyperlipidemia; Hypertension; Osteoporosis; - PSHx: 21:54 Bladder; Left hip replacement; right forearm graft; right forearm pins; Tonsillectomy; cm10 - Immunization history:: Adult Immunizations up to date. - Infectious Disease History:: Denies. - Social history:: Smoking status: unknown. - Family history:: not pertinent. Screenin:10 [facility] ED Fall Risk Assessment (Adult) History of falling in the last 3 months, bm8 including since admission No falls in past 3 months (0 pts) Confusion or Disorientation No (0 pts) Intoxicated or Sedated No (0 pts) Impaired Gait Yes (1 pt) Mobility Assist Device Used Yes (1 pt) Altered Elimination Yes (1 pt) Score/Fall Risk Level 3 or more points = High Risk Oriented to surroundings, Maintained a safe environment, Educated pt \T\ family on fall prevention, incl call for assistance when getting out of bed, Assessed \T\ reinforced patient's understanding of fall precautions. Abuse screen: Denies threats or abuse. Nutritional screening: No deficits noted. Tuberculosis screening: No symptoms or risk factors identified. Assessment: 22:10 Reassessment: Patient appears in no apparent distress at this time. Patient is alert, bm8 oriented x 3, equal unlabored respirations, skin warm/dry/pink. Patient denies pain at this time. General: Appears in no apparent distress. comfortable, Behavior is calm, cooperative, appropriate for age. Pain: Denies pain. Neuro: Level of Consciousness is awake, alert, obeys commands, Oriented to person, place, time, situation, Appropriate for age. Cardiovascular: Capillary refill < 3 seconds Patient's skin is warm and dry. Respiratory: Airway is patent Respiratory effort is even, unlabored, Respiratory pattern is regular, symmetrical. GI: No deficits noted. No signs and/or symptoms were reported involving the gastrointestinal system. : to gravity drainage urine bag appears cloudy and has odorous smell to it Reports. : Reports pt has indwelling cath connected to leg bag that is supposed to be changed every two weeks. Derm: Reports wound under right scapula being treated at home by home health care .currently covered by wound pad approx 6x6. 10/16 00:08 Reassessment: Patient appears in no apparent distress at this time. No changes from km8 previously documented assessment. Patient and/or family updated on plan of care and expected duration. Pain level reassessed. Patient is alert, oriented x 3, equal unlabored respirations, skin warm/dry/pink. 00:09 Reassessment: Patient appears in no apparent distress at this time. No changes from bm8 previously documented assessment. Patient and/or family updated on plan of care and expected duration. Pain level reassessed. Patient is alert, oriented x 3, equal unlabored respirations, skin warm/dry/pink. awaiting result from urine specimens Patient denies pain at this time. 03:16 Reassessment: Patient appears in no apparent distress at this time. No changes from km8 previously documented assessment. pt sleeping at this time. 03:44 Reassessment: Patient appears in no apparent distress at this time. pt is resting with bm8 eyes closed, breathing is even unlabored at this time. Patient denies pain at this time. Vital Signs: 10/15 21:51 BP 129 / 89; Pulse 78; Resp 18; Temp 98.6; Pulse Ox 97% on R/A; Weight 78.47 kg; Height cm10 5 ft. 0 in. ; Pain 0/10; 22:45 BP 110 / 80; Pulse 63; Resp 17; Temp 98.6; Pulse Ox 97% ; Pain 0/10; bm8 23:30 BP 105 / 71; Pulse 62; Resp 18; Pulse Ox 98% ; rv1 10/16 00:00 BP 111 / 74; Pulse 69; Resp 22; Pulse Ox 94% on R/A; km8 00:30 BP 107 / 67; Pulse 64; Resp 18; Pulse Ox 97% on R/A; km8 01:00 BP 94 / 61; Pulse 65; Resp 18; Pulse Ox 97% on R/A; km8 01:30 BP 104 / 64; Pulse 64; Resp 20; Pulse Ox 93% on R/A; km8 02:00 BP 100 / 60; Pulse 53; Resp 18; Pulse Ox 95% on R/A; km8 02:30 BP 100 / 63; Pulse 65; Resp 18; Pulse Ox 93% on R/A; km8 03:00 BP 89 / 63; Pulse 65; Resp 18; Pulse Ox 94% on R/A; km8 03:30 BP 122 / 53; Pulse 58; Resp 16; Pulse Ox 97% on R/A; km8 04:00 BP 105 / 66; Pulse 58; Resp 16; Pulse Ox 98% on R/A; km8 04:30 BP 107 / 58; Pulse 60; Resp 16; Pulse Ox 95% on R/A; km8 10/15 21:51 Body Mass Index 33.79 (78.47 kg, 152.4 cm) cm10 08 21:51 Pain Scale: Adult cm10 22:45 Pain Scale: Adult bm8 Hematite Coma Score: 10/15 22:10 Eye Response: spontaneous(4). Motor Response: obeys commands(6). Verbal Response: bm8 oriented(5). Total: 15. 04/ 04:00 Eye Response: spontaneous(4). Motor Response: obeys commands(6). Verbal Response: sp4 oriented(5). Total: 15. ED Course: 10/15 21:41 Patient arrived in ED. cm10 21:50 Maycol Morris MD is Attending Physician. sp4 21:53 Triage completed. cm10 21:55 Arm band placed on Patient placed in an exam room, on a stretcher. cm10 22:10 Yousif Araujo, RN is Primary Nurse. bm8 22:10 Patient has correct armband on for positive identification. Bed in low position. Call bm8 light in reach. Side rails up X 1. fruit culler on. Pulse ox on. NIBP on. Door closed. Noise minimized. Visitors limited. Lights dimmed. Pillow given. Verbal reassurance given. Head of bed elevated. 22:10 No provider procedures requiring assistance completed. Inserted saline lock: 20 gauge bm8 in left forearm, using aseptic technique. Blood collected. 22:11 Chest Single View XRAY In Process Unspecified. EDMS 04/ 00:09 Smith cath inserted, using sterile technique, 18 Fr., by in, balloon inflated, to bm8 gravity drainage, urine specimen collected. replaced pt's leg with new smith to collect urine specimen. 02:09 CT Head Brain wo Cont In Process Unspecified. EDMS 02:10 CT Abd/Pelvis - Without Contrast In Process Unspecified. EDMS 04:00 Gabe Rashid MD is Hospitalizing Provider. sp4 04:29 Patient admitted, IV remains in place. km8 04:30 Provided Education on: admission process. km8 05:28 PO fluids given. bm8 Administered Medications: 10/15 22:44 Drug: NS 0.9% IV 1000 ml IV at 1 bolus Per protocol; 1000 mL bolus Route: IV; Rate: 1 bm8 bolus; Site: left forearm; 10/16 03:44 Follow up: Response: No adverse reaction; IV Status: Completed infusion; IV Intake: bm8 1000ml 10/15 22:44 Drug: Rocephin - Rocephin ([id number]) IVPB 1 grams IVPB once over 30 mins; (mix in 50 bm8 mL NS) Route: IVPB; Infused Over: 30 mins; Site: left forearm; 23:13 Follow up: IV Status: Completed infusion; IV Intake: 50ml km8 10/16 03:43 Follow up: Response: No adverse reaction; IV Status: Completed infusion; IV Intake: bm8 100ml 10/15 23:18 Drug: vancoMYCIN IVPB 1 grams IVPB once over 2 hrs Route: IVPB; Infused Over: 2 hrs; km8 Site: left forearm; 10/16 03:44 Follow up: Response: No adverse reaction; IV Status: Completed infusion; IV Intake: bm8 250ml 05:28 Not Given (Patient Refused): [id number] mg PO once bm8 Medication: 10/15 22:10 VIS not applicable for this client. bm8 Intake: 23:13 IV: 50ml; Total: 50ml. km8 10/16 03:43 IV: 100ml; Total: 150ml. bm8 03:44 IV: 250ml; Total: 400ml. bm8 03:44 IV: 1000ml; Total: 1400ml. bm8 Outcome: 04:00 Decision to Hospitalize by Provider. sp4 06:24 Admitted to Tele accompanied by nurse, via wheelchair, room 409, with chart, Report bm8 called to christie rowe 06:24 Condition: stable 06:24 Instructed on the need for admit, 06:25 Patient left the ED. bm8 Signatures: Dispatcher [employer] Dorota Cotter Sergey, MD MD sp4 Michelle Forrester, RN RN cm10 Vicky Hong, RN RN km8 Yousif Araujo RN RN bm8
--- NOTE | 2023-10-17 04:01 | EDPHYS ---
Physician Documentation [facility] Name: Qing Richardson Age: 78 yrs Sex: Female : 1945 Arrival Date: 10/16/2023 Time: 21:30 Bed 7 Private MD: ED Physician Maycol Morris HPI: 10/15 21:50 This 78 yrs old Female presents to ER via Unassigned with complaints of sp4 General complaint . 22:08 Historical: Allergies: Amoxicillin; budesonide; Fentanyl; formoterol fumarate; sp4 oxybutynin PMHx: Arthritis; Asthma; COPD; deviated septum; High Cholesterol; HTN; Hyperlipidemia; Hypertension; Osteoporosis; frequent UTI (May 31, 2023);. 10/16 04:00 70-year-old female presents from home with EMS for reported fever at home, loss of sp4 appetite, generalized weakness, and lethargy. Patient has chronic indwelling urinary cath.. Historical: - Allergies: 10/15 21:54 Amoxicillin; cm10 21:54 budesonide; cm10 21:54 Fentanyl; cm10 21:54 formoterol fumarate; cm10 21:54 oxybutynin; cm10 - PMHx: 21:54 Arthritis; Asthma; COPD; deviated septum; HTN; frequent UTI (May 31); High cm10 Cholesterol; Hyperlipidemia; Hypertension; Osteoporosis; - PSHx: 21:54 Bladder; Left hip replacement; right forearm graft; right forearm pins; Tonsillectomy; cm10 - Immunization history:: Adult Immunizations up to date. - Infectious Disease History:: Denies. - Social history:: Smoking status: unknown. - Family history:: not pertinent. ROS: 10/16 04:00 Constitutional: Positive fever, positive lethargy, positive indwelling urinary sp4 catheter, positive generalized weakness, positive loss of appetite All other systems are negative, Exam: 04:00 Constitutional: This is a well developed, well nourished patient who is awake, alert, sp4 and in no acute distress. Head/Face: Normocephalic, atraumatic. Eyes: Pupils equal round and reactive to light, extra-ocular motions intact. Lids and lashes normal. Conjunctiva and sclera are not injected. Cornea within normal limits. Periorbital areas with no swelling, redness, or edema. ENT: Nares patent. No nasal discharge, no septal abnormalities noted. Tympanic membranes are normal and external auditory canals are clear. Oropharynx with no redness, swelling, or masses, exudates, or evidence of obstruction, uvula midline. Mucous membranes moist. Neck: Trachea midline, no thyromegaly or masses palpated, and no cervical lymphadenopathy. Supple, full range of motion without nuchal rigidity, or vertebral point tenderness. Chest/axilla: Normal chest wall appearance and motion. Nontender with no deformity. No lesions are appreciated. Cardiovascular: Regular rate and rhythm with a normal S1 and S2. No gallops, murmurs, or rubs. Normal PMI, no JVD. No pulse deficits. Respiratory: Lungs have equal breath sounds bilaterally, clear to auscultation and percussion. No rales, rhonchi or wheezes noted. No increased work of breathing, no retractions or nasal flaring. Abdomen/GI: Soft, with normal bowel sounds. No distension or tympany. No guarding or rebound. No evidence of tenderness throughout. Back: No spinal tenderness. No costovertebral tenderness. Female : Normal external genitalia. Chronic indwelling urinary catheter with a leg bag Skin: Warm, dry with normal turgor. Normal color with no rashes, no lesions, and no evidence of cellulitis. MS/ Extremity: Pulses equal, no cyanosis. Neurovascular intact. Full, normal range of motion. Neuro: Awake and alert, GCS 15, oriented to person, place, time, and situation. Cranial nerves II-XII grossly intact. Motor strength 5/5 in all extremities. Sensory grossly intact. Psych: Awake, alert, with orientation to person, place and time. Behavior, mood, and affect are within normal limits Vital Signs: 10/15 21:51 BP 129 / 89; Pulse 78; Resp 18; Temp 98.6; Pulse Ox 97% on R/A; Weight 78.47 kg; Height cm10 5 ft. 0 in. ; Pain 0/10; 22:45 BP 110 / 80; Pulse 63; Resp 17; Temp 98.6; Pulse Ox 97% ; Pain 0/10; bm8 23:30 BP 105 / 71; Pulse 62; Resp 18; Pulse Ox 98% ; rv1 10/16 00:00 BP 111 / 74; Pulse 69; Resp 22; Pulse Ox 94% on R/A; km8 00:30 BP 107 / 67; Pulse 64; Resp 18; Pulse Ox 97% on R/A; km8 01:00 BP 94 / 61; Pulse 65; Resp 18; Pulse Ox 97% on R/A; km8 01:30 BP 104 / 64; Pulse 64; Resp 20; Pulse Ox 93% on R/A; km8 02:00 BP 100 / 60; Pulse 53; Resp 18; Pulse Ox 95% on R/A; km8 02:30 BP 100 / 63; Pulse 65; Resp 18; Pulse Ox 93% on R/A; km8 03:00 BP 89 / 63; Pulse 65; Resp 18; Pulse Ox 94% on R/A; km8 03:30 BP 122 / 53; Pulse 58; Resp 16; Pulse Ox 97% on R/A; km8 04:00 BP 105 / 66; Pulse 58; Resp 16; Pulse Ox 98% on R/A; km8 04:30 BP 107 / 58; Pulse 60; Resp 16; Pulse Ox 95% on R/A; km8 10/15 21:51 Body Mass Index 33.79 (78.47 kg, 152.4 cm) cm10 10/15 21:51 Pain Scale: Adult cm10 22:45 Pain Scale: Adult bm8 Hillary Coma Score: 10/15 22:10 Eye Response: spontaneous(4). Motor Response: obeys commands(6). Verbal Response: bm8 oriented(5). Total: 15. 10/16 04:00 Eye Response: spontaneous(4). Motor Response: obeys commands(6). Verbal Response: sp4 oriented(5). Total: 15. MDM: 10/15 21:51 Patient medically screened. sp4 10/16 03:57 ED course: EXAM DESCRIPTION: Head Brain Wo Cont 10/17/2023 2:35 AM CDT CLINICAL HISTORY: sp4 78 years, Female, CONFUSED COMPARISON: 01/08/2023 FINDINGS: Multiple transaxial tomograms of the brain were obtained from the base of the skull to the vertex without contrast. An individualized dose optimization technique, Automated Exposure Control, was utilized for the performed procedure. BRAIN: The brain demonstrate prominence of the sulci and gyri corresponding to mild brain atrophy. There is periventricular white matter changes of microvascular ischemia. No acute intracranial hemorrhage. No midline shift and/or mass effect. VENTRICLES:Lateral ventricles and cisterns displace normal appearance. VASCULATURE: There are intracranial vascular calcification cavernous sinus and vertebral basilar artery which demonstrate to be dolichoectatic. SCALP/SKULL: The calvarium demonstrate to be intact with no evidence for acute bony injuries. SINUSES: The visualized paranasal sinuses and mastoid air cells demonstrate to be clear. ORBITS: No significant abnormalities in the visualized orbital structures. IMPRESSION: No acute intracranial hemorrhage or mass effect. Mild brain atrophy with periventricular white matter changes of microvascular ischemia. Electronically signed by: Antwon Shelton MD 10/17/2023 02:37 AM. ED course: EXAM DESCRIPTION: Abdomen Pelvis Wo Contrast 10/17/2023 2:38 AM CDT CLINICAL HISTORY: 78 years, Female, eval for pyelonephritis COMPARISON: 05/31/2023 PROCEDURE: Noncontrast images of the abdomen and pelvis were performed utilizing 5 mm slice thickness at 5 mm interval reconstruction from the lung bases to the ischial tuberosities. In addition multiplanar reformats in the coronal and sagittal plane were obtained and reviewed. An individualized dose optimization technique, Automated Exposure Control, was utilized for the performed procedure. FINDINGS: The lack of IV contrast limits evaluation of solid organs, subtle lesions cannot be excluded. Lung bases: The lung bases demonstrated presence of minimal atelectatic changes inferior lingular segment. Coronary artery calcifications and mitral annular calcifications. Liver: Grossly the unopacified liver demonstrates to be normal, no focal lesions are identified. Gallbladder: Grossly the unopacified gallbladder demonstrate to be normal. Adrenal glands: Grossly the unopacified adrenal glands demonstrate to be normal. Pancreas: The pancreas demonstrated to be somewhat decreased in size Spleen: The spleen demonstrate to be normal. Kidneys: Grossly the unopacified kidneys demonstrate to be within normal limits. Again there is identified a presence of bilateral hydronephrosis and hydroureter extending down to the level of the urinary bladder. There is a lower pole cluster of calculi measuring 10.5 mm on image 37. There is a midpole left renal cyst measuring 2.8 x 2.4 cm on image 35, unchanged in comparison with prior study. GI: Grossly the unopacified stomach, small bowel and large bowel demonstrate to be within normal limits. No evidence for bowel dilatation and/or free air. The appendix is normal. The left-sided colon/sigmoid colon demonstrates presence of minimal diverticulosis. : The urinary bladder demonstrate the presence of a Russo catheter. Genitalia: The uterus demonstrate to be within normal limits. There are normal adnexal structures. Abdominal aorta: The aorta demonstrate atherosclerotic disease. Retroperitoneum:There is no retroperitoneal lymphadenopathy. There is no evidence for ascites and/or abnormal fluid collections. Bones: The bone windows of the lumbar spine of the lumbar spine demonstrate to be significant demineralized. There is compression deformity at L3 and L4. Degenerative changes L5/S1. ORIF left hip joint. Soft tissues: The rest of the soft tissue and bony structures are within normal limits. IMPRESSION: Bilateral hydronephrosis and hydroureter extending down to the level of the urinary bladder. There is a 10.5 mm cluster of calculi lower pole of the right kidney. Stable left renal cyst. No follow-up is recommended. Coronary artery calcifications and mitral annular calcifications. Compression deformity at L3 and L4. Electronically signed by: Antwon Shelton MD 10/17/2023 02:44 AM. 03:58 Data reviewed: vital signs, nurses notes, EMS record, old medical records, lab test sp4 result(s), EKG, radiologic studies, CT scan, plain films. ED course: We have requested patient is admitted for observation for her symptoms of lethargy, fever, and generalized weakness. Also catheter associated UTI secondary to chronic indwelling urinary catheter.. 04:00 Differential Diagnosis altered mental status, sepsis, flu. Consideration of sp4 Admission/Observation Patient was admitted/placed on observation. Escalation of care including admission/observation considered. Management of patient was discussed with the following: Hospitalist: Admission team. ED course: Patient will be admitted to the hospital for the symptoms described above. 10/15 21:54 Order name: Blood Culture Adult (2) sp4 10/15 21:54 Order name: CBC with Diff; Complete Time: 01:37 sp4 10/15 21:54 Order name: CMP; Complete Time: 01:37 sp4 10/15 21:54 Order name: Lactate w/ 2H reflex if indic.; Complete Time: 01:37 sp4 10/15 21:54 Order name: Protime (+inr); Complete Time: 01:37 sp4 10/15 21:54 Order name: Ptt, Activated; Complete Time: 01:37 sp4 10/15 21:54 Order name: Urinalysis w/ reflexes; Complete Time: 01:37 sp4 10/15 22:20 Order name: Glucose, Ancillary Testing; Complete Time: 01:37 EDMS 10/16 01:06 Order name: Urine Culture EDMS 10/16 05:14 Order name: CBC with Automated Diff EDMS 10/16 05:14 Order name: Comprehensive Metabolic Panel EDMS 10/15 21:54 Order name: Chest Single View XRAY; Complete Time: 01:37 sp4 10/16 01:39 Order name: CT Head Brain wo Cont sp4 10/16 01:40 Order name: CT Abd/Pelvis - Without Contrast sp4 10/15 21:54 Order name: Accucheck; Complete Time: 22:08 sp4 10/15 21:54 Order name: Cardiac monitoring; Complete Time: 22:17 sp4 10/15 21:54 Order name: Cath; Complete Time: 22:17 sp4 10/15 21:54 Order name: EKG - Nurse/Tech; Complete Time: 22:17 sp4 10/15 21:54 Order name: IV Saline Lock - Large Bore; Complete Time: 22:17 sp4 10/15 21:54 Order name: Labs collected and sent; Complete Time: 22:17 sp4 10/15 21:54 Order name: O2 Per Protocol; Complete Time: 22:17 sp4 10/15 21:54 Order name: O2 Sat Monitoring; Complete Time: 22:17 sp4 10/15 21:54 Order name: Vital Signs; Complete Time: 22:17 sp4 Administered Medications: 10/15 22:44 Drug: NS 0.9% IV 1000 ml IV at 1 bolus Per protocol; 1000 mL bolus Route: IV; Rate: 1 bm8 bolus; Site: left forearm; 10/16 03:44 Follow up: Response: No adverse reaction; IV Status: Completed infusion; IV Intake: bm8 1000ml 10/15 22:44 Drug: Rocephin - Rocephin (cefTRIAXone) IVPB 1 grams IVPB once over 30 mins; (mix in 50 bm8 mL NS) Route: IVPB; Infused Over: 30 mins; Site: left forearm; 23:13 Follow up: IV Status: Completed infusion; IV Intake: 50ml km8 10/16 03:43 Follow up: Response: No adverse reaction; IV Status: Completed infusion; IV Intake: bm8 100ml 10/15 23:18 Drug: vancoMYCIN IVPB 1 grams IVPB once over 2 hrs Route: IVPB; Infused Over: 2 hrs; [facility] Site: left forearm; 10/16 03:44 Follow up: Response: No adverse reaction; IV Status: Completed infusion; IV Intake: bm8 250ml 05:28 Not Given (Patient Refused): [id number] mg PO once bm8 Disposition Summary: 10/17/23 04:00 Hospitalization Ordered Notes: Hospitalization Status: Observation sp4 Provider: Gabe Rashid sp4 Location: Telemetry/[facility]Sur (observation) sp4 Condition: Stable sp4 Problem: new sp4 Symptoms: have improved sp4 Bed/Room Type: Standard sp4 Room Assignment: [id number](10/17/23 05:32) [facility] Diagnosis - UTI/ Urinary tract infection, site not specified sp4 - Generalized weakness, fever, acute hypoactive delirium sp4 Forms: - Medication Reconciliation Form sp4 - SBAR form sp4 - Leadership Thank You Letter sp4 Signatures: Dispatcher [employer] Maycol Pride MD MD sp4 Michelle Forrester, RN RN cm10 Laurie Mchugh [facility] Vicky Hong, MELISSA RN km8 Yousif Araujo RN RN bm8 Corrections: (The following items were deleted from the chart) 10/15 21:55 21:55 BLOOD CULTURE*+BA.LAB.BRZ ordered. EDMS EDMS 21:55 21:55 CBC+H.LAB.BRZ ordered. EDMS EDMS 21:55 21:55 COMPREHENSIVE METABOLIC PANEL+C.LAB.BRZ ordered. EDMS EDMS 21:55 21:55 LACTATE+C.LAB.BRZ ordered. EDMS EDMS 21:55 21:55 PROTIME (+INR)+COAG.LAB.BRZ ordered. EDMS EDMS 21:55 21:55 PTT, ACTIVATED+COAG.LAB.BRZ ordered. EDMS EDMS 21:55 21:55 Urinalysis+U.LAB.BRZ ordered. EDMS EDMS 21:55 21:55 Chest Single View+RAD.RAD.BRZ ordered. EDMS EDMS 22:36 21:55 Arterial Blood Gas+RC.LAB.BRZ ordered. EDMS EDMS 10/16 05:32 04:00 sp4 kmf
--- NOTE | 2023-10-17 05:07 | P.HP ---
Certification for Inpatient Patient admitted to: Observation With expected LOS: <2 Midnights Patient will require the following post-hospital care: None Practitioner: I am a practitioner with admitting privileges, knowledge of patient current condition, hospital course, and medical plan of care. Services: Services provided to patient in accordance with Admission requirements found in Title 42 Section 412.3 of the Code of Federal Regulations Patient History Date of Service: 10/17/23 Reason for admission: Weakness, lethargy History of Present Illness: 78-year-old female with history of hypertension asthma COPD, chronic back wound on the treatment with home care with regular dressing change, chronic bilateral hydronephrosis with hydroureter due to end-stage atopic bladder diseasepreviously diagnosed and managed by [facility] team, recurrent UTI last episode was 4 months ago with E. coli sensitive to cefepime; presented after family noticed she has been having loss of appetite, fever weakness as well as decreased responsiveness since the last 3 days. He denies any nausea or vomiting. They admit patient has low eating. EMS was called and patient was brought to the emergency room. On arrival in the emergency room, vital signs were stable afebrile, WBC was unremarkable, creatinine of 1.12, urinalysis positive for UTI with large leukocyte esterase, CT of the abdomen and pelvis shows still persisted bilateral hydro yesterday to the ureter with Russo in place. Russo was changed in the emergency room and she was started on antibiotics with vancomycin. She is alert oriented times conversant. She will be admitted for further observation Allergies formoterol [From Symbicort] Allergy (Unknown, Verified 12/20/22 14:12) unknown amoxicillin Allergy (Verified 12/20/22 14:12) severe diarrhea budesonide [From Symbicort] Allergy (Verified 12/20/22 14:12) unknown fentanyl Allergy (Verified 12/20/22 14:12) hallucinations oxybutynin [From Oxytrol] Allergy (Verified 12/20/22 14:12) Rash bactria Allergy (Uncoded 12/20/22 14:12) unknown z-pack Allergy (Uncoded 12/20/22 14:12) severe diarrhea Home Medications: Potassium 1 tab PO BID 01/13/16 Fluticasone/Salmeterol [Advair Hfa 115-21 Mcg Inhaler] 12 gm IH BID 08/05/20 Acetaminophen [Tylenol Extra Strength] 2 tab PO Q6H 12/20/22 Lysine HCl [l-Lysine] 1,000 mg PO DAILY 12/20/22 Ferrous Sulfate [Feosol] 325 mg PO DAILY #30 tab 06/04/23 levoFLOXacin [Levaquin*] 750 mg PO DAILY #5 tab 06/04/23 - Past Medical/Surgical History Diabetic: No -: HTN -: HYPERLIPIDIMEA -: ASTHMA -: Recurrent UTI -: HIP SX -: TONSILLECTOMY Psychosocial/ Personal History: Lives at home with family - Social History Smoking Status: Never smoker Alcohol use: Yes CD- Drugs: No Caffeine use: Yes Place of Residence: Home Review of Systems 10-point ROS is otherwise unremarkable Physical Examination - Physical Exam General: Alert, In no apparent distress, Oriented x3 HEENT: Atraumatic, Normocephalic, PERRLA Neck: Supple, 2+ carotid pulse no bruit Respiratory: Clear to auscultation bilaterally, Normal air movement Cardiovascular: Normal pulses, Regular rate/rhythm, Normal S1 S2 Gastrointestinal: Normal bowel sounds, Soft and benign, Non-distended, No rebound, No guarding Musculoskeletal: No clubbing, No swelling Integumentary: No rashes, No breakdown, Other (Right scapular wound, dressing over area) Neurological: Normal gait, Normal speech, Normal strength at 5/5 x4 extr Urinary: Russo catheter - Studies Laboratory Data (last 24 hrs) 10/16/23 10/16/23 10/16/23 21:55 21:55 21:55 WBC 9.30 Hgb 10.4 L Hct 31.5 L Plt Count 248 PT 13.5 H INR 1.23 APTT 35.6 Sodium 136 Potassium 4.5 BUN 26 H Creatinine 1.12 H Glucose 117 H Total Bilirubin 0.4 AST 13 L ALT < 10 L Alkaline Phosphatase 86 Assessment and Plan - Problems (Diagnosis) (1) UTI (urinary tract infection) Current Visit: Yes Status: Acute (2) COPD (chronic obstructive pulmonary disease) Current Visit: No Status: Acute (3) HTN (hypertension) Current Visit: No Status: Acute (4) Stage III pressure ulcer of back Current Visit: No Status: Acute - Plan Impression UTI with sepsis Metabolic encephalopathy with hypoactive deliriumresolved Chronic/end-stage atopic bladder disease Bilateral hydronephrosischronic Indwelling Foleystatus post exchange in ER Hypertensioncontrolled COPDstable Plan Will admit patient to observation Gentle IV fluid Started empirical with cefepime Follow urine culture Mental status has resolved back to baseline, can discharge home after some IV fluids in a few hours Subcutaneous Lovenox for DVT prophylaxis Continue wound changes with regular dressing to back woundalready have home health services Getting Russo changed every 2 weekslast change was 1 week ago, Russo changed again in the emergency room today, draining clear urine. Resume home BP meds Dispositionpossible home in the next 12 to 24 hours Discharge Plan: Home Plan to discharge in: 24 Hours - Advance Directives Does patient have a Living Will: No Does patient have a Durable POA for Healthcare: No - Code Status/Comfort Care Code Status Assessed: Yes Code Status: Full Code Time Spent Managing Pts Care (In Minutes): 65
[2023-10-17] MEDS ORDERED: ONDANSETRON 4 MG/2 ML VIAL IV PRN (05:08)
[2023-10-17] MEDS ORDERED: MORPHINE 2 MG/ML SYR IV PRN (05:08)
[2023-10-17] MEDS ORDERED: ALBUTEROL 2.5 MG/3 ML NEB SOL NEB PRN (05:08)
[2023-10-17] MEDS ORDERED: HYDRALAZINE HCL 20 MG/ML VIAL IV PRN (05:11)
[2023-10-17] MEDS: ENOXAPARIN 40 MG/0.4 ML SQ SCH (07:48)
[2023-10-17] MEDS: D5 0.9 NS 1,000 ML IV SCH (07:48)
[2023-10-17] MEDS: CEFEPIME 1 GM in NA CHLORIDE 0.9% 100 ML IV SCH (07:49)
[2023-10-17] MEDS: ACETAMINOPHEN 500 MG TAB PO PRN (07:52)
[2023-10-17 08:51] VITALS: O2SAT 95
[2023-10-17 09:27] LABS: Absolute Monocytes 0.5 K/uL (0.1-1.3); Absolute Neutrophil 5.6 K/uL (1.8-8.0); Basophils % 0.5 % (0-1.3); Eosinophils % 1.8 % (0-4.4); Hematocrit 31.9 % (36.0-45.0); Hemoglobin 10.3 g/dL (12.0-15.0); Lymphocytes % 13.8 % (15.3-44.8); MCH 27.1 pg (27.0-35.0); MCHC 32.2 g/dL (32.0-36.0); MCV 84.1 fL (80-100); MPV 8.3 fL (7.6-11.3); Monocytes % 7.3 % (3.3-12.3); Neutrophils % 76.6 % (41.7-73.7); Nucleated Red Blood Cells % 0.1 % (0-0); Platelets 199 thou/uL (152-406); RBC Red Blood Cell Count 3.79 M/uL (3.86-4.86); Red Cell Distribution Width 15.5 % (12.1-15.2)
[2023-10-17 09:28] LABS: Absolute Eosinophils 0.1 K/uL (0-0.5)
[2023-10-17 09:43] VITALS: BMI 33.7
[2023-10-17 09:53] LABS: AST/SGOT 8 U/L (15-37); Albumin 2.4 g/dL (3.4-5.0); Albumin/Globulin Ratio 0.5 (1.1-1.8); Alkaline Phosphatase 78 U/L (45-117); Anion Gap 8.8 mEq/L (5.0-15.0); BUN Blood Urea Nitrogen 23 mg/dL (7-18); Bicarbonate 25 mEq/L (21-32); Bilirubin Total 0.4 mg/dL (0.2-1.0); Globulin 4.8 g/dL (2.3-3.5); Glomerular Filtration Rate 60 ml/min (=/>90); Glucose Level 107 mg/dL (74-106); Potassium 3.8 mEq/L (3.5-5.1); Protein, Total 7.2 g/dL (6.4-8.2); Sodium Level 139 mEq/L (136-145)
[2023-10-17 09:59] LABS: ALT/SGPT < 10 U/L (13-56)
--- NOTE | 2023-10-17 11:01 | RAD REPORT ---
EXAM DESCRIPTION: CT - Abdomen Pelvis Wo Contrast - 10/17/2023 7:08 am CLINICAL HISTORY: 78 years, Female, eval for pyelonephritis COMPARISON: 05/31/2023 TECHNIQUE: Noncontrast images of the abdomen and pelvis were performed utilizing 5 mm slice thicknes s at 5 mm interval reconstruction from the lung bases to the ischial tuberosities. In addition multiplanar reformats in the coronal and sagittal plane were obtained and reviewed. An individualized dose optimization technique, Automated Exposure Control, was utilized for the perfo rmed procedure. FINDINGS: The lack of IV contrast limits evaluation of solid organs, subtle lesions cannot be exclude d. Lung bases: The lung bases demonstrated presence of minimal atelectatic changes inferior lingular seg ment. Coronary artery calcifications and mitral annular calcifications. Liver: Grossly the unopacified liver demonstrates to be normal, no focal lesions are identified. Gallbladder: Grossly the unopacified gallbladder demonstrate to be normal. Adrenal glands: Grossly the unopacified adrenal glands demonstrate to be normal. Pancreas: The pancreas demonstrated to be somewhat decreased in size Spleen: The spleen demonstrate to be normal. Kidneys: Grossly the unopacified kidneys demonstrate to be within normal limits. Again there is elver ntified a presence of bilateral hydronephrosis and hydroureter extending down to the level of the uri nary bladder. There is a lower pole cluster of calculi measuring 10.5 mm on image 37. There is a midp ole left renal cyst measuring 2.8 x 2.4 cm on image 35, unchanged in comparison with prior study. GI: Grossly the unopacified stomach, small bowel and large bowel demonstrate to be within normal limi ts. No evidence for bowel dilatation and/or free air. The appendix is normal. The left-sided colon/si gmoid colon demonstrates presence of minimal diverticulosis. : The urinary bladder demonstrate the presence of a Russo catheter. Genitalia: The uterus demonstrate to be within normal limits. There are normal adnexal structures. Abdominal aorta: The aorta demonstrate atherosclerotic disease. Retroperitoneum: There is no retroperitoneal lymphadenopathy. There is no evidence for ascites and/or abnormal fluid collections. Bones: The bone windows of the lumbar spine of the lumbar spine demonstrate to be significant deminer alized. There is compression deformity at L3 and L4. Degenerative changes L5/S1. ORIF left hip joint. Soft tissues: The rest of the soft tissue and bony structures are within normal limits. IMPRESSION: Bilateral hydronephrosis and hydroureter extending down to the level of the urinary blad lino. There is a 10.5 mm cluster of calculi lower pole of the right kidney. Stable left renal cyst. No follow-up is recommended. Coronary artery calcifications and mitral annular calcifications. Compression deformity at L3 and L4. Electronically signed by: Antwon Shelton MD 10/17/2023 02:44 AM CDT Due to temporary technical issues with the PACS/Fluency reporting system, reports are being signed by the in house radiologists without review as a courtesy to insure prompt reporting. The interpreting radiologist is fully responsible for the content of the report.
--- NOTE | 2023-10-17 11:15 | P.PN ---
Subjective Date of Service: 10/17/23 Chief Complaint: Weakness, lethargy Pt is resting comfortably in bed. She denies any fever, chills, nausea or hematuria. Pt is getting cefepime. No other issues overnight. Review of Systems General: Unremarkable Eyes: Unremarkable ENT: Unremarkable Respiratory: Unremarkable Cardiovascular: Unremarkable Gastrointestinal: Unremarkable Genitourinary: Unremarkable Musculoskeletal: Unremarkable Integumentary: Unremarkable Neurological: Unremarkable Lymphatics: Unremarkable Physical Examination - Vital Signs Temperature: 97.1 F Blood Pressure: 133/67 Pulse: 54 Respirations: 18 Pulse Ox (%): 95 - Physical Exam General: Alert, In no apparent distress, Oriented x3 HEENT: Atraumatic, Normocephalic, PERRLA Neck: Supple, 2+ carotid pulse no bruit Respiratory: Clear to auscultation bilaterally, Normal air movement Cardiovascular: No edema, Normal pulses, Regular rate/rhythm, Normal S1 S2 Capillary refill: <2 Seconds Gastrointestinal: Normal bowel sounds, Soft and benign, Non-distended Musculoskeletal: No clubbing, No swelling Integumentary: No rashes, No breakdown Neurological: Normal gait, Normal speech, Normal strength at 5/5 x4 extr Lymphatics: No axilla or inguinal lymphadenopathy - Studies Laboratory Data (last 24 hrs) 10/16/23 10/16/23 10/16/23 21:55 21:55 21:55 WBC 9.30 Hgb 10.4 L Hct 31.5 L Plt Count 248 PT 13.5 H INR 1.23 APTT 35.6 Sodium 136 Potassium 4.5 BUN 26 H Creatinine 1.12 H Glucose 117 H Total Bilirubin 0.4 AST 13 L ALT < 10 L Alkaline Phosphatase 86 Assessment And Plan - Plan Sepsis 2/2 UTI: Will continue cefepime. Will f/u urine cx. Acute metabolic encephalopathy: resolved. Likely du eto UTI. Will monitor. Chronic bilateral hydronephrosis; Will continue outpt follow up with her Urologist. Indwelling smith catheter: The smith catheter was changed in the ER. Pt changes it every 2 weeks. It was changed last week. Will continue iv abx. Mild hyperkalemia: K is 4.5. Will monitor. Htn: Continue home med. Hx of COPD: Stable. Not in exacerbation. Will continue prn duoneb and oxygen. Chonic/end-stage atopic bladder disease: noted. DVT ppx: lovenox. Dispo: Pending hospital course.
--- NOTE | 2023-10-17 13:06 | RAD REPORT ---
EXAM DESCRIPTION: CT - Head Brain Wo Cont - 10/17/2023 7:08 am CLINICAL HISTORY: 78 years, Female, CONFUSED COMPARISON: 01/08/2023 FINDINGS: Multiple transaxial tomograms of the brain were obtained from the base of the skull to the vertex without contrast. An individualized dose optimization technique, Automated Exposure Control, was utilized for the perfo rmed procedure. BRAIN: The brain demonstrate prominence of the sulci and gyri corresponding to mild brain atrophy. Th ere is periventricular white matter changes of microvascular ischemia. No acute intracranial hemorrha ge. No midline shift and/or mass effect. VENTRICLES: ateral ventricles and cisterns displace normal appearance. VASCULATURE: There are intracranial vascular calcification cavernous sinus and vertebral basilar krish ry which demonstrate to be dolichoectatic. SCALP/SKULL: The calvarium demonstrate to be intact with no evidence for acute bony injuries. SINUSES: The visualized paranasal sinuses and mastoid air cells demonstrate to be clear. ORBITS: No significant abnormalities in the visualized orbital structures. IMPRESSION: No acute intracranial hemorrhage or mass effect. Mild brain atrophy with periventricular white matter changes of microvascular ischemia. Electronically signed by: Antwon Shelton MD 10/17/2023 02:37 AM CDT Due to temporary technical issues with the PACS/Fluency reporting system, reports are being signed by the in house radiologists without review as a courtesy to insure prompt reporting. The interpreting radiologist is fully responsible for the content of the report.
--- NOTE | 2023-10-17 16:15 | EKG ---
Test Date: 2023-10-17 Test Time: 05:46:41 County Surveyor: RV MEASUREMENT RESULTS: Intervals: Rate: 56 MI: 232 QRSD: 80 QT: 446 QTc: 430 Singer: P: 18 MI: 232 QRS: 43 T: 52 INTERPRETIVE STATEMENTS: Sinus bradycardia with 1st degree AV block Low voltage QRS Borderline ECG Compared to ECG 05/31/2023 13:48:35 First degree AV block now present Low QRS voltage now present Sinus rhythm no longer present Myocardial infarct finding no longer present Electronically Signed On 10-17-23 16:13:56 CDT by Tal Bates
[2023-10-18 08:33] LABS: Absolute Eosinophils 0.2 K/uL (0-0.5); Absolute Lymphocytes (CBC) 0.9 K/uL (0.7-4.9); Absolute Monocytes 0.4 K/uL (0.1-1.3); Absolute Neutrophil 4.8 K/uL (1.8-8.0); Basophils % 0.5 % (0-1.3); Eosinophils % 2.4 % (0-4.4); Hematocrit 28.4 % (36.0-45.0); Hemoglobin 9.2 g/dL (12.0-15.0); Lymphocytes % 14.3 % (15.3-44.8); MCH 27.2 pg (27.0-35.0); MCHC 32.5 g/dL (32.0-36.0); MCV 83.6 fL (80-100); MPV 8.1 fL (7.6-11.3); Monocytes % 6.9 % (3.3-12.3); Neutrophils % 75.9 % (41.7-73.7); Platelets 207 thou/uL (152-406); Red Cell Distribution Width 15.2 % (12.1-15.2)
[2023-10-18 09:54] LABS: Blood Morphology Comment NOT SEEN (NOT SEEN); Platelet Estimate ADEQ; White Blood Cell Scan OK (OK)
--- NOTE | 2023-10-18 10:59 | P.PN ---
Subjective Date of Service: 10/18/23 Chief Complaint: Weakness, lethargy Pt is resting comfortably in bed. She denies any fever, chills, nausea or hematuria. Pt is getting cefepime. No growth on urine cx. No other issues overnight. Review of Systems General: Unremarkable Eyes: Unremarkable ENT: Unremarkable Respiratory: Unremarkable Cardiovascular: Unremarkable Gastrointestinal: Unremarkable Genitourinary: Unremarkable Musculoskeletal: Unremarkable Integumentary: Unremarkable Neurological: Unremarkable Lymphatics: Unremarkable Physical Examination - Vital Signs Temperature: 97.6 F Blood Pressure: 131/73 Pulse: 62 Respirations: 17 Pulse Ox (%): 94 - Physical Exam General: Alert, In no apparent distress, Oriented x3 HEENT: Atraumatic, Normocephalic Neck: Supple, 2+ carotid pulse no bruit Respiratory: Clear to auscultation bilaterally, Normal air movement, Diminished Cardiovascular: No edema, Normal pulses, Regular rate/rhythm, Normal S1 S2 Capillary refill: <2 Seconds Gastrointestinal: Normal bowel sounds, Soft and benign, Non-distended Musculoskeletal: No clubbing, No swelling Integumentary: No rashes, No breakdown Neurological: Normal gait, Normal speech, Normal strength at 5/5 x4 extr Lymphatics: No axilla or inguinal lymphadenopathy Assessment And Plan - Plan Sepsis 2/2 UTI: Will continue cefepime. Will f/u urine cx. No growth so far Acute metabolic encephalopathy: resolved. Likely due to UTI. Will monitor. Chronic bilateral hydronephrosis; Will continue outpt follow up with her Urologist. Indwelling smith catheter: The smith catheter was changed in the ER. Pt changes it every 2 weeks. It was changed last week. Will continue iv abx. Mild hyperkalemia: K is 4 <- 4.5. Will monitor. Htn: Continue home med. Hx of COPD: Stable. Not in exacerbation. Will continue prn duoneb and oxygen. Chonic/end-stage atopic bladder disease: noted. DVT ppx: lovenox. Dispo: Pending hospital course.
[2023-10-18 12:30] VITALS: BP 128/69; TEMP 98
--- NOTE | 2023-10-18 14:33 | P.DS ---
Admission Date: 10/17/23 Discharge Date: 10/18/23 Disposition: DC HOME/HOME HEALTH CARE Discharge Condition: GOOD Reason for Admission: Weakness, lethargy Brief History of Present Illness: 78-year-old female with history of hypertension asthma COPD, chronic back wound on the treatment with home care with regular dressing change, chronic bilateral hydronephrosis with hydroureter due to end-stage atopic bladder diseasepreviously diagnosed and managed by [facility] urology team, recurrent UTI last episode was 4 months ago with E. coli sensitive to cefepime; presented after family noticed she has been having loss of appetite, fever weakness as well as decreased responsiveness since the last 3 days. He denies any nausea or vomiting. They admit patient has low eating. EMS was called and patient was brought to the emergency room. On arrival in the emergency room, vital signs were stable afebrile, WBC was unremarkable, creatinine of 1.12, urinalysis positive for UTI with large leukocyte esterase, CT of the abdomen and pelvis shows still persisted bilateral hydro yesterday to the ureter with Russo in place. Russo was changed in the emergency room and she was started on antibiotics with vancomycin. She is alert oriented times conversant. She will be admitted for further observation Hospital Course: Pt is a 78yo female with past medical history of hypertension asthma COPD, chronic back wound on the treatment with home care with regular dressing change, chronic bilateral hydronephrosis with hydroureter due to end-stage atopic bladder diseasepreviously diagnosed and managed by [facility] urology team, and recurrent UTI who presented with loss of appetite, fever weakness as well as decreased responsiveness at home. EMS was called and patient was brought to the emergency room. On arrival in the emergency room, vital signs were stable afebrile, WBC was unremarkable, creatinine of 1.12, urinalysis positive for UTI with large leukocyte esterase, CT of the abdomen and pelvis showed persistent bilateral hydronephrosis to the ureter with Russo in place. Russo was changed in the emergency room and she was started on antibiotics with cefepime. Urine culture did not grow any bacteria. We discharged pt with levaquin for 4 more days. Pt was advised to follow up with Urologist. We monitored electrolytes and continued home meds for other chronic medical problems. Pt was in NAD prior to discharge. Vital Signs/Physical Exam: Temp Pulse Resp BP Pulse Ox 98.0 F 65 18 128/69 97 10/18/23 12:00 10/18/23 12:00 10/18/23 12:00 10/18/23 12:00 10/18/23 12:00 Laboratory Data at Discharge: WBC 6.40 thou/uL (4.3-10.9) 10/18/23 07:05 Hgb 9.2 g/dL (12.0-15.0) L D 10/18/23 07:05 Hct 28.4 % (36.0-45.0) L 10/18/23 07:05 Plt Count 207 thou/uL (152-406) 10/18/23 07:05 PT 13.5 SECONDS (9.5-12.5) H 10/16/23 21:55 INR 1.23 10/16/23 21:55 APTT 35.6 SECONDS (24.3-36.9) 10/16/23 21:55 Sodium 140 mEq/L (136-145) 10/18/23 07:05 Potassium 4.0 mEq/L (3.5-5.1) 10/18/23 07:05 BUN 19 mg/dL (7-18) H 10/18/23 07:05 Creatinine 0.90 mg/dL (0.55-1.02) 10/18/23 07:05 Glucose 105 mg/dL (74-106) 10/18/23 07:05 Total Bilirubin 0.4 mg/dL (0.2-1.0) 10/17/23 08:50 AST 8 U/L (15-37) L 10/17/23 08:50 ALT < 10 U/L (13-56) L 10/17/23 08:50 Alkaline Phosphatase 78 U/L (45-117) 10/17/23 08:50 Home Medications: Fluticasone/Salmeterol [Advair Hfa 115-21 Mcg Inhaler] 12 gm IH BID 08/05/20 Acetaminophen [Tylenol Extra Strength] 1 tab PO QID 12/20/22 Acetaminophen [Tylenol] 500 mg PO QID 10/17/23 Aspirin [Aspirin EC 81 MG] 2 tab PO QID 10/17/23 Cholecalciferol (Vitamin D3) [D3-5000] 5,000 units PO BID 10/17/23 Vit C/Ascorb Sod/Multivit-Min [Emergen-C 500 mg Chewable Tab] 500 mg PO BID 10/17/23 levoFLOXacin [Levaquin] 750 mg PO DAILY 4 Days #4 tab 10/18/23 New Medications: levoFLOXacin [Levaquin] 750 mg PO DAILY 4 Days #4 tab Physician Discharge Instructions: Continue ad liana activity. Take levaquin for the next 4 days. Follow up with PCP within 1 - 2 weeks Home Health established: [facility] P:[phone] F:[phone] Diet: AHA Activity: Ad liana Followup: Abebe Morrell, [Primary Care Provider] - 1-2 Weeks
== END 2023-10-18 15:15 | disposition home health service (06) ==
LOC: ER 21:30 → 4TH 10-17 05:12
PROVIDERS: ADMIT Internal Medicine; ATTEND Hospitalist
DX: N39.0 Urinary tract infection, site not specified (principal); A41.9 Sepsis, unspecified organism; G93.41 Metabolic encephalopathy; I10 Essential (primary) hypertension; E87.5 Hyperkalemia; N13.30 Unspecified hydronephrosis; N32.89 Other specified disorders of bladder; J45.909 Unspecified asthma, uncomplicated; J44.9 Chronic obstructive pulmonary disease, unspecified; G89.29 Other chronic pain; L89.103 Pressure ulcer of unspecified part of back, stage 3; Z88.1 Allergy status to other antibiotic agents; Z88.8 Allergy status to other drugs, medicaments and biological substances
CPT/HCPCS: 96365; 96367; 93005; 87040 ×2; 87088; 85025 ×3; 81001; 87086; 80048; 36415 ×2; 85610; 82947; 83605; 85730; 80053 ×2; 70450; 74176; 71045; 51702; 99285; 96366; J1650 ×2; J7042 ×3; J7050; J7030; J0692 ×2; J0696; 87077; 87186; G0378

== ENCOUNTER 2023-12-22 13:21 | Observation (INO) | payer OTHER ==
--- NOTE | 2023-12-22 14:11 | RAD REPORT ---
EXAM DESCRIPTION: CT - Stone Protocol - 12/22/2023 1:48 pm CLINICAL HISTORY: Flank pain. FLANK PAIN COMPARISON: Abdomen Pelvis Wo Contrast dated 10/17/2023; Head Brain Wo Cont dated 12/22/2023 TECHNIQUE: Axial images were obtained without oral or IV contrast. Lack of contrast limits solid org an and vascular assessment. The [id number] spans the entirety of the system partially obscuring uppermost abdomen and lung bases. Coronal reformatted images were obtained and reviewed. All CT scans are performed using dose optimization technique as appropriate and may include automated exposure control or mA/KV adjustment according to patient size. FINDINGS: Trace left pleural fluid. Mild linear atelectasis is seen in the lingula. Imaged portions of the liver and spleen show no suspicious findings on non-contrast imaging. The panc reas and adrenal glands are normal. No pathologic lymphadenopathy in the abdomen or pelvis. Moderate bilateral hydronephrosis and hydroureter is present. Small stones are present in the inferio rly left kidney largest measuring 10 mm. Urinary bladder is decompressed. No bowel obstruction, free air, free fluid or abscess. Normal appendix noted.Sigmoid diverticulosis c ebonie without diverticulitis. Advanced degenerative change with levoscoliosis lumbar spine. IMPRESSION: Moderate bilateral hydronephrosis and hydroureter to the level of the urinary bladder. T he urinary bladder itself is decompressed. 10 mm stone inferior left kidney.
--- NOTE | 2023-12-22 14:20 | RAD REPORT ---
EXAM DESCRIPTION: CT - Head Brain Wo Cont - 12/22/2023 1:48 pm CLINICAL HISTORY: MENTAL STATUS CHANGE Headache, drowsiness, altered consciousness COMPARISON: Head Brain Wo Cont dated 10/17/2023; Head Brain Wo Cont dated 01/08/2023; Stone Protocol trevor ed 12/22/2023 TECHNIQUE: All CT scans are performed using dose optimization technique as appropriate and may inclu de automated exposure control or mA/KV adjustment according to patient size. FINDINGS: No intracranial hemorrhage, hydrocephalus or extra-axial fluid collection.Moderate general ized brain atrophy is present with moderate periventricular and deep white matter chronic microvascul ar ischemic changes.No areas of brain edema or evidence of midline shift. Vertebrobasilar atheroscler osis. The paranasal sinuses and mastoids are clear. The calvarium is intact. IMPRESSION: No acute intracranial abnormality.
[2023-12-22] MEDS ORDERED: CEFTRIAXONE 1000 MG/VIAL ONE (14:24)
[2023-12-22] MEDS ORDERED: NA CHLORIDE 0.9% 1,000 ML ONE (14:24)
[2023-12-22 15:04] LABS: Absolute Eosinophils 0.1 K/uL (0-0.5); Absolute Lymphocytes (CBC) 0.6 K/uL (0.7-4.9); Absolute Monocytes 0.8 K/uL (0.1-1.3); Absolute Neutrophil 9.1 K/uL (1.8-8.0); Basophils % 0.4 % (0-1.3); Hematocrit 20.1 % (36.0-45.0); Hemoglobin 6.4 g/dL (12.0-15.0); Lymphocytes % 5.6 % (15.3-44.8); MCH 26.8 pg (27.0-35.0); MCHC 31.6 g/dL (32.0-36.0); MCV 84.6 fL (80-100); MPV 7.1 fL (7.6-11.3); Monocytes % 7.6 % (3.3-12.3); Neutrophils % 85.4 % (41.7-73.7); Platelets 429 thou/uL (152-406); RBC Red Blood Cell Count 2.37 M/uL (3.86-4.86); Red Cell Distribution Width 16.7 % (12.1-15.2)
--- NOTE | 2023-12-22 15:18 | RAD REPORT ---
EXAM DESCRIPTION: RAD - Chest Single View - 12/22/2023 3:14 pm CLINICAL HISTORY: COUGH Chest pain. COMPARISON: Chest Single View dated 10/16/2023; Chest Single View dated 01/08/2023; Chest Pa And Lat (2 Views) dated 12/20/2022; Chest Single View dated 04/21/2022 FINDINGS: Portable technique limits examination quality. The lungs are grossly clear. The heart is upper limit of normal in size. No displaced fractures.Ather osclerosis. IMPRESSION: No acute intrathoracic process suspected.
[2023-12-22 15:21] LABS: PT Prothrombin Time 12.7 SECONDS (9.5-12.5); Protime INR 1.16
[2023-12-22 15:31] LABS: AST/SGOT 11 U/L (15-37); Albumin 2.6 g/dL (3.4-5.0); Albumin/Globulin Ratio 0.5 (1.1-1.8); Alkaline Phosphatase 90 U/L (45-117); Anion Gap 10.2 mEq/L (5.0-15.0); BUN Blood Urea Nitrogen 18 mg/dL (7-18); Bicarbonate 21 mEq/L (21-32); Bilirubin Total 0.3 mg/dL (0.2-1.0); Globulin 5.4 g/dL (2.3-3.5); Glomerular Filtration Rate 46 ml/min (=/>90); Glucose Level 103 mg/dL (74-106); Lipase 37 U/L (13-75); Magnesium 2.4 mg/dL (1.6-2.4); NT PRO-BNP 664 pg/mL (<450); Potassium 4.2 mEq/L (3.5-5.1); Sodium Level 137 mEq/L (136-145); Troponin High Sensitivity 6.1 pg/mL (<58.9)
[2023-12-22 15:34] LABS: ALT/SGPT < 14 U/L (13-56); Bilirubin Direct < 0.2 mg/dL (0-0.2); Bilirubin Indirect, Calculated 0.1 mg/dL (0.2-0.8)
[2023-12-22 16:29] LABS: Specific Gravity 1.013 (1.005-1.030); Sqamous Epithelial <5 /HPF (None Seen); Urine Bacteria None Seen /HPF (<20); Urine Bilirubin NEGATIVE (Negative); Urine Blood 1+ (Negative); Urine Clarity Extremely Turbid (Clear); Urine Color Light-Yellow (Yellow); Urine Culture Reflex Order REFLEXED; Urine Glucose NEGATIVE (Negative); Urine Ketones NEGATIVE (Negative); Urine Microscopic Reflex YN ORDER UMIC; Urine Mucus Slight /HPF (None Seen); Urine Nitrite NEGATIVE (Negative); Urine Protein TRACE (Negative); Urine RBC >50 /HPF (None Seen); Urine Urobilinogen Normal (Normal); Urine WBC >50 /HPF (<5); Urine pH 7.5 (5.0-7.0)
[2023-12-22 17:00] LABS: Differential Total Cells Count 100; Segmented Neutrophils 78 % (40-80); White Blood Cell Scan DIFF (OK)
[2023-12-22 17:01] LABS: Band Neutrophils 5 % (0-1); Blood Morphology Comment NOT SEEN (NOT SEEN); Lymphocytes 11 % (15-42); Metamyelocytes 1 % (0-0); Monocytes 5 % (0-10); Platelet Estimate INCR
--- NOTE | 2023-12-22 17:01 | ER ---
Nurse's Notes [facility] Name: Qing Richardson Age: 78 yrs Sex: Female : 1945 Arrival Date: 12/22/2023 Time: 13:21 Bed 5 Private MD: Diagnosis: Fever, unspecified;UTI/ Urinary tract infection, site not specified-bilateral hydronephrosis/hydroureter, chronic;Anemia, unspecified;Weakness;Other mechanical complication of urinary (indwelling) catheter;Bandemia Presentation: 12/21 13:37 Chief complaint: EMS states: Daughter toned out EMS for altered mental status, and rs5 generalized weakness. Daughter reports pt has a history of UTI's and these are the kinds of symptoms that she exhibits when she has one. 13:37 Coronavirus screen: At this time, the client does not indicate any symptoms associated rs5 with coronavirus-19. Ebola Screen: No symptoms or risks identified at this time. Initial Sepsis Screen: Does the patient meet any 2 criteria? Altered Mental Status. Yes Does the patient have a suspected source of infection? No. Patient's initial sepsis screen is negative. Risk Assessment: Do you want to hurt yourself or someone else? Patient reports no desire to harm self or others. Onset of symptoms was December 20, 2023. 13:37 Method Of Arrival: EMS: [place] [id number] 13:37 Acuity: RHODA 3 rs5 Triage Assessment: 14:06 General: Appears in no apparent distress. uncomfortable, Behavior is calm, cooperative. rs5 Historical: - Allergies: 14:06 Amoxicillin; rs5 14:06 budesonide; rs5 14:06 Fentanyl; rs5 14:06 formoterol fumarate; rs5 14:06 oxybutynin; rs5 14:06 Unable to obtain; rs5 - PMHx: 14:06 Arthritis; COPD; deviated septum; frequent UTI (May 31); High Cholesterol; HTN; rs5 Hyperlipidemia; Hypertension; Osteoporosis; Asthma; - PSHx: 14:06 Bladder; Left hip replacement; right forearm graft; right forearm pins; Tonsillectomy; rs5 - Immunization history:: Adult Immunizations up to date. - Infectious Disease History:: Denies. - Social history:: Smoking status: Patient denies any tobacco usage or history of. Screenin:06 [facility] ED Fall Risk Assessment (Adult) History of falling in the last 3 months, rs5 including since admission No falls in past 3 months (0 pts) Confusion or Disorientation No (0 pts) Intoxicated or Sedated No (0 pts) Impaired Gait No (0 pts) Mobility Assist Device Used No (0 pt) Altered Elimination No (0 pt) Score/Fall Risk Level 0 - 2 = Low Risk Oriented to surroundings, Maintained a safe environment. Abuse screen: Denies threats or abuse. Nutritional screening: No deficits noted. Tuberculosis screening: No symptoms or risk factors identified. Assessment: 14:06 Reassessment: Pt arrived in room . rs5 14:07 General: Appears in no apparent distress. comfortable, Behavior is calm, cooperative. rs5 Pain: Denies pain. Neuro: Level of Consciousness is awake, alert, obeys commands, Oriented to person, place, situation, not oriented to time. Cardiovascular: Patient's skin is warm and dry. Rhythm is regular. Respiratory: Airway is patent Respiratory effort is even, unlabored, Respiratory pattern is regular, symmetrical. GI: Abdomen is round non-distended, Abd is soft and non tender X 4 quads. 14:07 : Smith in place. EENT: No signs and/or symptoms were reported regarding the EENT rs5 system. Derm: Skin is intact, Skin is pink, warm \T\ dry. Musculoskeletal: Range of motion: intact in all extremities, Parent/caregiver report the patient having generalized weakness. 14:20 Reassessment: to bedside, Smith bag changed and old Smith bag disposed off in biohazard rs5 bag trash. 14:49 Reassessment: urine noted in smith bag, collected and sent to lab. rs5 15:50 Reassessment: Patient and/or family updated on plan of care and expected duration. Pain rs5 level reassessed. Patient is alert, oriented x 3, equal unlabored respirations, skin warm/dry/pink. 16:21 Reassessment: No changes from previously documented assessment. rs5 18:12 Reassessment: Patient and/or family updated on plan of care and expected duration. Pain rs5 level reassessed. Patient is alert, oriented x 3, equal unlabored respirations, skin warm/dry/pink. 19:31 Reassessment: Patient appears in no apparent distress at this time. Patient and/or rg5 family updated on plan of care and expected duration. Pain level reassessed. Patient is alert, oriented x 3, equal unlabored respirations, skin warm/dry/pink. Patient denies pain at this time. General: Appears in no apparent distress. comfortable, Behavior is calm, cooperative. Pain: Denies pain. Neuro: No deficits noted. Level of Consciousness is awake, alert, obeys commands, Oriented to person, place, time, situation. Cardiovascular: No deficits noted. Capillary refill < 3 seconds Patient's skin is warm and dry. Respiratory: Airway is patent Respiratory effort is even, unlabored, Respiratory pattern is regular, symmetrical, Breath sounds are diminished in left upper lobe. 20:11 General: per house, room still dirty upstairs and will notify when ready. lg3 Vital Signs: 13:37 BP 116 / 66; Pulse 80; Resp 17; Temp 100.2(O); Pulse Ox 99% on R/A; rs5 16:22 BP 129 / 89; Pulse 77; Resp 17; Pulse Ox 99% on R/A; rs5 17:49 BP 135 / 70; Pulse 84; Resp 17; Temp 97.8(O); Pulse Ox 99% on R/A; rs5 18:12 BP 133 / 73; Pulse 80; Resp 16; Pulse Ox 99% on R/A; rs5 19:31 BP 119 / 68; Pulse 75; Resp 24; Temp 97.8; Pulse Ox 97% on R/A; Pain 0/10; rg5 19:31 Pain Scale: Adult rg5 Hillary Coma Score: 19:31 Eye Response: spontaneous(4). Motor Response: obeys commands(6). Verbal Response: rg5 oriented(5). Total: 15. ED Course: 13:36 Patient arrived in ED. hb 13:36 Marquis Jin MD is Attending Physician. mary 13:49 CT Head Brain wo Cont In Process Unspecified. EDMS 13:49 CT Stone Protocol In Process Unspecified. EDMS 13:55 Demarcus Castano, CHRISTIE is Primary Nurse. rs5 14:06 Triage completed. rs5 14:06 No provider procedures requiring assistance completed. rs5 14:06 Patient has correct armband on for positive identification. Placed in gown. Bed in low rs5 position. Call light in reach. Side rails up X2. 14:39 EKG done, by ED staff, reviewed by Marquis Jin MD. Missed attempt(s): 22 gauge in jg11 right antecubital area. Bleeding controlled, band aid applied, catheter tip intact. 14:50 Inserted saline lock: 22 gauge in left forearm, using aseptic technique. aa5 14:52 Initial lab(s) drawn, by me, sent to lab. First set of blood cultures drawn by me. aa5 15:16 XRAY Chest (1 view) In Process Unspecified. EDMS 16:10 Urine collected: Smiht catheter specimen, cloudy. jg11 16:56 Justino Ge is Hospitalizing Provider. mary 18:13 Patient admitted, IV remains in place. rs5 19:31 Provided Education on: need for admission. Report received from christie Abdi. Client rg5 placed on continuous cardiac and pulse oximetry monitoring. NIBP monitoring applied. library monitor on. Pulse ox on. NIBP on. Door closed. Noise minimized. Warm blanket given. Verbal reassurance given. 19:35 Arm band placed on right wrist. rg5 Administered Medications: 14:00 Drug: NS 0.9% IV 1000 ml IV at 1 bolus Per protocol; 1000 mL bolus Route: IV; Rate: 1 rs5 bolus; Site: left wrist; 14:20 Follow up: Response: No adverse reaction rs5 19:34 Follow up: Response: No adverse reaction; IV Status: Infusion continued upon admission; rg5 IV Intake: 150ml 15:50 Drug: Rocephin IV 1 grams IV at per protocol once; Given slow IV push per pharmacy rs5 instructions Route: IV; Rate: per protocol; Site: left wrist; 16:10 Follow up: Response: No adverse reaction rs5 19:34 Follow up: Response: No adverse reaction; IV Status: Completed infusion; IV Intake: [id number] 17:00 Drug: Acetaminophen PO 650 mg PO once Route: PO; rs5 18:00 Follow up: Response: No adverse reaction; Temperature is decreased rs5 17:00 Drug: NS 0.9% IV 1000 ml IV at 1 bolus Per protocol; 1000 mL bolus Route: IV; Rate: 1 rs5 bolus; Site: right antecubital; 17:20 Follow up: Response: No adverse reaction rs5 19:34 Follow up: Response: No adverse reaction; IV Status: Completed infusion; IV Intake: rg5 1000ml 17:00 Drug: Meropenem IV 1 grams IV at per protocol once; (mix in NS 100 mL) Route: IV; Rate: rs5 per protocol; Site: right antecubital; 17:20 Follow up: Response: No adverse reaction rs5 19:34 Follow up: Response: No adverse reaction; IV Status: Completed infusion; IV Intake: rg5 100ml Medication: 14:06 VIS not applicable for this client. rs5 Intake: 19:34 IV: 100ml; Total: 100ml. rg5 19:34 IV: 1000ml; Total: 1100ml. rg5 19:34 IV: 50ml; Total: 1150ml. rg5 19:34 IV: 150ml; Total: 1300ml. rg5 Outcome: 17:00 Decision to Hospitalize by Provider. mary 18:13 Admitted to ER Hold. Please see [facility] for further documentation. rs5 18:13 Condition: stable 18:13 Instructed on the need for admit, Demonstrated understanding of instructions, 19:35 Admitted to Med/surg accompanied by nurse, via stretcher, room 202, with chart, rg5 19:35 Condition: stable 19:35 Instructed on the need for admit, Demonstrated understanding of instructions, follow-up care, 21:34 Patient left the ED. bm8 Signatures: Dispatcher [employer] EDMS Marquis Jin MD MD cha Calderon, Audri, RN RN aa5 Misty Urbano, RN Bibiana Sharma, RN CHRISTIE lg3 Demarcus Castano, RN RN rs5 Guy Gallegos j1 Yousif Araujo RN RN bm8 Carl Xavier RN RN rg5 Corrections: (The following items were deleted from the chart) 18:12 18:12 Reassessment: Patient and/or family updated on plan of care and expected rs5 duration. Pain level reassessed. Patient is alert, oriented x 3, equal unlabored respirations, skin warm/dry/pink. rs5
--- NOTE | 2023-12-22 17:01 | EDPHYS ---
Physician Documentation [facility] Name: Qing Richardson Age: 78 yrs Sex: Female : 1945 Arrival Date: 12/22/2023 Time: 13:21 Bed 5 Private MD: ED Physician Marqius Jin HPI: 12/21 16:42 This 78 yrs old Female presents to ER via EMS with complaints of Altered mary Mental Status, Urinary Problem. 16:42 The patient presents with decreased mental status. Onset: The symptoms/episode mary began/occurred 3 day(s) ago. Possible causes: low blood sugar, sepsis. Associated signs and symptoms: Pertinent positives: confusion. Historical: - Allergies: 14:06 Amoxicillin; rs5 14:06 budesonide; rs5 14:06 Fentanyl; rs5 14:06 formoterol fumarate; rs5 14:06 oxybutynin; rs5 14:06 Unable to obtain; rs5 - PMHx: 14:06 Arthritis; COPD; deviated septum; frequent UTI (May 31); High Cholesterol; HTN; rs5 Hyperlipidemia; Hypertension; Osteoporosis; Asthma; - PSHx: 14:06 Bladder; Left hip replacement; right forearm graft; right forearm pins; Tonsillectomy; rs5 - Immunization history:: Adult Immunizations up to date. - Infectious Disease History:: Denies. - Social history:: Smoking status: Patient denies any tobacco usage or history of. ROS: 16:45 Eyes: Negative for injury, pain, redness, and discharge, ENT: Negative for injury, mary pain, and discharge, Neck: Negative for injury, pain, and swelling, Cardiovascular: Negative for chest pain, palpitations, and edema, Abdomen/GI: Negative for abdominal pain, nausea, vomiting, diarrhea, and constipation, Back: Negative for injury and pain, : Negative for injury, bleeding, discharge, and swelling, MS/Extremity: Negative for injury and deformity, Skin: Negative for injury, rash, and discoloration, Psych: Negative for depression, anxiety, suicide ideation, homicidal ideation, and hallucinations, Allergy/Immunology: Negative for hives, rash, and allergies, Endocrine: Negative for neck swelling, polydipsia, polyuria, polyphagia, and marked weight changes, Hematologic/Lymphatic: Negative for swollen nodes, abnormal bleeding, and unusual bruising, 16:45 Constitutional: Positive for chills, fatigue, fever, malaise, 16:45 Respiratory: Positive for cough, 16:45 Abdomen/GI: Positive for nausea, 16:45 Skin: Positive for pallor, Exam: 16:45 Head/Face: Normocephalic, atraumatic. Eyes: Pupils equal round and reactive to light, mary extra-ocular motions intact. Lids and lashes normal. Conjunctiva and sclera are non-icteric and not injected. Cornea within normal limits. Periorbital areas with no swelling, redness, or edema. ENT: Nares patent. No nasal discharge, no septal abnormalities noted. Tympanic membranes are normal and external auditory canals are clear. Oropharynx with no redness, swelling, or masses, exudates, or evidence of obstruction, uvula midline. Mucous membranes moist. Neck: Trachea midline, no thyromegaly or masses palpated, and no cervical lymphadenopathy. Supple, full range of motion without nuchal rigidity, or vertebral point tenderness. No Meningismus. Chest/axilla: Normal chest wall appearance and motion. Nontender with no deformity. No lesions are appreciated. Cardiovascular: Regular rate and rhythm with a normal S1 and S2. No gallops, murmurs, or rubs. Normal PMI, no JVD. No pulse deficits. Abdomen/GI: Soft, non-tender, with normal bowel sounds. No distension or tympany. No guarding or rebound. No evidence of tenderness throughout. Back: No spinal tenderness. No costovertebral tenderness. Full range of motion. Skin: Warm, dry with normal turgor. Normal color with no rashes, no lesions, and no evidence of cellulitis. MS/ Extremity: Pulses equal, no cyanosis. Neurovascular intact. Full, normal range of motion. Neuro: Awake and alert, GCS 15, oriented to person, place, time, and situation. Cranial nerves II-XII grossly intact. Motor strength 5/5 in all extremities. Sensory grossly intact. Cerebellar exam normal. Normal gait. Psych: Awake, alert, with orientation to person, place and time. Behavior, mood, and affect are within normal limits. 16:45 Constitutional: The patient appears febrile, 16:45 ECG was reviewed by the Attending Physician. 16:45 Respiratory: the patient does not display signs of respiratory distress, Respirations: normal, Breath sounds: are clear throughout, rhonchi, that are mild, are scattered, Respiratory rate: 17 16:45 Skin: Appearance: Color: pale, Temperature: warm, hot, Moisture: normal moisture, petechiae, not noted, ecchymosis, not noted, 16:51 Abdomen/GI: Palpation: abdomen is soft and non-tender, Rectal exam: is unremarkable, mary rectal tone normal, hemorrhoid(s), are not appreciated, mass, is not appreciated, swelling, is not appreciated, tenderness, is not appreciated, fecal impaction, is not appreciated, no blood, no melena, 16:51 Neuro: Orientation: is normal, appropriate for stated age, no acute changes, Mentation: is normal, appropriate for stated age, no acute changes, Memory: is normal, appropriate for stated age, no acute changes, Cranial nerves: grossly normal, is grossly normal based on the patient's age, no acute changes, Cerebellar function: is grossly normal, is grossly normal based on the patient's age, no acute changes, Motor: is normal, is grossly normal based on the patient's age, moves all fours, strength is normal, Sensation: is normal, no obvious gross deficits, appropriate no acute changes, Gait: Babinski testing is normal, seizure activity, is not displayed by the patient, Vital Signs: 13:37 BP 116 / 66; Pulse 80; Resp 17; Temp 100.2(O); Pulse Ox 99% on R/A; rs5 16:22 BP 129 / 89; Pulse 77; Resp 17; Pulse Ox 99% on R/A; rs5 17:49 BP 135 / 70; Pulse 84; Resp 17; Temp 97.8(O); Pulse Ox 99% on R/A; rs5 18:12 BP 133 / 73; Pulse 80; Resp 16; Pulse Ox 99% on R/A; rs5 19:31 BP 119 / 68; Pulse 75; Resp 24; Temp 97.8; Pulse Ox 97% on R/A; Pain 0/10; rg5 19:31 Pain Scale: Adult rg5 [place] Coma Score: 19:31 Eye Response: spontaneous(4). Motor Response: obeys commands(6). Verbal Response: rg5 oriented(5). Total: 15. MDM: 13:36 Patient medically screened. [facility] 16:49 Differential Diagnosis: electrolyte abnormality, hypoglycemia, intracranial bleed, mary meningitis, pneumonia, seizure, sepsis, TIA, UTI, volume depletion. Data reviewed: vital signs, nurses notes, EMS record, lab test result(s), EKG, radiologic studies, CT scan, plain films. Consideration of Admission/Observation Patient was admitted/placed on observation. Escalation of care including admission/observation considered. I considered the following discharge prescriptions or medication management in the emergency department Medications were administered in the Emergency Department. See MAR. Independent interpretation of the following test(s) in the Emergency Department EKG: See my EKG interpretation above. Historians other than the Patient: Spouse/Significant Other: well informed. 12/21 13:38 Order name: Basic Metabolic Panel; Complete Time: 16:16 [facility] 12/21 13:38 Order name: CBC with Diff; Complete Time: 17:45 [facility] 12/21 13:38 Order name: LFT's; Complete Time: 16:16 [facility] 12/21 13:38 Order name: Magnesium; Complete Time: 16:16 [facility] 12/21 13:38 Order name: NT PRO-BNP; Complete Time: 16:16 [facility] 12/21 13:38 Order name: PT-INR; Complete Time: 16:16 [facility] 12/21 13:38 Order name: Troponin HS; Complete Time: 16:16 [facility] 12/21 13:38 Order name: Lipase; Complete Time: 16:16 [facility] 12/21 13:38 Order name: Urinalysis w/ reflexes; Complete Time: 17:45 [facility] 12/21 13:38 Order name: Blood Culture Adult (2) [facility] 12/21 13:38 Order name: Lactate w/ 2H reflex if indic.; Complete Time: 16:16 [facility] 12/21 15:10 Order name: CBC Smear Scan; Complete Time: 17:45 [facility] 12/21 16:20 Order name: PRBC [facility] 12/21 16:23 Order name: ABO/RH typing [facility] 12/21 16:23 Order name: Antibody Screen [facility] 12/21 16:27 Order name: CBC with Diff: recheck [facility] 12/21 16:33 Order name: Urine Culture [facility] 12/21 16:44 Order name: Flu [facility] 12/21 16:44 Order name: SARS RAPID [facility] 12/21 17:02 Order name: Manual Differential; Complete Time: 17:45 [facility] 12/21 17:20 Order name: Type and Screen EDMS 12/21 17:20 Order name: Hematocrit EDMS 12/21 17:20 Order name: Hemoglobin EDMS 12/21 17:20 Order name: CBC with Automated Diff EDMS 12/21 17:20 Order name: CBC with Automated Diff EDMS 12/21 17:20 Order name: Comprehensive Metabolic Panel EDMS 12/21 17:20 Order name: Comprehensive Metabolic Panel EDMS 12/21 17:20 Order name: Protime (+INR) EDMS 12/21 17:20 Order name: Protime (+INR) EDMS 12/21 17:20 Order name: PTT, Activated Partial Thromb EDMS 12/21 17:20 Order name: PTT, Activated Partial Thromb EDMS 12/21 17:21 Order name: Iron EDMS 12/21 17:21 Order name: Magnesium EDMS 12/21 17:21 Order name: Protime (+INR) EDMS 12/21 17:21 Order name: PTT, Activated Partial Thromb EDMS 12/21 17:21 Order name: Retic Count EDMS 12/21 17:21 Order name: Vitamin B12 Level EDMS 12/21 19:25 Order name: Manual Differential EDMS 12/21 13:38 Order name: XRAY Chest (1 view); Complete Time: 16:16 [facility] 12/21 13:38 Order name: CT Head Brain wo Cont; Complete Time: 16:16 [facility] 12/21 13:38 Order name: CT Stone Protocol; Complete Time: 16:16 [facility] 12/21 13:38 Order name: EKG; Complete Time: 13:39 [facility] 12/21 13:38 Order name: Cardiac monitoring; Complete Time: 15:10 [facility] 12/21 13:38 Order name: EKG - Nurse/Tech; Complete Time: 15:10 [facility] 12/21 13:38 Order name: IV Saline Lock; Complete Time: 15:10 [facility] 12/21 13:38 Order name: Labs collected and sent; Complete Time: 15:10 [facility] 12/21 13:38 Order name: O2 Per Protocol; Complete Time: 15:10 [facility] 12/21 13:38 Order name: O2 Sat Monitoring; Complete Time: 15:10 [facility] EC:45 Rate is 85 beats/min. QRS [place] is Normal. MI interval is normal. QRS interval is mary normal. No Q waves. T waves are Normal. Clinical impression: NSR w/ Non-specific ST/T Changes and No evidence of ischemia. Interpreted by me. Reviewed by me. Administered Medications: 14:00 Drug: NS 0.9% IV 1000 ml IV at 1 bolus Per protocol; 1000 mL bolus Route: IV; Rate: 1 rs5 bolus; Site: left wrist; 14:20 Follow up: Response: No adverse reaction rs5 19:34 Follow up: Response: No adverse reaction; IV Status: Infusion continued upon admission; rg5 IV Intake: 150ml 15:50 Drug: Rocephin IV 1 grams IV at per protocol once; Given slow IV push per pharmacy rs5 instructions Route: IV; Rate: per protocol; Site: left wrist; 16:10 Follow up: Response: No adverse reaction rs5 19:34 Follow up: Response: No adverse reaction; IV Status: Completed infusion; IV Intake: [id number] 17:00 Drug: Acetaminophen PO 650 mg PO once Route: PO; rs5 18:00 Follow up: Response: No adverse reaction; Temperature is decreased rs5 17:00 Drug: NS 0.9% IV 1000 ml IV at 1 bolus Per protocol; 1000 mL bolus Route: IV; Rate: 1 rs5 bolus; Site: right antecubital; 17:20 Follow up: Response: No adverse reaction rs5 19:34 Follow up: Response: No adverse reaction; IV Status: Completed infusion; IV Intake: rg5 1000ml 17:00 Drug: Meropenem IV 1 grams IV at per protocol once; (mix in NS 100 mL) Route: IV; Rate: rs5 per protocol; Site: right antecubital; 17:20 Follow up: Response: No adverse reaction rs5 19:34 Follow up: Response: No adverse reaction; IV Status: Completed infusion; IV Intake: rg5 100ml Disposition Summary: 12/22/23 17:00 Hospitalization Ordered Notes: Hospitalization Status: Inpatient Admission mary Provider: Justino Ge cha Location: Telemetry/MedSur (Inpatient) mary Condition: Fair mary Problem: new mary Symptoms: have improved mary Bed/Room Type: Standard mary Room Assignment: [id number](12/22/23 19:33) kmf Diagnosis - Fever, unspecified mary - UTI/ Urinary tract infection, site not specified - bilateral mary hydronephrosis/hydroureter, chronic - Anemia, unspecified mary - Weakness mary - Other mechanical complication of urinary (indwelling) catheter mary - Bandemia mary Forms: - Medication Reconciliation Form mary - SBAR form mary - Leadership Thank You Letter mary Signatures: Dispatcher [employer] EDMarquis Warner MD MD cha Sotelo, Ricky, RN RN rs5 Laurie Mchugh [facility] Carl Xavier RN rg5 Corrections: (The following items were deleted from the chart) 13:39 13:39 BASIC METABOLIC PANEL+C.LAB.BRZ ordered. EDMS EDMS 13:39 13:39 CBC+H.LAB.BRZ ordered. EDMS EDMS 13:39 13:39 HEPATIC FUNCTION+C.LAB.BRZ ordered. EDMS EDMS 13:39 13:39 MAGNESIUM+C.LAB.BRZ ordered. EDMS EDMS 13:39 13:39 PROBNP+C.LAB.BRZ ordered. EDMS EDMS 13:39 13:39 PROTIME (+INR)+COAG.LAB.BRZ ordered. EDMS EDMS 13:39 13:39 Troponin High Sensitivity+C.LAB.BRZ ordered. EDMS EDMS 13:39 13:39 LIPASE+C.LAB.BRZ ordered. EDMS EDMS 13:39 13:39 Urinalysis+U.LAB.BRZ ordered. EDMS EDMS 13:39 13:39 BLOOD CULTURE*+BA.LAB.BRZ ordered. EDMS EDMS 13:39 13:39 LACTATE+C.LAB.BRZ ordered. EDMS EDMS 17:20 16:21 TYPE AND SCREEN+BB.LAB.BRZ ordered. EDMS EDMS 18:04 16:20 Blood Transfusion Consent ordered. mary mary 19:33 17:00 [facility]
[2023-12-22] MEDS ORDERED: ACETAMINOPHEN 325 MG TABLET ONE (17:05)
[2023-12-22] MEDS ORDERED: Meropenem 1000 MG/VIAL IV ONE (17:05)
[2023-12-22] MEDS ORDERED: NA CHLORIDE 0.9% 100 ML ONE (17:06)
[2023-12-22] MEDS ORDERED: ONDANSETRON 4 MG/2 ML VIAL IV PRN (17:13)
[2023-12-22] MEDS ORDERED: MORPHINE 4 MG/ML SYR IV PRN (17:23)
--- NOTE | 2023-12-22 17:25 | P.HP ---
Certification for Inpatient Patient admitted to: Observation With expected LOS: <2 Midnights Patient will require the following post-hospital care: None Practitioner: I am a practitioner with admitting privileges, knowledge of patient current condition, hospital course, and medical plan of care. Services: Services provided to patient in accordance with Admission requirements found in Title 42 Section 412.3 of the Code of Federal Regulations Patient History Date of Service: 12/22/23 Reason for admission: Generalized weakness/UTI/fever History of Present Illness: Patient is a 78-year-old female came to the hospital with generalized weakness and fever. She sees Dr. Leblanc in [facility] for urology. 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 After diagnosis of an atrophic bladder patient has bilateral hydronephrosis. This has been chronic. Patient was seen about a week ago and found to have a urinary tract infection and started on Bactrim. Patient finished her last dose yesterday and this morning she woke up "drenched in sweat". She is also had generalized weakness and was not feeling like herself, so the daughter brought her into the emergency room for further evaluation. In the ER patient was worked up and the only abnormal finding was a hemoglobin of 6.8. Her last hemoglobin was 8.4. Will repeat this and we will admit for observation. Allergies formoterol [From Symbicort] Allergy (Unknown, Verified 12/20/22 14:12) unknown amoxicillin Allergy (Verified 12/20/22 14:12) severe diarrhea budesonide [From Symbicort] Allergy (Verified 12/20/22 14:12) unknown fentanyl Allergy (Verified 12/20/22 14:12) hallucinations oxybutynin [From Oxytrol] Allergy (Verified 12/20/22 14:12) Rash bactria Allergy (Uncoded 12/20/22 14:12) unknown z-pack Allergy (Uncoded 12/20/22 14:12) severe diarrhea Home Medications: Fluticasone/Salmeterol [Advair Hfa 115-21 Mcg Inhaler] 12 gm IH BID 08/05/20 Acetaminophen [Tylenol Extra Strength] 1 tab PO QID 12/20/22 Acetaminophen [Tylenol] 500 mg PO QID 10/17/23 Aspirin [Aspirin EC 81 MG] 2 tab PO QID 10/17/23 Cholecalciferol (Vitamin D3) [D3-5000] 5,000 units PO BID 10/17/23 Vit C/Ascorb Sod/Multivit-Min [Emergen-C 500 mg Chewable Tab] 500 mg PO BID 10/17/23 levoFLOXacin [Levaquin] 750 mg PO DAILY 4 Days #4 tab 10/18/23 - Past Medical/Surgical History Diabetic: No -: HTN -: HYPERLIPIDIMEA -: ASTHMA -: Recurrent UTI -: Atrophic bladder -: HIP SX -: TONSILLECTOMY Psychosocial/ Personal History: Lives at home with family - Family History Father Family History: Reviewed- Non-Contributory - Social History Smoking Status: Former smoker Alcohol use: Yes CD- Drugs: No Caffeine use: Yes Review of Systems 10-point ROS is otherwise unremarkable Physical Examination - Vital Signs Temperature: 98 F Blood Pressure: 110/80 Pulse: 70 Respirations: 18 Pulse Ox (%): 95 - Physical Exam General: Alert, In no apparent distress, Oriented x3 HEENT: Atraumatic, PERRLA, Mucous membr. moist/pink, EOMI, Sclerae nonicteric Neck: Supple, 2+ carotid pulse no bruit, No LAD, Without JVD or thyroid abnormality Respiratory: Clear to auscultation bilaterally, Normal air movement Cardiovascular: Regular rate/rhythm, Normal S1 S2, Systolic murmur Gastrointestinal: Normal bowel sounds, Soft and benign, Non-distended, No tenderness Musculoskeletal: No clubbing, No swelling, No tenderness Integumentary: No rashes Neurological: Normal gait, Normal speech, Normal tone, Sensation intact, Cranial nerves 3-12 intact, Normal affect, Abnormal strength Lymphatics: No axilla or inguinal lymphadenopathy - Studies Laboratory Data (last 24 hrs) 12/22/23 12/22/23 12/22/23 14:52 14:52 14:52 WBC 10.70 Hgb 6.4 L Hct 20.1 L Plt Count 429 H PT 12.7 H INR 1.16 Sodium 137 Potassium 4.2 BUN 18 Creatinine 1.21 H Glucose 103 Magnesium 2.4 Total Bilirubin 0.3 AST 11 L ALT < 14 Alkaline Phosphatase 90 Lipase 37 Assessment & Plan - Problems (Diagnosis) (1) Bladder, atonic Current Visit: Yes Status: Acute (2) COPD (chronic obstructive pulmonary disease) Current Visit: No Status: Acute (3) HTN (hypertension) Current Visit: No Status: Acute (4) UTI (urinary tract infection) Current Visit: No Status: Acute - Plan Plan: 1. Continue with IV antibiotics 2. Repeat H&H 3. Iron levels and B12; retic count 4. Change out Russo catheter 5. Inhaler therapy as needed 6. Anemia workup as mentioned above 7. Outpatient urology follow-up Discharge Plan: Home Plan to discharge in: 24 Hours - Advance Directives Does patient have a Living Will: No Does patient have a Durable POA for Healthcare: No - Code Status/Comfort Care Code Status Assessed: Yes Code Status: Full Code Critical Care: No Time Spent Managing PTS Care (In Minutes): 45
[2023-12-22] MEDS: NA CHLORIDE 0.9% 1,000 ML IV SCH (18:00)
[2023-12-22 18:02] LABS: Absolute Lymphocytes (CBC) 0.5 K/uL (0.7-4.9); Absolute Monocytes 0.6 K/uL (0.1-1.3); Absolute Neutrophil 5.7 K/uL (1.8-8.0); Basophils % 0.3 % (0-1.3); Eosinophils % 0.4 % (0-4.4); Hematocrit 32.4 % (36.0-45.0); Hemoglobin 10.2 g/dL (12.0-15.0); Lymphocytes % 6.7 % (15.3-44.8); MCH 26.5 pg (27.0-35.0); MCHC 31.3 g/dL (32.0-36.0); MCV 84.5 fL (80-100); MPV 7.2 fL (7.6-11.3); Monocytes % 8.5 % (3.3-12.3); Neutrophils % 84.1 % (41.7-73.7); Platelets 277 thou/uL (152-406); RBC Red Blood Cell Count 3.84 M/uL (3.86-4.86); Red Cell Distribution Width 17.2 % (12.1-15.2)
[2023-12-22 18:24] LABS: SARS-CoV-2 Antigen CONTROL BLUE LINE VIS/BG OK
[2023-12-22 18:26] LABS: SARS-CoV-2 Antigen Rapid Res Positive (Negative)
[2023-12-22 19:24] LABS: Band Neutrophils 3 % (0-1); Differential Total Cells Count 100; Eosinophils 1 % (0-3); Lymphocytes 6 % (15-42); Monocytes 7 % (0-10); Segmented Neutrophils 83 % (40-80)
[2023-12-22 19:25] LABS: Blood Morphology Comment NOT SEEN (NOT SEEN); Platelet Estimate ADEQ
[2023-12-22 22:06] VITALS: BMI 34.5
[2023-12-23 04:01] LABS: PT Prothrombin Time 12.8 SECONDS (9.5-12.5); PTT, Activated Partial Thromb 37.5 SECONDS (24.3-36.9); Protime INR 1.17
[2023-12-23 04:06] LABS: Absolute Lymphocytes (CBC) 0.7 K/uL (0.7-4.9); Absolute Monocytes 0.6 K/uL (0.1-1.3); Basophils % 0.3 % (0-1.3); Eosinophils % 0.2 % (0-4.4); Hematocrit 31.1 % (36.0-45.0); Hemoglobin 10.1 g/dL (12.0-15.0); Lymphocytes % 16.2 % (15.3-44.8); MCH 27.4 pg (27.0-35.0); MCHC 32.3 g/dL (32.0-36.0); MCV 84.8 fL (80-100); MPV 6.9 fL (7.6-11.3); Monocytes % 12.9 % (3.3-12.3); Nucleated Red Blood Cells % 0.4 % (0-0); Platelets 252 thou/uL (152-406); RBC Red Blood Cell Count 3.67 M/uL (3.86-4.86); Red Cell Distribution Width 17.2 % (12.1-15.2)
[2023-12-23 04:07] LABS: Neutrophils % 70.4 % (41.7-73.7)
[2023-12-23 04:17] LABS: Percent Reticulocyte Count 1.7 % (0.4-2.05); RBC Red Blood Cell Count 3.66 M/uL (3.86-4.86)
[2023-12-23 04:19] LABS: AST/SGOT 12 U/L (15-37); Albumin 2.3 g/dL (3.4-5.0); Albumin/Globulin Ratio 0.5 (1.1-1.8); Alkaline Phosphatase 74 U/L (45-117); Anion Gap 7.8 mEq/L (5.0-15.0); BUN Blood Urea Nitrogen 16 mg/dL (7-18); Bicarbonate 24 mEq/L (21-32); Bilirubin Total 0.3 mg/dL (0.2-1.0); Globulin 4.8 g/dL (2.3-3.5); Glomerular Filtration Rate 52 ml/min (=/>90); Glucose Level 95 mg/dL (74-106); Potassium 3.8 mEq/L (3.5-5.1); Protein, Total 7.1 g/dL (6.4-8.2); Sodium Level 140 mEq/L (136-145)
[2023-12-23 04:21] LABS: ALT/SGPT < 14 U/L (13-56)
[2023-12-23 04:43] LABS: Magnesium 2.1 mg/dL (1.6-2.4)
--- NOTE | 2023-12-23 07:00 | P.PN ---
Subjective Date of Service: 12/24/23 Chief Complaint: Generalized weakness/UTI/fever urinary tract infection and started on Bactrim, started on IV Merrem afebrile overnight renal ultrasound shows bilateral moderate hydronephrosis Review of Systems Per HPI Physical Examination - Vital Signs Temperature: 97.6 F Blood Pressure: 114/57 Pulse: 67 Respirations: 18 Pulse Ox (%): 98 - Physical Exam General: Alert, In no apparent distress, Oriented x3 HEENT: Atraumatic Neck: JVD not distended Respiratory: Clear to auscultation bilaterally, Normal air movement Cardiovascular: Normal pulses, Regular rate/rhythm Gastrointestinal: Normal bowel sounds, No tenderness Musculoskeletal: No swelling Integumentary: No breakdown Neurological: Normal speech, Normal strength at 5/5 x4 extr - Studies Laboratory Data (last 24 hrs) 12/22/23 12/22/23 12/22/23 14:52 14:52 14:52 WBC 10.70 Hgb 6.4 L Hct 20.1 L Plt Count 429 H PT 12.7 H INR 1.16 Sodium 137 Potassium 4.2 BUN 18 Creatinine 1.21 H Glucose 103 Magnesium 2.4 Total Bilirubin 0.3 AST 11 L ALT < 14 Alkaline Phosphatase 90 Lipase 37 Assessment And Plan - Plan Assessment & Plan - Problems (Diagnosis) 1. 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 Bilateral hydronephrosis acute 3. COPD (chronic obstructive pulmonary disease) 4. HTN (hypertension) 5. UTI (urinary tract infection) acute Plan: 1. Continue with IV antibiotics 2. Repeat H&H 3. Iron levels and B12; retic count 4. Change out Russo catheter 5. Inhaler therapy as needed 6. Anemia workup as mentioned above 7. Outpatient urology follow-up 8. Renal US IMPRESSION: Moderate bilateral hydronephrosis and hydroureter to the level of the urinary bladder. The urinary bladder itself is decompressed.10 mm stone inferior left kidney 9. 10/17/2023 meds resistant Staph aureus, started on IV Merrem 10. urology consult for Monday Discharge Plan: Home Plan to discharge in: 24 Hours Discharge Plan: Home Critical Care: No Time Spent Managing PTS Care (In Minutes): 35
[2023-12-23] MEDS: Meropenem 1,000 MG in NA CHLORIDE 0.9% 100 ML IV SCH (08:03)
[2023-12-23] MEDS: ACETAMINOPHEN 500 MG TAB PO PRN (11:53)
[2023-12-23] MEDS: dexAMETHasone 4 MG/ML VIAL IV ONE (12:32)
[2023-12-23] MEDS: POTASSIUM 25 MEQ EFFERV TAB PO ONE (12:33)
[2023-12-23] MEDS: SOD FERRIC GLUC COMPLX/SUCROSE 125 MG in NA CHLORIDE 0.9% 100 ML IV SCH (12:40)
[2023-12-23] MEDS ORDERED: ALBUTEROL INHALER 200 PUFF/6.7 GM IH PRN (21:56)
[2023-12-23] MEDS ORDERED: ACETAMINOPHEN 500 MG TAB PO SCH (22:00)
[2023-12-23] MEDS: HOME MED 1 EA UNK (Potassium Gluconate [Potassium] 99 MG Tablet) PO SCH (22:00)
[2023-12-23] MEDS: DULERA 100/5 (MOMETASONE/FORMOTEROL) INHALER IH ONE (22:48)
[2023-12-23] MEDS: DULERA 100/5 (MOMETASONE/FORMOTEROL) INHALER IH SCH (22:51)
[2023-12-24 01:08] VITALS: O2SAT 94
[2023-12-24 07:38] LABS: Absolute Lymphocytes (CBC) 0.8 K/uL (0.7-4.9); Absolute Monocytes 0.3 K/uL (0.1-1.3); Basophils % 0.6 % (0-1.3); Eosinophils % 0.1 % (0-4.4); Hematocrit 29.6 % (36.0-45.0); Hemoglobin 9.5 g/dL (12.0-15.0); Lymphocytes % 26.5 % (15.3-44.8); MCH 27.3 pg (27.0-35.0); MCHC 32.2 g/dL (32.0-36.0); MCV 84.8 fL (80-100); MPV 6.9 fL (7.6-11.3); Monocytes % 10.7 % (3.3-12.3); Neutrophils % 62.1 % (41.7-73.7); Nucleated Red Blood Cells % 0.2 % (0-0); Platelets 237 thou/uL (152-406); RBC Red Blood Cell Count 3.49 M/uL (3.86-4.86); Red Cell Distribution Width 17.1 % (12.1-15.2)
[2023-12-24 07:56] LABS: Albumin 2.1 g/dL (3.4-5.0); Albumin/Globulin Ratio 0.5 (1.1-1.8); Anion Gap 9.1 mEq/L (5.0-15.0); Bilirubin Total 0.2 mg/dL (0.2-1.0); Globulin 4.4 g/dL (2.3-3.5); Magnesium 2.2 mg/dL (1.6-2.4); Potassium 4.1 mEq/L (3.5-5.1); Protein, Total 6.5 g/dL (6.4-8.2)
[2023-12-24] MEDS: MULTIVITAMINS,THERAPEUT 1 TAB PO SCH (08:12)
[2023-12-24] MEDS: ASCORBIC ACID 500 MG TABLET PO SCH (08:12)
[2023-12-24] MEDS: VITAMIN D 5,000 UNIT CAP PO SCH (08:12)
--- NOTE | 2023-12-24 10:10 | P.PN ---
Date of Service: 12/24/23 urinary tract infection and started on Bactrim, started on IV Merrem afebrile overnight renal ultrasound shows bilateral moderate hydronephrosis Review of Systems Per HPI Physical Examination - Vital Signs Reviewed - Physical Exam General: ANO x 3 HEENT: Atraumatic Neck: JVD not distended Respiratory: Equal unlabored Cardiovascular: Regular rate/rhythm Gastrointestinal: Soft nontender Musculoskeletal: No swelling Integumentary: No breakdown Neurological: Normal speech, Normal strength at 5/5 x4 extr Assessment & Plan - Problems (Diagnosis) 1. 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 Bilateral hydronephrosis acute 3. COPD (chronic obstructive pulmonary disease) 4. HTN (hypertension) 5. UTI (urinary tract infection) acute Plan: 1. Continue with IV antibiotics 2. Repeat H&H 3. Iron levels and B12; retic count 4. Change out Russo catheter 5. Inhaler therapy as needed 6. Anemia workup as mentioned above 7. Outpatient urology follow-up 8. Renal US IMPRESSION: Moderate bilateral hydronephrosis and hydroureter to the level of the urinary bladder. The urinary bladder itself is decompressed.10 mm stone inferior left kidney 9. 10/17/2023 meds resistant Staph aureus, started on IV Merrem 10. urology consult for Monday, started on Flomax Discharge Plan: Home Plan to discharge in: 24 Hours
--- NOTE | 2023-12-24 10:26 | P.DS ---
Admission Date: 12/22/23 Discharge Date: 12/24/23 Disposition: ROUTINE DISCHARGE Discharge Condition: GOOD Reason for Admission: Generalized weakness/UTI/fever Brief History of Present Illness: Patient is a 78-year-old female came to the hospital with generalized weakness and fever. She sees Dr. Leblanc in [facility] for urology. 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 After diagnosis of an atrophic bladder patient has bilateral hydronephrosis. This has been chronic. Patient was seen about a week ago and found to have a urinary tract infection and started on Bactrim. Patient finished her last dose yesterday and this morning she woke up "drenched in sweat". She is also had generalized weakness and was not feeling like herself, so the daughter brought her into the emergency room for further evaluation. In the ER patient was worked up and the only abnormal finding was a hemoglobin of 6.8. Her last hemoglobin was 8.4. Will repeat this and we will admit for observation - Physical Exam General: Alert, In no apparent distress, Oriented x3 HEENT: Atraumatic, PERRLA, Mucous membr. moist/pink, EOMI, Sclerae nonicteric Neck: Supple, 2+ carotid pulse no bruit, No LAD, Without JVD or thyroid abnormality Respiratory: Clear to auscultation bilaterally, Normal air movement Cardiovascular: Regular rate/rhythm, Normal S1 S2, Systolic murmur Gastrointestinal: Normal bowel sounds, Soft and benign, Non-distended, No tenderness Musculoskeletal: No clubbing, No swelling, No tenderness Integumentary: No rashes Neurological: Normal gait, Normal speech, Normal tone, Sensation intact, Cranial nerves 3-12 intact, Normal affect, Abnormal strength Lymphatics: No axilla or inguinal lymphadenopathy Hospital Course: 78-year-old female came to the hospital with generalized weakness and fever. Treated with IV antibiotics, IV fluids, will discharge home on p.o. antibiotics, patient has a chronic indwelling Russo catheter, chronic bilateral hydronephrosis, chronic atonic bladder. Will discharge home on p.o. antibiotics, Flomax, patient needs to follow-up with urology in 1 week Assessment Acute cystitis, urine culture negative Chronic indwelling Russo catheter, with recurrent UTIs, discharged home on p.o. antibiotics, follow-up with urology outpatient Chronic bilateral hydronephrosis with chronic Russo catheter Chronic atrophic bladder with Russo catheter Continue home medicines as previously prescribed GOAL: Clear understanding of disease process INSTRUCTIONS: Physician Discharge Instructions: -Follow-up with PCP in 1 to 2 weeks -Please call Dr. Mendoza at [phone] if any questions regarding hospital stay -Please call nursing station at [phone] if any nursing or medication questions -Return to the emergency room if symptoms worsen Diet: ADA, low sodium Activity: Fall precautions Vital Signs/Physical Exam: Temp Pulse Resp BP Pulse Ox 97.6 F 67 18 114/57 L 98 12/24/23 10:07 12/24/23 10:07 12/24/23 10:07 12/24/23 10:07 12/24/23 10:07 Laboratory Data at Discharge: WBC 3.10 thou/uL (4.3-10.9) L 12/24/23 07:25 Hgb 9.5 g/dL (12.0-15.0) L 12/24/23 07:25 Hct 29.6 % (36.0-45.0) L 12/24/23 07:25 Plt Count 237 thou/uL (152-406) 12/24/23 07:25 PT Cancelled 12/23/23 05:00 INR Cancelled 12/23/23 05:00 APTT Cancelled 12/23/23 05:00 Sodium 138 mEq/L (136-145) 12/24/23 07:25 Potassium 4.1 mEq/L (3.5-5.1) 12/24/23 07:25 BUN 19 mg/dL (7-18) H 12/24/23 07:25 Creatinine 0.88 mg/dL (0.55-1.02) 12/24/23 07:25 Glucose 104 mg/dL (74-106) 12/24/23 07:25 Magnesium 2.2 mg/dL (1.6-2.4) 12/24/23 07:25 Total Bilirubin 0.2 mg/dL (0.2-1.0) 12/24/23 07:25 AST 11 U/L (15-37) L 12/24/23 07:25 ALT 15 U/L (13-56) 12/24/23 07:25 Alkaline Phosphatase 61 U/L (45-117) 12/24/23 07:25 Lipase 37 U/L (13-75) 12/22/23 14:52 Home Medications: Fluticasone/Salmeterol [Advair Hfa 115-21 Mcg Inhaler] 2 puff IH BID 08/05/20 Acetaminophen [Tylenol Extra Strength] 2 tab PO Q6H 12/20/22 Cholecalciferol (Vitamin D3) [D3-5000] 5,000 units PO DAILY 10/17/23 Albuterol [Proventil] 2 puff IH Q8HP PRN 12/23/23 Ascorbic Acid [Vitamin C] 500 mg PO DAILY 12/23/23 Multivit-Min/Iron/FA/Vit K/Lut [Centrum Women 50 Plus Minis Tb] 1 each PO DAILY 12/23/23 Potassium Gluconate [Potassium] 2 tab PO Q6H 12/23/23 Diet: AHA Activity: Bedrest Followup: Abebe Morrell DO [Primary Care Provider] - Time spent managing pt's care (in minutes): 55
[2023-12-24 12:14] VITALS: BP 101/54; TEMP 98.7
[2023-12-25] MEDS ORDERED: TAMSULOSIN 0.4 MG SR CAP PO SCH (09:00)
--- NOTE | 2023-12-25 15:02 | EKG ---
Test Date: 2023-12-22 Test Time: 14:31:29 [employer]: ELISSA MEASUREMENT RESULTS: Intervals: Rate: 85 TX: 204 QRSD: 76 QT: 360 QTc: 428 [place]: P: 26 TX: 204 QRS: 54 T: 64 INTERPRETIVE STATEMENTS: Sinus rhythm Low voltage QRS Borderline ECG Compared to ECG 10/17/2023 05:46:41 First degree AV block no longer present Electronically Signed On 12-25-23 14:54:06 CDT by Tal Bates
== END 2023-12-24 13:15 | disposition home or self-care (01) ==
LOC: ER 13:21 → ERHOLD 17:13 → 2ND 22:04
PROVIDERS: ADMIT Hospitalist; ATTEND Hospitalist
DX: N31.2 Flaccid neuropathic bladder, not elsewhere classified (principal); N39.0 Urinary tract infection, site not specified; N13.30 Unspecified hydronephrosis; D72.825 Bandemia; T83.091A Other mechanical complication of indwelling urethral catheter, initial encounter; I10 Essential (primary) hypertension; J44.9 Chronic obstructive pulmonary disease, unspecified; R53.1 Weakness; Z87.440 Personal history of urinary (tract) infections; Z96.0 Presence of urogenital implants; Z87.891 Personal history of nicotine dependence; Z88.1 Allergy status to other antibiotic agents; Z88.8 Allergy status to other drugs, medicaments and biological substances; D64.9 Anemia, unspecified
CPT/HCPCS: 93005; 87040 ×2; 85025 ×4; 81001; 87086; 80048; 36415 ×2; 83735 ×3; 85610 ×2; 85044; 80076; 83605; 85730; 84484; 82607; 83690; 83540; 80053 ×2; 83880; 87804 ×2; 70450; 76377; 74176; 71045; 99285; 87811; J2916; J3535 ×2; J1100; J2185 ×4; J7030 ×3; J0696; G0378 ×5; 87088

== ENCOUNTER 2024-03-05 10:28 | Day surgery (SDC) | payer OTHER ==
[2024-02-28 14:39] LABS: Absolute Eosinophils 0.2 K/uL (0-0.5); Absolute Lymphocytes (CBC) 1.1 K/uL (0.7-4.9); Absolute Monocytes 0.6 K/uL (0.1-1.3); Absolute Neutrophil 6.3 K/uL (1.8-8.0); Basophils % 0.5 % (0-1.3); Hematocrit 34.5 % (36.0-45.0); Lymphocytes % 13.2 % (15.3-44.8); MCH 27.5 pg (27.0-35.0); MCHC 31.8 g/dL (32.0-36.0); MCV 86.4 fL (80-100); Monocytes % 6.7 % (3.3-12.3); Neutrophils % 76.6 % (41.7-73.7); Nucleated Red Blood Cells % 0.1 % (0-0); Platelets 283 thou/uL (152-406); Red Cell Distribution Width 18.5 % (12.1-15.2)
[2024-02-28 14:45] LABS: PT Prothrombin Time 12.1 SECONDS (9.4-12.5); Protime INR 1.08
[2024-02-28 14:55] LABS: Anion Gap 10.1 mEq/L (5.0-15.0); Potassium 4.1 mEq/L (3.5-5.1)
[2024-03-05] MEDS ORDERED: CEFTRIAXONE 1000 MG/VIAL ONE ×2 (10:45→13:59)
[2024-03-05] MEDS ORDERED: Ringers Lactate 1,000 ML IV ONE (10:45)
[2024-03-05] MEDS ORDERED: NA CHLORIDE 0.9% 100 ML ONE (10:45)
[2024-03-05] MEDS: CEFTRIAXONE 1000 MG/VIAL IVP ONE (11:05)
[2024-03-05] MEDS ORDERED: FENTANYL CITR 100 MCG/2 ML ONE (11:48)
[2024-03-05] MEDS ORDERED: LIDOCAINE 1% MPF 5 ML VIAL ONE (11:48)
[2024-03-05] MEDS ORDERED: propofoL 200 MG/20 ML VIAL IV ONE (11:48)
[2024-03-05] MEDS ORDERED: ONDANSETRON 4 MG/2 ML VIAL ONE (11:48)
[2024-03-05] MEDS ORDERED: EPHEDRINE SULF 50 MG/ML VIAL ONE (13:38)
--- NOTE | 2024-03-05 14:52 | P.OP ---
Date of Service: 03/05/24 Preoperative diagnoses: Contracted neuropathic bladder Recurrent UTIs Mucusuria Bilateral hydronephrosis suspected UVJ obstruction Left nephrolithiasis approximately 11 mm Postoperative diagnoses: Contracted neuropathic bladder with incontinence Complicated UTI with pyeonephrosis Left nephrolithiasis Bilateral hydronephrosis Left suspected vesicoureteral reflux Right mid distal ureteral stricture Principal procedures: Cystoscopy Bilateral retrograde pyelography's Left flexible ureteroscopy with pyeloscopy and laser lithotripsy Left renal aspirate urine culture Right semirigid ureteroscopy Left 7 Anguillan by 26 cm double-J ureteral stent placement Right 6 Anguillan by 24 cm double-J ureteral stent placement Indication for procedure: The patient presented to the urology clinic with 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 She had not undergone neurologic evaluation of her associated urinary and fecal incontinence, but she had had urodynamics evaluation at [facility] with Dr. Hatch. The records of that were pending my review. She underwent cystoscopy 01/10/2024 which revealed the presence of a contracted neuropathic bladder with mucus but no papillary mucosal lesions or stones. Subsequent follow-up CT abdomen and pelvis with oral and rectal contrast to assess for fistula revealed only the presence of persistent bilateral hydronephrosis so operative evaluation was recommended. Procedure note: The patient was consented in the preoperative holding area before being transferred to the operative suite where general anesthesia was induced. She was given ceftriaxone IV antimicrobial therapy starting yesterday in the urology clinic and continued in the preoperative holding area. She was then transferred to the operative suite where general anesthesia was induced. She was placed in the lithotomy position, padded and secured to the table appropriately. Her genitalia was prepped with Hibiclens and she was draped in standard fashion. The case has begun using a 22 Anguillan rigid cystoscope to traverse the urethra and into her bladder with ease. Of note, the indwelling urethral Russo catheter was removed prior to prepping and draping. Upon entry into the bladder, it was decompressed of a small amount of fluid in urine and was noted to be markedly contracted in nature. There were diverticular appearing openings in the bladder and the posterior lateral aspects, localization typical for the ureteral orifices. No other site for a ureteral orifice was noted; so I cannulated the left suspected orifice, diverticular structure, with a 5 Anguillan ureteral access catheter and performed a fluoroscopic image. Indeed, the catheter did seem to progress up what was likely and in the localization of typical left ureter. As a result, I performed a retrograde study. Left retrograde pyelography: Using a 70: 30 mixture of Omnipaque and saline, contrast was injected via this lumen of the 5 Anguillan ureteral access catheter and did propagate up a moderately tortuous distal into the mid and proximal ureter before beginning to enter a markedly dilated renal pelvis. I then switched to full-strength contrast and again injected another bolus to delineate and confirm the presence of the pelvic calyceal system identifying the upper and then the midpole very dilated calyces and renal pelvis. As a result, I passed a sensor wire via the 5 Anguillan ureteral access catheter coiling it within the upper pole of the left kidney. I left that wire in place and then cannulated the right side diverticular structure, suspected ureteral orifice, with the 5 Anguillan ureteral access catheter and again performed a retrograde study. Right retrograde pyelography: Using a 70: 30 mixture of Omnipaque and saline, I injected the mixture via the 5 Anguillan ureteral access catheter and contrast progressed into the mid distal ureter before blindly terminating at a point there. Additional contrast injection failed to emanate beyond this point of obstruction. As a result, I remove the 5 Anguillan ureteral access catheter and turned my attention back to the patient's left side. I passed a dual-lumen catheter over the sensor wire on the left into the upper pole of the left kidney. I then passed a Bentson guidewire via the second lumen of the dual-lumen catheter and coiled it within the upper pole. Leaving the wires in place, I remove the dual-lumen catheter and passed a flexible ureteroscope over the Bentson guidewire into the upper pole calyx. I then surveyed the calyces but noted significant cloudy urine with apparent mucous within the calyces. So I aspirated some of that urine and send it for culture as left renal aspirate urine culture. I then gently irrigated the renal pelvis and calyces to remove some of the cloudiness and clarify the urine before eventually surveying the remainder of the calyces. Within the midpole posterior calyx, there were a couple of small stones likely around 2 to 3 mm each. I ut ilized a 272 nm laser fiber to quickly fragment those stones into dust and released them from their attachment in the calyceal localization there. I then continue to survey down into the lower pole calyces where I identified the burden of calcific material seen on the CT scan. While there were 2 stones, each approximately 4 to 6 mm in diameter, there was another area of tissue that was simply calcified in appearance but did not have the consistency of a stone. I tried to disrupt as much of this calcific tissue and fragment the 2 actual stones found in that localization into dust small enough to pass and smaller than the size of the tip of the laser fiber. I then surveyed back into the renal pelvis and down into the proximal as well as mid and distal ureter on the way out. I then switched to a semirigid ureteroscope and passed that via the urethra into the bladder directly into the widely patent right ureteral orifice and up the distal ureter until I encountered the point of stenosis. I observed 2 pits within the stenotic region and attempted to pass a Glidewire via each of the pits. The medial pit would not pass beyond just the tip of the Glidewire, but a anterolateral pit did allow the Glidewire to pass and eventually go up what was apparently the ureter before entering what appeared to be renal pelvis. I thus removed the semirigid ureteroscope leaving the Glidewire in place, and I passed a 5 Anguillan ureteral access catheter over the sensor wire all the way into the putative collecting system on the right. I then utilized a 70: 30 mixture of Omnipaque and saline and injected contrast via the lumen of the 5 Anguillan ureteral access catheter and did delineate the upper pole calyx as well as renal pelvis and lower pole calyces on the right. As a result, I passed a Bentson guidewire via the 5 Anguillan ureteral access catheter coiling it within the renal pelvis and calyces on the right. I then passed a 6 Anguillan by 24 cm double-J ureteral stent over that Bentson guidewire coiling it within the midpole calyx of the right kidney and observing an additional coil cystoscopically formed in the bladder. I then turned my attention back to the left ureteral orifice and backloaded the cystoscope over the sensor wire before placing a 7 Anguillan by 26 cm double-J ureteral stent with a coil observed fluoroscopically in the left renal pelvis and 1 cystoscopically formed in the bladder. I then decompressed her bladder fluid and urine and remove the cystoscope. She was then taken out of the lithotomy position before being transferred to a stretcher and then transferred to the recovery room in good condition. Complications: None Findings: Widely open/diverticular in appearance ureteral orifice ease bilaterally Bilateral hydronephrosis secondary to right mid distal ureteral stricture and suspected left UVJ obstruction Left nephrolithiasis fragmented by laser lithotripsy Disposition: We will give her an opportunity to void or remain incontinent and check bladder scan postvoid residual prior to discharge from day surgery today. If patient empties adequately and does not require a catheter to be reinserted, we will ask her to come by for a bladder scan postvoid residual either tomorrow/Monday or . At any point, if there is concern about the ability for her to empty her bladder, a Russo catheter may be reinserted. As far as the ureteral stents, we will assess for improvement of her renal function over time and consider the role for further evaluation and management of the right ureteral stricture disease seen. Since no ureteral obstruction was noted on the left side, we will see if the hydronephrosis resolves associated with the stenting. As a result, follow-up within the next 2 to 3 months with pre-clinic BMP and renal ultrasound so that we may determine the role for extraction of 1 or both of the stents.
[2024-03-05 15:04] VITALS: O2SAT 100
--- NOTE | 2024-03-05 15:45 | RAD REPORT ---
EXAM DESCRIPTION: RAD - Urethrocystogrphy Retrograde - 03/05/2024 2:32 pm CLINICAL HISTORY: ICD N 20.0 FINDINGS: 9 fluoroscopic spot images obtained. Fluoroscopy time.3 minutes Right and left ureters cannulated and contrast administered. Subsequently abilateral ureteral stents placed. Examination was performed by Dr Sethi
[2024-03-05 16:49] VITALS: BP 152/75; TEMP 97.1
== END 2024-03-05 16:40 | disposition home or self-care (01) ==
LOC: OR 10:28
PROVIDERS: ATTEND Urology
PROC: 0T788DZ Dilation of Bilateral Ureters with Intraluminal Device, Via Natural or Artificial Opening Endoscopic (ICD-10-PCS; 2024-03-05)
PROC: 0TF48ZZ Fragmentation in Left Kidney Pelvis, Via Natural or Artificial Opening Endoscopic (ICD-10-PCS; principal; 2024-03-05 12:00)
DX: N20.2 Calculus of kidney with calculus of ureter (principal); N13.30 Unspecified hydronephrosis; N31.9 Neuromuscular dysfunction of bladder, unspecified; R82.998 Other abnormal findings in urine; J44.9 Chronic obstructive pulmonary disease, unspecified; Z87.440 Personal history of urinary (tract) infections
CPT/HCPCS: 87088; 87070; 85025; 87086; 80048; 36415; 85610; 87077; 87186; 74450; 51610; 52356; J2704; J2001; J3010; J2405; J0696; J7120

== ENCOUNTER → 2024-06-04 | Day surgery (SDC) | payer OTHER ==
[2024-05-30 09:24] LABS: Absolute Eosinophils 0.4 K/uL (0-0.5); Absolute Lymphocytes (CBC) 0.8 K/uL (0.7-4.9); Absolute Monocytes 0.4 K/uL (0.1-1.3); Absolute Neutrophil 5.4 K/uL (1.8-8.0); Basophils % 0.6 % (0-1.3); Eosinophils % 5.5 % (0-4.4); Hematocrit 41.1 % (36.0-45.0); Lymphocytes % 11.6 % (15.3-44.8); MCH 27.9 pg (27.0-35.0); MCHC 31.7 g/dL (32.0-36.0); MCV 88.2 fL (80-100); MPV 7.6 fL (7.6-11.3); Monocytes % 6.1 % (3.3-12.3); Neutrophils % 76.2 % (41.7-73.7); Nucleated Red Blood Cells % 0.1 % (0-0); Platelets 261 thou/uL (152-406); RBC Red Blood Cell Count 4.66 M/uL (3.86-4.86); Red Cell Distribution Width 15.6 % (12.1-15.2)
[2024-05-30 09:25] LABS: PT Prothrombin Time 11.4 SECONDS (9.4-12.5); Protime INR 1.02
[~2024-06-04] MED LIST: EPHEDRINE SULF 50 MG/ML VIAL ONE; FENTANYL CITR 100 MCG/2 ML ONE; HYDROMORPHONE HCL 1 MG/ML INJ ONE; LIDOCAINE 1% MPF 5 ML VIAL ONE; ONDANSETRON 4 MG/2 ML VIAL ONE; propofoL 200 MG/20 ML VIAL IV ONE
[2024-06-04] MEDS: FAMOTIDINE 20 MG/2 ML VIAL IV ONE (12:19)
[2024-06-04] MEDS: METOCLOPRAMIDE 10 MG/2mL INJ ONE (12:24)
[2024-06-04] MEDS: NA CIT/CITRIC AC 30 ML ORAL UDC ONE (12:26)
[2024-06-04] MEDS: Ringers Lactate 1,000 ML IV ONE (12:33)
[2024-06-04] MEDS: Meropenem 1,000 MG in NA CHLORIDE 0.9% 100 ML IV ONE (14:35)
--- NOTE | 2024-06-04 16:05 | RAD REPORT ---
EXAMCystography COMPARISON: None CLINICAL HISTORY: FINDINGS: 22 fluoroscopic intraoperative images obtained. Fluoroscopy time 3 minutes. Ureters cannulated and contrast administered. Procedure performed by Dr. Cantu. Please refer to his notes for additional findings
[2024-06-04] MEDS: LABETALOL 20 MG/4ML SYRINGE IV ONE (16:08)
--- NOTE | 2024-06-04 16:29 | P.OP ---
Date of Service: 06/04/24 Preoperative diagnoses: Chronic asymptomatic bacteriuria with Citrobacter, highly resistant History of left nephrolithiasis s/p ureteroscopy with laser lithotripsy Right ureteral stricture disease Left UVJ obstruction Postoperative diagnoses: Chronic asymptomatic bacteriuria with Citrobacter, highly resistant History of left nephrolithiasis s/p ureteroscopy with laser lithotripsy Right ureteral stricture disease Right moderate hydronephrosis Left UVJ obstruction Left mild hydronephrosis Bilateral pyeonephrosis Principal procedures: Cystoscopy with bladder irrigation Right ureteral stent extraction Right retrograde pyelography Right renal washout Right 7 Niuean by 24 cm ureteral stent replacement Left ureteral stent extraction Left retrograde pyelography Left renal washout Left 7 Niuean by 26 cm ureteral stent replacement 16 Niuean urethral Russo catheter placement Indication for procedure: 79-year-old woman with history of complicated UTI with pyeonephrosis in the setting of obstruction with bilateral hydronephrosis secondary to right ureteral stricture disease and left UVJ obstruction. She initially had a urethral Russo catheter in place but was subsequently able to void adequately so the catheter was removed. While completely asymptomatic of infection, follow-up urine culture assessment revealed persistence of the Citrobacter in her urine, progressively more resistant. Patient was started on Macrobid twice daily in preparation for operative evaluation today and stent exchanges. While ureteroscopy and pyeloscopy to assess for any residual stones would have been desired, the lack of availability of the holmium laser limited that evaluation today. Procedure note: The patient was consented in the preoperative holding area before being transferred to the operative suite where general anesthesia was induced. She was given meropenem 1 g IV antimicrobial prophylaxis, and pneumoboots were provided for DVT prophylaxis. She had taken her nitrofurantoin this morning as prescribed. The case has begun by placing her in the lithotomy position, padding her and securing her to the table appropriately. Her genitalia was prepped with Hibiclens and she was draped in standard fashion. The case was begun by passing the 22 Niuean rigid cystoscope via her urethra into her bladder with ease. The urine within was milky in appearance; so her bladder was decompressed of this cloudy urine, and then I irrigated her bladder multiple times using sterile saline via the cystoscope. I then identified the ureteral stents emanating from the patulous bilateral ureteral orifices. Grasping the right stent tip first and delivering it to the meatus, I passed a sensor wire via that stent coiling it putatively within his right collecting system. I then remove the stent and passed a dual-lumen catheter over that wire into the distal ureter. Leaving the dual-lumen catheter in place, I passed the cystoscope al ongside it into her bladder and to grasp the coil of the left ureteral stent delivering it to the meatus as well. I advanced a Bentson guidewire via the left ureteral stent coiling it within the putative collecting system. Right retrograde pyelography: Using a 70: 30 mixture of Omnipaque and saline, contrast was injected via the second lumen of the dual-lumen catheter and did propagate up the mid distal into the proximal ureter before entering the renal pelvis and calyces. As had been seen previously, there was an area of distal ureteral narrowing with the proximal area of ureteral dilation within the mid ureter consistent with previously observed right ureteral stricture disease. No fluoroscopically opaque calculi were present within the kidneys bilaterally. The contrast did propagate up the proximal ureter and into the renal pelvis and calyces. There was some evidence of moderate hydronephrosis on the right side. As a result, I advanced a dual-lumen catheter over the sensor safety wire into the collecting system to try to decompress it. It did not essentially drain on its own; so I utilized a 50-50 mixture of Omnipaque and saline to gently irrigate the renal pelvis and in one lumen of the dual-lumen catheter and out the other lumen. This only irrigated with a slight degree of efficacy. As a result, I remove the dual-lumen catheter and passed the 5 Niuean ureteral access catheter over the wire into the renal pelvis and upper pole calyx, and this did allow more efficient decompression of some of the purulent appearing urine. As a result, I then turned my attention to the patient's left side while the 5 Niuean ureteral access catheter continued to decompress the kidney on the right. Left retrograde pyelography: Using the dual-lumen catheter passed over the Bentson guidewire into the collecting system on the left, I then injected a 70: 30 mixture of Omnipaque and saline via the second lumen of the dual-lumen catheter to delineate the renal pelvis and calyces on the left to confirm orthotopic positioning of the Bentson guidewire. The wire was in appropriate position, and no calculi were radiopaque. I similarly endeavored to gently irrigate the renal pelvis using slow infusion of sterile saline via one of the lumen of the dual-lumen catheter, and 1 lumen and out the other lumen. I continued the irrigation until the diluted contrast was no longer visible in any of the calyces. I then passed the sensor wire back up the 5 Niuean ureteral access catheter on the right coiling it within the collecting system and remove the 5 Niuean ureteral access catheter and stent passing it up the left side into the collecting system to enhance decompression on the left. While the left side was decompressing, I then backloaded the cystoscope over the indwelling sensor wire on the right, and I placed a 7 Niuean by 24 cm double-J ureteral stent. A coil was observed fluoroscopically within the renal pelvis on the right with 1 cystoscopically formed in his bladder. By this point, the left renal unit had decompressed; so I passed a sensor wire via the 5 Niuean ureteral access catheter back into the collecting system on the left, and then again backloaded the cystoscope over that wire ultimately passing a 7 Niuean by 26 cm double-J ureteral stent over that sensor wire coiling it within the collecting system on the left with an additional coil formed within her bladder. I then further irrigated the bladder as the kidneys did further decompress with the stents in place. Once the drainage of urine coming from the kidneys and the bladder was crystal clear without any sign of sediment or debris, I then left her bladder full and placed an 18 Niuean catheter via her urethra into her bladder with ease. Approximately 20 cc of sterile water was placed in the balloon. The catheter was connected to a floor bag, and the patient was awakened from general anesthesia after being taken out of the lithotomy position. She was then transferred to a stretcher before being transferred to the recovery room in good condition. Complications: None Discharge disposition: She will continue the twice daily nitrofurantoin/Macrobid for the next 2 days, thereafter continuing to take the nitrofurantoin/Macrobid once daily as prophylaxis. Voiding trial may be established tomorrow morning in the urology clinic. Obtain a CT abdomen only without contrast next week to assess for any residual significant stone burden, potentially the source of the chronic Citrobacter bacteriuria, to determine if additional ureteroscopic operative management would be indicated and completed while she is on the nitrofurantoin, the last effective oral antimicrobial for her Citrobacter colonization/infection..
[2024-06-04] MEDS: CODEINE 30MG/APAP 300MG TAB PO PRN (16:53)
[2024-06-04] MEDS: PHENAZOPYRIDINE 100MG TAB PO ONE (16:53)
[2024-06-04 18:09] VITALS: BP 131/80; TEMP 97.2; O2SAT 98
== END | disposition home or self-care (01) ==
LOC: OR 11:25
PROVIDERS: ATTEND Urology
PROC: 0T788DZ Dilation of Bilateral Ureters with Intraluminal Device, Via Natural or Artificial Opening Endoscopic (ICD-10-PCS; 2024-06-04)
PROC: 0TP98DZ Removal of Intraluminal Device from Ureter, Via Natural or Artificial Opening Endoscopic (ICD-10-PCS; principal; 2024-06-04 13:30)
DX: N13.1 Hydronephrosis with ureteral stricture, not elsewhere classified (principal); N13.5 Crossing vessel and stricture of ureter without hydronephrosis; R39.81 Functional urinary incontinence; N20.0 Calculus of kidney; N11.1 Chronic obstructive pyelonephritis; N13.30 Unspecified hydronephrosis; Z87.440 Personal history of urinary (tract) infections
CPT/HCPCS: 85025; 36415; 85610; 51600; 74430; 52332; J2704; J2765; J2003; J2185; J1171; J2405; J7120; J3010

== ENCOUNTER 2024-06-05 14:12 | Inpatient (IN) | payer OTHER ==
--- NOTE | 2024-06-05 17:01 | P.HP ---
Certification for Inpatient Patient admitted to: Inpatient Practitioner: I am a practitioner with admitting privileges, knowledge of patient current condition, hospital course, and medical plan of care. Services: Services provided to patient in accordance with Admission requirements found in Title 42 Section 412.3 of the Code of Federal Regulations Patient History Date of Service: 06/05/24 Reason for admission: UTI History of Present Illness: 79-year-old male with a history of recurrent UTI, past history of neuropathic detrusor of dysfunction, left UVJ obstruction, right ureteral stricture, chronic bilateral hydronephrosis, followed by urology Dr. Sethi underwent cystoscopy and retrograde pyelogram with exchange of bilateral stent on 06/04/2024 was referred for admission by Dr. Sethi due to patient complaining of persistent generalized weakness and malaise. Patient denied any fever, denied any loss of appetite, denied any abdominal pain or back pain. She had a urine culture done by straight catheterization on 05/23/2024 which grew Citrobacter sensitive to Zosyn, meropenem and nitrofurantoin. Patient has been taking nitrofurantoin and was given meropenem prior to the procedure. There was still a concern for suboptimal UTI treatment given persistent malaise. Patient is therefore admitted for IV antibiotics and also to rule out bacteremia. Allergies formoterol [From Symbicort] Allergy (Unknown, Verified 05/30/24 08:47) unknown amoxicillin Allergy (Verified 05/30/24 08:47) severe diarrhea budesonide [From Symbicort] Allergy (Verified 05/30/24 08:47) unknown fentanyl Allergy (Verified 05/30/24 08:47) hallucinations oxybutynin [From Oxytrol] Allergy (Verified 05/30/24 08:47) Rash bactria Allergy (Uncoded 05/30/24 08:47) unknown z-pack Allergy (Uncoded 05/30/24 08:47) severe diarrhea Home Medications: Fluticasone Propion/Salmeterol [Advair Hfa 115-21 Mcg Inhaler] 2 puff IH BID 08/05/20 Albuterol [Proventil] 2 puff IH Q8HP PRN 12/23/23 Ascorbic Acid [Vitamin C] 500 mg PO DAILY 12/23/23 Multivit-Min/Iron/FA/Vit K/Lut [Centrum Women 50 Plus Minis Tb] 1 each PO DAILY 12/23/23 Potassium Gluconate [Potassium] 2 tab PO Q6H 12/23/23 Cholecalciferol (Vitamin D3) [Vitamin D 5,000 IU Cap*] 5,000 unit PO DAILY cap 12/24/23 L. Acidophilus/L.bulgaricus [Lactobacillus 1 Million Cfu Tb] 1 each PO BID 30 Days #30 tab 12/24/23 Mometasone/Formoterol [Dulera 100 Mcg/5 Mcg Inhaler] 2 puff IH BID #0 inhaler 12/24/23 Tamsulosin [Flomax*] 0.4 mg PO DAILY 30 Days #30 cap 12/24/23 Guaifenesin [Mucinex] 600 mg PO BID 02/28/24 - Past Medical/Surgical History Diabetic: No -: HTN -: HYPERLIPIDIMEA -: ASTHMA -: Recurrent UTI -: Atrophic bladder -: HIP SX -: TONSILLECTOMY Psychosocial/ Personal History: Lives at home with family - Social History Smoking Status: Never smoker Alcohol use: No CD- Drugs: No Caffeine use: No Review of Systems Other: Patient denied any headache, no shortness of breath, no chest pain. She denies any dysuria or increased urinary frequency. Except as documented, all other systems reviewed and negative. Physical Examination - Vital Signs Temperature: 97.5 F Blood Pressure: 147/82 Pulse: 69 Respirations: 16 Pulse Ox (%): 96 - Physical Exam General: Alert, In no apparent distress, Oriented x3 HEENT: Atraumatic, PERRLA, Mucous membr. moist/pink, Sclerae nonicteric Neck: Supple, JVD not distended, No Thyromegaly Respiratory: Clear to auscultation bilaterally, Normal air movement Cardiovascular: No edema, Regular rate/rhythm, Normal S1 S2, No murmurs Capillary refill: <2 Seconds Gastrointestinal: Normal bowel sounds, Soft and benign, Non-distended, No tenderness Musculoskeletal: No swelling, No tenderness Integumentary: No rashes, No cyanosis Neurological: Normal speech, Normal strength at 5/5 x4 extr, Cranial nerves 3-12 intact Lymphatics: No axilla or inguinal lymphadenopathy Assessment and Plan - Problems (Diagnosis) (1) Complicated UTI (urinary tract infection) Current Visit: Yes Status: Acute (2) S/P ureteral stent placement Current Visit: Yes Status: Acute (3) Asthma Current Visit: No Status: Acute (4) COPD (chronic obstructive pulmonary disease) Current Visit: No Status: Acute (5) HTN (hypertension) Current Visit: No Status: Acute - Plan Complicated UTI Presence of ureteral stent Patient underwent cystoscopy and ureteral stent exchange yesterday. Admitted to the medical floor Obtain blood cultures Start IV meropenem Hydrate with IV NS Urology consult Analgesics as needed. Check BMP and CMP COPD Asthma Without acute exacerbation Continue home bronchodilators. Essential hypertension Validate, reconcile and continue home medications. DVT prophylaxis: Lovenox Advanced directive: Full code. - Advance Directives Does patient have a Living Will: No Does patient have a Durable POA for Healthcare: No
[2024-06-05] MEDS: FLU (Fluarix Triv) TS24-25(6MOS UP)/PF 45 MCG/0.5 ML Syringe IM ONE (17:30)
[2024-06-05 17:38] VITALS: BMI 33.5
[2024-06-05 18:12] LABS: Absolute Basophils 0.1 K/uL (0-0.5); Absolute Eosinophils 0.4 K/uL (0-0.5); Absolute Lymphocytes (CBC) 1.3 K/uL (0.7-4.9); Absolute Monocytes 0.6 K/uL (0.1-1.3); Absolute Neutrophil 6.1 K/uL (1.8-8.0); Basophils % 0.8 % (0-1.3); Eosinophils % 4.3 % (0-4.4); Hemoglobin 11.8 g/dL (12.0-15.0); Lymphocytes % 15.5 % (15.3-44.8); MCH 28.6 pg (27.0-35.0); MCV 89.2 fL (80-100); Monocytes % 7.1 % (3.3-12.3); Neutrophils % 72.3 % (41.7-73.7); Nucleated Red Blood Cells % 0.1 % (0-0); PT Prothrombin Time 11.3 SECONDS (9.4-12.5); Platelets 213 thou/uL (152-406); Protime INR 1.01; RBC Red Blood Cell Count 4.14 M/uL (3.86-4.86); Red Cell Distribution Width 15.7 % (12.1-15.2)
[2024-06-05 18:42] LABS: Albumin 3.1 g/dL (3.4-5.0); Albumin/Globulin Ratio 0.7 (1.1-1.8); Alkaline Phosphatase 85 U/L (45-117); Anion Gap 12.3 mEq/L (5.0-15.0); BUN Blood Urea Nitrogen 31 mg/dL (7-18); Bicarbonate 26 mEq/L (21-32); Bilirubin Total 0.6 mg/dL (0.2-1.0); Globulin 4.2 g/dL (2.3-3.5); Glomerular Filtration Rate 40 ml/min (=/>90); Glucose Level 133 mg/dL (74-106); Magnesium 2.4 mg/dL (1.6-2.4); Phosphorus 3.4 mg/dL (2.5-4.9); Potassium 4.3 mEq/L (3.5-5.1); Protein, Total 7.3 g/dL (6.4-8.2); Sodium Level 140 mEq/L (136-145)
[2024-06-05 18:43] LABS: ALT/SGPT < 14 U/L (13-56); AST/SGOT < 10 U/L (15-37)
[2024-06-05] MEDS: Meropenem 1,000 MG in NA CHLORIDE 0.9% 100 ML IV SCH (19:09)
[2024-06-05] MEDS: NA CHLORIDE 0.9% 1,000 ML IV SCH (19:09)
--- NOTE | 2024-06-05 22:15 | RAD REPORT ---
EXAMINATION: CT ABDOMEN AND PELVIS WITHOUT CONTRAST CLINICAL INDICATION: assess residual kidney stone burden or for abscess TECHNIQUE: CT abdomen and pelvis was performed, without IV contrast, as per department protocol. Axia l, sagittal and coronal reconstructions were obtained. One or more of the following dose reduction techniques were used: Automated exposure control, adjustment of the mA and kV according to the patien t size, and iterative reconstruction. Unless otherwise specified, incidental findings do not require dedicated imaging follow-up. COMPARISON: 02/22/2024 FINDINGS: The lack of intravenous contrast limits the sensitivity of this exam for evaluation of solid visceral organs, vascular structures, and retroperitoneum. LOWER CHEST: The visualized lung bases are clear. LIVER:Normal in size and contour. No focal lesion. Grossly unremarkable gallbladder. SPLEEN: Normal size. No focal lesion. PANCREAS: No mass, ductal dilation, or jayshree-pancreatic fluid. ADRENALS: Normal; no mass. KIDNEYS AND URETERS: Bilateral double-J stents are in place. Proximal aspect of both stents is in the upper pole calyces. No stone is seen along the course of either stent. The distal aspect of both stents is in the urinary bladder. Urinary bladder appears decompressed. 7 mm calculus is seen inferio r pole left kidney. Mild hydronephrosis is present bilaterally. Mild fat stranding is seen surrounding both ureters URINARY BLADDER: Decompressed. GASTROINTESTINAL TRACT: No evidence of bowel obstruction, significant free fluid, free air or abscess . APPENDIX: Appendix not visualized, but no inflammatory changes in region of appendix. LYMPH NODES: No lymphadenopathy. MUSCULOSKELETAL: Mild multilevel spinal degenerative changes. Mild degenerative anterolisthesis L5 on S1. Mild lumbar levoscoliosis. ADDITIONAL FINDINGS: None. IMPRESSION: Bilateral double-J stents are in place with proximal and distal aspects as described. 7 mm calculus inferior pole left kidney. Mild bilateral hydroureter with mild surrounding fat stranding noted, urinary tract infection not exc luded. No abscess seen.
[2024-06-06 05:40] LABS: Anion Gap 7.1 mEq/L (5.0-15.0); Magnesium 2.2 mg/dL (1.6-2.4); Potassium 4.1 mEq/L (3.5-5.1)
[2024-06-06] MEDS: ENOXAPARIN 30 MG/0.3 ML SQ SCH (09:08)
[2024-06-06] MEDS: TAMSULOSIN 0.4 MG SR CAP PO SCH (09:08)
[2024-06-06] MEDS: ACETAMINOPHEN 500 MG TAB PO PRN (09:47)
--- NOTE | 2024-06-06 12:47 | P.PN ---
Subjective Date of Service: 06/06/24 Chief Complaint: UTI Patient states she feels better today compared to yesterday. No recorded fever. No loss of appetite. Physical Examination - Vital Signs Temperature: 98.6 F Blood Pressure: 130/67 Pulse: 75 Respirations: 12 Pulse Ox (%): 98 - Studies Laboratory Data (last 24 hrs) 06/06/24 06/05/24 06/05/24 05:10 17:50 17:50 WBC Hgb Hct Plt Count PT 11.3 INR 1.01 Sodium 140 140 Potassium 4.1 4.3 BUN 28 H 31 H Creatinine 1.12 H 1.34 H Glucose 101 133 H Phosphorus 3.0 3.4 Magnesium 2.2 2.4 Total Bilirubin 0.6 AST < 10 L ALT < 14 Alkaline Phosphatase 85 06/05/24 17:50 WBC 8.50 Hgb 11.8 L Hct 37.0 Plt Count 213 PT INR Sodium Potassium BUN Creatinine Glucose Phosphorus Magnesium Total Bilirubin AST ALT Alkaline Phosphatase Microbiology Data (last 24 hrs): 06/05/24 17:35 Blood - Blood Anaerobic Blood Culture - Final 06/05/24 17:50 Blood - Blood Anaerobic Blood Culture - Final Assessment And Plan - Current Problems (Diagnosis) (1) Complicated UTI (urinary tract infection) Current Visit: Yes Status: Acute (2) S/P ureteral stent placement Current Visit: Yes Status: Acute (3) Asthma Current Visit: No Status: Acute (4) COPD (chronic obstructive pulmonary disease) Current Visit: No Status: Acute (5) HTN (hypertension) Current Visit: No Status: Acute - Plan Physical examination General: Alert and oriented x3, NAD, HEENT: Conjunctiva not pale, anicteric sclera Neck: Supple, no elevated JVD Heart: Heart sounds 1 and 2 normal, regular rhythm, normal rate, no pedal edema Lungs: Clear to auscultation bilaterally, adequate breath sounds bilaterally, no rhonchi or crackles. Abdomen: Soft, nondistended, nontender, normal bowel sounds. Extremities: No tenderness, no deformity Skin: Normal skin turgor, no rash, no nodules or ulcers. Neuro: No focal motor deficit. Normal speech. Psychiatry: Normal mood, no agitation. Complicated UTI Presence of ureteral stent Patient underwent cystoscopy and ureteral stent exchange yesterday. Blood cultures are pending. No leukocytosis. Patient is clinically improving with IV meropenem Continue IV Merrem Urology consult Analgesics as needed. COPD Asthma Without acute exacerbation Continue home bronchodilators. Essential hypertension Stable Patient is currently normotensive. DVT prophylaxis: Lovenox Advanced directive: Full code.
--- NOTE | 2024-06-07 13:12 | P.PN ---
Subjective Date of Service: 06/07/24 Chief Complaint: UTI Patient reports an episode of diarrhea today, otherwise she does not complain No recorded fever. She denies any suprapubic pain. Physical Examination - Vital Signs Temperature: 98.1 F Blood Pressure: 138/77 Pulse: 67 Respirations: 16 Pulse Ox (%): 98 - Studies Microbiology Data (last 24 hrs): 06/05/24 17:50 Blood - Blood Anaerobic Blood Culture - Final 06/05/24 17:35 Blood - Blood Anaerobic Blood Culture - Final Assessment And Plan - Current Problems (Diagnosis) (1) Complicated UTI (urinary tract infection) Current Visit: Yes Status: Acute (2) S/P ureteral stent placement Current Visit: Yes Status: Acute (3) Asthma Current Visit: No Status: Acute (4) COPD (chronic obstructive pulmonary disease) Current Visit: No Status: Acute (5) HTN (hypertension) Current Visit: No Status: Acute - Plan Physical examination General: Alert and oriented x3, NAD, HEENT: Anicteric sclera Heart: Heart sounds 1 and 2 normal, regular rhythm, normal rate, no pedal edema Lungs: Clear to auscultation bilaterally, adequate breath sounds bilaterally, no rhonchi or crackles. Abdomen: Soft, nondistended, nontender, normal bowel sounds. Extremities: No tenderness, no deformity Skin: Normal skin turgor, no rash, no nodules or ulcers. Neuro: No focal motor deficit. Normal speech. Psychiatry: Normal mood, no agitation. Complicated UTI Presence of ureteral stent Status post recent cystoscopy and ureteral stent exchange. Blood cultures: No growth to date. Outpatient urine culture sensitive to Zosyn meropenem and nitrofurantoin. Of note patient has been taking prophylactic nitrofurantoin for recurrent UTI and may not be the best choice of antibiotics for this current infection. No leukocytosis. Patient is now asymptomatic with IV meropenem Continue IV Merrem. Place PICC line for outpatient IV meropenem. Urology consult Analgesics as needed. COPD Asthma Without acute exacerbation Continue home bronchodilators. Essential hypertension Stable Patient is currently normotensive. Diarrhea Check stool for C. difficile and fecal leukocyte. Continue meropenem Add probiotics DVT prophylaxis: Lovenox Advanced directive: Full code.
[2024-06-07 15:35] LABS: Specific Gravity 1.011 (1.005-1.030); Sqamous Epithelial <5 /HPF (None Seen); Urine Bacteria <20 /HPF (<20); Urine Bilirubin NEGATIVE (Negative); Urine Blood 2+ (Negative); Urine Clarity Extremely Turbid (Clear); Urine Color Colorless (Yellow); Urine Crystals Unidentified Few /HPF (None Seen); Urine Culture Reflex Order REFLEXED; Urine Glucose NEGATIVE (Negative); Urine Ketones NEGATIVE (Negative); Urine Micro Reflex YN NO BILL MICROSCOPIC; Urine Nitrite NEGATIVE (Negative); Urine Protein 1+ (Negative); Urine RBC >50 /HPF (None Seen); Urine Urobilinogen Normal (Normal); Urine WBC >50 /HPF (<5); Urine WBC Clump Few /HPF (None Seen); Urine Yeast (Budding) Moderate /HPF (None Seen); Urine pH 7.5 (5.0-7.0)
[2024-06-07] MEDS: LACTOBACILLUS/ACIDOPHILUS TAB PO SCH (21:15)
[2024-06-07] MEDS: DULERA 100/5 (MOMETASONE/FORMOTEROL) INHALER IH SCH (21:15)
[2024-06-08] MEDS: VITAMIN D 5,000 UNIT CAP PO SCH (08:04)
[2024-06-08] MEDS: ASCORBIC ACID 500 MG TABLET PO SCH (08:04)
--- NOTE | 2024-06-08 12:20 | P.PN ---
Subjective Date of Service: 06/08/24 Chief Complaint: UTI Patient reports frequent watery diarrhea since last night. She denies abdominal pain. Patient reports history of chronic intermittent diarrhea, about 2 episodes per month. No recorded fever. Physical Examination - Vital Signs Temperature: 97.2 F Blood Pressure: 173/83 Pulse: 65 Respirations: 16 Pulse Ox (%): 100 Assessment And Plan - Current Problems (Diagnosis) (1) Complicated UTI (urinary tract infection) Current Visit: Yes Status: Acute (2) S/P ureteral stent placement Current Visit: Yes Status: Acute (3) Asthma Current Visit: No Status: Acute (4) COPD (chronic obstructive pulmonary disease) Current Visit: No Status: Acute (5) HTN (hypertension) Current Visit: No Status: Acute - Plan Physical examination General: Alert and oriented x3, NAD, HEENT: Anicteric sclera Heart: Heart sounds 1 and 2 normal, regular rhythm, normal rate, no pedal edema Lungs: Clear to auscultation bilaterally, adequate breath sounds bilaterally, no rhonchi or crackles. Abdomen: Soft, nondistended, nontender, normal bowel sounds. Extremities: No tenderness, no deformity Skin: Normal skin turgor, no rash, no nodules or ulcers. Neuro: No focal motor deficit. Normal speech. Psychiatry: Normal mood, no agitation. Complicated UTI Presence of ureteral stent Status post recent cystoscopy and ureteral stent exchange. Blood cultures: No growth to date. Outpatient urine culture sensitive to Zosyn meropenem and nitrofurantoin. Of note patient has been taking prophylactic nitrofurantoin for recurrent UTI and may not be the best choice of antibiotics for this current infection. No leukocytosis. Patient is now asymptomatic with IV meropenem Continue IV Merrem. Midline placed for outpatient IV meropenem. Waiting for outpatient IV antibiotics to be arranged for discharge. Urology input appreciated. Analgesics as needed. COPD Asthma Without acute exacerbation Continue home bronchodilators. Essential hypertension Stable Patient is currently normotensive. Diarrhea Check stool for C. difficile and fecal leukocyte. Continue meropenem Continue probiotics. Antidiarrheal agent once C. difficile and other GI infection ruled out. DVT prophylaxis: Lovenox Advanced directive: Full code.
[2024-06-09 07:07] LABS: Absolute Basophils 0.1 K/uL (0-0.5); Absolute Eosinophils 0.3 K/uL (0-0.5); Absolute Lymphocytes (CBC) 1.2 K/uL (0.7-4.9); Absolute Monocytes 0.5 K/uL (0.1-1.3); Absolute Neutrophil 3.4 K/uL (1.8-8.0); Eosinophils % 5.3 % (0-4.4); Hematocrit 33.1 % (36.0-45.0); Hemoglobin 10.5 g/dL (12.0-15.0); Lymphocytes % 22.4 % (15.3-44.8); MCH 28.3 pg (27.0-35.0); MCHC 31.8 g/dL (32.0-36.0); MCV 88.8 fL (80-100); MPV 8.7 fL (7.6-11.3); Monocytes % 9.2 % (3.3-12.3); Neutrophils % 62.1 % (41.7-73.7); Platelets 166 thou/uL (152-406); RBC Red Blood Cell Count 3.73 M/uL (3.86-4.86); Red Cell Distribution Width 15.5 % (12.1-15.2)
[2024-06-09] MEDS: PNEUMOCOCCAL VACCINE 0.5 ML IMVAC ONE (10:00)
--- NOTE | 2024-06-09 12:23 | P.PN ---
Subjective Date of Service: 06/09/24 Chief Complaint: UTI Patient reports the diarrhea has stopped. She denies any complaint today. No recorded fever. Physical Examination - Vital Signs Temperature: 97.4 F Blood Pressure: 135/74 Pulse: 59 Respirations: 16 Pulse Ox (%): 97 - Studies Laboratory Data (last 24 hrs) 06/09/24 06/09/24 06:15 06:15 WBC 5.40 Hgb 10.5 L Hct 33.1 L Plt Count 166 Sodium 139 Potassium 4.0 BUN 24 H Creatinine 0.91 Glucose 103 Microbiology Data (last 24 hrs): 06/07/24 15:20 Catheterized Urine Lennon Count - Final No growth. 06/07/24 15:20 Catheterized Urine - Final No growth. Assessment And Plan - Current Problems (Diagnosis) (1) Complicated UTI (urinary tract infection) Current Visit: Yes Status: Acute (2) S/P ureteral stent placement Current Visit: Yes Status: Acute (3) Asthma Current Visit: No Status: Acute (4) COPD (chronic obstructive pulmonary disease) Current Visit: No Status: Acute (5) HTN (hypertension) Current Visit: No Status: Acute - Plan Physical examination General: Alert and oriented x3, NAD, Heart: Heart sounds 1 and 2 normal, regular rhythm, normal rate, no pedal edema Lungs: Clear to auscultation bilaterally, adequate breath sounds bilaterally, no rhonchi or crackles. Abdomen: Soft, nondistended, nontender, normal bowel sounds. Extremities: No tenderness, no deformity Skin: Normal skin turgor, no rash. Neuro: No focal motor deficit. Normal speech. Psychiatry: Normal mood, no agitation. Complicated UTI Presence of ureteral stent Status post recent cystoscopy and ureteral stent exchange. Blood cultures: No growth to date. Outpatient urine culture sensitive to Zosyn meropenem and nitrofurantoin. Of note patient has been taking prophylactic nitrofurantoin for recurrent UTI and may not be the best choice of antibiotics for this current infection. No leukocytosis. Patient is now asymptomatic. Continue IV Merrem. Midline placed for outpatient IV meropenem. Waiting for outpatient IV antibiotics to be arranged for discharge. Urology input appreciated. Analgesics as needed. COPD Asthma Without acute exacerbation Continue home bronchodilators. Essential hypertension Stable Patient is currently normotensive. Diarrhea Diarrhea resolved. I doubt patient has C. diff. continue meropenem Continue probiotics. DVT prophylaxis: Lovenox Advanced directive: Full code.
[2024-06-10 13:45] LABS: C.diff Antigen/Toxin Ag neg : Tox neg (NEG : NEG); CDIFF INTERNAL NEG CONTROL White Background (WHITE BKGD); STOOL CONSISTENCY Liquid/Semi-Solid
--- NOTE | 2024-06-10 18:42 | P.PN ---
Subjective Date of Service: 06/10/24 Chief Complaint: UTI Patient denies any complaint. No diarrhea. She denies any abdominal pain. No recorded fever. She reports good appetite and she is finishing her meals. Physical Examination - Vital Signs Temperature: 97.6 F Blood Pressure: 140/71 Pulse: 73 Respirations: 18 Pulse Ox (%): 95 - Studies Microbiology Data (last 24 hrs): 06/05/24 17:50 Blood - Blood Aerobic Blood Culture - Final No growth in 5 days. 06/05/24 17:50 Blood - Blood Anaerobic Blood Culture - Final 06/05/24 17:35 Blood - Blood Aerobic Blood Culture - Final No growth in 5 days. 06/05/24 17:35 Blood - Blood Anaerobic Blood Culture - Final Assessment And Plan - Current Problems (Diagnosis) (1) Complicated UTI (urinary tract infection) Current Visit: Yes Status: Acute (2) S/P ureteral stent placement Current Visit: Yes Status: Acute (3) Asthma Current Visit: No Status: Acute (4) COPD (chronic obstructive pulmonary disease) Current Visit: No Status: Acute (5) HTN (hypertension) Current Visit: No Status: Acute - Plan Physical examination General: Alert and oriented x3, NAD, Heart: Heart sounds 1 and 2 normal, regular rhythm, normal rate, no pedal edema Lungs: Clear to auscultation bilaterally, adequate breath sounds bilaterally, no rhonchi or crackles. Abdomen: Soft, nondistended, nontender, normal bowel sounds. Extremities: No tenderness, no deformity Skin: Normal skin turgor, no rash. Neuro: No focal motor deficit. Normal speech. Psychiatry: Normal mood, no agitation. Assessment and plan: Complicated UTI Presence of ureteral stent Status post recent cystoscopy and ureteral stent exchange. Blood cultures: No growth to date. Outpatient urine culture sensitive to Zosyn meropenem and nitrofurantoin. Of note patient has been taking prophylactic nitrofurantoin for recurrent UTI and may not be the best choice of antibiotics for this current infection. No leukocytosis. Patient is now asymptomatic. Repeat urine culture showed no growth IV Merrem day 6. Midline placed for outpatient IV meropenem. Patient to complete 10 days of IV Merrem per Urology Dr. Sethi recommendation According to social service, patient is not able to afford home IV antibiotics. She is being evaluated for SNF placement. Continue Tamsulosin PT consult. COPD Asthma Without acute exacerbation Continue home bronchodilators. Essential hypertension Stable Patient is currently normotensive. Diarrhea Diarrhea resolved. C. diff is unlikely. continue meropenem Continue probiotics. DVT prophylaxis: Lovenox Advanced directive: Full code.
[2024-06-11] MEDS: ENOXAPARIN 40 MG/0.4 ML SQ SCH (08:44)
--- NOTE | 2024-06-11 09:35 | P.PN ---
Date of Service: 06/11/24 Subjective: feeling better today no events overnight tolerating abx without issues looking into SNF facilities afebrile ROS: 10 point ROS as noted above, otherwise negative Physical Exam: GEN: Alert, oriented, NAD HEENT: Normal conjunctiva, sclera anicteric, CV: Regular rate and rhythm, no edema Pulm: Nonlabored respirations on room air, clear bilaterally ABD: soft, nontender, nondistended Integumentary: No rashes Neuro: Normal speech, normal affect Problem List: Complicated UTI; recurrent s/p recent cystoscopy with retrograde pyelogram with exchange of bilateral stent (06/04) Hx neuropathic detrusor of dysfunction, left UVJ obstruction, right ureteral stricture, chronic bilateral hydronephrosis COPD, chronic Asthma, chronic Essential hypertension Diarrhea, resolved Complicated UTI; recurrent s/p recent cystoscopy with retrograde pyelogram with exchange of bilateral stent (06/04) Hx neuropathic detrusor of dysfunction, left UVJ obstruction, right ureteral stricture, chronic bilateral hydronephrosis patient underwent cystoscopy and retrograde pyelogram with exchange of bilateral stent on 06/04/2024. urine cx (05/23): done by straight catheterization grew Citrobacter sensitive to Zosyn, meropenem and nitrofurantoin. Of note patient has been taking prophylactic nitrofurantoin for recurrent UTI and may not be the best choice of antibiotics for this current infection. Blood and urine cultures without growth here since 06/05 continue IV merrem (06/05-06/14) Midline placed for outpatient IV meropenem. Patient to complete 10 days of IV Merrem per Urology recs According to social service, patient is not able to afford home IV antibiotics. She is being evaluated for SNF placement. Continue flomax PT consult COPD, chronic Asthma, chronic Without acute exacerbation Continue home bronchodilators. Essential hypertension Stable Patient is currently normotensive. Diarrhea, resolved Diarrhea resolved. C. diff is unlikely. continue meropenem Continue probiotics. VTE: Lovenox Code: Full Dispo: SNF - pending approval Time Spent Managing Pts Care (In Minutes): 55
[2024-06-11 16:39] VITALS: BP 135/70; TEMP 97.5
--- NOTE | 2024-06-12 06:36 | P.DS ---
Admission Date: 06/05/24 Discharge Date: 06/11/24 Disposition: TRANSFER TO SNF - MEDICAL Discharge Condition: GOOD Reason for Admission: UTI Consultations: Urology - Dr. Sethi Brief History of Present Illness: 79yo F, PMH: recurrent UTI, past history of neuropathic detrusor of dysfunction, left UVJ obstruction, right ureteral stricture, chronic bilateral hydronephrosis, Patient followed by urology Dr. Sethi underwent cystoscopy and retrograde pyelogram with exchange of bilateral stent on 06/04/2024 was referred for admission by Dr. Sethi due to patient complaining of persistent generalized we akness and malaise. Patient denied any fever, denied any loss of appetite, denied any abdominal pain or back pain. She had a urine culture done by straight catheterization on 05/23/2024 which grew Citrobacter sensitive to Zosyn, meropenem and nitrofurantoin. Patient has been taking nitrofurantoin and was given meropenem prior to the procedure. There was still a concern for suboptimal UTI treatment given persistent malaise. Patient is therefore admitted for IV antibiotics and also to rule out bacteremia. Hospital Course: Complicated UTI; recurrent s/p recent cystoscopy with retrograde pyelogram with exchange of bilateral stent (06/04) Hx neuropathic detrusor of dysfunction, left UVJ obstruction, right ureteral stricture, chronic bilateral hydronephrosis patient underwent cystoscopy and retrograde pyelogram with exchange of bilateral stent on 06/04/2024 and was admitted to hospital under recommendation of Dr. Sethi due to resistant bacterial growth. urine cx (05/23): done by straight catheterization grew Citrobacter sensitive to Zosyn, meropenem and nitrofurantoin. Patient was taking prophylactic nitrofurantoin for recurrent UTI and so the decision to use alternative antibiotic was made for this current infection. Blood and urine cultures without growth here since 06/05 She was started on IV merrem on 06/05 5pm. A midline was placed for IV antibiotics. continue IV merrem (06/05-06/15) Patient to complete 10 days of IV Merrem per Urology recommendations. continue IV merrem (06/05-06/15) [facility] to complete remainder of antibiotic coruse. Continue flomax COPD, chronic Asthma, chronic Without acute exacerbation Continue home bronchodilators. Essential hypertension Stable Patient is currently normotensive. Diarrhea, resolved Initially she had some diarrhea which resolved on its own. C diff was felt to be unlikely, and given did not require any testing since it resolved. Continue probiotics. Physical Exam: GEN: Alert, NAD CV: Regular rate and rhythm, no edema Pulm: Nonlabored respirations on room air, clear bilaterally ABD: soft, nontender, nondistended Integumentary: No rashes Neuro: Normal speech, normal affect Vital Signs/Physical Exam: Temp Pulse Resp BP Pulse Ox 97.5 F 76 18 135/70 94 06/11/24 16:00 06/11/24 16:00 06/11/24 16:00 06/11/24 16:00 06/11/24 16:00 Laboratory Data at Discharge: WBC 5.40 thou/uL (4.3-10.9) 06/09/24 06:15 Hgb 10.5 g/dL (12.0-15.0) L 06/09/24 06:15 Hct 33.1 % (36.0-45.0) L 06/09/24 06:15 Plt Count 166 thou/uL (152-406) 06/09/24 06:15 PT 11.3 SECONDS (9.4-12.5) 06/05/24 17:50 INR 1.01 06/05/24 17:50 Sodium 139 mEq/L (136-145) 06/09/24 06:15 Potassium 4.0 mEq/L (3.5-5.1) 06/09/24 06:15 BUN 24 mg/dL (7-18) H 06/09/24 06:15 Creatinine 0.91 mg/dL (0.55-1.02) 06/09/24 06:15 Glucose 103 mg/dL (74-106) 06/09/24 06:15 Phosphorus 3.0 mg/dL (2.5-4.9) 06/06/24 05:10 Magnesium 2.2 mg/dL (1.6-2.4) 06/06/24 05:10 Total Bilirubin 0.6 mg/dL (0.2-1.0) 06/05/24 17:50 AST < 10 U/L (15-37) L 06/05/24 17:50 ALT < 14 U/L (13-56) 06/05/24 17:50 Alkaline Phosphatase 85 U/L (45-117) 06/05/24 17:50 Home Medications: Fluticasone Propion/Salmeterol [Advair Hfa 115-21 Mcg Inhaler] 2 puff IH BID 08/05/20 Albuterol [Proventil] 2 puff IH Q8HP PRN 12/23/23 Ascorbic Acid [Vitamin C] 500 mg PO DAILY 12/23/23 Potassium Gluconate [Potassium] 2 tab PO Q6H 12/23/23 Cholecalciferol (Vitamin D3) [Vitamin D 5,000 IU Cap*] 5,000 unit PO DAILY cap 12/24/23 L. Acidophilus/L.bulgaricus [Lactobacillus 1 Million Cfu Tb] 1 each PO BID 30 Days #30 tab 12/24/23 Mometasone/Formoterol [Dulera 100 Mcg/5 Mcg Inhaler] 2 puff IH BID #0 inhaler 12/24/23 Tamsulosin [Flomax*] 0.4 mg PO DAILY 30 Days #30 cap 12/24/23 Guaifenesin [Mucinex] 600 mg PO BID 02/28/24 Physician Discharge Instructions: Complicated UTI; recurrent s/p recent cystoscopy with retrograde pyelogram with exchange of bilateral stent (06/04) Hx neuropathic detrusor of dysfunction, left UVJ obstruction, right ureteral stricture, chronic bilateral hydronephrosis patient underwent cystoscopy and retrograde pyelogram with exchange of bilateral stent on 06/04/2024 and was admitted to hospital under recommendation of Dr. Sethi due to resistant bacterial growth. urine cx (05/23): done by straight catheterization grew Citrobacter sensitive to Zosyn, meropenem and nitrofurantoin. Patient was taking prophylactic nitrofurantoin for recurrent UTI and so the decision to use alternative antibiotic was made for this current infection. Blood and urine cultures without growth here since 06/05 She was started on IV merrem on 06/05 5pm. A midline was placed for IV antibiotics. continue IV merrem (06/05-06/15) Patient to complete 10 days of IV Merrem per Urology recommendations. continue IV merrem (06/05-06/15) [facility] be [facility] to complete remainder of antibiotic coruse. Continue flomax COPD, chronic Asthma, chronic Without acute exacerbation Continue home bronchodilators. Essential hypertension Stable Patient is currently normotensive. Diarrhea, resolved Initially she had some diarrhea which resolved on its own. C diff was felt to be unlikely, and given did not require any testing since it resolved. Continue probiotics. [facility] Call Mel Dowd MA at [phone] for questions or concerns after discharge. Expect a call within 1-2 business days of discharge. Alternate: Erica Odonnell MA at [phone] Time spent managing pt's care (in minutes): 45
== END 2024-06-11 18:30 | DRG 690 ==
LOC: 2ND 14:13
PROVIDERS: ADMIT Internal Medicine; ATTEND Hospitalist
DX: N39.0 Urinary tract infection, site not specified (principal); I10 Essential (primary) hypertension; E78.5 Hyperlipidemia, unspecified; J44.9 Chronic obstructive pulmonary disease, unspecified; N31.9 Neuromuscular dysfunction of bladder, unspecified; R19.7 Diarrhea, unspecified; Z88.5 Allergy status to narcotic agent; Z88.1 Allergy status to other antibiotic agents; Z88.8 Allergy status to other drugs, medicaments and biological substances; Z79.899 Other long term (current) drug therapy
CPT/HCPCS: 36415; 74176; 80048; 80053; 81001; 83735; 84100; 85025; 85610; 87040; 87086; 87088; 87324; J1650; J2185; J3535; J7030

== ENCOUNTER 2024-11-12 09:33 | Inpatient (IN) | payer OTHER ==
--- NOTE | 2024-11-12 10:06 | RAD REPORT ---
EXAMINATION: ONE VIEW CHEST XR CLINICAL INDICATION: FEVER TECHNIQUE: Frontal chest projection is submitted. Examination is limited by patient positioning and t echnique. COMPARISON: 12/22/2023 FINDINGS: The lungs are well inflated and clear. The heart is upper limit of normal in size. No displaced fract ures identified. IMPRESSION: No acute intrathoracic abnormalities.
[2024-11-12 10:15] LABS: Hematocrit 33.9 % (36.0-45.0); Hemoglobin 11.1 g/dL (12.0-15.0); RBC Red Blood Cell Count 3.96 M/uL (3.86-4.86)
[2024-11-12 10:16] LABS: Absolute Eosinophils 0.1 K/uL (0-0.5); Absolute Lymphocytes (CBC) 0.5 K/uL (0.7-4.9); Absolute Monocytes 0.8 K/uL (0.1-1.3); Absolute Neutrophil 6.5 K/uL (1.8-8.0); Basophils % 0.5 % (0-1.3); Lymphocytes % 6.5 % (15.3-44.8); MCH 28.1 pg (27.0-35.0); MCHC 32.8 g/dL (32.0-36.0); MCV 85.6 fL (80-100); MPV 7.5 fL (7.6-11.3); Monocytes % 10.4 % (3.3-12.3); Neutrophils % 81.6 % (41.7-73.7); Nucleated Red Blood Cells % 0.1 % (0-0); Platelets 247 thou/uL (152-406); Red Cell Distribution Width 15.8 % (12.1-15.2)
--- NOTE | 2024-11-12 10:26 | RAD REPORT ---
EXAMINATION: CT ABDOMEN AND PELVIS WITHOUT CONTRAST CLINICAL INDICATION: fever, hx of stones TECHNIQUE: CT abdomen and pelvis was performed, without IV contrast, as per department protocol. Axia l, sagittal and coronal reconstructions were obtained. One or more of the following dose reduction techniques were used: Automated exposure control, adjustment of the mA and kV according to the patien t size, and iterative reconstruction. Unless otherwise specified, incidental findings do not require dedicated imaging follow-up. COMPARISON: 06/05/2024 FINDINGS: The lack of intravenous contrast limits the sensitivity of this exam for evaluation of solid visceral organs, vascular structures, and retroperitoneum. LOWER CHEST: The visualized lung bases are clear. LIVER:Normal in size and contour. No focal lesion. Grossly unremarkable gallbladder. SPLEEN: Normal size. No focal lesion. PANCREAS: No mass, ductal dilation, or jayshree-pancreatic fluid. ADRENALS: Normal; no mass. KIDNEYS AND URETERS: Bilateral double-J stents are in place proximal and distal aspects in expected p ositioning. No stone seen along the course of either stent. There is mild bilateral hydronephrosis. Patchy stranding is seen surrounding the renal pelvi bilaterally. URINARY BLADDER: Decompressed. GASTROINTESTINAL TRACT: No evidence of bowel obstruction, significant free fluid, free air or abscess . Sigmoid diverticulosis coli. APPENDIX: Appendix not visualized, but no inflammatory changes in region of appendix. LYMPH NODES: No lymphadenopathy. MUSCULOSKELETAL: Mild retrolisthesis L5 on S1. ADDITIONAL FINDINGS: Mild lumbar levoscoliosis. IMPRESSION: Bilateral double-J stents are in place as detailed. Mild bilateral hydronephrosis. Fat stranding/infl ammation surrounding the renal pelvis bilaterally can indicate inflammation or infection
[2024-11-12] MEDS ORDERED: NA CHLORIDE 0.9% 500 ML ONE ×2 (11:06→11:38)
[2024-11-12] MEDS ORDERED: NA CHLORIDE 0.9% 100 ML ONE (11:06)
[2024-11-12] MEDS ORDERED: CEFTRIAXONE 1000 MG/VIAL ONE (11:06)
--- NOTE | 2024-11-12 11:16 | EDPHYS ---
Physician Documentation [facility] Name: Qing Richardson Age: 79 yrs Sex: Female : 1945 Arrival Date: 11/12/2024 Time: : Bed 7 Private MD: ED Physician Martín Hwang HPI: 11/12 09:36 This 79 yrs old Female presents to ER via Unassigned with complaints of AMS. rn 09:36 The patient presents with confusion, decreased responsiveness. Onset: The rn symptoms/episode began/occurred at an unknown time. Associated signs and symptoms: Pertinent negatives: abdominal pain, chest pain, headache, seizure, shortness of breath. Current symptoms: In the emergency department the patient's symptoms have improved. The patient has experienced similar episodes in the past. EMS reports altered mental status, unsure onset, patient was agitated when they picked her up, improved now. Given IV Tylenol en route. EMS reports febrile. Patient denies any pain. No back pain or abdominal pain. Denies vomiting.. Historical: - Allergies: 09:36 Amoxicillin; ll1 09:36 budesonide; ll1 09:36 Fentanyl; ll1 09:36 formoterol fumarate; ll1 09:36 oxybutynin; ll1 - PMHx: 09:36 Arthritis; frequent UTI (May 31); Asthma; Hyperlipidemia; High Cholesterol; ll1 Hypertension; Osteoporosis; deviated septum; HTN; COPD; - PSHx: 09:36 Left hip replacement; Bladder; right forearm pins; right forearm graft; Tonsillectomy; ll1 - Immunization history:: Adult Immunizations up to date. - Infectious Disease History:: Denies. - Family history:: not pertinent. - Hospitalizations: : No recent hospitalization is reported. - Social history:: Smoking status: unknown. - History obtained from: EMS. ROS: 09:38 Constitutional: Negative for fever, chills, and weight loss, Cardiovascular: Negative rn for chest pain, palpitations, and edema, Respiratory: Negative for shortness of breath, cough, wheezing, and pleuritic chest pain, Abdomen/GI: Negative for abdominal pain, nausea, vomiting, diarrhea, and constipation, : Negative for injury, bleeding, discharge, and swelling, MS/Extremity: Negative for injury and deformity, Skin: Negative for injury, rash, and discoloration, Neuro: Negative for headache, weakness, numbness, tingling, and seizure, Exam: 09:38 Constitutional: This is a well developed, well nourished patient who is awake, alert, rn and in no acute distress. ENT: Dry mucous membranes Cardiovascular: Regular rate and rhythm. No pulse deficits. Respiratory: No increased work of breathing, no retractions or nasal flaring. Abdomen/GI: Soft, non-tender Neuro: Awake and alert, GCS 15, oriented to person, place, time, and situation. 11:51 ECG was reviewed by the Attending Physician. rn Vital Signs: 10:09 BP 92 / 53; Pulse 84; Resp 18; Temp 97.6(TE); Pulse Ox 95% on R/A; Weight 82.55 kg; ll1 Height 5 ft. 1 in. ; Pain 0/10; 11:00 BP 112 / 87; Pulse 74; Resp 19; Pulse Ox 95% ; me1 12:00 BP 115 / 64; Pulse 69; Resp 18; Pulse Ox 91% ; me1 13:00 BP 128 / 82; Pulse 72; Resp 20; Pulse Ox 97% ; me1 13:49 BP 116 / 79; Pulse 77; Resp 18; Temp 98.1; Pulse Ox 97% on R/A; me1 14:00 BP 147 / 83; Pulse 80; Resp 17; Pulse Ox 96% ; me1 14:49 BP 145 / 78; Pulse 62; Resp 21; Pulse Ox 96% ; me1 10:09 Body Mass Index 34.39 (82.55 kg, 154.94 cm) ll1 10:09 Pain Scale: Adult ll1 MDM: 09:22 Medical Screening Exam initiated rn 11:15 Differential Diagnosis: electrolyte abnormality, UTI, volume depletion. Data reviewed: rn vital signs, nurses notes, lab test result(s), radiologic studies, CT scan, and as a result, I will admit patient. Consideration of Admission/Observation Patient was admitted/placed on observation. Escalation of care including admission/observation considered. Counseling: I had a detailed discussion with the patient and/or guardian regarding the historical points, exam findings, and any diagnostic results supporting the discharge/admit diagnosis, lab results, radiology results, the need for further work-up and treatment in the hospital. Response to treatment: the patient's symptoms have mildly improved after treatment, and as a result, I will admit patient. 11/12 09:31 Order name: Blood Culture Adult (2) rn 11/12 09:31 Order name: CBC with Diff; Complete Time: 10:30 rn 11/12 09:31 Order name: CMP rn 11/12 09:31 Order name: Lactate w/ 2H reflex if indic.; Complete Time: 10:58 rn 11/12 09:31 Order name: Protime (+inr) rn 11/12 09:31 Order name: Ptt, Activated rn 11/12 10:24 Order name: UA Rfx Medhat Cult if indicated rn 11/12 12:11 Order name: Urine Culture EDMS 11/12 13:15 Order name: Basic Metabolic Panel EDMS / 13:15 Order name: Basic Metabolic Panel EDMS / 13:15 Order name: Basic Metabolic Panel EDMS / 13:15 Order name: Basic Metabolic Panel EDMS / 13:15 Order name: Basic Metabolic Panel EDMS / 13:15 Order name: Basic Metabolic Panel EDMS / 13:15 Order name: CBC with Automated Diff EDMS 05/06 13:15 Order name: CBC with Automated Diff EDMS 05/06 13:15 Order name: CBC with Automated Diff EDMS 05/06 13:15 Order name: CBC with Automated Diff EDMS 05/06 13:15 Order name: CBC with Automated Diff EDMS 05/06 13:15 Order name: CBC with Automated Diff EDMS 05/06 13:15 Order name: Magnesium EDMS 05/06 13:15 Order name: Magnesium EDMS 05/06 13:15 Order name: Magnesium EDMS 05/06 13:15 Order name: Magnesium EDMS 05/06 13:15 Order name: Magnesium EDMS 05/06 13:16 Order name: Magnesium EDMS 05/06 13:16 Order name: Phosphorus EDMS 05/06 13:16 Order name: Phosphorus EDMS 05/06 13:16 Order name: Phosphorus EDMS 05/06 13:16 Order name: Phosphorus EDMS 05/06 13:16 Order name: Phosphorus EDMS 05/06 13:16 Order name: Phosphorus EDMS 05/06 09:31 Order name: Chest Single View XRAY; Complete Time: 10:24 rn 11/12 10:00 Order name: CT Stone Protocol; Complete Time: 10:30 rn 11/12 09:31 Order name: Accucheck; Complete Time: 11: rn 11/12 09:31 Order name: Cardiac monitoring; Complete Time: 10:35 rn 11/12 09:31 Order name: EKG - Nurse/Tech; Complete Time: 10:35 rn 11/12 09:31 Order name: IV Saline Lock - Large Bore; Complete Time: 10: rn 11/12 09:31 Order name: Labs collected and sent; Complete Time: 10: rn 11/12 09:31 Order name: O2 Per Protocol; Complete Time: 10: rn 11/12 09:31 Order name: O2 Sat Monitoring; Complete Time: 10: rn 11/12 09:31 Order name: Vital Signs; Complete Time: 10: rn 11/12 10:22 Order name: Labs - recollect needed: recollect green and blue tube; Complete Time: 10:44bd 11/12 11:20 Order name: Labs - recollect needed: recollect green and blue, inside lab will come to bd collect; Complete Time: 11:36 EC:51 Rate is 87 beats/min. Rhythm is regular. QRS [place] is Normal. IA interval is normal. QRS rn interval is normal. QT interval is normal. No Q waves. T waves are Normal. No ST changes noted. Clinical impression: NSR w/ Non-specific ST/T Changes. Interpreted by me. Reviewed by me. Administered Medications: 11:23 Drug: NS 0.9% IV 500 ml 500 ml IV at 1 bolus once; to be given as a bolus over 30 me1 minutes Volume: 500 ml; Route: IV; Rate: 1 bolus; Site: right forearm; 13:02 Follow up: Response: No adverse reaction; IV Status: Completed infusion; IV Intake: me1 500ml 11:23 Drug: Rocephin IV 1 grams IV at calculated rate once; Given slow IV push per pharmacy me1 instructions Route: IV; Rate: calculated rate; Site: right forearm; 11:41 Follow up: Response: No adverse reaction; IV Status: Completed infusion me1 11:36 Drug: NS 0.9% IV 500 ml 500 ml IV at 1 bolus once; to be given as a bolus over 30 me1 minutes Volume: 500 ml; Route: IV; Rate: 1 bolus; Site: right forearm; 13:50 Follow up: Response: No adverse reaction; IV Status: Completed infusion; IV Intake: me1 500ml Disposition Summary: 11/12/24 11:16 Hospitalization Ordered Notes: Hospitalization Status: Inpatient Admission rn Provider: Naif Hwang rn [facility] rn Condition: Stable rn Problem: new rn Symptoms: have improved rn Bed/Room Type: Standard rn Room Assignment: 224(11/12/24 13:36) bd Diagnosis - UTI/ Urinary tract infection, site not specified rn - Altered mental status, unspecified rn Forms: - Medication Reconciliation Form rn - SBAR form rn - Leadership Thank You Letter rn Signatures: Dispatcher [employer] EDUT Pepper Pang bd Martín Hwang MD MD rn Lewis, Lynsay, RN RN 1 Toshia Rushing RN RN me1 Corrections: (The following items were deleted from the chart) 10:24 10:24 UA Rfx Medhat Cult if indicated+U.LAB.BRZ ordered. EDUT EDUT 13:36 11:16 rn bd
--- NOTE | 2024-11-12 11:16 | ER ---
Nurse's Notes [facility] Name: Qing Richardson Age: 79 yrs Sex: Female : 1945 Arrival Date: 11/12/2024 Time: 09:22 Bed 7 Private MD: Diagnosis: UTI/ Urinary tract infection, site not specified;Altered mental status, unspecified Presentation: 11/12 09:35 Chief complaint: Patient states: UTI symptoms again for 2 days. AMS started today EMS ll1 states: ofermiev 1 GM IV, 500 ml bolus, fingerstick 120, temp 99.9 HR sinus tach. Coronavirus screen: Client denies travel out of the [place] in the last 14 days. At this time, the client does not indicate any symptoms associated with coronavirus-19. Ebola Screen: Patient denies travel to an Ebola-affected area in the 21 days before illness onset. Initial Sepsis Screen: Does the patient meet any 2 criteria? No. Patient's initial sepsis screen is negative. Does the patient have a suspected source of infection? No. Patient's initial sepsis screen is negative. Risk Assessment: Do you want to hurt yourself or someone else? Patient reports no desire to harm self or others. Onset of symptoms was November 11, 2024. 09:35 Method Of Arrival: Ambulatory ll1 09:35 Acuity: RHODA 3 ll1 Triage Assessment: 09:35 General: Appears uncomfortable, Behavior is calm, cooperative, appropriate for age, ll1 Reports fatigue for. Pain: Denies pain. Neuro: Reports weakness. : Reports burning with urination. Historical: - Allergies: 09:36 Amoxicillin; ll1 09:36 budesonide; ll1 09:36 Fentanyl; ll1 09:36 formoterol fumarate; ll1 09:36 oxybutynin; ll1 - PMHx: 09:36 Arthritis; frequent UTI (May 31); Asthma; Hyperlipidemia; High Cholesterol; ll1 Hypertension; Osteoporosis; deviated septum; HTN; COPD; - PSHx: 09:36 Left hip replacement; Bladder; right forearm pins; right forearm graft; Tonsillectomy; ll1 - Immunization history:: Adult Immunizations up to date. - Infectious Disease History:: Denies. - Family history:: not pertinent. - Hospitalizations: : No recent hospitalization is reported. - Social history:: Smoking status: unknown. - History obtained from: EMS. Screenin:41 [facility] ED Fall Risk Assessment (Adult) History of falling in the last 3 months, ll1 including since admission No falls in past 3 months (0 pts) Confusion or Disorientation No (0 pts) Intoxicated or Sedated No (0 pts) Impaired Gait Yes (1 pt) Mobility Assist Device Used Yes (1 pt) Altered Elimination Yes (1 pt) Score/Fall Risk Level 3 or more points = High Risk Maintained a safe environment, Hourly rounding (assess needs \T\ fall precautionary measures) done. Abuse screen: Denies threats or abuse. Nutritional screening: No deficits noted. Tuberculosis screening: No symptoms or risk factors identified. Assessment: 10:16 Reassessment: No changes from previously documented assessment. Patient and/or family ll1 updated on plan of care and expected duration. Pain level reassessed. Vital Signs: 10:09 BP 92 / 53; Pulse 84; Resp 18; Temp 97.6(TE); Pulse Ox 95% on R/A; Weight 82.55 kg; ll1 Height 5 ft. 1 in. ; Pain 0/10; 11:00 BP 112 / 87; Pulse 74; Resp 19; Pulse Ox 95% ; me1 12:00 BP 115 / 64; Pulse 69; Resp 18; Pulse Ox 91% ; me1 13:00 BP 128 / 82; Pulse 72; Resp 20; Pulse Ox 97% ; me1 13:49 BP 116 / 79; Pulse 77; Resp 18; Temp 98.1; Pulse Ox 97% on R/A; me1 14:00 BP 147 / 83; Pulse 80; Resp 17; Pulse Ox 96% ; me1 14:49 BP 145 / 78; Pulse 62; Resp 21; Pulse Ox 96% ; me1 10:09 Body Mass Index 34.39 (82.55 kg, 154.94 cm) ll1 10:09 Pain Scale: Adult ll1 ED Course: 09:22 Patient arrived in ED. rn 09:22 Martín Hwang MD is Attending Physician. rn 09:36 Triage completed. ll1 09:37 Arm band placed on Patient placed in an exam room, on a stretcher. ll1 09:40 Patient has correct armband on for positive identification. Bed in low position. ll1 Provided Education on: ER procedures and process. 09:41 Chest Single View XRAY In Process Unspecified. EDMS 09:47 Claudia Dalal, MELISSA is Primary Nurse. ll1 09:55 Initial lab(s) drawn, First set of blood cultures drawn. ll1 10:10 Inserted saline lock: 20 gauge in right antecubital area, using aseptic technique. ll1 Blood collected. Flushed with 10 mL NS. 10:14 CT Stone Protocol In Process Unspecified. EDMS 10:15 Second set of blood cultures drawn. ll1 10:32 EKG done, by ED staff, reviewed by Martín Hwang MD. nh2 11:03 UA Rfx Medhat Cult if indicated Sent. me1 11:03 Urine collected: straight cath specimen, cloudy, blood tinged. me1 11:16 Naif Hwang MD is Hospitalizing Provider. rn 12:59 Warm blanket given. ll1 13:49 No provider procedures requiring assistance completed. me1 13:51 Patient admitted, IV remains in place. me1 Administered Medications: 11:23 Drug: NS 0.9% IV 500 ml 500 ml IV at 1 bolus once; to be given as a bolus over 30 me1 minutes Volume: 500 ml; Route: IV; Rate: 1 bolus; Site: right forearm; 13:02 Follow up: Response: No adverse reaction; IV Status: Completed infusion; IV Intake: me1 500ml 11:23 Drug: Rocephin IV 1 grams IV at calculated rate once; Given slow IV push per pharmacy me1 instructions Route: IV; Rate: calculated rate; Site: right forearm; 11:41 Follow up: Response: No adverse reaction; IV Status: Completed infusion me1 11:36 Drug: NS 0.9% IV 500 ml 500 ml IV at 1 bolus once; to be given as a bolus over 30 me1 minutes Volume: 500 ml; Route: IV; Rate: 1 bolus; Site: right forearm; 13:50 Follow up: Response: No adverse reaction; IV Status: Completed infusion; IV Intake: me1 500ml Medication: 10:41 VIS not applicable for this client. ll1 Intake: 13:02 IV: 500ml; Total: 500ml. me1 13:50 IV: 500ml; Total: 1000ml. me1 Outcome: 11:16 Decision to Hospitalize by Provider. rn 13:49 Admitted to Med/surg accompanied by candida, via stretcher, room 224, with chart, Report me1 called to faxed, receipt confirmed with David 13:49 Condition: stable 13:49 Instructed on the need for admit, 14:49 Patient left the ED. ph Signatures: Dispatcher [employer] Martín Youssef MD MD rn Hall, Patricia, RN RN ph Claudia Dalal RN RN 1 Toshia Rushing RN RN mo1 Chapo Nolan, Pe[facility]
[2024-11-12 11:49] LABS: PT Prothrombin Time 13.9 SECONDS (10-13.0); PTT, Activated Partial Thromb 37.5 SECONDS (27.2-37.4); Protime INR 1.23
[2024-11-12 12:07] LABS: Specific Gravity 1.015 (1.005-1.030); Urine Bacteria 20-50 /HPF (<20); Urine Bilirubin NEGATIVE (Negative); Urine Blood 2+ (Negative); Urine Clarity Extremely Turbid (Clear); Urine Color Dark-Brown (Yellow); Urine Culture Reflex Order REFLEXED; Urine Glucose NEGATIVE (Negative); Urine Ketones NEGATIVE (Negative); Urine Microscopic Reflex YN ORDER UMIC; Urine Nitrite 1+ (Negative); Urine Protein 2+ (Negative); Urine RBC 21-50 /HPF (None Seen); Urine Urobilinogen Normal (Normal); Urine WBC >50 /HPF (<5); Urine WBC Clump Few /HPF (None Seen)
[2024-11-12 12:14] LABS: Albumin 2.4 g/dL (3.4-5.0); Albumin/Globulin Ratio 0.5 (1.1-1.8); Alkaline Phosphatase 93 U/L (45-117); Anion Gap 9.5 mEq/L (5.0-15.0); BUN Blood Urea Nitrogen 19 mg/dL (7-18); Bicarbonate 25 mEq/L (21-32); Bilirubin Total 0.4 mg/dL (0.2-1.0); Globulin 4.5 g/dL (2.3-3.5); Glomerular Filtration Rate 42 ml/min (=/>90); Glucose Level 114 mg/dL (74-106); Potassium 4.5 mEq/L (3.5-5.1); Protein, Total 6.9 g/dL (6.4-8.2); Sodium Level 142 mEq/L (136-145)
[2024-11-12 12:15] LABS: ALT/SGPT < 14 U/L (13-56); AST/SGOT < 10 U/L (15-37)
[2024-11-12] MEDS: NA CHLORIDE 0.9% 1,000 ML IV SCH (15:40)
[2024-11-12] MEDS: PNEUMOCOCCAL VACCINE 0.5 ML IMVAC ONE (17:00)
[2024-11-12] MEDS: Meropenem 500 MG in NA CHLORIDE 0.9% 100 ML IV SCH (17:47)
--- NOTE | 2024-11-12 18:37 | P.HP ---
Certification for Inpatient Patient admitted to: Observation With expected LOS: <2 Midnights Patient will require the following post-hospital care: None Practitioner: I am a practitioner with admitting privileges, knowledge of patient current condition, hospital course, and medical plan of care. Services: Services provided to patient in accordance with Admission requirements found in Title 42 Section 412.3 of the Code of Federal Regulations Patient History Date of Service: 11/12/24 Reason for admission: UTI History of Present Illness: Qing Richardson is a 79-year-old female with past medical history of Arthritis, frequent UTI (May 31), Asthma, Hyperlipidemia, High Cholesterol, Hypertension, Osteoporosis, deviated septum, HTN, COPD, who presents to the ED with chief complaint of weakness and foul-smelling urine. Family reports she is followed by Dr. Sethi closely and was started on Bactrim to prevent the frequent UTIs. Dr. Sethi stopped the Bactrim to test her urine and determine if Bactrim was successful. While off Bactrim she now presents with weakness and foul-smelling urine. She is noted to have chronic bilateral hydronephrosis and currently has bilateral ureter stents. Family reports her urine specimen while in the ED was pink and cloudy. Laboratory evaluation significant for H&H 11/33, left shift neutrophils 81, B UN/creatinine 19/1.3, GFR 42, serum glucose 114, UA suggestive of infectious process. CT abdomen reports "Bilateral double-J stents are in place as detailed. Mild bilateral hydronephrosis. Fat stranding/inflammation surrounding the renal pelvis bilaterally can indicate inflammation or infection" Chest x-ray reports "The lungs are well inflated and clear. The heart is upper limit of normal in size. No displaced fractures identified." Qing will be admitted to hospitalist service for further evaluation and treatment of frequent UTIs. Allergies formoterol [From Symbicort] Allergy (Unknown, Verified 05/30/24 08:47) unknown amoxicillin Allergy (Verified 05/30/24 08:47) severe diarrhea budesonide [From Symbicort] Allergy (Verified 05/30/24 08:47) unknown fentanyl Allergy (Verified 05/30/24 08:47) hallucinations oxybutynin [From Oxytrol] Allergy (Verified 05/30/24 08:47) Rash bactria Allergy (Uncoded 05/30/24 08:47) unknown z-pack Allergy (Uncoded 05/30/24 08:47) severe diarrhea Home Medications: Fluticasone Propion/Salmeterol [Advair Hfa 115-21 Mcg Inhaler] 2 puff IH BID 08/05/20 Albuterol [Proventil] 2 puff IH Q8HP PRN 12/23/23 Ascorbic Acid [Vitamin C] 500 mg PO DAILY 12/23/23 Potassium Gluconate [Potassium] 2 tab PO Q6H 12/23/23 Cholecalciferol (Vitamin D3) [Vitamin D 5,000 IU Cap*] 5,000 unit PO DAILY cap 12/24/23 L. Acidophilus/L.bulgaricus [Lactobacillus 1 Million Cfu Tb] 1 each PO BID 30 Days #30 tab 12/24/23 Mometasone/Formoterol [Dulera 100 Mcg/5 Mcg Inhaler] 2 puff IH BID #0 inhaler 12/24/23 Tamsulosin [Flomax*] 0.4 mg PO DAILY 30 Days #30 cap 12/24/23 Guaifenesin [Mucinex] 600 mg PO BID 02/28/24 - Past Medical/Surgical History Has patient received pneumonia vaccine in the past: Yes Diabetic: No -: HTN -: HYPERLIPIDIMEA -: ASTHMA -: Recurrent UTI -: Atrophic bladder -: HIP SX -: TONSILLECTOMY Psychosocial/ Personal History: Lives at home with family - Social History Smoking Status: Former smoker Alcohol use: No CD- Drugs: No Caffeine use: Yes Place of Residence: Home Review of Systems Other: Per HPI Physical Examination - Vital Signs Temperature: 98.1 F Blood Pressure: 145/78 Pulse: 62 Respirations: 21 Pulse Ox (%): 96 - Physical Exam General: Alert, In no apparent distress, Oriented x3 HEENT: Atraumatic, Normocephalic Neck: Supple Respiratory: Clear to auscultation bilaterally, Normal air movement Cardiovascular: No edema, Regular rate/rhythm, Normal S1 S2 Capillary refill: <2 Seconds Gastrointestinal: Normal bowel sounds, Soft and benign Musculoskeletal: No clubbing Integumentary: No rashes Neurological: Normal speech, Normal tone - Studies Laboratory Data (last 24 hrs) 11/12/24 11/12/24 11/12/24 11:30 11:30 09:55 WBC 8.00 Hgb 11.1 L Hct 33.9 L Plt Count 247 PT 13.9 H INR 1.23 APTT 37.5 H Sodium 142 Potassium 4.5 BUN 19 H Creatinine 1.30 H Glucose 114 H Total Bilirubin 0.4 AST < 10 L ALT < 14 Alkaline Phosphatase 93 Assessment and Plan - Plan Assessment and plan Weakness secondary to UTI in a patient with frequent UTI HARLEY -Previous urine culture growing Citrobacter Freundii Complex sensitive to merrem -Rocephin given in the ED - IV Merrem on the floor - Gentle IV fluids - Follow urine and blood culture - Physical therapy - Will need follow-up outpatient with Dr. Oakes Arthritis Asthma Hyperlipidemia Hypercholesterolemia hypertension Osteoporosis deviated septum HTN COPD - Continue home medication DVT PPx SCDs Full code LOS 2 to 3 days Discharge Plan: Home Plan to discharge in: 72 Hours - Advance Directives Does patient have a Living Will: Yes Does patient have a Durable POA for Healthcare: Yes
[2024-11-12] MEDS: ACETAMINOPHEN 325 MG TABLET PO PRN (21:41)
[2024-11-13 05:51] LABS: Absolute Eosinophils 0.1 K/uL (0-0.5); Absolute Lymphocytes (CBC) 0.8 K/uL (0.7-4.9); Absolute Neutrophil 6.7 K/uL (1.8-8.0); Basophils % 0.4 % (0-1.3); Eosinophils % 0.9 % (0-4.4); Hematocrit 34.9 % (36.0-45.0); Hemoglobin 11.4 g/dL (12.0-15.0); Lymphocytes % 9.1 % (15.3-44.8); MCH 28.3 pg (27.0-35.0); MCHC 32.6 g/dL (32.0-36.0); MCV 86.9 fL (80-100); MPV 7.4 fL (7.6-11.3); Monocytes % 12.1 % (3.3-12.3); Neutrophils % 77.5 % (41.7-73.7); Nucleated Red Blood Cells % 0.1 % (0-0); Platelets 224 thou/uL (152-406); RBC Red Blood Cell Count 4.02 M/uL (3.86-4.86); Red Cell Distribution Width 15.9 % (12.1-15.2)
[2024-11-13 06:06] LABS: Anion Gap 9.3 mEq/L (5.0-15.0); Magnesium 2.1 mg/dL (1.6-2.4); Potassium 4.3 mEq/L (3.5-5.1)
--- NOTE | 2024-11-13 06:38 | P.PN ---
Date of Service: 11/13/24 Subjective awake, slid down in bed but reports she is comfortable that way She is alert and oriented no new complaints ROS 10 point ROS as noted above, otherwise negative Physical Exam General: Alert and Oriented x3, NAD HEENT: Atraumatic, Normocephalic Neck: Supple Respiratory: Clear BBS, Normal air movement, on RA Cardiovascular: No edema, Regular rate/rhythm, Normal S1 S2 Capillary refill: <2 Seconds Gastrointestinal: Normal bowel sounds, Soft and benign on palpation Musculoskeletal: No clubbing Integumentary: No rashes Neurological: Normal speech, Normal tone Vitals Reviewed Problem list Weakness secondary to UTI in a patient with frequent UTI HARLEY Arthritis Asthma Hyperlipidemia Hypercholesterolemia hypertension Osteoporosis deviated septum HTN COPD Assessment and Plan Weakness secondary to UTI in a patient with frequent UTI HARLEY -Previous urine culture growing Citrobacter Freundii Complex sensitive to merrem -Rocephin given in the ED - IV Merrem on the floor - Gentle IV fluids - urine culture with 4+ gram negative rods - blood culture- NGTD - Physical therapy - Will need follow-up outpatient with Dr. Oakes Arthritis Asthma Hyperlipidemia Hypercholesterolemia hypertension Osteoporosis deviated septum HTN COPD - Continue home medication when appropriate DVT PPx SCDs Full code LOS 2 to 3 days Discharge Plan: Home Plan to discharge in: 72 Hours
[2024-11-13] MEDS: NA CHLORIDE 0.9% 1,000 ML IV SCH (21:00)
[2024-11-14 06:09] LABS: Absolute Eosinophils 0.2 K/uL (0-0.5); Absolute Lymphocytes (CBC) 0.7 K/uL (0.7-4.9); Absolute Monocytes 0.7 K/uL (0.1-1.3); Absolute Neutrophil 4.4 K/uL (1.8-8.0); Basophils % 0.5 % (0-1.3); Eosinophils % 3.1 % (0-4.4); Hematocrit 29.5 % (36.0-45.0); Hemoglobin 9.8 g/dL (12.0-15.0); Lymphocytes % 11.4 % (15.3-44.8); MCH 28.3 pg (27.0-35.0); MCHC 33.1 g/dL (32.0-36.0); MCV 85.4 fL (80-100); MPV 7.3 fL (7.6-11.3); Monocytes % 11.6 % (3.3-12.3); Neutrophils % 73.4 % (41.7-73.7); Nucleated Red Blood Cells % 0.2 % (0-0); Platelets 188 thou/uL (152-406); RBC Red Blood Cell Count 3.46 M/uL (3.86-4.86); Red Cell Distribution Width 16.2 % (12.1-15.2)
[2024-11-14 06:24] LABS: Anion Gap 8.6 mEq/L (5.0-15.0); Potassium 3.6 mEq/L (3.5-5.1)
[2024-11-14 06:33] LABS: Phosphorus 1.4 mg/dL (2.5-4.9)
[2024-11-14] MEDS: POTASSIUM PHOS IN 0.9 % NACL 15 MMOL/250 ML BAG IV SCH (09:32)
--- NOTE | 2024-11-14 11:49 | EKG ---
Test Date: 2024-11-12 Test Time: 10:27:25 Passenger Solicitor: ELISHA MEASUREMENT RESULTS: Intervals: Rate: 87 MI: 204 QRSD: 82 QT: 406 QTc: 488 [place]: P: 65 MI: 204 QRS: 62 T: 74 INTERPRETIVE STATEMENTS: Normal sinus rhythm Low voltage QRS Cannot rule out Anterior infarct, age undetermined Abnormal ECG Compared to ECG 12/22/2023 14:31:29 Myocardial infarct finding now present Electronically Signed On 11-14-24 11:43:57 CDT by Mick Nixon
--- NOTE | 2024-11-14 15:11 | P.PN ---
Date of Service: 11/14/24 Subjective Awake, finished breakfast independently no new symptoms, tolerating IV antibiotics Will need ID for antibiotic option, culture growing Klebsiella pneumoniae, allergy to amoxicillin ROS 10 point ROS as noted above, otherwise negative Physical Exam General: AAO x3, NAD Neck: Supple Respiratory: Clear BBS, nonlabored breathing, on RA Cardiovascular: No edema, normal sinus rhythm, Normal S1 S2 Capillary refill: <2 Seconds Gastrointestinal: Soft and benign on palpation Musculoskeletal: No clubbing Integumentary: No rashes Neurological: Normal speech, Normal tone Vitals Reviewed Problem list Weakness secondary to UTI in a patient with frequent UTI HARLEY Arthritis Asthma Hyperlipidemia Hypercholesterolemia hypertension Osteoporosis deviated septum HTN COPD Assessment and Plan Weakness secondary to UTI in a patient with frequent UTI HARLEY- improved -Previous urine culture growing Citrobacter Freundii Complex sensitive to merrem -Rocephin given in the ED - IV Merrem on the floor - Gentle IV fluids - urine culture growing Klebsiella pneumonia, allergy to amoxicillin -Consult Dr. Wilkinson- recommend 2 weeks of rocephin, end date November 28, 2024 -Midline ordered - blood culture- NGTD - Physical therapy - Will need follow-up outpatient with Dr. Oakes Arthritis Asthma Hyperlipidemia Hypercholesterolemia hypertension Osteoporosis deviated septum HTN COPD - Continue home medication when appropriate DVT PPx SCDs Full code LOS 2 to 3 days Discharge Plan: Home Plan to discharge in: 72 Hours
[2024-11-14 15:23] VITALS: BMI 34.4
[2024-11-14] MEDS: POTASS/SODIUM PHOSPHATE 1 PKT POWD.PACK PO ONE (15:54)
[2024-11-14] MEDS: CEFTRIAXONE 1,000 MG in NA CHLORIDE 0.9% 50 ML IVPB SCH (17:00)
[2024-11-14] MEDS: Mupirocin NASAL 2 APPL/1 GM TUBE NAS SCH (21:00)
--- NOTE | 2024-11-14 22:19 | CON ---
History Of Present Illness: This is a 79-year-old female. I was consulted for evaluation of recurre nt urinary tract infection. The patient coming in with Klebsiella pneumoniae urosepsis with involvem ent of kidneys seen on CT scan by hydronephrosis. The patient is being followed by urologist and has stent placed in her ureter. The patient denies any headache, nausea, vomiting, chest pain, abdomina l pain, constipation, or diarrhea. Her initial symptoms on admission were weakness and foul smelling urine. The patient has been on Bactrim to prevent recurrent urinary tract infection. The patient i s currently being treated with meropenem without any problems. Past Medical History: Hypertension, hyperlipidemia, recurrent urinary tract infection, asthma, atrop hic bladder, hip surgery, tonsillectomy. Social History: Tobacco history positive, quit in 1991. Alcohol history positive, also quit in 1989 s. Family History: Noncontributory. Medications: Meropenem. See MARs for other medications. Allergies: AMOXICILLIN CAUSES DIARRHEA. Review of Systems: A 10-point review was performed. Physical Examination: General: This is a 79-year-old female, lying in bed, not in any acute cardiopulmonary distress. Vital Signs: Temperature 97.8, pulse 76, respirations 16, blood pressure 136/71. HEENT: Unremarkable. Neck: Supple. Lungs: Basal crackles. Heart: S1, S2. Regular. Abdomen: Soft. Bowel sounds present. Obese. Extremities: Trace edema. Laboratory Data: Shows WBC 6, hemoglobin 9.8, platelets are 188, BUN of 19, creatinine 1.17. Micro Data: Blood cultures are negative to date. Urine cultures are growing more than 100,000 colon ies of Klebsiella pneumoniae. Urinalysis showed the patient has leukorrhea and hematuria and bacteri uria. Assessment And Plan: 1. This is a 79-year-old female with recurrent urinary tract infection and stent placement to the ure ter, coming in with pyelonephritis and foul smelling urine, urinary tract infection. Urine cultures growing Klebsiella pneumoniae sensitive to Rocephin, we will recommend to switch the patient to Rocep hin 2 g daily. Discontinue meropenem. Continue antibiotic for 2 weeks. 2. Pyuria. 3. Hematuria. 4. Bacteriuria. 5. Anemia of chronic disease. 6. Morbid obesity. 7. Monitor signs of infection with WBC and fever trends. Thank you Dr. Hwang for consult. NF/JASON Voice ID: [id number] Report ID: [id number]
[2024-11-15 06:25] LABS: Absolute Eosinophils 0.3 K/uL (0-0.5); Absolute Lymphocytes (CBC) 0.8 K/uL (0.7-4.9); Absolute Monocytes 0.5 K/uL (0.1-1.3); Absolute Neutrophil 3.8 K/uL (1.8-8.0); Basophils % 0.7 % (0-1.3); Eosinophils % 5.9 % (0-4.4); Hematocrit 31.3 % (36.0-45.0); Hemoglobin 10.4 g/dL (12.0-15.0); Lymphocytes % 14.5 % (15.3-44.8); MCH 28.3 pg (27.0-35.0); MCHC 33.1 g/dL (32.0-36.0); MCV 85.5 fL (80-100); MPV 7.5 fL (7.6-11.3); Monocytes % 9.8 % (3.3-12.3); Neutrophils % 69.1 % (41.7-73.7); Nucleated Red Blood Cells % 0.1 % (0-0); Platelets 191 thou/uL (152-406); RBC Red Blood Cell Count 3.66 M/uL (3.86-4.86); Red Cell Distribution Width 15.6 % (12.1-15.2)
[2024-11-15 06:34] LABS: Anion Gap 9.2 mEq/L (5.0-15.0); Magnesium 2.2 mg/dL (1.6-2.4); Phosphorus 2.3 mg/dL (2.5-4.9); Potassium 4.2 mEq/L (3.5-5.1)
[2024-11-15 12:11] VITALS: O2SAT 95
--- NOTE | 2024-11-15 15:54 | P.DS ---
Admission Date: 11/12/24 Discharge Date: 11/15/24 Disposition: DC HOME/HOME HEALTH CARE Discharge Condition: GOOD Reason for Admission: UTI Brief History of Present Illness: Diagnosis Weakness secondary to UTI in a patient with frequent UTI HARLEY Arthritis Asthma Hyperlipidemia Hypercholesterolemia hypertension Osteoporosis deviated septum HTN COPD HPI 11/12/2024 Qing Richardson is a 79-year-old female with past medical history of Arthritis, frequent UTI (May 31), Asthma, Hyperlipidemia, High Cholesterol, Hypertension, Osteoporosis, deviated septum, HTN, COPD, who presents to the ED with chief complaint of weakness and foul-smelling urine. Family reports she is followed by Dr. Sethi closely and was started on Bactrim to prevent the frequent UTIs. Dr. Sethi stopped the Bactrim to test her urine and determine if Bactrim was successful. While off Bactrim she now presents with weakness and foul-smelling urine. She is noted to have chronic bilateral hydronephrosis and currently has bilateral ureter stents. Family reports her urine specimen while in the ED was pink and cloudy. Laboratory evaluation significant for H&H 11/33, left shift neutrophils 81, BUN/creatinine 19/1.3, GFR 42, serum glucose 114, UA suggestive of infectious process. CT abdomen reports "Bilateral double-J stents are in place as detailed. Mild bilateral hydronephrosis. Fat stranding/inflammation surrounding the renal pelvis bilaterally can indicate inflammation or infection" Chest x-ray reports "The lungs are well inflated and clear. The heart is upper limit of normal in size. No displaced fractures identified." Qing will be admitted to hospitalist service for further evaluation and treatment of frequent UTIs. Hospital Course: Weakness secondary to UTI in a patient with frequent UTI HARLEY- improved Patient was seen by Dr. Wilkinson-recommend 2 weeks of rocephin via midline, end date November 28, 2024 Urine culture growing Klebsiella pneumonia, allergy to amoxicillin Blood culture- NGTD Patient worked with Physical therapy Will need follow-up outpatient with Dr. Oakes Arthritis Asthma Hyperlipidemia Hypercholesterolemia hypertension Osteoporosis deviated septum HTN COPD Continued home medication when appropriate On 11/15/2024, Qing was seen on morning rounds hemodynamically stable. Uneventful hospital stay this admission. Dr. Monreal is cleared for discharge with recommendations for Rocephin x 2 weeks with end date of November 28. Will need to follow-up with Dr. Sethi outpatient as she has been managed with daily Bactrim due to frequent UTIs. hysical Exam General: Awake, alert, oriented x3, NAD Respiratory: Clear BBS, normal air movement, on RA Cardiovascular: No edema, NSR, Normal S1 S2 Gastrointestinal: Soft on palpation, Musculoskeletal: No clubbing Integumentary: No rashes Neurological: Normal speech, Normal tone Vital Signs/Physical Exam: Temp Pulse Resp BP Pulse Ox 97.8 F 69 16 108/61 95 11/15/24 12:00 11/15/24 12:00 11/15/24 12:00 11/15/24 12:00 11/15/24 12:00 Laboratory Data at Discharge: WBC 5.50 thou/uL (4.3-10.9) 11/15/24 06:13 Hgb 10.4 g/dL (12.0-15.0) L 11/15/24 06:13 Hct 31.3 % (36.0-45.0) L 11/15/24 06:13 Plt Count 191 thou/uL (152-406) 11/15/24 06:13 PT 13.9 SECONDS (10-13.0) H 11/12/24 11:30 INR 1.23 11/12/24 11:30 APTT 37.5 SECONDS (27.2-37.4) H 11/12/24 11:30 Sodium 140 mEq/L (136-145) 11/15/24 06:13 Potassium 4.2 mEq/L (3.5-5.1) D 11/15/24 06:13 BUN 18 mg/dL (7-18) 11/15/24 06:13 Creatinine 0.99 mg/dL (0.55-1.02) 11/15/24 06:13 Glucose 107 mg/dL (74-106) H 11/15/24 06:13 Phosphorus 2.3 mg/dL (2.5-4.9) L 11/15/24 06:13 Magnesium 2.2 mg/dL (1.6-2.4) 11/15/24 06:13 Total Bilirubin 0.4 mg/dL (0.2-1.0) 11/12/24 11:30 AST < 10 U/L (15-37) L 11/12/24 11:30 ALT < 14 U/L (13-56) 11/12/24 11:30 Alkaline Phosphatase 93 U/L (45-117) 11/12/24 11:30 Home Medications: Potassium Gluconate [Potassium] 2 tab PO TID 12/23/23 Acetaminophen [Tylenol] 650 mg PO TIDP PRN 11/12/24 Albuterol Sulfate [Albuterol Sulfate Hfa] 2 puff IH Q8HP PRN 11/14/24 Fluticasone Propion/Salmeterol [Advair Hfa 115-21 Mcg Inhaler] 2 puff IH BID 11/14/24 Ibandronate Sodium [Boniva] 150 mg PO Q30D 11/14/24 Physician Discharge Instructions: 1. Please call and schedule a follow-up appointment with your PCP in 3-5 days - Please follow-up with your PCP for medication refills/adjustments 2. Please call and schedule a follow-up appointment with in 3-5 days 3. Continue regular diet 4. activity restrictions fall precaution 5. Return to the ED if symptoms worsen IV antibiotics: Rocephin 1 g IVPB daily via midline with home health with detention. Flush PICC with 10 ml normal saline before and after medication administration and with 20 ml after blood draws. CBC and BMP weekly. Call results to PCP. Remove midline after course of antibiotics complete. Complete antibiotics for total of 2 weeks. Antibiotic end date November 28, 2024 [facility] Continuing Property Staff Accountant: THUY Shanks [phone]. Expect a call within 1-2 business days from discharge. Call with questions or concerns. Alternate: THUY Dc [phone]. Diet: Regular Activity: Fall precautions Followup: Abebe Morrell DO [Primary Care Provider] -
[2024-11-15 17:23] VITALS: BP 114/67; TEMP 97.9
[2024-11-15] MEDS ORDERED: Mupirocin NASAL 2 APPL/1 GM TUBE NAS SCH (21:00)
--- NOTE | 2024-11-15 23:34 | P.PN ---
Date of Service: 11/15/24 Subjective 10 ROS performed and negative unless stated in HPI. denied any concern or complaints. denied s/e with current abx Objective Temp Pulse Resp BP Pulse Ox 97.8 F 69 16 108/61 95 11/15/24 12:00 11/15/24 12:00 11/15/24 12:00 11/15/24 12:00 11/15/24 12:00 PE General:alert and responsive. not in distress HEENT: Unremarkable. Neck: Supple. Lungs: Basal crackles. Heart: S1, S2. Regular. Abdomen: Soft. Bowel sounds present.ND, NT Extremities: Trace edema. Laboratory Data WBC 5.50 thou/uL (4.3-10.9) 11/15/24 06:13 Hgb 10.4 g/dL (12.0-15.0) L 11/15/24 06:13 Hct 31.3 % (36.0-45.0) L 11/15/24 06:13 Plt Count 191 thou/uL (152-406) 11/15/24 06:13 PT 13.9 SECONDS (10-13.0) H 11/12/24 11:30 INR 1.23 11/12/24 11:30 APTT 37.5 SECONDS (27.2-37.4) H 11/12/24 11:30 Sodium 140 mEq/L (136-145) 11/15/24 06:13 Potassium 4.2 mEq/L (3.5-5.1) D 11/15/24 06:13 BUN 18 mg/dL (7-18) 11/15/24 06:13 Creatinine 0.99 mg/dL (0.55-1.02) 11/15/24 06:13 Glucose 107 mg/dL (74-106) H 11/15/24 06:13 Phosphorus 2.3 mg/dL (2.5-4.9) L 11/15/24 06:13 Magnesium 2.2 mg/dL (1.6-2.4) 11/15/24 06:13 Total Bilirubin 0.4 mg/dL (0.2-1.0) 11/12/24 11:30 AST < 10 U/L (15-37) L 11/12/24 11:30 ALT < 14 U/L (13-56) 11/12/24 11:30 Alkaline Phosphatase 93 U/L (45-117) 11/12/24 11:30 CT abdomen reports "Bilateral double-J stents are in place as detailed. Mild bilateral hydronephrosis. Fat stranding/inflammation surrounding the renal pelvis bilaterally can indicate inflammation or infection" Assessment and Planning 1. Pyelonephritis and recurrent UTI 2. Pyuria 3. Hematuria 4. anemia of chronic disease 5. bacteriuria Urine cultures are growing more than 100,000 colonies of Klebsiella pneumoniae Continue Rocephin for a total of 2 weeks monitor wbc and fever trend. tentative end date November 28, [address] Wilkinson
== END 2024-11-15 18:25 | disposition home health service (06) | DRG 690 ==
LOC: ER 09:33 → ERHOLD 13:04 → 2ND 13:51
PROVIDERS: ADMIT Hospitalist; ATTEND Hospitalist
PROC: 02HV33Z Insertion of Infusion Device into Superior Vena Cava, Percutaneous Approach (ICD-10-PCS; principal; 2024-11-14)
DX: N13.6 Pyonephrosis (principal); I10 Essential (primary) hypertension; N17.9 Acute kidney failure, unspecified; J34.2 Deviated nasal septum; M19.90 Unspecified osteoarthritis, unspecified site; D63.8 Anemia in other chronic diseases classified elsewhere; E66.01 Morbid (severe) obesity due to excess calories; E78.00 Pure hypercholesterolemia, unspecified; J44.9 Chronic obstructive pulmonary disease, unspecified; M81.0 Age-related osteoporosis without current pathological fracture; B96.1 Klebsiella pneumoniae [K. pneumoniae] as the cause of diseases classified elsewhere; R31.9 Hematuria, unspecified; Z88.5 Allergy status to narcotic agent; Z88.1 Allergy status to other antibiotic agents; Z88.8 Allergy status to other drugs, medicaments and biological substances; Z68.34 Body mass index [BMI] 34.0-34.9, adult; Z96.642 Presence of left artificial hip joint; Z79.899 Other long term (current) drug therapy; Z87.891 Personal history of nicotine dependence
CPT/HCPCS: 36415; 71045; 74176; 76377; 80048; 80053; 81001; 83605; 83735; 84100; 85025; 85610; 85730; 87040; 87077; 87086; 87088; 87186; 93005; 96361; 96365; 97116; 97161; 97530; 99285; J0696; J7030; J7040

== ENCOUNTER 2024-11-26 13:26 | Day surgery (SDC) | payer OTHER ==
[2024-11-26] MEDS: Ringers Lactate 1,000 ML IV ONE (14:00)
[2024-11-26] MEDS ORDERED: propofoL 200 MG/20 ML VIAL IV ONE (18:09)
[2024-11-26] MEDS ORDERED: MORPHINE 4 MG/ML SYR ONE (18:11)
[2024-11-26] MEDS ORDERED: ONDANSETRON 4 MG/2 ML VIAL ONE (18:21)
[2024-11-26] MEDS: CIPROFLOXACIN 400mg IV 400 MG/200 ML BAG IV ONE (18:22)
[2024-11-26] MEDS ORDERED: dexAMETHasone 10 MG/ML VIAL ONE (18:31)
--- NOTE | 2024-11-26 19:29 | P.OP ---
Date of Service: 11/26/24 Preoperative diagnoses: History of bilateral hydronephrosis History of right ureteral stricture disease History of left UVJ obstruction History of recurrent complicated UTIs Postoperative diagnoses: Right ureteral stricture disease at S1-S2/pelvic inlet Retained left ureteral stent Recurrent complicated UTI Principal procedures: Cystoscopy with bladder washout Right retrograde pyelography Right 7 Swedish by 24 cm ureteral stent exchange Left retrograde pyelography Left ureteral stent extraction Urethral Russo catheter placement Indications for procedure: 79-year-old woman with history of recurrent complicated UTIs causing severe cystitis resulting in thickened detrusor contributing to left UVJ obstruction. She was noted to have right hydronephrosis and was found to have right ureteral stricture disease contributing. Despite having bilateral ureteral stents in place and managing the patient's complicating infection resulting in improved voiding ability, where patient was essentially incontinent of both urine and feces, she has suffered from a recurrent complicating infection during a brief period of prophylactic antimicrobial cessation in preparation for urine culture testing and planned ureteral stents extraction. Procedure note: The patient was consented in the preoperative holding area before being transferred to the operative suite where general anesthesia was induced. She was being treated actively with ceftriaxone 1 g daily for total of 14 days, and she had an additional 2 days of antimicrobial left in her therapeutic course. She was given an additional dose of ciprofloxacin for 100 mg IV for antimicrobial prophylaxis to cover the Enterococcus potentially not covered well by the ceftriaxone. Pneumoboots were provided for DVT prophylaxis. She was placed in the lithotomy position, padded and secured to the table appropriately. Her genitalia was covered in feces; so use of a Hibiclens and scrub brush soft sponge was used to cleanse away the gross feces before the genitalia was prepped additionally with Hibiclens per routine. She was then draped in standard fashion. The case was begun using a 22 Swedish rigid cystoscope to traverse the urethra, but before I could insert the cystoscope, I had to cleanse away some residual evidence of loose feces from within the introitus. I then was able to pass the cystoscope via her urethra into her bladder with ease, and the urine was quite cloudy and within the bladder. I thus decompressed the bladder of fluid and cloudy urine and then irrigated it several times with saline in order to clarify the urine and visualization. I surveyed the bladder, and no concerning papillary mucosal lesions were noted. The stents were emanating from the ureteral orifice ease bilaterally. The bladder was severely trabeculated with numerous cellules/large diverticuli with widemouth present. I thus started by grasping the right ureteral stent using an alligator grasper and delivered to the meatus. I passed a sensor wire via the stent coiling it in the putative collecting system on the right side. I then advanced a 5 Swedish ureteral access catheter over the sensor wire all the way into the collecting system where I injected contrast performing a retrograde pyelogram. Right retrograde pyelography: Using a 70: 30 mixture of Omnipaque and saline, contrast was injected via the lumen of the 5 Swedish ureteral access catheter and did delineate a nonhydronephrotic right renal pelvis and calyces. I thus advanced the 5 Swedish ureteral access catheter down into the distal ureter where again I injected the contrast and it did propagate up the distal ureter to within a couple of centimeters of the pelvic inlet, at which point an area of stricture or narrowing that would prohibit ease of contrast propagation retrograde was encountered. As a result, I advanced the 5 Swedish ureteral access catheter further to the point of stricture narrowing where I again injected the contrast and was able to get it to go beyond the point of stricture narrowing into the proximal ureter and ultimately all the way into the renal pelvis and calyces. As a result, I passed the sensor wire via the 5 Swedish ureteral access catheter back into the collecting system and remove the 5 Swedish ureteral access catheter. I then replaced it with a 7 Swedish by 24 cm double-J ureteral stent, which was successfully placed with a coil observed fluoroscopically in the upper pole of the right kidney and 1 cystoscopically formed in her bladder. I then turned my attention to the patient's left side. Similarly, grabbing the stent tip with an alligator grasper and delivering it to the meatus, I advanced a sensor wire into the collecting system as evidenced fluoroscopically. I then advanced a 5 Swedish ureteral access catheter over the sensor wire into the distal ureter where I injected contrast again. Left retrograde pyelography: Using a 70: 30 mixture of Omnipaque and saline, contrast was injected via the lumen of the 5 Swedish ureteral access catheter and did propagate up the distal into the mid and proximal ureter before entering the renal pelvis and calyces without any sign of hydronephrosis/pelvocaliectasis. No signs of ureteral obstruction were also encountered. As a result, I removed the 5 Swedish ureteral access catheter and did not replace the stent on the left side. Because the urine did appear grossly infected despite her having been on ceftriaxone for the last 12 days, I placed a 16 Swedish urethral Russo catheter into her bladder to allow complete decompression of the right collecting system which was restented. The catheter was connected to a floor bag, and a blue towel was placed, the tip within her introitus covering and the catheter and the urethra from ongoing loose stooling. The patient was then taken out of the lithotomy position. She was awakened from general anesthesia, transferred to a stretcher, and then transferred to the recovery room in good condition. Complications: None Discharge disposition: Given the persistence of the right ureteral stricture disease, she has the following options, which we will discuss on follow-up in the office within the next several weeks electively: #1 -Plan for chronic periodic ureteral stent exchanges. #2 -Placement of a right percutaneous nephrostomy tube in lieu of ureteral stent #3 -plan for definitive ureteroscopic incision and dilation of the stricture disease with temporary stent replacement #4 -forego ureteral stenting and assess degree of obstruction and functional decline over time with monitoring. - Meanwhile, resume prophylactic Macrobid once she is off of the ceftriaxone antimicrobial therapy.
[2024-11-26 19:34] VITALS: TEMP 97
[2024-11-26] MEDS: PHENAZOPYRIDINE 100MG TAB PO ONE (20:40)
[2024-11-26] MEDS ORDERED: PHENAZOPYRIDINE 100MG TAB PO ONE (21:02)
[2024-11-26 21:27] VITALS: BP 133/61; O2SAT 97
--- NOTE | 2024-11-26 22:31 | RAD REPORT ---
EXAM: Fluoroscopy use, Urethrocystogrphy Retrograde HISTORY: [facility] MAIN RIGHT STENT EXCHANGE COMPARISON: None FINDINGS: Multiple images were sent to PACS, during a fluoroscopically guided RIGHT STENT EXCHANGE. No radiologist was involved in protocoling or performance of the study, and no radiologist was present for the duration of the procedure. No interpretation of the saved images will be provided. Total fluoroscopy time: 51 seconds. IMPRESSION: Documentation of fluoroscopy use as above.
== END 2024-11-26 21:25 | disposition home or self-care (01) ==
LOC: OR 13:26
PROVIDERS: ATTEND Urology
PROC: 0TP98DZ Removal of Intraluminal Device from Ureter, Via Natural or Artificial Opening Endoscopic (ICD-10-PCS; 2024-11-26)
PROC: 0T768DZ Dilation of Right Ureter with Intraluminal Device, Via Natural or Artificial Opening Endoscopic (ICD-10-PCS; principal; 2024-11-26 16:00)
DX: R32 Unspecified urinary incontinence (principal); N13.0 Hydronephrosis with ureteropelvic junction obstruction; Z96.0 Presence of urogenital implants; Z87.440 Personal history of urinary (tract) infections; Z87.898 Personal history of other specified conditions
CPT/HCPCS: 74450; 51610; 52332; J2704; J1100; J2405; J0744; J7120

== ENCOUNTER 2024-11-27 10:51 | Emergency (ER) | payer OTHER ==
--- NOTE | 2024-11-27 12:06 | ER ---
Nurse's Notes [facility] Name: Qing Richardson Age: 79 yrs Sex: Female : 1945 Arrival Date: 11/27/2024 Time: 10:51 Bed 12 Private MD: Diagnosis: Encounter for replacement of midline Presentation: 11/27 11:09 Chief complaint: Patient states: RUE PICC line leaking blood. Leaks saline when ll1 flushed.. Coronavirus screen: Client denies travel out of the [place] in the last 14 days. At this time, the client does not indicate any symptoms associated with coronavirus-19. Ebola Screen: Patient denies travel to an Ebola-affected area in the 21 days before illness onset. Initial Sepsis Screen: Does the patient meet any 2 criteria? No. Patient's initial sepsis screen is negative. Does the patient have a suspected source of infection? No. Patient's initial sepsis screen is negative. Risk Assessment: Do you want to hurt yourself or someone else? Patient reports no desire to harm self or others. Onset of symptoms was November 26, 2024. 11:09 Method Of Arrival: Wheelchair ll1 11:09 Acuity: RHODA 3 ll1 Triage Assessment: 11:15 General: Appears in no apparent distress. Behavior is calm, cooperative, appropriate ll1 for age. Pain: Denies pain. Musculoskeletal: Reports RUE PICC LINE leaking bloody fluid for 2 days. Historical: - Allergies: 11:08 Amoxicillin; ll1 11:08 budesonide; ll1 11:08 Fentanyl; ll1 11:08 formoterol fumarate; ll1 11:08 oxybutynin; ll1 - PMHx: 11:08 deviated septum; Arthritis; Asthma; Hyperlipidemia; frequent UTI (May 31); COPD; ll1 HTN; High Cholesterol; Hypertension; Osteoporosis; - PSHx: 11:08 Bladder; Left hip replacement; right forearm graft; right forearm pins; Tonsillectomy; ll1 - Immunization history:: Adult Immunizations up to date. - Infectious Disease History:: Denies. - Social history:: Smoking status: Patient/guardian denies using tobacco. Screenin:15 [facility] ED Fall Risk Assessment (Adult) History of falling in the last 3 months, ll1 including since admission No falls in past 3 months (0 pts) Confusion or Disorientation No (0 pts) Intoxicated or Sedated No (0 pts) Impaired Gait No (0 pts) Mobility Assist Device Used Yes (1 pt) Altered Elimination No (0 pt) Score/Fall Risk Level 0 - 2 = Low Risk Maintained a safe environment, Hourly rounding (assess needs \T\ fall precautionary measures) done. Abuse screen: Denies threats or abuse. Nutritional screening: No deficits noted. Tuberculosis screening: No symptoms or risk factors identified. Assessment: 11:15 Reassessment: No changes from previously documented assessment. Patient and/or family ll1 updated on plan of care and expected duration. Pain level reassessed. Patient is alert, oriented x 3, equal unlabored respirations, skin warm/dry/pink. 12:05 Reassessment: Patient appears in no apparent distress at this time. Patient and/or kj2 family updated on plan of care and expected duration. Pain level reassessed. Patient is alert, oriented x 3, equal unlabored respirations, skin warm/dry/pink. Vital Signs: 11:09 BP 117 / 83; Pulse 72; Resp 17; Temp 97.1; Pulse Ox 95% on R/A; Weight 82.55 kg; Height ll1 5 ft. 1 in. ; Pain 0/10; 12:17 BP 118 / 84; Pulse 78; Resp 20; Temp 98; Pulse Ox 100% on R/A; kj2 11:09 Body Mass Index 34.39 (82.55 kg, 154.94 cm) ll1 11:09 Pain Scale: Adult ll1 ED Course: 10:54 Patient arrived in ED. mr 10:55 Darrian Martinez MD is Attending Physician. rt 11:10 Triage completed. ll1 11:11 Arm band placed on. ll1 11:16 Patient has correct armband on for positive identification. Bed in low position. ll1 Provided Education on: ER procedures and process. 11:17 No provider procedures requiring assistance completed. Patient did not have IV access ll1 during this emergency room visit. 11:53 Accessed peripheral vein via ultrasound, utilizing dynamic ultrasound technique 20 ss gauge 10 cm POWERGLIDE MIDLINE placed to L upper arm. Pt tolerated well using ,sterile technique, per hospital protocol. Clean \T\ dry. Dressing intact. Good blood return. Flushes easily. 12:17 Guy, Genia, RN is Primary Nurse. kj2 Administered Medications: No medications were administered Medication: 11:16 VIS not applicable for this client. ll1 Outcome: 12:05 Discharge ordered by . rt 12:18 Discharged to home ambulatory, kj2 12:18 Condition: stable 12:18 Discharge instructions given to patient, family, Instructed on discharge instructions, follow up and referral plans. Demonstrated understanding of instructions, follow-up care, 12:26 Patient left the ED. kj2 Signatures: Yaneli Wan, Reg Reg mr Marissa Sanchez, RN RN ss Claudia Dalal RN RN ll1 Darrian Martinez MD MD rt Genia Tovar, MELISSA RN kj2 Corrections: (The following items were deleted from the chart) 11:26 11:09 BP 117 / 83; Pulse 72bpm; Resp 17bpm; Pulse Ox 95% RA; 82.55 kg; Height 5 ft. 1 ll1 in.; BMI: 34.3; Pain 0/10, Adult; ll1
--- NOTE | 2024-11-27 12:06 | EDPHYS ---
Physician Documentation [facility] Name: Qing Richardson Age: 79 yrs Sex: Female : 1945 Arrival Date: 11/27/2024 Time: 10:51 Bed 12 Private MD: ED Physician Darrian Martinez HPI: 11/27 13:35 This 79 yrs old Female presents to ER via Wheelchair with complaints of PICC line rt problem. 13:35 Patient presents to the ED with leakage, nonfunctioning midline. She is using a midline rt for IV ceftriaxone for complicated UTI. Denies any other symptoms at this time, denies pain, swelling to the insertion site. Symptoms are mild in severity, no other aggravating or alleviating factors.. Historical: - Allergies: 11:08 Amoxicillin; ll1 11:08 budesonide; ll1 11:08 Fentanyl; ll1 11:08 formoterol fumarate; ll1 11:08 oxybutynin; ll1 - PMHx: 11:08 deviated septum; Arthritis; Asthma; Hyperlipidemia; frequent UTI (May 31); COPD; ll1 HTN; High Cholesterol; Hypertension; Osteoporosis; - PSHx: 11:08 Bladder; Left hip replacement; right forearm graft; right forearm pins; Tonsillectomy; ll1 - Immunization history:: Adult Immunizations up to date. - Infectious Disease History:: Denies. - Social history:: Smoking status: Patient/guardian denies using tobacco. ROS: 13:35 Constitutional: Negative for fever, chills, and weight loss, Cardiovascular: Negative rt for chest pain, palpitations, and edema, Respiratory: Negative for shortness of breath, cough, wheezing, and pleuritic chest pain, Abdomen/GI: Negative for abdominal pain, nausea, vomiting, diarrhea, and constipation, Skin: Negative for injury, rash, and discoloration, Neuro: Negative for headache, weakness, numbness, tingling, and seizure, Exam: 13:35 Constitutional: This is a well developed, well nourished patient who is awake, alert, rt and in no acute distress. Head/Face: Normocephalic, atraumatic. Chest/axilla: Normal chest wall appearance and motion. Nontender with no deformity. No lesions are appreciated. Cardiovascular: Regular rate and rhythm with a normal S1 and S2. No gallops, murmurs, or rubs. Normal PMI, no JVD. No pulse deficits. Respiratory: Lungs have equal breath sounds bilaterally, clear to auscultation and percussion. No rales, rhonchi or wheezes noted. No increased work of breathing, no retractions or nasal flaring. Abdomen/GI: Soft, non-tender, with normal bowel sounds. No distension or tympany. No guarding or rebound. No evidence of tenderness throughout. 13:35 Musculoskeletal/extremity: Small amount of blood oozing from PICC line insertion site, no swelling, erythema to the skin, no tenderness. Vital Signs: 11:09 BP 117 / 83; Pulse 72; Resp 17; Temp 97.1; Pulse Ox 95% on R/A; Weight 82.55 kg; Height ll1 5 ft. 1 in. ; Pain 0/10; 12:17 BP 118 / 84; Pulse 78; Resp 20; Temp 98; Pulse Ox 100% on R/A; kj2 11:09 Body Mass Index 34.39 (82.55 kg, 154.94 cm) ll1 11:09 Pain Scale: Adult ll1 MDM: 11:07 Medical Screening Exam initiated rt 13:59 Differential Diagnosis Midline malfunction. Data reviewed: vital signs, nurses notes, rt old medical records. Care significantly affected by the following chronic conditions: Complicated UTI, ureteral stents. Counseling: I had a detailed discussion with the patient and/or guardian regarding the historical points, exam findings, and any diagnostic results supporting the discharge/admit diagnosis, the need for outpatient follow up. Response to treatment: the patient's symptoms have resolved after treatment. ED course: Midline was replaced and exchanged without difficulty, patient stable for outpatient care.. 11/27 11:20 Order name: [facility] [place]. Order: Midline replacement; Complete Time: 12:19 rt Administered Medications: No medications were administered Disposition Summary: 11/27/24 12:05 Discharge Ordered Notes: Location: Home rt Problem: new rt Symptoms: have improved rt Condition: Stable rt Diagnosis - Encounter for replacement of midline rt Followup: rt - With: Private Physician - When: 2 - 3 days - Reason: Discharge Instructions: - Discharge Summary Sheet rt - PICC Home Care Guide rt Forms: - Medication Reconciliation Form rt - Antibiotic Education rt - Prescription Opioid Use rt - Patient Portal Instructions rt - Leadership Thank You Letter rt Signatures: Claudia Dalal, RN RN ll1 Darrian Martinez MD MD rt
[2024-11-27 12:33] VITALS: BP 118/84; TEMP 98; O2SAT 100
== END 2024-11-27 12:26 | disposition home or self-care (01) ==
LOC: ER 10:51
DX: Z45.2 Encounter for adjustment and management of vascular access device (principal)

== ENCOUNTER 2025-04-06 20:28 | Inpatient (IN) | payer OTHER ==
[2025-04-06 22:04] LABS: Absolute Lymphocytes (CBC) 0.6 K/uL (0.7-4.9); Hematocrit 33.3 % (36.0-45.0); Hemoglobin 10.8 g/dL (12.0-15.0); MCH 28.2 pg (27.0-35.0); MCHC 32.5 g/dL (32.0-36.0); MCV 86.7 fL (80-100); MPV 8.2 fL (7.6-11.3); Nucleated RBC Absolute Count 0.0 (0-0); Nucleated Red Blood Cells % 0.0 % (0-0); RBC Red Blood Cell Count 3.85 M/uL (3.86-4.86); White Blood Count 9.10 thou/uL (4.3-10.9)
[2025-04-06 22:10] LABS: Sqamous Epithelial <5 /HPF (None Seen); Urine Crystals Unidentified Many /HPF (None Seen); Urine Culture Reflex Order REFLEXED; Urine Microscopic Reflex YN ORDER UMIC; Urine WBC Clump Many /HPF (None Seen); Urine Yeast (Budding) Trace /HPF (None Seen)
[2025-04-06 22:22] LABS: Sqamous Epithelial None Seen /HPF (None Seen); Urine Crystals Unidentified Many /HPF (None Seen); Urine Culture Reflex Order REFLEXED; Urine Microscopic Reflex YN ORDER UMIC; Urine WBC Clump Many /HPF (None Seen)
[2025-04-06 22:24] LABS: ALT/SGPT < 14 U/L (13-56); AST/SGOT 11 U/L (15-37); Albumin 2.6 g/dL (3.4-5.0); Albumin/Globulin Ratio 0.6 (1.1-1.8); Alkaline Phosphatase 78 U/L (45-117); Anion Gap 8.1 mEq/L (5.0-15.0); BUN Blood Urea Nitrogen 22 mg/dL (7-18); Globulin 4.5 g/dL (2.3-3.5); Glucose Level 120 mg/dL (74-106); Potassium 4.1 mEq/L (3.5-5.1)
[2025-04-06 22:52] LABS: PT Prothrombin Time 14.8 SECONDS (10-13.0); PTT, Activated Partial Thromb 31.9 SECONDS (27.2-37.4); Protime INR 1.32
[2025-04-06] MEDS ORDERED: CEFTRIAXONE 1000 MG/VIAL ONE (23:14)
[2025-04-06] MEDS ORDERED: NA CHLORIDE 0.9% 1,000 ML ONE (23:14)
--- NOTE | 2025-04-06 23:41 | EDPHYS ---
Physician Documentation [facility] Name: Qing Richardson Age: 80 yrs Sex: Female : 1945 Arrival Date: 04/06/2025 Time: 20:28 Bed 8 Private MD: ED Physician Maycol Morris HPI: 04/06 23:10 This 80 yrs old Female presents to ER via EMS with complaints of Urinary Problem, kb Altered Mental Status. 23:10 Pt is an 80 year old female who was brought in for possible UTI. Daughter states pt has kb had a decreased appetite, fatigue and wasn't acting herself today. States these are the symptoms she normally has when she has a UTI. States pt had a nephrostomy tube placed 2 months ago and has an appt with Dr Sethi on 04/10 to plan for ureteral stent placement. . Historical: - Allergies: 21:05 Amoxicillin; zm 21:05 budesonide; zm 21:05 formoterol fumarate; zm 21:05 Fentanyl; zm 21:05 oxybutynin; zm - PMHx: 21:05 Asthma; Arthritis; COPD; frequent UTI (May 31); HTN; Hyperlipidemia; Osteoporosis; zm Hypertension; High Cholesterol; deviated septum; - PSHx: 21:05 Bladder; Left hip replacement; right forearm graft; right forearm pins; Tonsillectomy; zm - Immunization history:: Adult Immunizations up to date. - Infectious Disease History:: Denies. - Social history:: Smoking status: Patient denies any tobacco usage or history of. ROS: 23:09 Constitutional: As per HPI kb Exam: 23:09 Constitutional: This is a well developed, well nourished patient who is awake, alert, kb and in no acute distress. Head/Face: Normocephalic, atraumatic. ENT: Moist Mucous membranes Cardiovascular: Regular rate Respiratory: Respirations even and unlabored. No increased work of breathing. Talking in full sentences Abdomen/GI: Soft, non-tender. No distention Skin: Warm, dry with normal turgor. Normal color. MS/ Extremity: Pulses equal, no cyanosis. Neurovascular intact. Full, normal range of motion. Neuro: Awake and alert, GCS 15, oriented to person, place, time, and situation. 23:09 Back: nephrostomy tube in place on left flank, 23:09 ECG was reviewed by the Attending Physician. Vital Signs: 21:00 BP 128 / 91; Pulse 86; Resp 18; Temp 98.7; Pulse Ox 95% on R/A; Weight 82.55 kg; Height zm 5 ft. 1 in. ; Pain 0/10; 21:56 BP 104 / 70; Pulse 71; Resp 18; Pulse Ox 94% on R/A; kd3 23:23 BP 120 / 69; Pulse 64; Resp 17; Temp 98.7; Pulse Ox 97% ; Pain 0/10; bm8 23:24 BP 120 / 69; Pulse 92; Resp 17; Pulse Ox 97% on R/A; kd3 04/07 00:54 BP 130 / 63; Pulse 71; Resp 17; Temp 98.7; Pulse Ox 99% ; Pain 0/10; zm 01:47 BP 118 / 64; Pulse 65; Resp 17; Temp 98.7; Pulse Ox 98% ; Pain 0/10; zm 04/06 21:00 Body Mass Index 34.39 (82.55 kg, 154.94 cm) 04/06 21:00 Pain Scale: Adult zm 23:23 Pain Scale: Adult bm8 04/07 00:54 Pain Scale: Adult zm 01:47 Pain Scale: Adult zm [place] Coma Score: 04/06 23:23 Eye Response: spontaneous(4). Motor Response: obeys commands(6). Verbal Response: bm8 oriented(5). Total: 15. MDM: 20:58 Medical Screening Exam initiated kb 23:10 Data reviewed: vital signs, nurses notes. Historians other than the Patient: Daughter/Son: daughter. 23:39 Differential diagnosis: uti, pyelonephritis, sepsis. Consideration of kb Admission/Observation Patient was admitted/placed on observation. Escalation of care including admission/observation considered. Management of patient was discussed with the following: Hospitalist: [facility] Seay accepts pt for admission under Dr Gardiner. Counseling: I had a detailed discussion with the patient and/or guardian regarding the historical points, exam findings, and any diagnostic results supporting the discharge/admit diagnosis, lab results, radiology results, the need for further work-up and treatment in the hospital. 04/06 20:59 Order name: Blood Culture Adult (2) 04/06 20:59 Order name: CBC with Diff; Complete Time: 22:12 kb 04/06 20:59 Order name: CMP; Complete Time: 22:33 kb 04/06 20:59 Order name: Lactate w/ 2H reflex if indic.; Complete Time: 22:33 kb 04/06 20:59 Order name: Protime (+inr); Complete Time: 22:56 kb 04/06 20:59 Order name: Ptt, Activated; Complete Time: 22:56 kb 04/06 20:59 Order name: UA Rfx Medhat Cult if indicated; Complete Time: 22:33 kb 04/06 21:33 Order name: UA Rfx Medhat Cult if indicated; Complete Time: 22:12 kd3 04/06 22:14 Order name: Urine Culture EDMS 04/06 22:13 Order name: CT Abd/Pelvis - IV Contrast Only kb 04/06 20:59 Order name: Cardiac monitoring; Complete Time: 21:00 kb 04/06 20:59 Order name: EKG - Nurse/Tech; Complete Time: 21:00 kb 04/06 20:59 Order name: IV Saline Lock - Large Bore; Complete Time: 21:27 kb 04/06 20:59 Order name: Labs collected and sent; Complete Time: 21:31 kb 04/06 20:59 Order name: O2 Per Protocol; Complete Time: 21:27 kb 04/06 20:59 Order name: O2 Sat Monitoring; Complete Time: 21:27 kb 04/06 20:59 Order name: Vital Signs; Complete Time: 21:28 kb EC:09 Rate is 83 beats/min. Rhythm is regular. QRS [place] is Normal. SC interval is normal at kb 198 msec. QRS interval is normal at 80 msec. QT interval is normal at 432 msec. Administered Medications: 23:19 Drug: Rocephin IV 1 grams IV at calculated rate once; Given slow IV push per pharmacy bm8 instructions Route: IV; Rate: calculated rate; Site: left wrist; 04/07 01:45 Follow up: Response: No adverse reaction; IV Status: Completed infusion; IV Intake: zm 500ml 01:48 Follow up: Response: No adverse reaction; IV Status: Completed infusion zm 04/06 23:19 Drug: NS 0.9% IV 1000 ml IV at 1000 ml once; to be given as a bolus over 60 minutes bm8 Route: IV; Rate: 1000 ml; Site: left wrist; 04/07 01:48 Follow up: Response: No adverse reaction; IV Status: Completed infusion zm Disposition: 03:26 Co-signature as Attending Physician, Maycol Morris MD I agree with the assessment sp4 and plan of care. I reviewed the patient's care provided by the Advanced Practice Provider and agree with the diagnosis and treatment plan. Disposition Summary: 04/06/25 23:40 Hospitalization Ordered Notes: Hospitalization Status: Inpatient Admission kb Provider: Kailyn Gardiner Location: Telemetry/[facility]Sur (Inpatient) kb Condition: Stable kb Problem: new kb Symptoms: are unchanged kb Bed/Room Type: Standard Room Assignment: 211(04/07/25 01:23) rv1 Diagnosis - UTI/ Urinary tract infection, site not specified kb Forms: - Medication Reconciliation Form kb - SBAR form kb - Leadership Thank You Letter kb Signatures: Dispatcher [employer] EDMS Rose Marie Reilly, [employer]-C [employer]-Noemy Espinal, RN RN Dorota Guardado rv1 Maycol Morris MD MD sp4 Yousif Araujo, RN RN bm8 Corrections: (The following items were deleted from the chart) 04/06 20:59 20:59 BLOOD CULTURE*+BA.LAB.BRZ ordered. EDMS EDMS 20:59 20:59 CBC+H.LAB.BRZ ordered. EDMS EDMS 20:59 20:59 COMPREHENSIVE METABOLIC PANEL+C.LAB.BRZ ordered. EDMS EDMS 20:59 20:59 LACTATE+C.LAB.BRZ ordered. EDMS EDMS 20:59 20:59 PROTIME (+INR)+COAG.LAB.BRZ ordered. EDMS EDMS 20:59 20:59 PTT, ACTIVATED+COAG.LAB.BRZ ordered. EDMS EDMS 20:59 20:59 UA Rfx Medhat Cult if indicated+U.LAB.BRZ ordered. EDMS EDMS 20:59 20:59 UA Rfx Medhat Cult if indicated+U.LAB.BRZ ordered. EDMS EDMS 21:06 21:05 Allergies: Unable to obtain; zm zm 22:14 22:14 Abdomen Pelvis W Con+CT.RAD.BRZ ordered. EDMS EDMS 04/07 01:23 09/28 23:40 kb rv1
--- NOTE | 2025-04-06 23:41 | ER ---
Nurse's Notes [facility] Name: Qing Richardson Age: 80 yrs Sex: Female : 1945 Arrival Date: 04/06/2025 Time: 20:28 Bed 8 Private MD: Diagnosis: UTI/ Urinary tract infection, site not specified Presentation: 04/06 21:00 Chief complaint: EMS states: daughter called EMS for multiple UTIs and altered mental zm status still after just finishing antibiotics. Coronavirus screen: Vaccine status: Patient reports receiving the 2nd dose of the covid vaccine. Client denies travel out of the [place] in the last 14 days. Ebola Screen: Patient denies travel to an Ebola-affected area in the 21 days before illness onset. No symptoms or risks identified at this time. Initial Sepsis Screen: Does the patient meet any 2 criteria? No. Patient's initial sepsis screen is negative. Does the patient have a suspected source of infection? No. Patient's initial sepsis screen is negative. Risk Assessment: Do you want to hurt yourself or someone else? Patient reports no desire to harm self or others. Onset of symptoms is unknown. Care prior to arrival: Medication(s) given: Normal saline infusion, 500 mL, Tylenol, 1000 mg, IV initiated. 20 GA, in the left wrist. 21:00 Method Of Arrival: EMS: [facility] 21:00 Acuity: RHODA 3 zm Triage Assessment: 21:05 General: Appears in no apparent distress. comfortable, Behavior is calm, cooperative. zm Pain: Denies pain. Neuro: Level of Consciousness is awake, alert, obeys commands, Oriented to person, place, time, situation. Cardiovascular:. Historical: - Allergies: 21:05 Amoxicillin; zm 21:05 budesonide; zm 21:05 formoterol fumarate; zm 21:05 Fentanyl; zm 21:05 oxybutynin; zm - PMHx: 21:05 Asthma; Arthritis; COPD; frequent UTI (May 31); HTN; Hyperlipidemia; Osteoporosis; zm Hypertension; High Cholesterol; deviated septum; - PSHx: 21:05 Bladder; Left hip replacement; right forearm graft; right forearm pins; Tonsillectomy; zm - Immunization history:: Adult Immunizations up to date. - Infectious Disease History:: Denies. - Social history:: Smoking status: Patient denies any tobacco usage or history of. Screenin:57 [facility] ED Fall Risk Assessment (Adult) History of falling in the last 3 months, kd3 including since admission No falls in past 3 months (0 pts) Confusion or Disorientation Yes (5 pts) Intoxicated or Sedated No (0 pts) Impaired Gait Yes (1 pt) Mobility Assist Device Used No (0 pt) Altered Elimination No (0 pt) Score/Fall Risk Level 3 or more points = High Risk Maintained a safe environment. Abuse screen: Denies threats or abuse. Denies injuries from another. Nutritional screening: No deficits noted. Tuberculosis screening: No symptoms or risk factors identified. Assessment: 21:57 General: Appears in no apparent distress. Behavior is cooperative, anxious. Neuro: kd3 Level of Consciousness is awake, alert, obeys commands, Oriented to person, place, time, situation. Cardiovascular: Capillary refill < 3 seconds Patient's skin is warm and dry. Respiratory: Airway is patent Trachea midline Respiratory effort is even, unlabored, Respiratory pattern is regular, symmetrical. 23:23 General: Appears in no apparent distress. comfortable, Behavior is calm, cooperative, bm8 appropriate for age. Pain: Denies pain. Neuro: No deficits noted. Level of Consciousness is awake, alert, obeys commands, Oriented to person, place, time, situation, Appropriate for age. Cardiovascular: Denies chest pain, Capillary refill < 3 seconds Patient's skin is warm and dry. Respiratory: Airway is patent Trachea midline Respiratory effort is even, unlabored, Respiratory pattern is regular, symmetrical. GI: No deficits noted. No signs and/or symptoms were reported involving the gastrointestinal system. : No deficits noted. No signs and/or symptoms were reported regarding the genitourinary system. EENT: No deficits noted. No signs and/or symptoms were reported regarding the EENT system. Derm: No deficits noted. No signs and/or symptoms reported regarding the dermatologic system. Musculoskeletal: No deficits noted. No signs and/or symptoms reported regarding the musculoskeletal system. 04/07 00:54 Reassessment: Patient appears in no apparent distress at this time. Patient and/or zm family updated on plan of care and expected duration. Pain level reassessed. Patient is alert, oriented x 3, equal unlabored respirations, skin warm/dry/pink. Patient denies pain at this time. Patient states feeling better. Patient states symptoms have improved. 01:43 Reassessment: Patient appears in no apparent distress at this time. No changes from zm previously documented assessment. Patient and/or family updated on plan of care and expected duration. Pain level reassessed. Patient is alert, oriented x 3, equal unlabored respirations, skin warm/dry/pink. Patient denies pain at this time. Patient states feeling better. Patient states symptoms have improved. Vital Signs: 04/06 21:00 BP 128 / 91; Pulse 86; Resp 18; Temp 98.7; Pulse Ox 95% on R/A; Weight 82.55 kg; Height zm 5 ft. 1 in. ; Pain 0/10; 21:56 BP 104 / 70; Pulse 71; Resp 18; Pulse Ox 94% on R/A; kd3 23:23 BP 120 / 69; Pulse 64; Resp 17; Temp 98.7; Pulse Ox 97% ; Pain 0/10; bm8 23:24 BP 120 / 69; Pulse 92; Resp 17; Pulse Ox 97% on R/A; kd3 04/07 00:54 BP 130 / 63; Pulse 71; Resp 17; Temp 98.7; Pulse Ox 99% ; Pain 0/10; zm 01:47 BP 118 / 64; Pulse 65; Resp 17; Temp 98.7; Pulse Ox 98% ; Pain 0/10; zm 04/06 21:00 Body Mass Index 34.39 (82.55 kg, 154.94 cm) zm 04/06 21:00 Pain Scale: Adult zm 23:23 Pain Scale: Adult bm8 04/07 00:54 Pain Scale: Adult zm 01:47 Pain Scale: Adult Hillary Coma Score: 04/06 23:23 Eye Response: spontaneous(4). Motor Response: obeys commands(6). Verbal Response: bm8 oriented(5). Total: 15. ED Course: 20:51 Patient arrived in ED. rv1 20:58 Rose Marie Reilly FNP-C [facility]. kb 20:58 Maycol Morris MD is Attending Physician. kb 20:59 EKG done, by ED staff, reviewed by Rose Marie CARLSON. oe 21:00 Noemy Forrester RN is Primary Nurse. zm 21:05 Triage completed. zm 21:08 Arm band placed on right wrist. zm 21:10 Patient has correct armband on for positive identification. Bed in low position. Call zm light in reach. Side rails up X2. 21:50 UA Rfx Medhat Cult if indicated Sent. kd3 21:50 UA Rfx Medhat Cult if indicated Sent. kd3 21:50 Blood Culture Adult (2) Sent. kd3 21:50 CBC with Diff Sent. kd3 21:50 CMP Sent. kd3 21:50 Lactate w/ 2H reflex if indic. Sent. kd3 21:50 Protime (+inr) Sent. kd3 21:50 Ptt, Activated Sent. kd3 21:50 No provider procedures requiring assistance completed. First set of blood cultures kd3 drawn by me, Second set of blood cultures drawn by me, Urine collected: straight cath specimen, cloudy. Inserted saline lock: 22 gauge in right forearm, using aseptic technique. Blood collected. Flushed with 10 mL NS. 23:00 CT Abd/Pelvis - IV Contrast Only In Process Unspecified. EDMS 23:40 Kailyn Gardiner MD is Hospitalizing Provider. 04/07 01:48 Patient admitted, IV remains in place. 01:48 Provided Education on: need for admission. zm Administered Medications: 04/06 23:19 Drug: Rocephin IV 1 grams IV at calculated rate once; Given slow IV push per pharmacy bm8 instructions Route: IV; Rate: calculated rate; Site: left wrist; 04/07 01:45 Follow up: Response: No adverse reaction; IV Status: Completed infusion; IV Intake: zm 500ml 01:48 Follow up: Response: No adverse reaction; IV Status: Completed infusion 04/06 23:19 Drug: NS 0.9% IV 1000 ml IV at 1000 ml once; to be given as a bolus over 60 minutes bm8 Route: IV; Rate: 1000 ml; Site: left wrist; 04/07 01:48 Follow up: Response: No adverse reaction; IV Status: Completed infusion Medication: 04/06 21:58 VIS not applicable for this client. kd3 Intake: 04/07 01:45 IV: 500ml; Total: 500ml. Outcome: 04/06 23:40 Decision to Hospitalize by Provider. 04/07 01:48 Admitted to Med/surg accompanied by tech, via stretcher, room 211, zm Condition: stable Instructed on the need for admit, Demonstrated understanding of instructions, follow-up care, medications, 02:42 Patient left the ED. lisa Signatures: Dispatcher [employer] Rose Marie Dickey, [facility] [employer] ATTENDANT-Jamil Lockwood Kyli, RN RN kd3 Noemy Forrester, RN RN zm Dorota Guardado rv1 Yousif Araujo RN RN bm8 Corrections: (The following items were deleted from the chart) 04/06 21:06 21:05 Allergies: Unable to obtain; lisa gonzalez
--- NOTE | 2025-04-06 23:46 | RAD REPORT ---
CLINICAL HISTORY: Fever. COMPARISON: CT Abdomen Pelvis 02/05/2025. TECHNIQUE: CT ABDOMEN PELVIS WITH IV CONTRAST on 04/06/2025 10:13 PM CDT This exam was performed according to our departmental dose-optimization program, which includes autom ated exposure control, adjustment of the mA and/or kV according to patient size and/or use of iterative reconstruction technique. FINDINGS: Lower lungs are clear. Abdomen: The liver is normal in appearance. There is no biliary dilatation. Gallbladder is normal in appearance. The pancreas and spleen are normal in appearance. Adrenal glands are normal. Both kidneys are mildly atrophic. There is stranding surrounding both renal collecting systems. There is a percutaneous left nephrostomy in place. Right ureteral stent is present. There is mild bilateral hydronephrosis. There is hyperdense material within the left proximal ureter abdominal aorta is heavily calcified wit hout aneurysm. There is no free air. There is no retroperitoneal adenopathy. Pelvis: There is no bowel obstruction. Urinary bladder is unremarkable. There is no free fluid. Uteru s is normal in size. Appendix is not clearly seen. Skeleton: There are no acute osseous findings. No suspicious bony lesions. Left hip arthroplasty was performed. IMPRESSION: Mild bilateral hydronephrosis with a left percutaneous nephrostomy and right ureteral stent in place. Hyperdense material within the left proximal ureter. This could represent blood products. Difficult to exclude an underlying infectious process within both renal collecting systems. Electronically signed by: Kenneth Leija MD 04/06/2025 11:24 PM CDT RP Due to temporary technical issues with the PACS/[email or web address] reporting system, reports are being shelton d by the in-house radiologist without review as a courtesy to ensure prompt reporting the interpreting radiologist is fully responsible for the content of the report. Transcribed Date/Time: 04/06/2025 11:45 PM
--- NOTE | 2025-04-07 01:20 | P.HP ---
Certification for Inpatient Patient admitted to: Inpatient With expected LOS: >2 Midnights Patient will require the following post-hospital care: None Practitioner: I am a practitioner with admitting privileges, knowledge of patient current condition, hospital course, and medical plan of care. Services: Services provided to patient in accordance with Admission requirements found in Title 42 Section 412.3 of the Code of Federal Regulations Patient History Date of Service: 04/07/25 Reason for admission: UTI, HARLEY, altered mental status. History of Present Illness: Patient is a pleasant 80 years old female with past medical history of asthma, arthritis, COPD, frequent and recurrent UTIs, hyperlipidemia, osteoporosis, hypertension, deviated septum. Patient brought to ER tonight due to altered mental status according to family, and urinary symptoms. Patient daughter states that patient has had decreased appetite, fatigue, and was not acting hers elf today. States these are the symptoms she normally have when she has a UTI. States patient nephrostomy tube was placed 2 months ago and has an appointment with Dr. Sethi on 04/10/25 with plan for ureteral stent placement. When I saw the patient for admission assessment, patient was fully awake, alert and oriented x 3, patient was not altered at this time, respond to my questions appropriately,communicates appropriately, and follows all commands appropriately. No focal or sensory deficit identified at this time. Patient in no acute distress at this time. Patient BUN 22, creatinine 1.31, GFR 41. Course in ER. (1) CT abdomen/pelvis. Impression: Mild bilateral hydronephrosis with a left percutaneous nephrostomy and right ureteral stent in place. Hyperdense material within the left proximal ureter. This could represent blood products. Difficult to exclude an underlying infectious process within both renal collecting system. Allergies formoterol [From Symbicort] Allergy (Unknown, Verified 05/30/24 08:47) unknown amoxicillin Allergy (Verified 05/30/24 08:47) severe diarrhea budesonide [From Symbicort] Allergy (Verified 05/30/24 08:47) unknown fentanyl Allergy (Verified 05/30/24 08:47) hallucinations oxybutynin [From Oxytrol] Allergy (Verified 05/30/24 08:47) Rash bactria Allergy (Uncoded 05/30/24 08:47) unknown z-pack Allergy (Uncoded 05/30/24 08:47) severe diarrhea Home Medications: Potassium Gluconate [Potassium] 2 tab PO TID 12/23/23 Acetaminophen [Tylenol] 650 mg PO TIDP PRN 11/12/24 Albuterol Sulfate [Albuterol Sulfate Hfa] 2 puff IH Q8HP PRN 11/14/24 Ibandronate Sodium [Boniva] 150 mg PO Q30D 11/14/24 Ascorbic Acid [Vitamin C*] 500 mg PO DAILY 11/22/24 Ceftriaxone [Rocephin] 500 mg IV DAILY 11/22/24 Cranberry Fruit Extract [Ellura] 200 mg PO DAILY 11/22/24 Levocetirizine Dihydrochloride [Allergy Relief] 5 mg PO DAILYPRN PRN 11/22/24 Nitrofurantoin Monohyd/M-Cryst [Nitrofurantoin [place]-Mcr 100 mg] 100 mg PO DAILY #90 cap 11/26/24 - Past Medical/Surgical History Diabetic: No -: HTN -: HYPERLIPIDIMEA -: ASTHMA -: Frequent and recurrent UTI -: Atrophic bladder -: Arthritis. -: COPD. -: Hyperlipidemia -: Osteoporosis. -: Deviated septum. -: HIP SX -: TONSILLECTOMY -: Right InterStim Psychosocial/ Personal History: Lives at home with family - Family History Family History: Reviewed- Non-Contributory - Social History Smoking Status: Never smoker Alcohol use: No CD- Drugs: No Caffeine use: Yes Place of Residence: Home Review of Systems 10-point ROS is otherwise unremarkable Genitourinary: Other (Left nephrostomy.) Physical Examination - Physical Exam General: Alert, In no apparent distress, Oriented x3 HEENT: Atraumatic, Normocephalic, PERRLA, Mucous membr. moist/pink, Sclerae nonicteric Neck: Supple, 2+ carotid pulse no bruit, No LAD, Without JVD or thyroid abnormality Respiratory: Clear to auscultation bilaterally, Normal air movement Cardiovascular: No edema, Normal pulses, Regular rate/rhythm, Normal S1 S2, No gallops, No rubs, No murmurs Capillary refill: <2 Seconds Gastrointestinal: Normal bowel sounds, Hypoactive, Soft and benign, Non- distended, W/out hepatomegaly, No ascites, No tenderness, No masses, No rebound, No guarding, Other (Left nephrostomy.) Musculoskeletal: No clubbing, No swelling, No contractures, No erythema, No tenderness, No warmth Integumentary: No rashes, No significant lesion, No tenderness/swelling, No erythema, No warmth, No cyanosis, Other (Left nephrostomy.) Neurological: Normal speech, Normal tone, Sensation intact, Normal reflexes 2+, Normal affect Lymphatics: No axilla or inguinal lymphadenopathy - Studies Laboratory Data (last 24 hrs) 04/06/25 04/06/25 04/06/25 21:47 21:47 21:47 WBC 9.10 Hgb 10.8 L Hct 33.3 L Plt Count 210 PT 14.8 H INR 1.32 APTT 31.9 Sodium 138 Potassium 4.1 BUN 22 H Creatinine 1.31 H Glucose 120 H Total Bilirubin 0.9 AST 11 L ALT < 14 Alkaline Phosphatase 78 Female Exam - Breasts Breasts: Normal configuration, Normal contours, Symmetrical Assessment and Plan - Plan Patient admitted inpatient with diagnosis of UTI and HARLEY. (1) UTI and HARLEY. - Meropenem 500 mg IV every 8 hours. Started patient with his broad-spectrum antibiotics because of patient history of frequent and recurrent UTIs. -IV NS at 50 mL/ hr x 2 L. -Order follow-up CMP. (2)Chronic COPD. - Ordered DuoNeb nebulizer treatment as needed every 6 hours. (3) DVT prophylaxis. -Heparin 520 units subcu every 8 hours. (4)Patient home medications to be started after they are reconciled. (4)Explained the entire treatment plan to the patient, solicited questions answered and voiced understanding. Discharge Plan: Home Plan to discharge in: Greater than 2 days - Advance Directives Does patient have a Living Will: No Does patient have a Durable POA for Healthcare: No - Code Status/Comfort Care Code Status Assessed: Yes Code Status: Full Code Critical Care: No Time Spent Managing Pts Care (In Minutes): 55
[2025-04-07] MEDS: NA CHLORIDE 0.9% 1,000 ML IV SCH (02:00)
[2025-04-07 02:55] VITALS: BMI 33.1
[2025-04-07 07:31] LABS: Absolute Lymphocytes (CBC) 0.6 K/uL (0.7-4.9); Hematocrit 34.2 % (36.0-45.0); Hemoglobin 11.1 g/dL (12.0-15.0); MCH 28.1 pg (27.0-35.0); MCHC 32.5 g/dL (32.0-36.0); MCV 86.4 fL (80-100); MPV 7.8 fL (7.6-11.3); Nucleated RBC Absolute Count 0.0 (0-0); Nucleated Red Blood Cells % 0.1 % (0-0); RBC Red Blood Cell Count 3.96 M/uL (3.86-4.86); White Blood Count 6.70 thou/uL (4.3-10.9)
[2025-04-07] MEDS: IPRATROPIUM BROM 0.5MG/2.5ML NEB PRN (07:45)
[2025-04-07] MEDS: ALBUTEROL 2.5 MG/3 ML NEB SOL NEB SCH (07:45)
[2025-04-07 07:47] LABS: Albumin 2.6 g/dL (3.4-5.0); Anion Gap 8.0 mEq/L (5.0-15.0); BUN Blood Urea Nitrogen 20.0 mg/dL (7-18); Glucose Level 120.0 mg/dL (74-106); Magnesium 2.2 mg/dL (1.6-2.4); Potassium 4.0 mEq/L (3.5-5.1)
--- NOTE | 2025-04-07 07:47 | P.PN ---
Date of Service: 04/07/25 Subjective: feels ~same as yesterday developed 102.5 fever after admission Mentation improved. 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 Family state she typically gets this way with UTIs. Has Extensive UTI/Bladder history. Multiple MDR infections. On prophylactic Fosfomycin Tromethamine 3gm every Monday/Monday prior to admission. s/p bilateral stents placed 03/05/24 and exchanged 06/04/24 with pyonephrosis again seen and renal washout performed with subsequent complicating infection now s/p cysto, bladder washout, removal of left ureteral stent p normal RGP, replacement of 7Fr Right ureteral stent p RGP revealing stricture disease at S1- S2/pelvic inlet, and catheter removed. Initially doing well on prophylactic Macrobid daily, but breakthrough left pyelonephritis required left PCN placement 01/19/2025 Navdeep had recommended bilateral PCN tubes however she did not feel like she could live with 2 externalized drainage bags; so essentially committing to internalize stenting with broaden antimicrobial coverage became the plan. Plan was for OR around April for cystoscopy with left ureteral stent placement and removal of nephrostomy tube, right ureteral stent exchange Has appt to see Dr. Stehi on 04/10/25 CT abdomen/pelvis (04/06): Mild bilateral hydro with a left PCN and right ureteral stent in place. Hyperdense material within the left proximal ureter. Urine suggestive of UTI. Has extensive history of MDR UTIs. Received IV rocephin in ED. 102.5 fever this morning before starting IV Merrem Start IV merrem (04/07-) Follow urine and blood cultures Monitor UOP VTE: heparin sq Code: Full Dispo: Home Pending cultures, afebrile > 24 hrs Time Spent Managing Pts Care (In Minutes): 55
[2025-04-07] MEDS: Meropenem 500 MG in NA CHLORIDE 0.9% 100 ML IV SCH (08:51)
[2025-04-07] MEDS: HEPARIN 5000 UNIT/ML 1 ML VIAL SQ SCH (08:53)
[2025-04-07] MEDS: ACETAMINOPHEN 325 MG TABLET PO PRN (08:58)
[2025-04-07] MEDS ORDERED: Meropenem 500 MG in NA CHLORIDE 0.9% 100 ML IV SCH (09:00)
[2025-04-07] MEDS: ACETAMINOPHEN 500 MG TAB ONE (09:07)
[2025-04-07] MEDS: ACETAMINOPHEN 500 MG TAB PO ONE (09:08)
[2025-04-07 18:29] LABS: Sqamous Epithelial <5 /HPF (None Seen); Urine Culture Reflex Order REFLEXED; Urine Microscopic Reflex YN ORDER UMIC
[2025-04-08 05:10] LABS: Absolute Lymphocytes (CBC) 0.9 K/uL (0.7-4.9); Hematocrit 29.7 % (36.0-45.0); Hemoglobin 10.0 g/dL (12.0-15.0); MCH 28.9 pg (27.0-35.0); MCHC 33.6 g/dL (32.0-36.0); MCV 86.0 fL (80-100); MPV 8.1 fL (7.6-11.3); Nucleated RBC Absolute Count 0.0 (0-0); Nucleated Red Blood Cells % 0.0 % (0-0); RBC Red Blood Cell Count 3.45 M/uL (3.86-4.86); White Blood Count 5.80 thou/uL (4.3-10.9)
[2025-04-08 05:38] LABS: ALT/SGPT < 14 U/L (13-56); AST/SGOT < 10 U/L (15-37); Albumin 2.2 g/dL (3.4-5.0); Albumin/Globulin Ratio 0.5 (1.1-1.8); Alkaline Phosphatase 65 U/L (45-117); Anion Gap 8.9 mEq/L (5.0-15.0); BUN Blood Urea Nitrogen 22 mg/dL (7-18); Globulin 4.1 g/dL (2.3-3.5); Glucose Level 112 mg/dL (74-106); Magnesium 2.3 mg/dL (1.6-2.4); Potassium 3.9 mEq/L (3.5-5.1)
[2025-04-08] MEDS: POTASSIUM CL SA 10 MEQ TAB PO ONE (08:39)
--- NOTE | 2025-04-08 14:49 | P.PN ---
Subjective Date of Service: 04/08/25 Chief Complaint: UTI, HARLEY, altered mental status. Patient is alert and oriented. She has no new complaint. No issues overnight. 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 Multiple MDR infections. On prophylactic Fosfomycin Tromethamine 3gm every Monday/Monday prior to admission. s/p bilateral stents placed 03/05/24 and exchanged 06/04/24 with pyonephrosis again seen and renal washout performed with subsequent complicating infection s/p cysto, bladder washout, removal of left ureteral stent, replacement of 7Fr Right ureteral stent p RGP revealing stricture disease at S1-S2/pelvic inlet, and catheter removed. Initially doing well on prophylactic Macrobid daily, but breakthrough left pyelonephritis required left PCN placement 01/19/2025 Navdeep had recommended bilateral PCN tubes however she did not feel like she could live with 2 externalized drainage bag. Patient planned for OR around April for cystoscopy with left ureteral stent placement and removal of nephrostomy tube, right ureteral stent exchange Has appt to see Dr. Sethi on 04/10/25 CT abdomen/pelvis (04/06): Mild bilateral hydro with a left PCN and right ureteral stent in place. Hyperdense material within the left proximal ureter. Urine suggestive of UTI. Has extensive history of MDR UTIs. Patient had fever which resolved with meropenem. Urine culture growing lactose fermenting GNR. Blood cultures have yielded no growth to date Continue IV meropenem Follow urine culture Monitor UOP Bronchodilators as needed for COPD VTE: heparin sq Code: Full Dispo: Home
[2025-04-09 07:10] LABS: Absolute Lymphocytes (CBC) 0.9 K/uL (0.7-4.9); Hematocrit 32.2 % (36.0-45.0); Hemoglobin 10.5 g/dL (12.0-15.0); MCH 28.1 pg (27.0-35.0); MCHC 32.6 g/dL (32.0-36.0); MCV 86.3 fL (80-100); MPV 8.8 fL (7.6-11.3); Nucleated RBC Absolute Count 0.0 (0-0); Nucleated Red Blood Cells % 0.1 % (0-0); RBC Red Blood Cell Count 3.73 M/uL (3.86-4.86); White Blood Count 5.40 thou/uL (4.3-10.9)
[2025-04-09 07:13] LABS: Albumin 2.3 g/dL (3.4-5.0); Albumin/Globulin Ratio 0.5 (1.1-1.8); Alkaline Phosphatase 71 U/L (45-117); Anion Gap 6.9 mEq/L (5.0-15.0); BUN Blood Urea Nitrogen 22 mg/dL (7-18); Globulin 4.2 g/dL (2.3-3.5); Glucose Level 98 mg/dL (74-106); Magnesium 2.2 mg/dL (1.6-2.4); Potassium 3.9 mEq/L (3.5-5.1)
[2025-04-09 07:18] LABS: ALT/SGPT < 14 U/L (13-56); AST/SGOT < 10 U/L (15-37)
--- NOTE | 2025-04-09 17:27 | P.PN ---
Subjective Date of Service: 04/09/25 Chief Complaint: UTI, HARLEY, altered mental status. No major changes from yesterday Patient slightly confused today. No recorded fever She is tolerating diet. 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 Multiple MDR infections. On prophylactic Fosfomycin Tromethamine 3gm every Monday/Monday prior to admission. s/p bilateral stents placed 03/05/24 and exchanged 06/04/24 with pyonephrosis again seen and renal washout performed with subsequent complicating infection s/p cysto, bladder washout, removal of left ureteral stent, replacement of 7Fr Right ureteral stent p RGP revealing stricture disease at S1-S2/pelvic inlet, and catheter removed. Initially doing well on prophylactic Macrobid daily, but had another breakthrough infection(left pyelonephritis) which required left PCN placement 01/19/2025 Navdeep had recommended bilateral PCN tubes however she did not feel like she could live with 2 externalized drainage bag. Patient planned for OR around April for cystoscopy with left ureteral stent placement and removal of nephrostomy tube, right ureteral stent exchange Has appt to see Dr. Sethi on 04/10/25 CT abdomen/pelvis (04/06): Mild bilateral hydro with a left PCN and right ureteral stent in place. Hyperdense material within the left proximal ureter. Urine suggestive of UTI. Has extensive history of MDR UTIs. Urine cultures growing Klebsiella pneumonia, antibiotic sensitivities pending Patient had fever which resolved with meropenem. Blood cultures have yielded no growth to date Continue IV meropenem Follow urine culture Monitor UOP VTE: heparin sq Code: Full Dispo: Home
[2025-04-09] MEDS: Meropenem 1,000 MG in NA CHLORIDE 0.9% 100 ML IV SCH (20:51)
[2025-04-10 05:19] LABS: Absolute Lymphocytes (CBC) 0.8 K/uL (0.7-4.9); Hematocrit 33.0 % (36.0-45.0); Hemoglobin 10.9 g/dL (12.0-15.0); MCH 28.2 pg (27.0-35.0); MCHC 33.2 g/dL (32.0-36.0); MCV 84.9 fL (80-100); MPV 7.7 fL (7.6-11.3); Nucleated RBC Absolute Count 0.0 (0-0); Nucleated Red Blood Cells % 0.1 % (0-0); RBC Red Blood Cell Count 3.88 M/uL (3.86-4.86); White Blood Count 4.70 thou/uL (4.3-10.9)
[2025-04-10 05:44] LABS: ALT/SGPT < 14 U/L (13-56); AST/SGOT < 10 U/L (15-37); Albumin 2.3 g/dL (3.4-5.0); Albumin/Globulin Ratio 0.5 (1.1-1.8); Alkaline Phosphatase 79 U/L (45-117); Anion Gap 7.0 mEq/L (5.0-15.0); BUN Blood Urea Nitrogen 21 mg/dL (7-18); Globulin 4.4 g/dL (2.3-3.5); Glucose Level 99 mg/dL (74-106); Magnesium 2.2 mg/dL (1.6-2.4); Potassium 4.0 mEq/L (3.5-5.1)
--- NOTE | 2025-04-10 17:48 | P.PN ---
Subjective Date of Service: 04/10/25 Chief Complaint: UTI, HARLEY, altered mental status. No major changes from yesterday No fever. Patient denies any new complaint. She is tolerating diet. 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 Multiple MDR infections. On prophylactic Fosfomycin Tromethamine 3gm every Monday/Monday prior to admission. s/p bilateral stents placed 03/05/24 and exchanged 06/04/24 with pyonephrosis again seen and renal washout performed with subsequent complicating infection s/p cysto, bladder washout, removal of left ureteral stent, replacement of 7Fr Right ureteral stent p RGP revealing stricture disease at S1-S2/pelvic inlet, and catheter removed. Initially doing well on prophylactic Macrobid daily, but had another breakthrough infection(left pyelonephritis) which required left PCN placement 01/19/2025 Navdeep had recommended bilateral PCN tubes however she did not feel like she could live with 2 externalized drainage bag. Patient planned for OR around April for cystoscopy with left ureteral stent placement and removal of nephrostomy tube, right ureteral stent exchange Has appt to see Dr. Sethi on 04/10/25 CT abdomen/pelvis (04/06): Mild bilateral hydro with a left PCN and right ureteral stent in place. Hyperdense material within the left proximal ureter. Urine suggestive of UTI. Has extensive history of MDR UTIs. Urine cultures growing Klebsiella pneumonia, antibiotic sensitivities pending Patient had fever which resolved with meropenem. Blood cultures have yielded no growth to date Continue IV meropenem Follow urine culture Monitor UOP 04/10/2025 Urine culture growing pansensitive Klebsiella pneumonia Scheduled antibiotics to IV Rocephin. Case discussed with Dr. Sethi and awaiting response Monitor urine output. Diet as tolerated. Patient has not used bronchodilators. VTE: heparin sq Code: Full Dispo: Home
[2025-04-10] MEDS: PHENOL 1.4% ORAL SPRAY 180ML MM PRN (23:01)
[2025-04-11] MEDS: CEFTRIAXONE 1,000 MG in NA CHLORIDE 0.9% 50 ML IVPB SCH (07:41)
--- NOTE | 2025-04-11 14:56 | P.PN ---
Subjective Date of Service: 04/11/25 Chief Complaint: UTI, HARLEY, altered mental status. Patient denies any complaint. She states she feels fine She has not had any fever She has been finishing her meals. 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 Multiple MDR infections. On prophylactic Fosfomycin Tromethamine 3gm every Monday/Monday prior to admission. s/p bilateral stents placed 03/05/24 and exchanged 06/04/24 with pyonephrosis again seen and renal washout performed with subsequent complicating infection s/p cysto, bladder washout, removal of left ureteral stent, replacement of 7Fr Right ureteral stent p RGP revealing stricture disease at S1-S2/pelvic inlet, and catheter removed. Initially doing well on prophylactic Macrobid daily, but had another breakthrough infection(left pyelonephritis) which required left PCN placement 01/19/2025 Navdeep had recommended bilateral PCN tubes however she did not feel like she could live with 2 externalized drainage bag. Patient planned for OR around April for cystoscopy with left ureteral stent placement and removal of nephrostomy tube, right ureteral stent exchange Has appt to see Dr. Sethi on 04/10/25 CT abdomen/pelvis (04/06): Mild bilateral hydro with a left PCN and right ureteral stent in place. Hyperdense material within the left proximal ureter. Urine suggestive of UTI. Has extensive history of MDR UTIs. Urine cultures growing Klebsiella pneumonia, antibiotic sensitivities pending Patient had fever which resolved with meropenem. Blood cultures have yielded no growth to date Continue IV meropenem Follow urine culture Monitor UOP 04/10/2025 Urine culture growing pansensitive Klebsiella pneumonia Scheduled antibiotics to IV Rocephin. Case discussed with Dr. Sethi and awaiting response Monitor urine output. Diet as tolerated. Patient has not used bronchodilators. 04/11/2025 1. Continue IV Rocephin for UTI. Patient to complete at least 2 weeks of antibiotics for complicated UTI 2. Dr. Sethi planning to evaluate patient for surgery next week. 3. Increase activity as tolerated. VTE: heparin sq Code: Full Dispo: Home
[2025-04-12 05:18] LABS: Absolute Lymphocytes (CBC) 1.2 K/uL (0.7-4.9); Hematocrit 32.9 % (36.0-45.0); Hemoglobin 10.7 g/dL (12.0-15.0); MCH 27.9 pg (27.0-35.0); MCHC 32.6 g/dL (32.0-36.0); MCV 85.6 fL (80-100); MPV 8.4 fL (7.6-11.3); Nucleated RBC Absolute Count 0.0 (0-0); Nucleated Red Blood Cells % 0.0 % (0-0); RBC Red Blood Cell Count 3.85 M/uL (3.86-4.86); White Blood Count 7.20 thou/uL (4.3-10.9)
[2025-04-12 05:29] LABS: Anion Gap 9.1 mEq/L (5.0-15.0); BUN Blood Urea Nitrogen 37.0 mg/dL (7-18); Glucose Level 112.0 mg/dL (74-106); Potassium 4.1 mEq/L (3.5-5.1)
--- NOTE | 2025-04-12 12:39 | P.PN ---
Subjective Date of Service: 04/12/25 Chief Complaint: UTI, HARLEY, altered mental status. Patient patient has no new complaint. She has not had any fever No issues overnight. Physical Examination - Vital Signs Temperature: 98.0 F Blood Pressure: 129/71 Pulse: 78 Respirations: 15 Pulse Ox (%): 93 - Studies Microbiology Data (last 24 hrs): 04/06/25 21:15 Blood - Blood Aerobic Blood Culture - Final No growth in 5 days. 04/06/25 21:15 Blood - Blood Anaerobic Blood Culture - Final No growth in 5 days. 04/06/25 21:47 Blood - Blood Aerobic Blood Culture - Final No growth in 5 days. 04/06/25 21:47 Blood - Blood Anaerobic Blood Culture - Final No growth in 5 days. Assessment And Plan - Plan Physical Exam: GEN: Awake, oriented x 3, NAD CV: Regular rate and rhythm, no edema Pulm:Nonlabored respirations on room air, clear bilaterally ABD: soft, nontender, left percutaneous nephrostomy draining clear urine. 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 Multiple MDR infections. On prophylactic Fosfomycin Tromethamine 3gm every Monday/Monday prior to admission. s/p bilateral stents placed 03/05/24 and exchanged 06/04/24 with pyonephrosis again seen and renal washout performed with subsequent complicating infection s/p cysto, bladder washout, removal of left ureteral stent, replacement of 7Fr Right ureteral stent p RGP revealing stricture disease at S1-S2/pelvic inlet, and catheter removed. Initially doing well on prophylactic Macrobid daily, but had another b reakthrough infection(left pyelonephritis) which required left PCN placement 01/19/2025 Navdeep had recommended bilateral PCN tubes however she did not feel like she could live with 2 externalized drainage bag. Patient planned for OR around April for cystoscopy with left ureteral stent placement and removal of nephrostomy tube, right ureteral stent exchange Has appt to see Dr. Sethi on 04/10/25 CT abdomen/pelvis (04/06): Mild bilateral hydro with a left PCN and right ureteral stent in place. Hyperdense material within the left proximal ureter. Urine suggestive of UTI. Has extensive history of MDR UTIs. Urine cultures growing Klebsiella pneumonia, antibiotic sensitivities pending Patient had fever which resolved with meropenem. Blood cultures have yielded no growth to date Continue IV meropenem Follow urine culture Monitor UOP 04/10/2025 Urine culture growing pansensitive Klebsiella pneumonia Scheduled antibiotics to IV Rocephin. Case discussed with Dr. Sethi and awaiting response Monitor urine output. Diet as tolerated. Patient has not used bronchodilators. 04/11/2025 1. Continue IV Rocephin for UTI. Patient to complete at least 2 weeks of antibiotics for complicated UTI 2. Dr. Sethi planning to evaluate patient for surgery next week. 3. Increase activity as tolerated. 04/12/2025 1. Continue IV Rocephin, patient slated for 2 weeks of antibiotics 2. Urology Dr. Oakes planning cystoscopy on Monday. 3. Encourage physical activity. 4. COPD has been stable. VTE: heparin sq Code: Full Dispo: Home
--- NOTE | 2025-04-13 11:51 | P.PN ---
Subjective Date of Service: 04/13/25 Chief Complaint: UTI, HARLEY, altered mental status. No new complaint Patient is eating well. No recorded fever. Physical Examination - Vital Signs Temperature: 97.4 F Blood Pressure: 143/67 Pulse: 73 Respirations: 17 Pulse Ox (%): 96 Assessment And Plan - Plan Physical Exam: GEN: Awake and alert, NAD CV: Regular rate and rhythm, no edema Pulm:Nonlabored respirations on room air, clear bilaterally ABD: soft, nontender, left percutaneous nephrostomy draining clear urine. 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 Multiple MDR infections. On prophylactic Fosfomycin Tromethamine 3gm every Monday/Monday prior to admission. s/p bilateral stents placed 03/05/24 and exchanged 06/04/24 with pyonephrosis again seen and renal washout performed with subsequent complicating infection s/p cysto, bladder washout, removal of left ureteral stent, replacement of 7Fr Right ureteral stent p RGP revealing stricture disease at S1-S2/pelvic inlet, and catheter removed. Initially doing well on prophylactic Macrobid daily, but had another breakthrough infection(left pyelonephritis) which required left PCN placement 01/19/2025 Navdeep had recommended bilateral PCN tubes however she did not feel like she could live with 2 externalized drainage bag. Patient planned for OR around April for cystoscopy with left ureteral stent placement and removal of nephrostomy tube, right ureteral stent exchange Has appt to see Dr. Sethi on 04/10/25 CT abdomen/pelvis (04/06): Mild bilateral hydro with a left PCN and right ureteral stent in place. Hyperdense material within the left proximal ureter. Urine suggestive of UTI. Has extensive history of MDR UTIs. Urine cultures growing Klebsiella pneumonia, antibiotic sensitivities pending Patient had fever which resolved with meropenem. Blood cultures have yielded no growth to date Continue IV meropenem Follow urine culture Monitor UOP 04/10/2025 Urine culture growing pansensitive Klebsiella pneumonia Scheduled antibiotics to IV Rocephin. Case discussed with Dr. Sethi and awaiting response Monitor urine output. Diet as tolerated. Patient has not used bronchodilators. 04/11/2025 1. Continue IV Rocephin for UTI. Patient to complete at least 2 weeks of anti biotics for complicated UTI 2. Dr. Sethi planning to evaluate patient for surgery next week. 3. Increase activity as tolerated. 04/12/2025 1. Continue IV Rocephin, patient slated for 2 weeks of antibiotics 2. Urology Dr. Oakes planning cystoscopy on Monday. 3. Encourage physical activity. 4. COPD has been stable. 04/13/2025 1. Continue IV Rocephin 2. Urology procedure by Dr. Sethi tentatively planned for tomorrow. 3. Analgesics as needed. 4. Activity as tolerated. VTE: heparin sq Code: Full Dispo: Home
[2025-04-14 06:29] LABS: Anion Gap 12.2 mEq/L (5.0-15.0); BUN Blood Urea Nitrogen 34.0 mg/dL (7-18); Glucose Level 99.0 mg/dL (74-106)
[2025-04-14 06:36] LABS: Potassium 4.2 mEq/L (3.5-5.1)
[2025-04-14 08:09] LABS: Absolute Lymphocytes (CBC) 1.3 K/uL (0.7-4.9); Hematocrit 33.7 % (36.0-45.0); Hemoglobin 10.9 g/dL (12.0-15.0); MCH 27.8 pg (27.0-35.0); MCHC 32.5 g/dL (32.0-36.0); MCV 85.4 fL (80-100); MPV 7.8 fL (7.6-11.3); Nucleated RBC Absolute Count 0.0 (0-0); Nucleated Red Blood Cells % 0.2 % (0-0); RBC Red Blood Cell Count 3.94 M/uL (3.86-4.86); White Blood Count 6.60 thou/uL (4.3-10.9)
[2025-04-14] MEDS: Ringers Lactate 1,000 ML IV ONE (10:00)
[2025-04-14] MEDS ORDERED: ONDANSETRON 4 MG/2 ML VIAL ONE (10:16)
[2025-04-14] MEDS ORDERED: LIDOCAINE 1% MPF 5 ML VIAL ONE (10:16)
[2025-04-14] MEDS ORDERED: FENTANYL CITR 100 MCG/2 ML ONE (10:16)
--- NOTE | 2025-04-14 11:14 | P.CNS ---
Date of Consult: 04/14/25 Reason for Consult: complicated UTI Requesting Physician: nova moreira Chief Complaint: UTI, HARLEY, altered mental status. History of Present Illness: 80-year-old woman well-known to me with asthma, arthritis, COPD, hyperlipidemia, osteoporosis, hypertension and history of recurrent UTIs complicated by pyelonephritis associated with bilateral ureteral stricture disease and hydronephrosis requiring the presence of ureteral stenting or percutaneous nephrostomy tube drainage. It has been reasonably well-established that her infections are lower urinary tract in origin associated with fecal soiling of the perineal region due to incontinence and relative immobility, and the infection is ascending. She recently had a percutaneous nephrostomy tube placed at [facility], and the plan, after extensive discussion held as an outpatient, was to replace a left ureteral stent and remove the left percutaneous nephrostomy tube while replacing the right ureteral stent as well. In the interim however, she had been maintained on twice weekly fosfomycin to decrease the risk of complicating infection, but her daughter explained to me that she apparently stopped taking the fosfomycin because she felt like it gave her diarrhea. As a result, on the day of admission, 04/06/2025, she was noted by her daughter to have altered mental status associated with fatigue and subjective fevers. She was taken to the hospital where she was admitted and IV antimicrobial therapy has been given. 04/06/2025 urine culture revealed Klebsiella pneumoniae sensitive to Bactrim and the fluoroquinolones. She has been on ceftriaxone of late, initially on quita openem. 04/06/2025 WBC 9.1, hemoglobin 10.8, platelets 210, lactate less than 0.8 04/14/2025 WBC 6.6, hemoglobin 10.9, platelets 250, INR 1.32, creatinine 1.08 with eGFR 52 04/06/2025 CT with IV contrast, my review of the findings: Left percutaneous nephrostomy tube in good position with decompressed left renal pelvis. No significant enhancement of the pelvic urothelium. Right ureter and pelvis thickened and enhancing with some ureteral nephrosis despite stent in place. Bladder decompressed around the stent. Examination: Patient well-appearing and in no acute distress Alert and awake No dyspnea or sign of respiratory distress Abdomen soft, nontender Pulse 2+ radial and regular Lying in a hospital bed comfortable appearing Assessment and recommendation: 80-year-old woman well-known to me with asthma, arthritis, COPD, hyperlipidemia, osteoporosis, hypertension and history of recurrent UTIs complicated by pyelonephritis associated with bilateral ureteral stricture disease and hydronephrosis with left percutaneous nephrostomy tube in place and right ureteral stent with evidence of pyelonephrosis despite decompressed bladder, suggestive of ascending infection. -Counseling was held with the patient and then separately with the daughter by phone explaining my review of the images and presumption that the infection was ascending and likely involving the stented ureter. I explained that if we return to bilateral ureteral stenting, she will be at high risk of recurrent infection unless we maintain her on routine prophylactic antimicrobial therapy at all times. I further explained that we could probably avoid these infections with bilateral percutaneous nephrostomy tubes, and we discussed in detail how the tubes could be less apparent if she had to deal with them. At this point, however, the patient would really prefer not to have the percutaneous nephrostomy tubes despite the increased risk of infection associated with bilateral ureteral stenting. -As a result, we agreed that I would proceed today with exchange of the right ureteral stent, replace the left ureteral stent, and remove the left percutaneous nephrostomy tube. -She should be discharged on the completion of a 14-day course of tissue penetrating antimicrobial, likely with a fluoroquinolone, and thereafter, she should be maintained on prophylactic once daily Bactrim DS given her intolerance to fosfomycin at this time due to loose stools. - To try to decrease the risk of breakthrough infection, we will plan every 3 month office straight cath and urine culture to assess for resistant organism colonizing the urinary tract that may subsequently develop infection, and adjust accordingly. -Beyond that, we will plan every 6 month bilateral ureteral stent exchanges indefinitely -I did funeral pre arrangement counselor the patient that should she have a severe breakthrough infection despite the above protocol and taking antimicrobials regularly, bilateral percutaneous nephrostomy tubes at that point would be required. Allergies formoterol [From Symbicort] Allergy (Unknown, Verified 04/07/25 02:56) unknown amoxicillin Allergy (Verified 04/07/25 02:56) severe diarrhea budesonide [From Symbicort] Allergy (Verified 04/07/25 02:56) unknown fentanyl Allergy (Verified 04/07/25 02:56) hallucinations oxybutynin [From Oxytrol] Allergy (Verified 04/07/25 02:56) Rash bactria Allergy (Uncoded 05/30/24 08:47) unknown z-pack Allergy (Uncoded 05/30/24 08:47) severe diarrhea Home medications list reviewed: Yes Home Medications: Potassium Gluconate [Potassium] 2 tab PO TID 12/23/23 Acetaminophen [Tylenol] 650 mg PO TIDP PRN 11/12/24 Albuterol Sulfate [Albuterol Sulfate Hfa] 2 puff IH Q8HP PRN 11/14/24 Ibandronate Sodium [Boniva] 150 mg PO Q30D 11/14/24 Ascorbic Acid [Vitamin C*] 500 mg PO DAILY 11/22/24 Cranberry Fruit Extract [Ellura] 200 mg PO DAILY 11/22/24 Cholecalciferol (Vitamin D3) [Vitamin D3] 1,000 unit PO DAILY 04/07/25 - Past Medical/Surgical History Diabetic: No -: HTN -: HYPERLIPIDIMEA -: ASTHMA -: Frequent and recurrent UTI -: Atrophic bladder -: Arthritis. -: COPD. -: Hyperlipidemia -: Osteoporosis. -: Deviated septum. -: leftHIP SX -: TONSILLECTOMY -: Right InterStim Psychosocial/ Personal History: Lives at home with family - Social History Smoking Status: Unknown if ever smoked Alcohol use: No CD- Drugs: No Caffeine use: Yes Place of Residence: Home Physical Examination Temp Pulse Resp BP Pulse Ox 97.3 F 72 18 144/76 H 94 04/14/25 09:35 04/14/25 09:35 04/14/25 09:35 04/14/25 09:35 04/14/25 08:00 - Problems (1) Acute pyonephrosis Current Visit: Yes Status: Acute (2) Complicated UTI (urinary tract infection) Current Visit: No Status: Acute (3) Ureteral stricture, left Current Visit: Yes Status: Acute (4) Ureteral stricture, right Current Visit: Yes Status: Acute Conclusions/Impression: see in HPI Critical Care: No Time Spent Managing Pts care (In Minutes): 30
[2025-04-14] MEDS ORDERED: EPHEDRINE SULF 50 MG/ML VIAL ONE (11:22)
[2025-04-14] MEDS ORDERED: MORPHINE 10 MG/ML VIAL ONE (11:29)
--- NOTE | 2025-04-14 12:27 | P.OP ---
Date of Service: 04/14/25 Preoperative diagnoses: Bilateral ureteral stricture disease Complicated UTI with pyelonephrosis Fecal and urinary incontinence Postoperative diagnoses: Bilateral ureteral stricture disease Complicated UTI with pyelonephrosis Fecal and urinary incontinence Principal procedures: Cystoscopy with bladder washout Right retrograde pyelography with renal aspiration and culture Right ureteral stent exchange Left retrograde pyelography Left ureteral stent placement Indications for procedure: 80-year-old woman well-known to co with asthma, arthritis, COPD, hyperlipidemia, osteoporosis, hypertension and history of recurrent UTIs complicated by pyelonephritis associated with bilateral ureteral stricture disease and hydronephrosis with left percutaneous nephrostomy tube in place and right ureteral stent with evidence of pyelonephrosis despite decompressed bladder, suggestive of ascending infection. Procedure note: The patient was consented in the preoperative holding area before being transferred to the operative suite where general anesthesia was induced. She was being treated with ceftriaxone IV antimicrobial therapy on the floor based on cultures obtained revealing Klebsiella pneumoniae infection. She was placed in the lithotomy position, padded and secured to the table appropriately, and her genitalia was prepped with Hibiclens and draped in standard fashion after a significant degree of fecal matter was removed from her perineal and genital region. The case was then begun after draping the patient by using a 22 Moldovan rigid cystoscope to traverse the urethra and into the bladder with ease. The bladder was decompressed of cloudy urine, and a culture was taken. I then irrigated her bladder to remove additional cloudy material and improve visualization. I then surveyed the bladder, and no papillary mucosal lesions, foreign bodies or stones were noted throughout. The right ureteral stent was emanating from the right ureteral orifice, which was patulous as had been previously observed. The left ureteral orifice was free of stent but was also patulous with marked detrusor trabeculation throughout and significant contraction of the bladder that prohibited significant filling/distention. As a result, I grasped the right ureteral stent and delivered it to the meatus passing a sensor wire up the stent into the putative collecting system where it coiled. I then passed a 5 Moldovan ureteral access catheter over the wire and remove the wire allowing the collecting system to decompress. I took a culture of this also cloudy urine coming from the right kidney. I then injected a bolus of 5 to 6 cc of a 70: 30 mixture of Omnipaque and saline via the 5 Moldovan ureteral access catheter to perform a retrograde pyelogram. Right retrograde pyelography: Using that mixture, contrast was injected via the 5 Moldovan ureteral access catheter and did fill a moderately hydronephrotic renal pelvis with caliectasis. As a result, I decompressed the kidney passively and then aspirated an additional 10 to 20 cc of cloudy fluid before then irrigating the kidney using a 20 cc syringe and saline until the fluid was no longer cloudy. I then allowed the kidney to decompress passively again before passing the sensor wire back into the collecting system removed and the 5 Moldovan ureteral access catheter and then passing a 8 Moldovan by 24 cm double-J ureteral stent over the wire into the collecting system with a coil observed fluoroscopically in the upper pole and 1 cystoscopically formed in her bladder. I then turned my attention to the patient's left side where I cannulated the patulous ureteral orifice with the 5 Moldovan ureteral access catheter. Left retrograde pyelography: Again using a 70: 30 mixture of Omnipaque and saline, contrast was injected via the lumen of the 5 Moldovan ureteral access catheter and did propagate up the distal into the mid and proximal ureter before entering the renal pelvis and calyces where a nephrostomy tube was coiled in the renal pelvis. We had previously clamped the nephrostomy tube for the purposes of this evaluation. There was mild to insignificant hydronephrosis noted. As a result, I advanced a [employer] guidewire up the 5 Moldovan ureteral access catheter and into the collecting system upper pole. I passed another 8 Moldovan by 24 cm double-J stent over that wire into the upper pole where I coiled the stent in the upper pole fluoroscopically before observing a coil cystoscopically in the bladder. I then cut and removed the nephrostomy tube under fluoroscopic guidance to ensure it did not dislodge the stent in the process. The stent remained in good position; so I decompressed her bladder of fluid and urine and remove the cystoscope. She was then taken out of the lithotomy position, awakened from general anesthesia, transferred to a stretcher, and then transferred to the recovery room in good condition. Complications: None Discharge disposition: -Counseling was held with the patient and then separately with the daughter by phone explaining my review of the images and presumption that the infection was ascending and likely involving the stented ureter. I explained that if we return to bilateral ureteral stenting, she will be at high risk of recurrent infection unless we maintain her on routine prophylactic antimicrobial therapy at all times. I further explained that we could probably avoid these infections with bilateral percutaneous nephrostomy tubes, and we discussed in detail how the tubes could be less apparent if she had to deal with them. At this point, however, the patient would really prefer not to have the percutaneous nephrostomy tubes despite the increased risk of infection associated with bilateral ureteral stenting. -She should be discharged on the completion of a 14-day course of tissue penetrating antimicrobial, likely with a fluoroquinolone, and thereafter, she should be maintained on prophylactic once daily Bactrim DS given her intolerance to fosfomycin at this time due to loose stools. - To try to decrease the risk of breakthrough infection, we will plan every 3 month office straight cath and urine culture to assess for resistant organism colonizing the urinary tract that may subsequently develop infection, and adjust accordingly. -Beyond that, we will plan every 6 month bilateral ureteral stent exchanges indefinitely -I did residential youth counselor the patient that should she have a severe breakthrough infection despite the above protocol and taking antimicrobials regularly, bilateral percutaneous nephrostomy tubes at that point would be required.
--- NOTE | 2025-04-14 15:01 | P.PN ---
Subjective Date of Service: 04/14/25 Chief Complaint: UTI, HARLEY, altered mental status. Patient underwent cystoscopy and retrograde pyelogram by Dr. Sethi today. Patient denies any complaints. Physical Examination - Vital Signs Temperature: 97.3 F Blood Pressure: 134/92 Pulse: 100 Respirations: 18 Pulse Ox (%): 94 Assessment And Plan - Plan Physical Exam: GEN: Awake and alert, NAD CV: Regular rate and rhythm, no edema Pulm:Nonlabored respirations on room air, clear bilaterally ABD: soft, nontender, no hepatosplenomegaly. 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 Multiple MDR infections. On prophylactic Fosfomycin Tromethamine 3gm every Monday/Monday prior to admission. s/p bilateral stents placed 03/05/24 and exchanged 06/04/24 with pyonephrosis again seen and renal washout performed with subsequent complicating infection s/p cysto, bladder washout, removal of left ureteral stent, replacement of 7Fr Right ureteral stent p RGP revealing stricture disease at S1-S2/pelvic inlet, and catheter removed. Initially doing well on prophylactic Macrobid daily, but had another breakthrough infection(left pyelonephritis) which required left PCN placement 01/19/2025 Navdeep had recommended bilateral PCN tubes however she did not feel like she could live with 2 externalized drainage bag. Patient planned for OR around April for cystoscopy with left ureteral stent placement and removal of nephrostomy tube, right ureteral stent exchange Has appt to see Dr. Sethi on 04/10/25 CT abdomen/pelvis (04/06): Mild bilateral hydro with a left PCN and right ureteral stent in place. Hyperdense material within the left proximal ureter. Urine suggestive of UTI. Has extensive history of MDR UTIs. Urine cultures growing Klebsiella pneumonia, antibiotic sensitivities pending Patient had fever which resolved with meropenem. Blood cultures have yielded no growth to date Continue IV meropenem Follow urine culture Monitor UOP 04/10/2025 Urine culture growing pansensitive Klebsiella pneumonia Scheduled antibiotics to IV Rocephin. Case discussed with Dr. Sethi and awaiting response Monitor urine output. Diet as tolerated. Patient has not used bronchodilators. 04/11/2025 1. Continue IV Rocephin for UTI. Patient to complete at least 2 weeks of antibiotics for complicated UTI 2. Dr. Sethi planning to evaluate patient for surgery next week. 3. Increase activity as tolerated. 04/12/2025 1. Continue IV Rocephin, patient slated for 2 weeks of antibiotics 2. Urology Dr. Oakes planning cystoscopy on Monday. 3. Encourage physical activity. 4. COPD has been stable. 04/13/2025 1. Continue IV Rocephin 2. Urology procedure by Dr. Sethi tentatively planned for tomorrow. 3. Analgesics as needed. 4. Activity as tolerated. 04/14/2025 1. Status post cystoscopy and retrograde pyelogram by Dr. Sethi, right ureteral stent exchanged, new left ureteral stent placed, and left nephrostomy tube removed. Aspirated urine sent for culture, follow results. 2. Continue IV Rocephin. Patient need [address] Sethi recommended discharge pending treatment of antibiotics Levaquin for 14 days followed by Bactrim DS daily. 3. Monitor overnight, possible discharge in a.m. VTE: heparin sq Code: Full Dispo: Home
--- NOTE | 2025-04-14 17:21 | RAD REPORT ---
EXAMUrethrocystogrphy Retrograde CLINICAL HISTORY: Bilateral ureteral stent placement FINDINGS: 14 fluoroscopic spot images submitted. Fluoroscopy time 0.8 minutes. Please refer to the surgeons report for findings
[2025-04-14 23:31] VITALS: O2SAT 92
[2025-04-15 05:29] LABS: Absolute Lymphocytes (CBC) 0.7 K/uL (0.7-4.9); Hematocrit 35.8 % (36.0-45.0); Hemoglobin 11.8 g/dL (12.0-15.0); MCH 28.1 pg (27.0-35.0); MCHC 33.1 g/dL (32.0-36.0); MCV 84.8 fL (80-100); MPV 7.8 fL (7.6-11.3); Nucleated RBC Absolute Count 0.0 (0-0); Nucleated Red Blood Cells % 0.1 % (0-0); RBC Red Blood Cell Count 4.22 M/uL (3.86-4.86); White Blood Count 8.30 thou/uL (4.3-10.9)
--- NOTE | 2025-04-15 10:31 | P.DS ---
Admission Date: 04/07/25 Discharge Date: 04/15/25 Disposition: DC HOME/HOME HEALTH CARE Discharge Condition: FAIR Reason for Admission: UTI, HARLEY, altered mental status. Consultations: Urology - Dr. Sethi Brief History of Present Illness: 80yo F, PMH: asthma, arthritis, COPD, frequent and recurrent UTIs, hyperlipidemia, osteoporosis, hypertension, deviated septum. Patient brought to ER tonight due to altered mental status according to family, and urinary symptoms. Patient daughter states that patient has had decreased appetite, fatigue, and was not acting herself today. States these are the sym ptoms she normally have when she has a UTI. States patient nephrostomy tube was placed 2 months ago and has an appointment with Dr. Sethi on 04/10/25 with plan for ureteral stent placement. When I saw the patient for admission assessment, patient was fully awake, alert and oriented x 3, patient was not altered at this time, respond to my questions appropriately,communicates appropriately, and f ollows all commands appropriately. No focal or sensory deficit identified at this time. Patient in no acute distress at this time. Patient BUN 22, creatinine 1.31, GFR 41. Course in ER. (1) CT abdomen/pelvis. Impression: Mild bilateral hydronephrosis with a left percutaneous nephrostomy and right ureteral stent in place. Hyperdense material within the left proximal ureter. This could represent blood products. Difficult to exclude an underlying infectious process within both renal collecting system. 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 CT abdomen/pelvis on admission showed mild bilateral hydro with a left PCN and right ureteral stent in place. Urine culture grew Klebsiella Pneumoniae, only resistant to nitrofurantoin. Blood cultures were without growth. She is known to have extensive UTI/bladder history who follows Dr. Sethi, urologist on an outpatient basis. Prior to admission she had a follow up scheduled for early April to discuss planning for cystoscopy with left ureteral stent placement and removal of nephrostomy tube, right ureteral stent exchange. Dr. Sethi had highly recommended consideration of bilateral percutaneous nephrostomy tubes to reduce the risk of infection however patient preferred not to have the percutaneous nephrostomy tubes despite the increased risk of infection associated with bilateral ureteral stenting. Patient underwent right ureteral stent exchange and left ureteral stent placement with Dr. Sethi on 04/14/25. Patient will need to complete 14 day total antibiotic course. Once complete she will need to be on a prophylactic once daily Bactrim DS given her intolerance to fosfomycin. Dr. Sethi would like office visits every 3 months to straight cath and obtain urine culture to assess for resistant infections and adjust accordingly. Current plan is for bilateral ureteral stent exchanges every ~6 months. Patient completed 3 days of IV merrem in addition to 4 days of IV rocephin and is to complete 2 more week of oral levaquin on discharge. Medications: Levaquin 750mg daily x2 week then prophylactic once daily Bactrim DS until otherwise instructed by Dr. Sethi at follow up appointment Follow up: PCP 3-[address] Sethi, Urology Please call to schedule / confirm appointments Vital Signs/Physical Exam: Temp Pulse Resp BP Pulse Ox 97.5 F 106 H 20 119/75 93 04/15/25 08:00 04/15/25 08:00 04/15/25 08:00 04/15/25 08:00 04/15/25 08:00 Laboratory Data at Discharge: WBC 8.30 thou/uL (4.3-10.9) 04/15/25 04:59 Hgb 11.8 g/dL (12.0-15.0) L D 04/15/25 04:59 Hct 35.8 % (36.0-45.0) L 04/15/25 04:59 Plt Count 287 thou/uL (152-406) 04/15/25 04:59 PT 14.8 SECONDS (10-13.0) H 04/06/25 21:47 INR 1.32 04/06/25 21:47 APTT 31.9 SECONDS (27.2-37.4) 04/06/25 21:47 Sodium 138 mEq/L (136-145) 04/14/25 05:21 Potassium 4.2 mEq/L (3.5-5.1) 04/14/25 05:21 BUN 34 mg/dL (7-18) H 04/14/25 05:21 Creatinine 1.08 mg/dL (0.55-1.02) H 04/14/25 05:21 Glucose 99 mg/dL (74-106) 04/14/25 05:21 Phosphorus 2.6 mg/dL (2.5-4.9) 04/07/25 07:14 Magnesium 2.2 mg/dL (1.6-2.4) 04/10/25 04:52 Total Bilirubin 0.3 mg/dL (0.2-1.0) 04/10/25 04:52 AST < 10 U/L (15-37) L 04/10/25 04:52 ALT < 14 U/L (13-56) 04/10/25 04:52 Alkaline Phosphatase 79 U/L (45-117) 04/10/25 04:52 Home Medications: Potassium Gluconate [Potassium] 2 tab PO TID 12/23/23 Acetaminophen [Tylenol] 650 mg PO TIDP PRN 11/12/24 Albuterol Sulfate [Albuterol Sulfate Hfa] 2 puff IH Q8HP PRN 11/14/24 Ibandronate Sodium [Boniva] 150 mg PO Q30D 11/14/24 Ascorbic Acid [Vitamin C*] 500 mg PO DAILY 11/22/24 Cranberry Fruit Extract [Ellura] 200 mg PO DAILY 11/22/24 Cholecalciferol (Vitamin D3) [Vitamin D3] 1,000 unit PO DAILY 04/07/25 Smz./Tmp. [Bactrim Ds 800 MG/160 MG] 1 each PO DAILY #30 tab 04/14/25 levoFLOXacin [Levaquin*] 750 mg PO DAILY #14 tab 04/14/25 New Medications: Smz./Tmp. [Bactrim Ds 800 MG/160 MG] 1 each PO DAILY #30 tab levoFLOXacin [Levaquin*] 750 mg PO DAILY #14 tab Physician Discharge Instructions: Physician discharge instructions: Patient presented with worsening confusion, fatigue secondary to recurrent complicated UTI secondary to neuropathic detrusor dysfunction and bilateral ureteral strictures. CT abdomen/pelvis on admission showed mild bilateral hydro with a left PCN and right ureteral stent in place. Urine culture grew Klebsiella Pneumoniae, only resistant to nitrofurantoin. Blood cultures were without growth. She is known to have extensive UTI/bladder history who follows Dr. Sethi, urologist on an outpatient basis. Prior to admission she had a follow up scheduled for early April to discuss planning for cystoscopy with left ureteral stent placement and removal of nephrostomy tube, right ureteral stent exchange. Dr. Sethi had highly recommended consideration of bilateral percutaneous nephrostomy tubes to reduce the risk of infection however patient preferred not to have the percutaneous nephrostomy tubes despite the increased risk of infection associated with bilateral ureteral stenting. Patient underwent right ureteral stent exchange and left ureteral stent placement with Dr. Sethi on 04/14/25. Patient will need to complete 14 day total antibiotic course. Once complete she will need to be on a prophylactic once daily Bactrim DS given her intolerance to fosfomycin. Dr. Sethi would like office visits every 3 months to straight cath and obtain urine culture to assess for resistant infections and adjust accordingly. Current plan is for bilateral ureteral stent exchanges every ~6 months. Patient completed 3 days of IV merrem in addition to 4 days of IV rocephin and is to complete 2 more week of oral levaquin on discharge. Medications: Levaquin 750mg daily x2 week then prophylactic once daily Bactrim DS until otherwise instructed by Dr. Sethi at follow up appointment Follow up: PCP 3-[address] Sethi, Urology Please call to schedule / confirm appointments [facility] [employer] Call Criss Martin RN at [phone] for questions or concerns after discharge. Expect a call within 1-2 business days of discharge. Alternate: THUY Maldonado [phone]. Alternate: THUY Mart [phone]. Diet: AHA Activity: Fall precautions Followup: Abebe Morrell, DO [Primary Care Provider] - 1-2 Weeks Time spent managing pt's care (in minutes): 45
[2025-04-15 12:53] VITALS: BP 116/80; TEMP 97.4
== END 2025-04-15 15:19 | disposition home health service (06) | DRG 659 ==
LOC: ER 20:28 → ERHOLD 04-07 01:04 → 2ND 04-07 01:45
PROVIDERS: ADMIT Hospitalist; ATTEND Hospitalist
PROC: 0TP98DZ Removal of Intraluminal Device from Ureter, Via Natural or Artificial Opening Endoscopic (ICD-10-PCS; 2025-04-14)
PROC: BT1D1ZZ Fluoroscopy of Right Kidney, Ureter and Bladder using Low Osmolar Contrast (ICD-10-PCS; 2025-04-14)
PROC: 0T768DZ Dilation of Right Ureter with Intraluminal Device, Via Natural or Artificial Opening Endoscopic (ICD-10-PCS; principal; 2025-04-14 10:30)
DX: T83.512A Infection and inflammatory reaction due to nephrostomy catheter, initial encounter (principal); G93.41 Metabolic encephalopathy; N13.6 Pyonephrosis; N17.9 Acute kidney failure, unspecified; Z16.29 Resistance to other single specified antibiotic; I10 Essential (primary) hypertension; E78.00 Pure hypercholesterolemia, unspecified; M81.0 Age-related osteoporosis without current pathological fracture; J44.9 Chronic obstructive pulmonary disease, unspecified; B96.1 Klebsiella pneumoniae [K. pneumoniae] as the cause of diseases classified elsewhere; R15.9 Full incontinence of feces; R32 Unspecified urinary incontinence; Z88.1 Allergy status to other antibiotic agents; Z88.5 Allergy status to narcotic agent; Z96.642 Presence of left artificial hip joint; Z79.899 Other long term (current) drug therapy
CPT/HCPCS: 36415; 51610; 74177; 74450; 80048; 80053; 80069; 81001; 83605; 83735; 85025; 85610; 85730; 87040; 87077; 87086; 87088; 87186; 93005; 94640; 94760; 96365; 96366; 99285; J0696; J1644; J2003; J2185; J2405; J2704; J3010; J7030; J7120; J7613; J7644; Q9967